=== PATIENT | female | born 1990 | race Caucasian/White ===

== ENCOUNTER 2018-07-20 18:10 | Emergency (ER) | payer OTHER ==
--- OUTSIDE RECORDS SUMMARY | 2018-07-20 18:12 | XMS REPORT | Clinical Summary ---
:1990 Author Organization [facility] Address [address] [place] [address] Care Team Providers Name Role Phone Tramaine Gaspar Primary Care Provider Allergies Active Allergy Reactions Severity Noted Date Comments Metformin Other (See Comments) 08/17/2017 BS drop to the 40's Medications Medication Sig Dispensed Refills Start Date End Date Status estradiol Inject intramuscularly 0 Active cypionate every 28 days. (DEPO-ESTRADIOL) 5 mg/mL injection Active Problems Not on file Encounters Date Type Specialty Care Team Description 08/18/2017 Surgery Pedro Huddleston COLONOSCOPY MD 08/18/2017 Anesthesia Event Morelia Coles MD 08/18/2017 Hospital Encounter Pedro Huddleston MD 08/17/2017 Hospital Encounter Pre-Admission Testing Resource, [employer] Preadmit Phone after 07/19/2017 Social History Tobacco Use Types Packs/Day Years Used Date Current Every Day Smoker 0.25 15 Smokeless Tobacco: Never Used Tobacco Cessation: Counseling Given: Yes Alcohol Use Drinks/Week oz/Week Comments No Sex Assigned at Date Recorded Not on file Job Start Date Occupation Industry Not on file Not on file Not on file Travel History Travel Start Travel End No recent travel history available. Last Filed Vital Signs Vital Sign Reading Time Taken Blood Pressure 119/70 08/18/2017 4:05 PM [employer] Pulse 89 08/18/2017 4:05 PM [employer] Temperature 36.5 C (97.7 F) 08/18/2017 3:36 PM [employer] Respiratory Rate 19 08/18/2017 4:05 PM [employer] Oxygen Saturation 97% 08/18/2017 4:05 PM [employer] Inhaled Oxygen Concentration - - Weight 77.1 kg (170 lb) 08/17/2017 4:36 PM [employer] Height 157.5 cm (5' 2") 08/17/2017 4:36 PM [employer] Body Mass Index 31.09 08/17/2017 4:36 PM [employer] Plan of Treatment Not on file Procedures Procedure Name Priority Date/Time Associated Comments Diagnosis REPORT OF PROCEDURE - 08/18/2017 3:34 ENDOSCOPY URL PM [employer] COLONOSCOPY 08/18/2017 3:30 LLQ pain PM [employer] POCT , URINE Routine 08/18/2017 3:17 Results for this PM [employer] procedure are in the results section. POCT-GLUCOSE METER Routine 08/18/2017 2:59 Results for this PM [employer] procedure are in the results section. 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
--- OUTSIDE RECORDS SUMMARY | 2018-07-20 18:12 | XMS REPORT | Encounter Summary ---
:1990 Author Care Team Providers Name Role Phone Tramaine Gaspar MD Primary Care Provider [phone] Evens Arias MD Accounting Lecturer [phone] Svitlana Massey MD Front End Architect [phone] Kory East MD Hematology/Oncology [phone] Reason for Visit control Instructions 1. Contraception using injectable contraceptive medication Depo-Provera 150 mg/mL intramuscular suspension Discussion Note: None recorded.Patient educational handouts: No information available. Plan of Care Reminders Provider Appointments GUARDIAN AD LITEM/EST 10/03/2018 Tramaine Gaspar MD CPX 10:30AM Lab None recorded. Referral None recorded. Procedures None recorded. Surgeries None recorded. Imaging None recorded. Medications Name Start Date amitriptyline 25 mg tablet Take 1 tablet as needed by oral route at bedtime. amoxicillin 875 mg tablet Take 1 tablet every 12 hours by oral route for 10 days. cephalexin 500 mg capsule citalopram 10 mg tablet Take 1 tablet every day by oral route. clonazepam 0.5 mg tablet Take 1 tablet as needed by oral route in the evening. Depo-Provera 150 mg/mL intramuscular suspension Inject 1 mL every 3 months by intramuscular route. Injectafer 50 mg iron/mL intravenous solution Inject 750 mg every 2 weeks by intraven. route. naproxen 500 mg tablet Take 1 tablet twice a day by oral route as needed. phentermine 37.5 mg tablet Take 1 tablet every day by oral route in the morning. prednisone 20 mg tablet Take 2 tablets every day by oral route in the morning. Medications Administered Name Date Depo-Provera 150 mg/mL intramuscular suspension 7306-50-21V40:32:13 Inject 1 mL every 3 months by intramuscular route. Vitals None recorded. Lab Results None recorded. Allergies Code Code System Name Reaction Severity Status Onset 6803 RxNorm Metformin Nausea Active Problems Name Status Onset Date Source Anxiety Disorder Active 07/15/2017 Kidney Stone Active 07/15/2017 Chronic Low Back Pain Active 07/15/2017 Polycystic Ovaries Active 08/12/2017 Irritable Bowel Syndrome Active 08/12/2017 Scoliosis Deformity of Spine Active 08/12/2017 Family History of Malignant Neoplasm of Uterus Active 08/12/2017 Insomnia Active 09/01/2017 Increased Cancer Antigen 125 Active 09/01/2017 Iron Deficiency Anemia Active 2018 Overweight Active 03/08/2018 Smoker Active 04/13/2018 Procedures Date Name Performed by 08/18/2017 Colonoscopy Information not available Tooth Root Removal Information not available Vaccine List Vaccine Type influenza, injectable, quadrivalent, preservative free 03/08/2018 Tdap 08/13/20170.5 mL Social History Smoking Status Heavy Tobacco Smoker (1/2 PPD) Past Encounters 07/10/2018 Contraception Using Injectable Contraceptive Medication Amy Elena MD: [address], [address], [place] [address], Ph. History of Present Illness None recorded. Review of Systems None recorded. Physical Exam None recorded.
--- OUTSIDE RECORDS SUMMARY | 2018-07-20 18:12 | XMS REPORT ---
:1990 Author Organization [facility] Address [address] [place] [address] Dr. Raymond [address] [place] [address] Care Team Providers Name Role Phone DEE GUARDADOPESYordy LEONEU Unavailable Unavailable Problems This patient has no known problems. Allergies, Adverse Reactions, Alerts This patient has no known allergies or adverse reactions. Medications This patient has no known medications. Results Test Description Test Time Test Comments Text Results Atomic Results Result Comments POCT-GLUCOSE METER 2017-08-18 15:05:00 Test Item Value Reference Range Comments POC-GLUCOSE METER (ANN) (test 84 mg/dL 70-110 TESTED AT [facility] [address] [id number]) [facility] [id number]
--- OUTSIDE RECORDS SUMMARY | 2018-07-20 18:12 | XMS REPORT ---
:1990 Author Care Team Providers Name Role Phone KEV GASPAR MD Primary Care Provider [phone] SANJAY MA MD Client Manager [phone] MOON APONTE MD Stock Room Manager [phone] Allergies Code Code System Name Reaction Severity Status Onset 4102 RxNorm Metformin Nausea Active Medications Name Status Start Date Stop Date acetaminophen 300 mg-codeine 30 mg tablet Completed 07/15/2017 amitriptyline 25 mg tablet Active Not available Take 1 tablet as needed by oral route at bedtime. amitriptyline 50 mg tablet Completed 09/19/2017 Take 1 tablet as needed by oral route at bedtime. baclofen 20 mg tablet Active Not available Take 1 tablet as needed by oral route in the evening. prn spasm Depo-Provera 150 mg/mL intramuscular suspension Active Not available Inject 1 mL every 3 months by intramuscular route. famotidine 20 mg tablet Completed 08/12/2017 ibuprofen 800 mg tablet Completed 08/12/2017 methylprednisolone 4 mg tablets in a dose Completed 08/12/2017 pack metronidazole 500 mg tablet Completed 07/15/2017 naproxen 500 mg tablet Active Not available Take 1 tablet twice a day by oral route. Suprep Bowel Prep Kit 17.5 gram-3.13 Completed 09/01/2017 gram-1.6 gram oral solution tamsulosin 0.4 mg capsule Completed 08/12/2017 Problems Name Status Onset Date Source Diabetes Mellitus Unknown 07/15/2017 Body Mass Index 25-29 - Overweight Active 07/15/2017 Anxiety Disorder Active 07/15/2017 Kidney Stone Active 07/15/2017 Chronic Low Back Pain Active 07/15/2017 Polycystic Ovaries Active 08/12/2017 Irritable Bowel Syndrome Active 08/12/2017 Scoliosis Deformity of Spine Active 08/12/2017 Family History of Malignant Neoplasm of Uterus Active 08/12/2017 Insomnia Active 09/01/2017 Increased Cancer Antigen 125 Active 09/01/2017 Procedures Date Name Performed by 08/18/2017 Colonoscopy Information not available Tooth Root Removal Information not available Notes: Patient indicated no previous surgeries on (09/01/2017) Lab Results Date Name Specimen Result Interpretation Description Value Range Status Address 08/13/2017 Albumin:creatinine No observation [facility]: Ratio, Urine recorded. [address], [place] 08/13/2017 Urinalysis, Color Color yellow [facility]: Dipstick [address], [place] Color cloudy [facility]: Appearance [address], [place] Color Glucose 500 [facility]: [address], [place] Color negati [facility]: Bilirubin ve [address], [place] Color Ketones negati [facility]: ve [address], [place] Color 1.025 [facility]: Specific [address], [place] Color Blood negati [facility]: ve [address], [place] Color PH 5.0 [facility]: [address] [place] Color Protein negati [facility]: ve [address], [place] Color 0.2 [facility]: Urobilinogen [address], [place] Color negati [facility]: Nitrites ve [address], [place] Color trace [facility]: Leukocytes [address], [place] 08/12/2017 CMP, Serum or Normal Glucose 70 65-99 Final [facility] Plasma mg/dL mg/dL Practice Laboratory: [address] [facility] [address], [place] Normal Urea Nitrogen 10 7-25 Final [facility] (BUN) mg/dL mg/dL Practice Laboratory: [address] [facility] [address], [place] Normal Creatinine 0.80 0.50-1 Final [facility] mg/dL .10 Practice mg/dL Laboratory: [address] [facility] [address], [place] Normal eGFR Non-afr. 101 > Final [facility] Moldovan mL/min or=60 Practice /1.73m mL/min Laboratory: 2 /1.73m [address] [place] [address] [address], [place] Normal eGFR 117 > Final [facility] Moldovan mL/min or=60 Practice /1.73m mL/min Laboratory: 2 /1.73m [address] [place] [address] [address], [place] BUN/creatinin not 6-22 Final [facility] e Ratio applic (calc) Practice able Laboratory: (calc) [address] [place] Normal Sodium 140 135-14 Final [facility] mmol/L 6 Practice mmol/L Laboratory: [address], [place] Normal Potassium 4.2 3.5-5. Final [facility] mmol/L 3 Practice mmol/L Laboratory: [address] [place] Normal Chloride 110 98-110 Final [facility] mmol/L mmol/L Practice Laboratory: [address], [place] 13 20-31 Final [facility] Dioxide mmol/L mmol/L [facility] [address] [facility] Calcium 9.6 8.6-10 Final [facility] mg/dL .2 Practice mg/dL Laboratory: [address] [place] Normal Protein, 7.4 6.1-8. Final [facility] Total g/dL 1 g/dL [facility] [address] [facility] Albumin 4.2 3.6-5. Final [facility] g/dL 1 g/dL Practice Laboratory: [address] [place] Normal Globulin 3.2 1.9-3. Final [facility] g/dL 7 g/dL Practice (calc) (calc) Laboratory: [address] [place] Normal Albumin/globu 1.3 1.0-2. Final [facility] eric Ratio (calc) 5 Practice (calc) Laboratory: [address] [place] Normal Bilirubin, 0.5 0.2-1. Final [facility] Total mg/dL 2 Practice mg/dL Laboratory: [address] [facility] Alkaline 77 U/L 33-115 Final [facility] Phosphatase U/L Practice [facility]: [address] [facility] Normal Ast 18 U/L 10-30 Final [facility] U/L Practice [facility]: [address] [facility] Alt 17 U/L 6-29 Final [facility] U/L Practice Laboratory: [address] [place] 08/12/2017 CBC W/ Auto Diff Normal White Blood 9.3 3.8-10 Final [facility] Cell Count thousa .8 Practice nd/uL thousa Laboratory: nd/uL [address] Normal Red Blood 4.83 3.80-5 Final [facility] Cell Count millio .10 Practice n/uL millio Laboratory: n/uL [address] Low Hemoglobin 11.6 11.7-1 Final [facility] g/dL 5.5 Practice g/dL Laboratory: [address] Normal Hematocrit 37.2 % 35.0-4 Final [facility] 5.0 % Practice Laboratory: [address] Low Mcv 77.0 80.0-1 Final [facility] fL 00.0 Practice fL Laboratory: [address], [place] Low Mch 24.0 27.0-3 Final [facility] pg 3.0 pg Practice Laboratory: [address], [place] Low Mchc 31.2 32.0-3 Final [facility] g/dL 6.0 Practice g/dL Laboratory: [address] 15.6 % 11.0-1 Final [facility] 5.0 % Practice Laboratory: [address] Normal Platelet 373 140-40 Final [facility] Count thousa 0 Practice nd/uL thousa Laboratory: nd/uL [address] Normal Mpv 10.4 7.5-12 Final [facility] fL .5 fL Practice Laboratory: [address] Normal Absolute 5729 1500-7 Final [facility] Neutrophils cells/ 800 Practice uL cells/ Laboratory: uL [address] Normal Absolute 3032 850-39 Final [facility] Lymphocytes cells/ 00 Practice uL cells/ Laboratory: uL [address] Normal Absolute 400 200-95 Final [facility] Monocytes cells/ 0 Practice uL cells/ Laboratory: uL [address] Normal Absolute 93 15-500 Final [facility] Eosinophils cells/ cells/ Practice uL uL Laboratory: [address] Normal Absolute 47 0-200 Final [facility] Basophils cells/ cells/ Practice uL uL Laboratory: [address] Normal Neutrophils 61.6 % Final [facility] Practice Laboratory: [address] Normal Lymphocytes 32.6 % Final [facility] Practice Laboratory: [address], [place] Normal Monocytes 4.3 % Final [facility] Practice Laboratory: [address] Normal Eosinophils 1.0 % Final [facility] Practice Laboratory: [address] Normal Basophils 0.5 % Final [facility] Practice Laboratory: [address], [place] 08/12/2017 HbA1C (Hemoglobin High Hemoglobin 5.8 % <5.7 % Final [facility] a1C), Blood a1C of of Practice total total Laboratory: HGB HGB [address] EAG (mg/dL) 120 Final [facility] (calc) Practice Laboratory: [address] EAG (mmol/L) 6.6 Final [facility] (calc) Practice Laboratory: [address] 08/12/2017 TSH, Serum or Normal Tsh 1.93 Final [facility] Plasma mIU/L Practice Laboratory: [address] 08/12/2017 Lipid Panel, Serum Normal Cholesterol, 182 <200 Final [facility] Total mg/dL mg/dL Practice Laboratory: [address] Low HDL 32 >50 Final [facility] Cholesterol mg/dL mg/dL Practice Laboratory: [address] Normal Triglycerides 128 <150 Final [facility] mg/dL mg/dL Practice Laboratory: [address] High LDL-cholester 126 Final [facility] ol mg/dL Practice (calc) Laboratory: [address] High Chol/hdlc 5.7 <5.0 Final [facility] Ratio (calc) (calc) Practice Laboratory: [address] High Non HDL 150 <130 Final [facility] Cholesterol mg/dL mg/dL Practice (calc) (calc) Laboratory: [address] 08/12/2017 Ca 125, Serum High Ca 125 53 <35 Final [facility] U/mL U/mL Practice Laboratory: [address] Past Encounters 09/19/2017 Dysmenorrhea; Insomnia Kev Gaspar MD: [address], [facility] [address], [place] [address], Ph. 09/01/2017 Fatigue; Insomnia; Increased Cancer Antigen 125; Kidney Stone; Body Mass Index 25-29 - Overweight Kev Gaspar MD: [address], [address], [place] [address], Ph. [phone] 08/12/2017 Adult Health Examination; Immunization; Diabetes Mellitus; Family History of Malignant Neoplasm of Uterus; Smoker Amy Elena MD: [address], [address], [place] [address], Ph. 07/15/2017 Abdominal Pain; Kidney Stone; Body Mass Index 25-29 - Overweight Kev Gaspar MD: [address], [address], [place] [address], Ph. [phone] Social History Smoking Status Heavy Tobacco Smoker (1/2 PPD) Vaccine List Vaccine Type Tdap 08/13/20170.5 mL Notes: Flu vax - declined Plan of Care Patient Instructions RTC prn Pt may switch to us for Depo shot. Rec.bring copy of PAp results. RTC prn labs ordered today- results should be back within the the next 7 days- check the patient portal skim milk, fresh fruits/veggies for snacks take a daily multivitamin drink 6-8 glasses of water daily (no more than 2 soda per day, drink extra glass of water after each caffeinated drink). eat 4-5x per day- breakfast, lunch, dinner, healthy snacks I recommend starting/continuing a regular exercise program. Physical activity that raises your heart rate to the appropriate levels sustained for at least 45 minutes most days of the week is recommended. Stop/reduce smoking to decrease your risks of multiple cancers and lung disorders RTC CPX, DM w/ Dr. Elena Reminders Provider Appointments None recorded. Lab None recorded. Referral None recorded. Procedures None recorded. Surgeries None recorded. Imaging None recorded. Vitals 09/19/2017 10:15AM Work In Same Day Height Weight Blood Pressure 5 ft 7 in 122/76 mm[Hg] 09/01/2017 02:45PM Est Patient Height Weight BMI Blood Pressure 5 ft 7 in 173 lbs 27.1 kg/m2 142/88 mm[Hg] 08/12/2017 10:00AM BUTCHER/EST CPX Height Weight BMI Blood Pressure 5 ft 7 in 173.6 lbs 27.2 kg/m2 110/80 mm[Hg] 07/15/2017 11:15AM New Patient Height Weight BMI Blood Pressure 5 ft 7 in 170 lbs 26.6 kg/m2 126/80 mm[Hg]
[2018-07-20] MEDS ORDERED: KETOROLAC 30 MG/ML INJ ONE (21:00)
[2018-07-20 21:32] LABS: Absolute Lymphocytes (CBC) 3.8 K/uL (0.7-4.9); Absolute Monocytes 0.8 K/uL (0.1-1.3); Basophils % 0.7 % (0-1.3); Eosinophils % 1.6 % (0-4.4); Hematocrit 42.6 % (36.0-45.0); Lymphocytes % 38.9 % (15.3-44.8); MPV 8.2 fL (7.6-11.3); Monocytes % 7.8 % (3.3-12.3)
[2018-07-20 21:38] LABS: Urine Blood TRACE (NEG); Urine Glucose NEGATIVE (NEG); Urine Protein NEGATIVE (NEG)
[2018-07-20 21:42] LABS: Urine Amorphous Sediment 1+ /HPF (NONE SEEN); Urine Bacteria >50 /HPF (<20); Urine Culture Reflex Order REFLEXED; Urine RBC NONE SEEN /HPF (NONE SEEN)
[2018-07-20] MEDS ORDERED: CEFTRIAXONE/SWI 1gm 1 GM/10 ML SYR ONE (21:47)
[2018-07-20 21:52] LABS: Albumin 3.6 g/dL (3.4-5.0); Bilirubin Total 0.2 mg/dL (0.2-1.0); Potassium 3.7 mmol/L (3.5-5.1); Protein, Total 7.7 g/dL (6.4-8.2)
--- NOTE | 2018-07-20 22:28 | ER ---
Nurse's Notes [facility] Name: Debbie Rojo Age: 28 yrs Sex: Female : 1990 Arrival Date: 07/20/2018 Time: 18:15 Bed 14 Private MD: out of town, doctor Diagnosis: Low back pain;Strain of muscle and tendon of back wall of thorax;Cystitis;Scoliosis-s- shaped Presentation: 07/20 18:21 Presenting complaint: Patient states: i have a back pain and and i noticed rash on my hj back since this morning; reports radiating pain on the groin area; states hx of kidney stones and herniated disc;. Transition of care: patient was not received from another setting of care. Onset of symptoms was July 20, 2018. Risk Assessment: Do you want to hurt yourself or someone else? Patient reports no desire to harm self or others. Initial Sepsis Screen: Does the patient meet any 2 criteria? No. Patient's initial sepsis screen is negative. Does the patient have a suspected source of infection? No. Patient's initial sepsis screen is negative. Care prior to arrival: None. 18:21 Method Of Arrival: Ambulatory 18:21 Acuity: PATTI 3 Triage Assessment: 18:24 General: Appears in no apparent distress. uncomfortable, Behavior is calm, cooperative, hj appropriate for age. Pain: Complains of pain in back. Musculoskeletal: Circulation, motion, and sensation intact. 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 - Social history:: Smoking status: Patient uses tobacco products, Patient/guardian denies using alcohol. - Ebola Screening: : Patient negative for fever greater than or equal to 101.5 degrees Fahrenheit, and additional compatible Ebola Virus Disease symptoms Patient denies exposure to infectious person Patient denies travel to an Ebola-affected area in the 21 days before illness onset. - Family history:: not pertinent, pertinent for. Screenin:24 Abuse screen: Denies threats or abuse. Denies injuries from another. Nutritional hj screening: No deficits noted. Tuberculosis screening: No symptoms or risk factors identified. Fall Risk None identified. Assessment: 20:00 General: Appears in no apparent distress. uncomfortable, Behavior is calm, cooperative, rr5 appropriate for age. Pain: Complains of pain in back Pain radiates to groin Pain Quality of pain is described as aching, Pain began gradually, Is intermittent, Aggravated by increased activity. Neuro: Level of Consciousness is awake, alert, obeys commands, Oriented to person, place, time, situation, Appropriate for age. Cardiovascular: Capillary refill < 3 seconds Patient's skin is warm and dry. Respiratory: Airway is patent Respiratory pattern is regular, symmetrical. GI: No signs and/or symptoms were reported involving the gastrointestinal system. : No signs and/or symptoms were reported regarding the genitourinary system. EENT: No signs and/or symptoms were reported regarding the EENT system. Derm: Reports rashes at the back. Musculoskeletal: Capillary refill < 3 seconds, Range of motion: intact in all extremities, Reports pain in back. 21:00 Reassessment: Patient appears in no apparent distress at this time. No changes from rr5 previously documented assessment. Patient is alert, oriented x 3, equal unlabored respirations, skin warm/dry/pink. 22:10 Reassessment: Patient appears in no apparent distress at this time. Patient and/or rr5 family updated on plan of care and expected duration. Pain level reassessed. Patient is alert, oriented x 3, equal unlabored respirations, skin warm/dry/pink. awaiting for CT report. 23:14 Reassessment: Patient appears in no apparent distress at this time. Patient is alert, rr5 oriented x 3, equal unlabored respirations, skin warm/dry/pink. discharge instruction given and explained without complaints made. Patient states feeling better. Patient states symptoms have improved. Vital Signs: 18:24 BP 128 / 88; Pulse 92; Resp 18; Temp 97.6(TE); Pulse Ox 100% on R/A; Weight 77.11 kg; hj Height 5 ft. 2 in. (157.48 cm); Pain 7/10; 21:45 BP 144 / 90; Pulse 91; Resp 18; Pulse Ox 99% on R/A; mt 22:28 BP 131 / 86; Pulse 83; Resp 16; Pulse Ox 100% on R/A; mt 23:00 BP 130 / 75; Pulse 80; Resp 17; Pulse Ox 99% ; rr5 18:24 Body Mass Index 31.09 (77.11 kg, 157.48 cm) hj ED Course: 18:15 Patient arrived in ED. mr 18:15 out of town, doctor is Private Physician. mr 18:23 Triage completed. hj 18:24 Arm band placed on right wrist. hj 18:25 Patient has correct armband on for positive identification. Placed in gown. Bed in low hj position. Call light in reach. Side rails up X 1. 20:04 Nguyễn Gutierrez MD is Attending Physician. stephon 20:34 Radiology exam delayed due to lab results not completed at this time. (BUN/Creatinine) vm2 test not completed at this time. 20:47 Manoj Walker, COURTNEY is Primary Nurse. rr5 21:05 Radiology exam delayed due to lab results not completed at this time. (BUN/Creatinine). jj2 21:20 Inserted saline lock: 22 gauge in left hand, using aseptic technique. rr5 21:22 Radiology exam delayed due to lab results not completed at this time. (BUN/Creatinine). vm2 21:[address] via wheelchair. vm2 21:49 Inserted saline lock: 20 gauge in right antecubital area, using aseptic technique. bb 22:05 CT completed. Patient tolerated procedure well. Patient moved back from CT. vm2 22:13 CT Chest, Abdomen, Pelvis - W/Contrast: trauma. iv only In Process Unspecified. EDMS 23:10 No provider procedures requiring assistance completed. IV discontinued, intact, rr5 bleeding controlled, No redness/swelling at site. Pressure dressing applied. Administered Medications: 21:20 Drug: TORadol 30 mg Route: IVP; Site: left hand; cc3 23:10 Follow up: Response: No adverse reaction rr5 21:48 Drug: Rocephin - (cefTRIAXone) 1 grams {Note: per pharmacy protocol .} Route: IVPB; bb Infused Over: 30 mins; Site: left hand; 22:42 Drug: Cipro 500 mg Route: PO; rr5 23:10 Follow up: Response: No adverse reaction rr5 Outcome: 22:28 Discharge ordered by . stephon 23:12 Discharged to home ambulatory, with family. rr5 23:12 Condition: stable rr5 23:12 Discharge instructions given to patient, Instructed on discharge instructions, follow up and referral plans. Demonstrated understanding of instructions, follow-up care, medications, Prescriptions given X 4. 23:14 Patient left the ED. rr5 Signatures: Dispatcher [employer] EDNguyễn Tomlinson MD MD cha Rivera, Mary mr Meneses, Mike jj2 Yudith Lozada RN RN Richie Gaspar RN RN Ankita Cardenas [facility] Noreen Go mt, Charlene 3 Manoj Walker RN RN rr5 Corrections: (The following items were deleted from the chart) 18:26 18:24 Pulse 92bpm; Resp 18bpm; Pulse Ox 100% RA; Temp 97.6F Temporal; 77.11 kg; Height hj 5 ft. 2 in.; BMI: 31.0; Pain 7/10; hj
--- NOTE | 2018-07-20 22:28 | EDPHYS ---
Physician Documentation [facility] Name: Debbie Rojo Age: 28 yrs Sex: Female : 1990 Arrival Date: 07/20/2018 Time: 18:15 Bed 14 Private MD: out of town, doctor ED Physician Nguyễn Gutierrez HPI: 07/20 20:25 This 28 yrs old Female presents to ER via Ambulatory with complaints of Back stephon Pain. 20:25 The patient presents with pain that is acute, and decreased range of motion. The stephon symptoms are located in the thoracic area and lumbar area. Onset: The symptoms/episode began/occurred 2 day(s) ago. The pain does not radiate. Associated signs and symptoms: The patient has no apparent associated signs or symptoms. The problem was sustained when bending over, when lifting from twisting. Severity of symptoms: At their worst the symptoms were mild, moderate, in the emergency department the symptoms are unchanged. 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 - Social history:: Smoking status: Patient uses tobacco products, Patient/guardian denies using alcohol. - Ebola Screening: : Patient negative for fever greater than or equal to 101.5 degrees Fahrenheit, and additional compatible Ebola Virus Disease symptoms Patient denies exposure to infectious person Patient denies travel to an Ebola-affected area in the 21 days before illness onset. - Family history:: not pertinent, pertinent for. ROS: 20:25 Constitutional: Negative for fever, chills, and weight loss, Eyes: Negative for injury, stephon pain, redness, and discharge, ENT: Negative for injury, pain, and discharge, Neck: Negative for injury, pain, and swelling, Cardiovascular: Negative for chest pain, palpitations, and edema, Respiratory: Negative for shortness of breath, cough, wheezing, and pleuritic chest pain, Abdomen/GI: Negative for abdominal pain, nausea, vomiting, diarrhea, and constipation, : Negative for injury, bleeding, discharge, and swelling, MS/Extremity: Negative for injury and deformity, Skin: Negative for injury, rash, and discoloration, Neuro: Negative for headache, weakness, numbness, tingling, and seizure, Psych: Negative for depression, anxiety, suicide ideation, homicidal ideation, and hallucinations, Allergy/Immunology: Negative for hives, rash, and allergies, Endocrine: Negative for neck swelling, polydipsia, polyuria, polyphagia, and marked weight changes, Hematologic/Lymphatic: Negative for swollen nodes, abnormal bleeding, and unusual bruising. 20:25 Back: Positive for decreased range of motion, pain with movement, of the thoracic area and lumbar area. Exam: 20:25 Constitutional: This is a well developed, well nourished patient who is awake, alert, stephon and in no acute distress. Head/Face: Normocephalic, atraumatic. Eyes: Pupils equal round and reactive to light, extra-ocular motions intact. Lids and lashes normal. Conjunctiva and sclera are non-icteric and not injected. Cornea within normal limits. Periorbital areas with no swelling, redness, or edema. ENT: Nares patent. No nasal discharge, no septal abnormalities noted. Tympanic membranes are normal and external auditory canals are clear. Oropharynx with no redness, swelling, or masses, exudates, or evidence of obstruction, uvula midline. Mucous membranes moist. Neck: Trachea midline, no thyromegaly or masses palpated, and no cervical lymphadenopathy. Supple, full range of motion without nuchal rigidity, or vertebral point tenderness. No Meningismus. Chest/axilla: Normal chest wall appearance and motion. Nontender with no deformity. No lesions are appreciated. Cardiovascular: Regular rate and rhythm with a normal S1 and S2. No gallops, murmurs, or rubs. Normal PMI, no JVD. No pulse deficits. Respiratory: Lungs have equal breath sounds bilaterally, clear to auscultation and percussion. No rales, rhonchi or wheezes noted. No increased work of breathing, no retractions or nasal flaring. Abdomen/GI: Soft, non-tender, with normal bowel sounds. No distension or tympany. No guarding or rebound. No evidence of tenderness throughout. Back: No spinal tenderness. No costovertebral tenderness. Full range of motion. Skin: Warm, dry with normal turgor. Normal color with no rashes, no lesions, and no evidence of cellulitis. MS/ Extremity: Pulses equal, no cyanosis. Neurovascular intact. Full, normal range of motion. Neuro: Awake and alert, GCS 15, oriented to person, place, time, and situation. Cranial nerves II-XII grossly intact. Motor strength 5/5 in all extremities. Sensory grossly intact. Cerebellar exam normal. Normal gait. Psych: Awake, alert, with orientation to person, place and time. Behavior, mood, and affect are within normal limits. Vital Signs: 18:24 BP 128 / 88; Pulse 92; Resp 18; Temp 97.6(TE); Pulse Ox 100% on R/A; Weight 77.11 kg; hj Height 5 ft. 2 in. (157.48 cm); Pain 7/10; 21:45 BP 144 / 90; Pulse 91; Resp 18; Pulse Ox 99% on R/A; mt 22:28 BP 131 / 86; Pulse 83; Resp 16; Pulse Ox 100% on R/A; mt 23:00 BP 130 / 75; Pulse 80; Resp 17; Pulse Ox 99% ; rr5 18:24 Body Mass Index 31.09 (77.11 kg, 157.48 cm) MDM: 20:04 Patient medically screened. [facility] 20:27 Data reviewed: vital signs, nurses notes, lab test result(s), radiologic studies. [facility] 07/20 18:50 Order name: Urine Microscopic Only; Complete Time: 21:55 on license of [facility] 07/20 20:25 Order name: CBC with Diff; Complete Time: 21:40 [facility] 07/20 20:25 Order name: Comprehensive Metabolic Panel; Complete Time: 21:55 [facility] 07/20 21:13 Order name: Urine Dipstick--Ancillary (enter results); Complete Time: 21:40 [facility] 07/20 21:13 Order name: Urine --Ancillary (enter results); Complete Time: 21:40 [facility] 07/20 18:50 Order name: Urine Test (obtain specimen); Complete Time: 21:09 on license of [facility] 07/20 18:50 Order name: Urine Dipstick-Ancillary (obtain specimen); Complete Time: 21:09 on license of [facility] 07/20 20:25 Order name: CT Chest, Abdomen, Pelvis - W/Contrast: trauma. iv only stephon Administered Medications: 21:20 Drug: TORadol 30 mg Route: IVP; Site: left hand; cc3 23:10 Follow up: Response: No adverse reaction rr5 21:48 Drug: Rocephin - (cefTRIAXone) 1 grams {Note: per pharmacy protocol .} Route: IVPB; bb Infused Over: 30 mins; Site: left hand; 22:42 Drug: Cipro 500 mg Route: PO; rr5 23:10 Follow up: Response: No adverse reaction rr5 Disposition: 07/20/18 22:28 Discharged to Home. Impression: Low back pain, Strain of muscle and tendon of back wall of thorax, Cystitis, Scoliosis - s- shaped. - Condition is Stable. - Discharge Instructions: Back Pain, Adult, Musculoskeletal Pain, Back Injury Prevention, Dwqc-kh-Szco, Urinary Tract Infection, Adult, Iwbi-sk-Uypr, Back Pain, Adult, Abvx-bj-Vljg, Back Exercises, Qjkn-ep-Uydu. - Prescriptions for Ibuprofen 600 mg Oral Tablet - take 1 tablet by ORAL route every 8 hours As needed take with food; 21 tablet. Skelaxin 800 mg Oral Tablet - take 1 tablet by ORAL route every 6 hours As needed; 40 tablet. Tylenol- Codeine #3 300-30 mg Oral Tablet - take 2 tablet by ORAL route every 6 hours As needed; 30 tablet. Cipro 500 mg Oral Tablet - take 1 tablet by ORAL route every 12 hours for 7 days; 14 tablet. - Medication Reconciliation Form, Thank You Letter, Antibiotic Education, Prescription Opioid Use, Work release form form. - Follow up: Private Physician; When: 2 - 3 days; Reason: Recheck today's complaints, Continuance of care, Re-evaluation by your physician. - Problem is new. - Symptoms have improved. Signatures: Dispatcher [employer] EDMS Nguyễn Gutierrez MD MD cha Therrien, Shelly, DATABASE SPECIALIST-C DATABASE SPECIALIST-Gabw Yudith Lozada RN RN bb Richie Denney RN RN hj Cordel, Charlene cc3 Manoj Walker, RN RN rr5 Corrections: (The following items were deleted from the chart) 22:35 22:28 07/20/2018 22:28 Discharged to Home. Impression: Low back pain; Strain of muscle stephon and tendon of back wall of thorax; Cystitis. Condition is Stable. Discharge Instructions: Back Pain, Adult, Musculoskeletal Pain, Back Injury Prevention, Liar-vf-Oaov, Back Pain, Adult, Vnhm-mo-Mphe, Back Exercises, Kowk-jl-Wypc, Urinary Tract Infection, Adult, Sttt-yf-Zasv. Prescriptions for Ibuprofen 600 mg Oral Tablet - take 1 tablet by ORAL route every 8 hours As needed take with food; 21 tablet, Skelaxin 800 mg Oral Tablet - take 1 tablet by ORAL route every 6 hours As needed; 40 tablet, Tylenol-Codeine #3 300-30 mg Oral Tablet - take 2 tablet by ORAL route every 6 hours As needed; 30 tablet, Cipro 500 mg Oral Tablet - take 1 tablet by ORAL route every 12 hours for 7 days; 14 tablet. and Forms are Medication Reconciliation Form, Thank You Letter, Antibiotic Education, Prescription Opioid Use. Follow up: Private Physician; When: 2 - 3 days; Reason: Recheck today's complaints, Continuance of care, Re-evaluation by your physician. Problem is new. Symptoms have improved. stephon 23:14 22:35 07/20/2018 22:28 Discharged to Home. Impression: Low back pain; Strain of muscle rr5 and tendon of back wall of thorax; Cystitis; Scoliosis - s- shaped. Condition is Stable. Discharge Instructions: Back Pain, Adult, Musculoskeletal Pain, Back Injury Prevention, Ycuk-nm-Xqwb, Back Pain, Adult, Yuxl-am-Uttd, Back Exercises, Owcy-ny-Llnu, Urinary Tract Infection, Adult, Pstt-lp-Inlq. Prescriptions for Ibuprofen 600 mg Oral Tablet - take 1 tablet by ORAL route every 8 hours As needed take with food; 21 tablet, Skelaxin 800 mg Oral Tablet - take 1 tablet by ORAL route every 6 hours As needed; 40 tablet, Tylenol-Codeine #3 300-30 mg Oral Tablet - take 2 tablet by ORAL route every 6 hours As needed; 30 tablet, Cipro 500 mg Oral Tablet - take 1 tablet by ORAL route every 12 hours for 7 days; 14 tablet. and Forms are Medication Reconciliation Form, Thank You Letter, Antibiotic Education, Prescription Opioid Use. Follow up: Private Physician; When: 2 - 3 days; Reason: Recheck today's complaints, Continuance of care, Re-evaluation by your physician. Problem is new. Symptoms have improved. stephon
[2018-07-20] MEDS ORDERED: CIPROFLOXACIN HCL 500 MG TAB ONE (22:48)
--- NOTE | 2018-07-21 15:30 | RAD REPORT ---
EXAM DESCRIPTION: CT - Chest Abdomen Pelvis W Cont - 07/20/2018 10:32 pm CLINICAL HISTORY: CT Chest With Intravenous Contrast. CT Abdomen and Pelvis With Intravenous Contrast TECHNIQUE: Axial computed tomography images of the chest, abdomen and pelvis with intravenous contra st. Sagittal and coronal reformatted images were created and reviewed. This CT exam was performed usi ng one or more of the following dose reduction techniques: Automated exposure control, adjustment of the mA and/or kV according to patient size, and/or use of iterative reconstruction technique. COMPARISON: None. FINDINGS: LUNG BASES: CHEST: LUNGS: Unremarkable. No mass. No consolidation. PLEURAL SPACE: No focal consolidation, pleural effusion or pneumothorax. HEART: The heart is normal in size. MEDIASTINUM: Mediastinum is within normal limits. THYROID: Visualized thyroid is within normal limits. ABDOMEN: LIVER: Diffuse decreased attenuation of the liver parenchyma. GALLBLADDER AND BILE DUCTS: Contracted gallbladder. PANCREAS: Unremarkable. No ductal dilation. No mass. SPLEEN: Unremarkable. No splenomegaly. ADRENALS: Unremarkable. No mass. KIDNEYS AND URETERS:Non obstructive right renal stone in the inferior pole. No hydronephrosis or hydr oureter. No solid mass. STOMACH AND BOWEL: Unremarkable. No obstruction. No mucosal thickening. PELVIS: APPENDIX: The appendix is seen and is within normal limits. BLADDER: Unremarkable. No mass. REPRODUCTIVE: Mild thickening of the lower uterine segment and evidence of right adnexal cystic ann es measuring up to 2.2 cm Tampon and small amount of gas are seen in the vaginal canal. CHEST, ABDOMEN and PELVIS: INTRAPERITONEAL SPACE: Unremarkable. No significant fluid collection. No free air, BONE/JOINTS: S shaped scoliosis of the visualized spine. No acute osseous abnormality. Bone mineraliz ation is normal. No dislocation. SOFT TISSUES: Unremarkable. VASCULATURE: Aorta and great vessels are unremarkable. LYMPH NODES: Unremarkable. No enlarged lymph nodes. IMPRESSION: 1. No acute intrathoracic, abdominal or pelvic abnormality. 2. Heterogenous lower uterine segment with 2.4 cm right adnexal cyst, likely physiologic. No follow-u p imaging is recommended Reference: US recommendations based on Radiology 2010 Sep;256(3);943-54; CT/ MR recommendations based on J Am Col Radiol 2013;10:675-681 3. Nonobstructive right renal stone. 4. Hepatic steatosis. 5. S shaped scoliosis. 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 The interpreting radiologist is f ully responsible for the content of the report.
== END 2018-07-20 23:14 | disposition home or self-care (01) ==
LOC: ER 18:10
DX: S29.012A Strain of muscle and tendon of back wall of thorax, initial encounter (principal); N30.90 Cystitis, unspecified without hematuria; M41.9 Scoliosis, unspecified; X50.9XXA Other and unspecified overexertion or strenuous movements or postures, initial encounter; Y93.89 Activity, other specified; Y92.9 Unspecified place or not applicable; Z72.0 Tobacco use; Z88.8 Allergy status to other drugs, medicaments and biological substances
CPT/HCPCS: 36415; 71260; 74177; 80053; 81003; 81015; 81025; 85025; 96374; 96375; 99284; J0696; Q9967

== ENCOUNTER 2019-07-15 11:35 | Emergency (ER) | payer OTHER ==
--- OUTSIDE RECORDS SUMMARY | 2019-07-15 11:37 | XMS REPORT ---
:1990 [facility] [address] [place] [address] [address] [place] [address] Care Team Providers Name Role Phone YUN GUARDADO Unavailable Unavailable Payers Payer Name Policy Type Policy Number Effective Date Expiration Date Problems This patient has no known problems. Allergies, Adverse Reactions, Alerts This patient has no known allergies or adverse reactions. Medications This patient has no known medications. Results Test Description Test Time Test Comments Text Results Atomic Results Result Comments POCT-GLUCOSE METER 2017-08-18 15:05:00 Test Item Value Reference Range Comments POC-GLUCOSE METER (ANN) (test 84 mg/dL 70-[address] [facility] [address] [id number]) [facility] [id number]
--- OUTSIDE RECORDS SUMMARY | 2019-07-15 11:39 | XMS REPORT | Encounter Summary ---
:1990 Author Care Team Providers Name Role Phone Dr. Amy Elena Primary Care Provider [phone] Tramaine Gaspar MD Primary Care Provider [phone] Evens Arias MD Freight [place] [phone] Svitlana Massey MD Buffer Copper [phone] Tay Gibbons DPM Milk Route Supervisor [phone] Kory East MD Hematology/Oncology [phone] Reason for Visit injection Instructions 1. Contraception using injectable contraceptive medication Depo-Provera 150 mg/mL intramuscular suspension test, urine Discussion Note: None recorded.Patient educational handouts: No information available. Plan of Care Reminders Provider Appointments None recorded. Lab [facility] - Test, Urine 07/06/2019 [facility] Referral None recorded. Procedures None recorded. Surgeries None recorded. Imaging None recorded. Medications Name Start Date citalopram 10 mg tablet Take 1 tablet every day by oral route. clonazepam 0.5 mg tablet Take 1 tablet as needed by oral route in the evening. Depo-Provera 150 mg/mL intramuscular suspension Inject 1 mL every 3 months by intramuscular route. ibuprofen 800 mg tablet Take 1 tablet 3 times a day by oral route as needed. omeprazole 40 mg capsule,delayed release TAKE 1 CAPSULE BY MOUTH EVERY DAY NEEDED Medications Administered Name Date Depo-Provera 150 mg/mL intramuscular suspension 4910-17-43G52:[id number]:47 Inject 1 mL every 3 months by intramuscular route. Vitals None recorded. Results Lab Results Date Name Specimen Result Interpretation Description Value Range Status Address Test, Hcg negative [facility] Urine [facility]: [address] Allergies Code Code System Name Reaction Severity Status Onset 0745 RxNorm Metformin Nausea Active Problems Name Status Onset Date Source Anxiety Disorder Active 07/15/2017 Kidney Stone Active 07/15/2017 Chronic Low Back Pain Active 07/15/2017 Irritable Bowel Syndrome Active 08/12/2017 Scoliosis Deformity of Spine Active 08/12/2017 Family History of Malignant Neoplasm of Uterus Active 08/12/2017 Polycystic Ovaries Active 08/12/2017 Insomnia Active 09/01/2017 Increased Cancer Antigen 125 Active 09/01/2017 Iron Deficiency Anemia Active 2018 Overweight Active 03/08/2018 Dyslipidemia Active 10/16/2018 Vitamin D Deficiency Active 03/02/2019 Gastroesophageal Reflux Disease without Active 03/05/2019 Esophagitis Procedures Date Name Performed by 08/18/2017 Colonoscopy Information not available Tooth Root Removal Information not available Vaccine List Vaccine Type influenza, injectable, quadrivalent, preservative free 03/08/2018 03/05/2019 Tdap 08/13/20170.5 mL Social History Tobacco Smoking Status Heavy Tobacco Smoker (1/2 PPD) Past Encounters 07/06/2019 Contraception Using Injectable Contraceptive Medication Tramaine Gaspar MD: [address] [facility], [address], [place] [address], Ph. [phone] History of Present Illness None recorded. Review of Systems None recorded. Physical Exam None recorded.
--- OUTSIDE RECORDS SUMMARY | 2019-07-15 11:39 | XMS REPORT | Encounter Summary ---
:1990 Author Care Team Providers Name Role Phone Dr. Amy Perez-Marly Primary Care Provider [phone] Tramaine Gaspar MD Primary Care Provider [phone] Evens Arias MD Wastewater Treatment Plant Operator [phone] Svitlana Massey MD Corporate Representative [phone] Tay Gibbons DPM Pharmacy Services Representative [phone] Kory East MD Hematology/Oncology [phone] Reason for Visit Left foot pain Instructions 1. Pain in left foot MRI, foot, w/o contrast - *PLEASE CALL PT TO SCHEDULE* Please obtain auth ibuprofen 800 mg tablet 2. Body mass index 30+ - obesity body mass index: care instructions learning about healthy weight Discussion Note: None recorded. Plan of Care Patient Instructions RTC prn Reminders Provider Appointments ADVENTURE GUIDE/EST CPX on or around Tramaine Gaspar , 10/02/2019 Lab None recorded. Referral None recorded. Procedures None recorded. Surgeries None recorded. Imaging MRI, Foot, 05/04/2019 [place] [facility] W/o Contrast [place] Medications Name Start Date citalopram 10 mg tablet Take 1 tablet every day by oral route. clonazepam 0.5 mg tablet Take 1 tablet as needed by oral route in the evening. ibuprofen 800 mg tablet Take 1 tablet 3 times a day by oral route as needed. medroxyprogesterone 150 mg/mL intramuscular suspension Inject 150 mg every 3 months by intramuscular route. omeprazole 40 mg capsule,delayed release TAKE 1 CAPSULE BY MOUTH EVERY DAY NEEDED Medications Administered None recorded. Vitals Height Weight BMI Blood Pressure 5 ft 3 in 172 lbs 30.5 kg/m2 110/70 mm[Hg] Results Lab Results Date Name Specimen Result Interpretation Description Value Range Status Address 04/06/2019 Hcg negative _[place]: Test, Urine [address] Allergies Code Code System Name Reaction Severity Status Onset 4184 RxNorm Metformin Nausea Active Problems Name Status [...] available Tooth Root Removal Information not available 05/04/2019 MRI, Foot, W/o Contrast [place] [facility] [address] [place] [address] [phone] (Work Place) Vaccine List Vaccine Type influenza, injectable, quadrivalent, preservative free 03/08/2018 03/05/2019 Tdap 08/13/20170.5 mL Social History Tobacco Smoking Status Heavy Tobacco Smoker (1/2 PPD) Past Encounters 05/04/2019 Pain in Left Foot; Body Mass Index 30+ - Obesity Tramaine Gaspar MD: [address] [place] [address], [address] [address], Ph. 04/06/2019 Contraception Using Injectable Contraceptive Medication Amy Elena MD: [address], [facility] [address], [place] [address], Ph. History of Present Illness Note: <div>Foot Pain - Lt. Saw Pod. Xray done but needs CT or MRI. Insurance is not approving. Mostly heel.</div><div>Shots is not helping.</div><div>Muscle relaxer doesnot help.</div><div& gt;[place] does help.</div><div>Hard to walk at times.</div>< div>Was in crutches last wk.</div><div>Rest helps but has to work.</div><div>Worst when active or working.</div><div> Getting worst.</div><div>x > 1 yr total.</div><div& gt;Pt orig hurt it when fell of stool.</div><div>
</div& gt;anxiety disorder - Stable. Taking meds. No problems with side effects or cost.
<div>clonazePAM 0.5 mg tablet
</div>< div>
</div><div>low back pain - Stable. Taking meds. No problems with side effects or cost. </div><div>baclofen 20 mg tablet
</div><div>
</div><div> gastroesophageal reflux disease without esophagitis - Stable. Taking meds. No problems with side effects or cost.
</div><div> omeprazole 40 mg capsule,delayed release</div><div></div> Review of Systems: ROS as noted in the HPI Review of Systems Comprehensive General Adult ROS Reported By: Patient Constitutional: Constitutional: no fever Eyes: Eyes: no vision change, no irritation ENMT: Ears: no difficulty hearing, no ear pain. Nose: no nose problems, no sinus problems. Mouth/Throat: no sore throat, no oral abnormalities Cardiovascular: Cardiovascular: no chest pain, no palpitations Respiratory: Respiratory: no cough, no wheezing, no shortness of breath Gastrointestinal: Gastrointestinal: no abdominal pain, no nausea, no vomiting, no constipation, normal appetite, no diarrhea, no GERD Genitourinary: Genitourinary: no difficulty urinating, no hematuria, no increased frequency Musculoskeletal: Musculoskeletal: no muscle aches Integumentary: Skin: no rashes Neurologic: Neurologic: no headaches Endocrine: Endocrine: no fatigue Hematologic/Lymphatic: Hematologic/Lymphatic no swollen glands Allergic/Immunologic: Allergy/Immunologic: no runny nose, no sinus pressure, no itching, no frequent sneezing Physical Exam General Adult Exam (male) Reported By: Patient Constitutional: General Appearance: healthy-appearing, well-developed, obese. Level of Distress: NAD. Ambulation: ambulating normally Psychiatric: Insight: good judgement. Mental Status: active and alert, normal mood, normal affect Head: Head: normocephalic, atraumatic Lungs: Respiratory effort: no dyspnea. Auscultation: breath sounds normal, good air movement, CTA except as noted Cardiovascular: Heart Auscultation: RRR, normal S1, normal S2 Musculoskeletal:: Joints, Bones, and Muscles: tenderness; below Neurologic: Gait and Station: normal gait, normal station Notes: Lt foot - Heel pain. No red / swell.
[2019-07-15] MEDS ORDERED: MORPHINE 4 MG/ML SYR ONE (12:04)
[2019-07-15] MEDS ORDERED: ONDANSETRON 4 MG/2 ML VIAL ONE (12:05)
[2019-07-15 12:13] LABS: Absolute Lymphocytes (CBC) 2.6 K/uL (0.7-4.9); Basophils % 0.9 % (0-1.3); Hematocrit 44.6 % (36.0-45.0); Lymphocytes % 29.9 % (15.3-44.8); MPV 8.1 fL (7.6-11.3); RBC Red Blood Cell Count 4.92 M/uL (3.86-4.86)
[2019-07-15 12:20] LABS: Urine Blood 1+ (NEG); Urine Glucose NEGATIVE (NEG); Urine Protein 1+ (NEG); Urine Specific Gravity 1.025 (1.005-1.030)
[2019-07-15 12:27] LABS: ALT/SGPT 22 U/L (12-78); AST/SGOT 19 U/L (15-37); Albumin 3.7 g/dL (3.4-5.0); Alkaline Phosphatase 87 U/L (45-117); BUN Blood Urea Nitrogen 11 mg/dL (7-18); Bicarbonate 23 mmol/L (21-32); Bilirubin Direct < 0.1 mg/dL (0-0.2); Bilirubin Total 0.2 mg/dL (0.2-1.0); Glucose Level 111 mg/dL (74-106); Lipase 167 U/L (73-393); Potassium 4.4 mmol/L (3.5-5.1); Protein, Total 7.8 g/dL (6.4-8.2); Sodium Level 140 mmol/L (136-145)
[2019-07-15] MEDS ORDERED: KETOROLAC 30 MG/ML INJ ONE (12:40)
--- NOTE | 2019-07-15 12:54 | RAD REPORT ---
EXAM DESCRIPTION: CT - Stone Protocol - 07/15/2019 12:32 pm CLINICAL HISTORY: FLANK PAIN, left side COMPARISON: No comparisons TECHNIQUE: Axial 5 mm thick images were obtained without oral or IV contrast. The [id number] span s the entirety of the system including uppermost abdomen and lung bases. All CT scans are performed using dose optimization technique as appropriate and may include automated exposure control or mA/KV adjustment according to patient size. FINDINGS: Mild hydronephrosis of the left side pelvis and calices noted secondary to a 2 millimeter UPJ stone. Left kidney is edematous relative to the right. There is an additional 1- 2 millimeter sto ne in the left ureter near the pelvic inlet. No suspicious renal masses. Isodense masses and pyelonep hritis are not excluded on a stone protocol CT scan. Urinary bladder is contracted limiting detail. U terus and ovaries show no suspicious findings. No significant adrenal finding. A 5 mm nonobstructing calyx calcification present lower pole right kidney. Imaged portions of the liver, spleen and pancreas show no suspicious findings on non-contrast imaging . No gallbladder or biliary tree abnormality identified. No suspicious bowel findings. No hernia, mass or bulky lymphadenopathy noted. No free air, free fluid or inflammatory stranding. No significant bony abnormality. IMPRESSION: Mild hydronephrosis of the left renal pelvis secondary to a 2 mm UPJ stone. Left kidney is edematous relative to the right. Additional nonobstructing 1-2 mm stone in the left ureter near the pelvic inlet. Left ureter is not d ilated. Isodense masses and pyelonephritis are not excluded on stone protocol technique.
[2019-07-15] MEDS ORDERED: CEFTRIAXONE/SWI 1gm 2 GM/20 ML SYR ONE (13:18)
[2019-07-15] MEDS ORDERED: NA CHLORIDE 0.9% 1,000 ML ONE (13:40)
[2019-07-15] MEDS ORDERED: TAMSULOSIN 0.4 MG SR CAP ONE (13:40)
[2019-07-15] MEDS ORDERED: FENTANYL CITR 100 MCG/2 ML ONE (13:40)
--- NOTE | 2019-07-15 15:24 | EDPHYS ---
Physician Documentation [facility] Name: Debbie Rojo Age: 29 yrs Sex: Female : 1990 Arrival Date: 07/15/2019 Time: 11:37 Bed 20 Private MD: ED Physician Nguyễn Gutierrez HPI: 07/15 12:13 This 29 yrs old Female presents to ER via Ambulatory with complaints of jmm Possible Kidney Stone. 12:13 The patient complains of pain in the left flank. Onset: The symptoms/episode jmm began/occurred acutely, at 09:00. Modifying factors: The symptoms are alleviated by nothing. the symptoms are aggravated by nothing. Associated signs and symptoms: Pertinent positives: nausea, Pertinent negatives: diarrhea, fever. This is a 29 year old female with a history of kidney stones that presents to the ED with complaints of left flank pain beginning this morning. Similar to previous episodes of kidney stones. . 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 - Coronavirus screen:: The patient has NOT traveled to [place], [place], or [place] in the past 14 days. Proceed with normal triage process as indicated. - Social history:: Smoking status: Patient denies any tobacco usage or history of. - Ebola Screening: : Patient denies exposure to infectious person Patient denies travel to an Ebola-affected area in the 21 days before illness onset. ROS: 12:13 Constitutional: Negative for fever, chills, and weight loss, Cardiovascular: Negative jmm for chest pain, palpitations, and edema, Respiratory: Negative for shortness of breath, cough, wheezing, and pleuritic chest pain. 12:13 Abdomen/GI: Positive for abdominal pain. 12:13 Back: Positive for flank pain. 12:13 All other systems are negative. Exam: 12:13 Constitutional: This is a well developed, well nourished patient who is awake, alert, jmm and in no acute distress. Head/Face: atraumatic. Eyes: EOMI, no conjunctival erythema appreciated ENT: Moist Mucus Membranes Neck: Trachea midline, Supple Chest/axilla: Normal chest wall appearance and motion. Cardiovascular: Regular rate and rhythm. No edema appreciated Respiratory: Normal respirations, no respiratory distress appreciated 12:13 Skin: General appearance color normal MS/ Extremity: Moves all extremities, no obvious deformities appreciated, no edema noted to the lower extremities Neuro: Awake and alert, normal gait Psych: Behavior is normal, Mood is normal, Patient is cooperative and pleasant 12:13 Abdomen/GI: Inspection: abdomen appears normal, Bowel sounds: normal, Palpation: soft, mild abdominal tenderness, in the left lower quadrant. 12:13 Back: ROM is normal. Vital Signs: 11:41 BP 155 / 109; Pulse 83; Resp 17; Temp 98.3(TE); Pulse Ox 98% on R/A; Weight 79.38 kg; ss Height 5 ft. 2 in. (157.48 cm); Pain 8/10; 12:43 BP 152 / 90; Pulse 55; Resp 16; Pulse Ox 98% ; sv 13:30 BP 144 / 85; Pulse 72; Resp 16; Pulse Ox 98% ; sv 14:00 Pain 3/10; sv 15:00 BP 115 / 69; Pulse 62; Resp 16; Pulse Ox 100% ; sv 15:55 BP 117 / 77; Pulse 92; Resp 17; Pulse Ox 100% ; ah 11:41 Body Mass Index 32.01 (79.38 kg, 157.48 cm) ss MDM: 11:47 Patient medically screened. stephon 15:23 Data reviewed: vital signs, nurses notes. Counseling: I had a detailed discussion with [facility] the patient and/or guardian regarding: the historical points, exam findings, and any diagnostic results supporting the discharge/admit diagnosis, lab results, radiology results, the need for outpatient follow up, to return to the emergency department if symptoms worsen or persist or if there are any questions or concerns that arise at home. ED course: Patient advised to follow up with urology for further evaluation. Patient understood and agrees with the plan of care. . 07/15 11:46 Order name: Basic Metabolic Panel; Complete Time: 12:53 [facility] 07/15 11:46 Order name: CBC with Diff; Complete Time: 12:22 [facility] 07/15 11:46 Order name: Creatinine for Radiology; Complete Time: 12:53 [facility] 07/15 11:46 Order name: Hepatic Function; Complete Time: 12:53 m 07/15 11:46 Order name: Lipase; Complete Time: 12:53 [facility] 07/15 12:00 Order name: Urine Dipstick--Ancillary (enter results); Complete Time: 12:22 ms 07/15 11:46 Order name: CT Stone Protocol; Complete Time: 12:59 m 07/15 12:00 Order name: Urine --Ancillary (enter results); Complete Time: 12:22 ms 07/15 11:46 Order name: IV Saline Lock; Complete Time: 12:32 m 07/15 11:46 Order name: Labs collected and sent; Complete Time: 12:32 [facility] 07/15 11:46 Order name: Urine Dipstick-Ancillary (obtain specimen); Complete Time: 12:03 jmm Administered Medications: 12:10 Drug: Zofran 4 mg Route: IVP; Site: right antecubital; sv 12:41 Follow up: Response: No adverse reaction sv 12:12 Drug: morphine 4 mg Route: IVP; Site: right antecubital; sv 12:41 Follow up: Response: No adverse reaction; No change in condition; Pain is unchanged, sv physician notified 12:41 Drug: TORadol 30 mg Route: IVP; Site: right antecubital; sv 13:42 Follow up: Response: No adverse reaction sv 13:16 Drug: Rocephin 2 grams Route: IV; Rate: calculated rate; Infused Over: 4 mins; Site: sv right antecubital; 13:18 Follow up: Response: No adverse reaction; IV Status: Completed infusion; IV Intake: 10mlsv 13:41 Drug: fentaNYL (PF) 50 mcg Route: IVP; Site: right antecubital; sv 14:00 Follow up: Pain 3/10 Adult; Response: No adverse reaction; Pain is decreased; RASS: sv Alert and Calm (0) 13:42 Drug: NS 0.9% 1000 ml Route: IV; Rate: 1 bolus; Site: right antecubital; sv 15:00 Follow up: Response: No adverse reaction; IV Status: Completed infusion; IV Intake: sv 1000ml 13:42 Drug: Flomax 0.4 mg Route: PO; sv 14:00 Follow up: Response: No adverse reaction sv Disposition: 07/16 07:43 Co-signature as Attending Physician, Nguyễn Matt MD I agree with the assessment and stephon plan of care. Disposition: 07/15/19 15:24 Discharged to Home. Impression: Calculus of kidney and ureter. - Condition is Stable. - Discharge Instructions: Kidney Stones. - Prescriptions for Cephalexin 500 mg Oral Capsule - take 1 capsule by ORAL route every 12 hours for 10 days; 20 capsule. Tylenol- Codeine #3 300-30 mg Oral Tablet - take 2 tablet by ORAL route every 6 hours As needed; 30 tablet. Flomax 0.4 mg Oral Capsule, Sust. Release 24 hr - take 1 capsule by ORAL route once daily 1/2 hour following the same meal each day; 30 capsule. Zofran ODT 4 mg Oral tablet,disintegrating - place 1 tablet by TRANSLINGUAL route every 4-6 hours; 20 tablet. - Medication Reconciliation Form, Thank You Letter, Antibiotic Education, Prescription Opioid Use, Work release form form. - Follow up: Private Physician; When: 2 - 3 days; Reason: Recheck today's complaints, Continuance of care, Re-evaluation by your physician. Signatures: Dispatcher [employer] Lory Herrera, RN RN Nguyễn Hanson MD MD cha Mickail, Joel, PA PA Marta France RN RN ss Corrections: (The following items were deleted from the chart) 07/15 16:14 15:24 07/15/2019 15:24 Discharged to Home. Impression: Calculus of kidney and ureter. sv Condition is Stable. Forms are Medication Reconciliation Form, Thank You Letter, Antibiotic Education, Prescription Opioid Use. Follow up: Private Physician; When: 2 - 3 days; Reason: Recheck today's complaints, Continuance of care, Re-evaluation by your physician. january
--- NOTE | 2019-07-15 15:24 | ER ---
Nurse's Notes [facility] Name: Debbie Rojo Age: 29 yrs Sex: Female : 1990 Arrival Date: 07/15/2019 Time: 11:37 Bed 20 Private MD: Diagnosis: Calculus of kidney and ureter Presentation: 07/15 11:40 Presenting complaint: Patient states: L flank pain that radiates towards abd that began ss at 0930 this AM with nausea. Pt believes this may be another kidney stone. Transition of care: patient was not received from another setting of care. Onset of symptoms was July 15, 2019. Risk Assessment: Do you want to hurt yourself or someone else? Patient reports no desire to harm self or others. Initial Sepsis Screen: Does the patient meet any 2 criteria? No. Patient's initial sepsis screen is negative. Does the patient have a suspected source of infection? No. Patient's initial sepsis screen is negative. Care prior to arrival: None. 11:40 Method Of Arrival: Ambulatory ss 11:40 Acuity: PATTI 3 ss Triage Assessment: 15:45 General: Appears uncomfortable, Behavior is calm, cooperative, appropriate for age. 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 - Coronavirus screen:: The patient has NOT traveled to [place], [place], or [place] in the past 14 days. Proceed with normal triage process as indicated. - Social history:: Smoking status: Patient denies any tobacco usage or history of. - Ebola Screening: : Patient denies exposure to infectious person Patient denies travel to an Ebola-affected area in the 21 days before illness onset. Screenin:45 Abuse screen: Denies threats or abuse. Nutritional screening: No deficits noted. Tuberculosis screening: No symptoms or risk factors identified. Fall Risk None identified. Assessment: 11:50 General: Appears in no apparent distress. uncomfortable, well developed, Behavior is sv calm, cooperative, appropriate for age. Pain: Complains of pain in left lower quadrant and left flank Pain currently is 8 out of 10 on a pain scale. Pain began 1 day ago. Is continuous. Neuro: Level of Consciousness is awake, alert, obeys commands, Oriented to person, place, time, situation, Moves all extremities. Full function Gait is steady. Respiratory: Respiratory effort is even, unlabored, Respiratory pattern is regular, symmetrical. GI: Abdomen is flat, Abd is soft X 4 quads Abdomen is tender to palpation in left lower quadrant Reports nausea. Derm: Skin is intact, Skin is pink, warm \T\ dry. 13:16 Reassessment: Patient appears in no apparent distress at this time. No changes from previously documented assessment. Patient and/or family updated on plan of care and expected duration. Pain level reassessed. Patient is alert, oriented x 3, equal unlabored respirations, skin warm/dry/pink. 13:41 Reassessment: Patient appears in no apparent distress at this time. Patient and/or sv family updated on plan of care and expected duration. Pain level reassessed. Patient is alert, oriented x 3, equal unlabored respirations, skin warm/dry/pink. Patient states symptoms have improved. 16:12 Reassessment: Patient appears in no apparent distress at this time. Patient and/or sv family updated on plan of care and expected duration. Pain level reassessed. Patient is alert, oriented x 3, equal unlabored respirations, skin warm/dry/pink. Patient states feeling better. Patient states symptoms have improved. Vital Signs: 11:41 BP 155 / 109; Pulse 83; Resp 17; Temp 98.3(TE); Pulse Ox 98% on R/A; Weight 79.38 kg; Height 5 ft. 2 in. (157.48 cm); Pain 8/10; 12:43 BP 152 / 90; Pulse 55; Resp 16; Pulse Ox 98% ; sv 13:30 BP 144 / 85; Pulse 72; Resp 16; Pulse Ox 98% ; sv 14:00 Pain 3/10; sv 15:00 BP 115 / 69; Pulse 62; Resp 16; Pulse Ox 100% ; sv 15:55 BP 117 / 77; Pulse 92; Resp 17; Pulse Ox 100% ; ah 11:41 Body Mass Index 32.01 (79.38 kg, 157.48 cm) ED Course: 11:37 Patient arrived in ED. mr 11:41 Triage completed. ss 11:41 Arm band placed on left wrist. ss 11:43 Lory Benavidez, COURTNEY is Primary Nurse. sv 11:45 Bertin Maynard PA is PHCP. jmm 11:45 Nguyễn Gutierrez MD is Attending Physician. jmm 11:50 Inserted saline lock: 20 gauge in right antecubital area, using aseptic technique. sv Blood collected. Flushed right antecubital with 5 ml normal saline. 12:00 Radiology exam delayed due to test not completed at this time. mw3 12:32 CT completed. Patient tolerated procedure well. Patient moved back from CT. mw3 12:32 CT Stone Protocol In Process Unspecified. EDMS 15:45 Patient has correct armband on for positive identification. Placed in gown. Bed in low ah position. Call light in reach. Side rails up X 1. 15:45 No provider procedures requiring assistance completed. intact, bleeding controlled, No ah redness/swelling at site. Pressure dressing applied. Administered Medications: 12:10 Drug: Zofran 4 mg Route: IVP; Site: right antecubital; sv 12:41 Follow up: Response: No adverse reaction sv 12:12 Drug: morphine 4 mg Route: IVP; Site: right antecubital; sv 12:41 Follow up: Response: No adverse reaction; No change in condition; Pain is unchanged, sv physician notified 12:41 Drug: TORadol 30 mg Route: IVP; Site: right antecubital; sv 13:42 Follow up: Response: No adverse reaction sv 13:16 Drug: Rocephin 2 grams Route: IV; Rate: calculated rate; Infused Over: 4 mins; Site: sv right antecubital; 13:18 Follow up: Response: No adverse reaction; IV Status: Completed infusion; IV Intake: 10mlsv 13:41 Drug: fentaNYL (PF) 50 mcg Route: IVP; Site: right antecubital; sv 14:00 Follow up: Pain 3/10 Adult; Response: No adverse reaction; Pain is decreased; RASS: sv Alert and Calm (0) 13:42 Drug: NS 0.9% 1000 ml Route: IV; Rate: 1 bolus; Site: right antecubital; sv 15:00 Follow up: Response: No adverse reaction; IV Status: Completed infusion; IV Intake: sv 1000ml 13:42 Drug: Flomax 0.4 mg Route: PO; sv 14:00 Follow up: Response: No adverse reaction sv Intake: 13:18 IV: 10ml; Total: 10ml. sv 15:00 IV: 1000ml; Total: 1010ml. sv Outcome: 15:24 Discharge ordered by MD. sin 15:55 Discharged to home ambulatory. 15:55 Condition: stable 15:55 Discharge instructions given to patient, Instructed on discharge instructions, medication usage, Demonstrated understanding of instructions, follow-up care, medications. 16:14 Patient left the ED. sv Signatures: Dispatcher [employer] Lory Herrera RN RN sv Mickail, Joel, PA PA jmm Rivera, Mary mr Smirch, Shelby, COURTNEY VALDEZ Susy Dutta [facility] Rajni Carroll, RN COURTNEY
[2019-07-15 16:37] VITALS: TEMP 98.3
[2019-07-15 16:42] VITALS: O2SAT 100
[2019-07-15 16:43] VITALS: BP 117/77
== END 2019-07-15 16:14 | disposition home or self-care (01) ==
LOC: ER 11:35
DX: N20.2 Calculus of kidney with calculus of ureter (principal); Z87.442 Personal history of urinary calculi; Z88.8 Allergy status to other drugs, medicaments and biological substances
CPT/HCPCS: 96361; 85025; 80048; 36415; 81025; 80076; 81003; 83690; 76377; 74176; 96375; 96374; 99284; J3010; J0696; J7030; J2405

== ENCOUNTER 2019-08-15 23:39 | Emergency (ER) | payer OTHER ==
--- OUTSIDE RECORDS SUMMARY | 2019-08-15 23:41 | XMS REPORT ---
:1990 [facility] [address] [place] [address] Care Team Providers Name Role Phone YUN GUARDADO Unavailable Unavailable Payers Payer Name Policy Type Policy Number Effective Date Expiration Date Problems This patient has no known problems. Allergies, Adverse Reactions, Alerts This patient has no known allergies or adverse reactions. Medications This patient has no known medications. Results Test Description Test Time Test Comments Text Results Atomic Results Result Comments - [facility]RO L[employer] 2019-08-10 08:50:00 Name: MICHELLE LOPEZ [facility] : 1990 Age/S: 29 / F [id number] Unit #: [id number] Loc: [place] [address] Phys: Matt Benson MD Acct: [id number] Dis Date: Status: REG CLI PHONE #: [phone] Exam Date: 08/10/2019 0835 FAX #: Reason: KIDNEY STONES EXAMS: CPT: [id number] [facility] [id number] EXAMINATION: - [facility]. LOCATION: S17. HISTORY: Kidney stones. COMPARISON: None. FINDINGS: Sonographic evaluation of the kidneys and bladder was performed utilizing abdullahi scale, pulse Doppler and color flow imaging. The right kidney measures 10.6 cm and the left kidney measures 11.3 cm. The parenchymal echogenicity is within normal limits on both sides. There is mild bilateral hydronephrosis. 5 mm echogenic foci in right lower pole and 2 mm parenchymal echogenic foci in the left midpole. Urinary bladder is distended. Bilateral ureteral jets noted. Partially visualized liver parenchyma demonstrates diffusely increased echogenicity, nonspecific, most commonly described in the setting of hepatic steatosis versus underlying parenchymal process. IMPRESSION: Mild bilateral hydronephrosis. 5 mm nonobstructing right lower pole calculus. at 0850 Reported and signed by: Corinne Hargrove M.D. CC: Tramaine Gaspar MD; Matt Benson MD Technologist: Shelby Corona, RT(R),RDMS(AB) Trniab Date/Time: 08/10/2019 (0850) [id number] PAGE 1 Signed Report Name: MICHELLE LOPEZ [place] : 1990 Age/S: 29 / F [id number] Unit #: [id number] Loc: [place] [id number] Phys: Matt Benson MD Acct: [id number] Dis Date: Status: REG CLI PHONE #: [phone] Exam Date: 08/10/2019 0835 FAX #: Reason: KIDNEY STONES EXAMS: CPT: [id number] [facility] [id number] <Continued> Orig Print D/T: S: 08/10/2019 (0853) Probe: PAGE 2 Signed Report POCT-GLUCOSE METER 2017-08-18 15:05:00 Test Item Value Reference Range Comments POC-GLUCOSE METER (ANN) (test 84 mg/dL 70-[address] [facility] [address] [id number]) [facility] [id number]
--- OUTSIDE RECORDS SUMMARY | 2019-08-15 23:43 | XMS REPORT | Encounter Summary ---
:1990 Author Care Team Providers Name Role Phone Dr. Amy Perez-Marly Primary Care Provider [phone] Tramaien Gaspar MD Primary Care Provider [phone] Evens Arias MD Stage Set Designer [phone] Svitlana Massey MD Coagulating Bath Mixer [phone] Tay Gibbons DPM Corporate Counsel [phone] Kory East MD Hematology/Oncology [phone] Reason for Visit Kidney stone Instructions 1. Kidney stone tamsulosin 0.4 mg capsule urology referral 2. Hypercalcemia 3. Body mass index 30+ - obesity body mass index: care instructions learning about healthy weight Discussion Note: None recorded. 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 Referral Urology 07/23/2019 Matt Benson Referral Urologist Procedures None recorded. Surgeries None recorded. Imaging [...] 1 CAPSULE BY MOUTH EVERY DAY NEEDED ondansetron 4 mg disintegrating tablet tamsulosin 0.4 mg capsule Take 1 capsule every day by oral route. Medications Administered None recorded. Vitals Height Weight BMI Blood Pressure 5 ft 3 in 176.8 lbs 31.3 kg/m2 109/75 mm[Hg] Results Lab Results Date Name Specimen Result Interpretation Description Value Range Status Address Test, Hcg negative [facility]: [address] [facility] [address], [place] Allergies Code Code System Name Reaction Severity Status Onset 6000 RxNorm Metformin Nausea Active Problems Name Status [...] Gastroesophageal Reflux Disease without Active 03/05/2019 Esophagitis Hypercalcemia Active 07/23/2019 Procedures Date Name Performed by 08/18/2017 Colonoscopy Information not available Tooth Root Removal Information not available Vaccine List Vaccine Type influenza, injectable, quadrivalent, preservative free 03/08/2018 03/05/2019 Tdap 08/13/20170.5 mL Social History Tobacco Smoking Status Heavy Tobacco Smoker (1/2 PPD) Past Encounters 07/23/2019 Kidney Stone; Hypercalcemia; Body Mass Index 30+ - Obesity Tramaine Gaspar MD: [address] [facility], [address] [address], Ph. 07/06/2019 Contraception Using Injectable Contraceptive Medication Tramaine Gaspar MD: [address] [facility], [facility] [address], [place] [address], Ph. [phone] History of Present Illness Note: <div>[facility] ER f/u - Pt was having LLQ abd pain. Did not feel like regular kidney stone. Pain was getting bad so went to ER. Labs and CT scan done. Pt had kidney stone. Also w/ "slight" UTI.</div>< div>Got IV abx and pain meds.</div><div>Dx: Kidney stone, UTI< /div><div>Rx: Tylenol #3 and Abx.</div><div>Feels better.& lt;/div><div>Pt has not seen any stones passed.</div><div>& lt;br></div><div>CA + - Pt referred to Endo for high calcium. Referral orderd by H/O.</div><div>
</div>pain in left foot - same.
<div>MRI, foot, w/o contrast - d/w Pt
</div><div>ibuprofen 800 mg tablet</div><div>Seeing Foot doctor.</div><div>
</div><div>1. Your MRI foot shows slight swelling but it is overall normal.</div>Review of Systems: ROS as noted in the [...] Heart Auscultation: RRR, normal S1, normal S2 Abdomen: Bowel Sounds: normal. Inspection and Palpation: soft, non-distended, no tenderness, no guarding, no masses, no CVA tenderness. Liver: non-tender, no hepatomegaly. Spleen: non-tender, no splenomegaly Neurologic: Gait and Station: normal gait, normal station
[2019-08-16 00:53] LABS: Absolute Lymphocytes (CBC) 3.8 K/uL (0.7-4.9); Hematocrit 44.2 % (36.0-45.0); MPV 8.2 fL (7.6-11.3); RBC Red Blood Cell Count 4.91 M/uL (3.86-4.86)
[2019-08-16 01:08] LABS: ALT/SGPT 22 U/L (12-78); AST/SGOT 12 U/L (15-37); Albumin 3.4 g/dL (3.4-5.0); Alkaline Phosphatase 89 U/L (45-117); BUN Blood Urea Nitrogen 12 mg/dL (7-18); Bicarbonate 23 mmol/L (21-32); Bilirubin Direct < 0.1 mg/dL (0-0.2); Bilirubin Total 0.3 mg/dL (0.2-1.0); Glucose Level 156 mg/dL (74-106); Lipase 163 U/L (73-393); Potassium 3.4 mmol/L (3.5-5.1); Protein, Total 7.6 g/dL (6.4-8.2); Sodium Level 140 mmol/L (136-145)
[2019-08-16 01:09] LABS: Calcium Oxalate Crystals- Ur MODERATE (NONE SEEN); Urine Bacteria <20 /HPF (<20); Urine Culture Reflex Order NOT NEEDED; Urine RBC <5 /HPF (NONE SEEN)
[2019-08-16 01:09] LABS: Urine Blood TRACE (NEG); Urine Glucose NEGATIVE (NEG); Urine Protein TRACE (NEG); Urine Specific Gravity >1.030 (1.005-1.030)
[2019-08-16] MEDS ORDERED: MORPHINE 2 MG/ML SYR ONE (01:16)
[2019-08-16] MEDS ORDERED: FAMOTIDINE 20 MG/2 ML VIAL IV ONE (01:16)
[2019-08-16] MEDS ORDERED: ONDANSETRON 4 MG/2 ML VIAL ONE (01:16)
[2019-08-16] MEDS ORDERED: DICYCLOMINE HCL 10 MG CAP ONE (02:41)
[2019-08-16] MEDS ORDERED: POTASSIUM 25 MEQ EFFERV TAB ONE (02:41)
--- NOTE | 2019-08-16 02:41 | EDPHYS ---
Physician Documentation [facility] Name: Debbie Rojo Age: 29 yrs Sex: Female : 1990 Arrival Date: 08/15/2019 Time: 23:44 Bed 26 Private MD: ED Physician Vincent Kauffman HPI: 08/15 00:00 This 29 yrs old Female presents to ER via Ambulatory with complaints of cp Abdominal Pain. 00:00 The patient presents with abdominal pain in the upper abdomen. Onset: The cp symptoms/episode began/occurred today, 5 hour(s) ago. The symptoms do not radiate. Associated signs and symptoms: Pertinent positives: nausea and vomiting, diarrhea, Pertinent negatives: blood in stools, constipation, dysuria, fever, vomiting blood. 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 - Social history:: Smoking status: Patient denies any tobacco usage or history of. ROS: 00:05 Eyes: Negative for injury, pain, redness, and discharge. cp 00:05 Constitutional: Negative for body aches, chills, fever, poor PO intake. 00:05 ENT: Negative for drainage from ear(s), ear pain, sore throat, difficulty swallowing, difficulty handling secretions. 00:05 Cardiovascular: Negative for chest pain, palpitations. 00:05 Respiratory: Negative for cough, shortness of breath, wheezing. 00:05 Abdomen/GI: Positive for abdominal pain, nausea, vomiting, and diarrhea, Negative for constipation, hematemesis, black/tarry stool, rectal bleeding. 00:05 Back: Negative for radiated pain. 00:05 : Negative for urinary symptoms. 00:05 Neuro: Negative for altered mental status, headache, weakness. 00:05 All other systems are negative. Exam: 00:10 Constitutional: The patient appears in no acute distress, alert, awake, cp non-diaphoretic, non-toxic, well developed, well nourished, uncomfortable. 00:10 Head/Face: Normocephalic, atraumatic. cp 00:10 Eyes: Periorbital structures: appear normal, Conjunctiva: normal, no exudate, no injection, Sclera: no appreciated abnormality, Lids and lashes: appear normal, bilaterally. 00:10 ENT: External ear(s): are unremarkable, Nose: is normal, Mouth: Lips: moist, Oral mucosa: pink and intact, moist, Posterior pharynx: is normal, airway is patent. 00:10 Chest/axilla: Inspection: normal, Palpation: is normal, no crepitus, no tenderness. 00:10 Cardiovascular: Rate: tachycardic, Rhythm: regular. 00:10 Respiratory: the patient does not display signs of respiratory distress, Respirations: normal, no use of accessory muscles, no retractions, labored breathing, is not present, Breath sounds: are clear throughout, no decreased breath sounds. 00:10 Abdomen/GI: Inspection: abdomen appears normal, Bowel sounds: active, all quadrants, Palpation: soft, in all quadrants, moderate abdominal tenderness, in the right upper quadrant and left upper quadrant, rebound tenderness, is not appreciated, voluntary guarding, is elicited in the right upper quadrant and left upper quadrant. 00:10 Back: pain, is absent, ROM is normal. Vital Signs: 08/14 23:54 BP 129 / 89; Pulse 101; Resp 18; Temp 98.4; Pulse Ox 100% on R/A; Weight 79.38 kg; aa1 Height 5 ft. 2 in. (157.48 cm); Pain 8/10; 08/15 00:00 BP 134 / 88; Pulse 92; Resp 18; Temp 98.2(O); Pulse Ox 98% ; Pain 6/10; fu 01:00 BP 130 / 81; Pulse 75; Pulse Ox 98% ; fu 02:00 BP 113 / 72; Pulse 80; Resp 18; Pulse Ox 99% ; Pain 5/10; fu 02:30 BP 120 / 70; Pulse 80; Resp 19; Pulse Ox 99% on R/A; fu 08/14 23:54 Body Mass Index 32.01 (79.38 kg, 157.48 cm) aa1 MDM: 08/14 23:53 Patient medically screened. cp 08/15 01:00 Differential diagnosis: cholecystitis, Cholelithiasis, gastritis, pancreatitis, urinary cp tract infection, colitis, dehydration, electrolyte abnormality. 02:39 Data reviewed: vital signs, nurses notes, lab test result(s), radiologic studies, CT cp scan, and as a result, I will discharge patient. 02:39 Counseling: I had a detailed discussion with the patient and/or guardian regarding: the cp historical points, exam findings, and any diagnostic results supporting the discharge/admit diagnosis, lab results, radiology results, to return to the emergency department if symptoms worsen or persist or if there are any questions or concerns that arise at home. Response to treatment: the patient's symptoms have markedly improved after treatment. Special discussion: Based on the patient's Hx, exam, and Dx evaluation, there is no indication for emergent surgery or inpatient Tx. It is understood by the patient/guardian that if the Sx's persist or worsen they need to return immediately for re-evaluation. ED course: VSS. Pain and nausea improved and vomiting resolved. Patient observed tolerating po fluids. Will discharge to home for continued monitoring. 08/15 00:02 Order name: Basic Metabolic Panel; Complete Time: 01: cp 08/15 01:19 Interpretation: Normal except: K 3.4; CL 110; GLUC 156; GFR 68. cp 08/15 00:02 Order name: CBC with Diff; Complete Time: 01:16 cp 08/15 01:20 Interpretation: Normal except: WBC 14.5; RBC 4.91; NEUT A 9.6. cp 08/15 00:02 Order name: Creatinine for Radiology; Complete Time: : cp 08/15 00:02 Order name: Hepatic Function; Complete Time: 01:16 cp 08/15 02:22 Interpretation: Normal except: AST 12; GLOB 4.2; A/G 0.8. cp 08/15 00:02 Order name: Lipase; Complete Time: :16 cp 08/15 00:02 Order name: Urine Microscopic Only; Complete Time: : cp 08/15 00:28 Order name: CT Abd/Pelvis - IV Contrast Only cp 08/15 00:54 Order name: Urine Dipstick--Ancillary (enter results); Complete Time: 01:16 mw2 08/15 00:54 Order name: Urine --Ancillary (enter results); Complete Time: 01:16 mw2 08/15 00:02 Order name: IV Saline Lock; Complete Time: 00:40 cp 08/15 00:02 Order name: Labs collected and sent; Complete Time: 00:40 cp 08/15 00:02 Order name: Urine Dipstick-Ancillary (obtain specimen); Complete Time: 00:41 cp 08/15 00:02 Order name: Urine Test (obtain specimen); Complete Time: 00:41 cp Administered Medications: 01:15 Drug: Zofran (Ondansetron) 4 mg Route: IVP; Infused Over: 2 mins; Site: right fu antecubital; 01:18 Drug: Pepcid 20 mg Route: IVP; Site: right antecubital; fu 01:20 Drug: morphine 2 mg Route: IVP; Site: right antecubital; fu 02:35 Drug: Potassium Effervescent Tablet 25 mEq Route: PO; fu 02:39 Drug: Bentyl 20 mg Route: PO; fu Disposition: 06:08 Co-signature as Attending Physician, Vincent Kauffman MD I agree with the assessment and tw4 plan of care. Disposition: 08/16/19 02:40 Discharged to Home. Impression: Nausea and vomiting, Diarrhea, unspecified. - Condition is Stable. - Discharge Instructions: Food Choices to Help Relieve Diarrhea, Adult, Diarrhea, Adult, Nausea and Vomiting, Adult. - Prescriptions for Bentyl 20 mg Oral Tablet - take 1 tablet by ORAL route every 6 hours As needed; 20 tablet. Zofran 4 mg Oral Tablet - take 1 tablet by ORAL route every 12 hours As needed; 20 tablet. - Medication Reconciliation Form, Thank You Letter, Antibiotic Education, Prescription Opioid Use form. - Follow up: Private Physician; When: 2 - 3 days; Reason: Worsening of condition. - Problem is new. - Symptoms have improved. Signatures: Dispatcher [employer] EDBrigida Faye RN RN aa1 Nguyễn Patterson PA PA cp Umadhay, Felix, RN RN fu Wadley, Terrence, MD MD tw4 Corrections: (The following items were deleted from the chart) 03:02 02:40 08/16/2019 02:40 Discharged to Home. Impression: Nausea and vomiting; Diarrhea, fu unspecified. Condition is Stable. Forms are Medication Reconciliation Form, Thank You Letter, Antibiotic Education, Prescription Opioid Use. Follow up: Private Physician; When: 2 - 3 days; Reason: Worsening of condition. Problem is new. Symptoms have improved. cp
--- NOTE | 2019-08-16 02:41 | ER ---
Nurse's Notes [facility] Name: Debbie Rojo Age: 29 yrs Sex: Female : 1990 Arrival Date: 08/15/2019 Time: 23:44 Bed 26 Private MD: Diagnosis: Nausea and vomiting;Diarrhea, unspecified Presentation: 08/14 23:54 Chief complaint: Patient states: upper abd pain and N/V after eating [employer] aa1 tonight. Coronavirus screen: The patient has NOT traveled to a country currently being monitored by the CDC within the last 14 days. Proceed with normal triage procedures. Ebola Screen: No symptoms or risks identified at this time. Initial Sepsis Screen: Does the patient meet any 2 criteria? HR > 90 bpm. Does the patient have a suspected source of infection? Yes: Acute abdominal pain. Risk Assessment: Do you want to hurt yourself or someone else? Patient reports no desire to harm self or others. Onset of symptoms was August 15, 2019. Care prior to arrival: None. Activity prior to arrival: vomiting. Mechanism of Injury: No Mechanism of Injury. Transition of care: patient was not received from another setting of care. 23:54 Method Of Arrival: Ambulatory aa1 23:54 Acuity: PATTI 3 aa1 Triage Assessment: 23:54 General: Appears in no apparent distress. uncomfortable, Behavior is calm, cooperative, aa1 appropriate for age. 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 - Social history:: Smoking status: Patient denies any tobacco usage or history of. Screenin:00 Abuse screen: Denies threats or abuse. Nutritional screening: No deficits noted. fu Tuberculosis screening: No symptoms or risk factors identified. Fall Risk None identified. Assessment: 08/14 23:55 General: Appears uncomfortable, Behavior is cooperative, anxious, Reports abdominal fu pain that started at 1900 this evening. Pain: Complains of pain in abdomen Pain does not radiate. Pain currently is 8 out of 10 on a pain scale. Quality of pain is described as aching, sharp, Pain began 1899 this evening Is intermittent, Noted to be grimacing, guarding. Neuro: Level of Consciousness is awake, alert, obeys commands, Oriented to person, place, time, situation, Moves all extremities. Cardiovascular: Denies chest pain, palpitations, shortness of breath, syncope, Heart tones S1 S2. Respiratory: Airway is patent Respiratory effort is even, unlabored, Respiratory pattern is regular. GI: Bowel sounds present X 4 quads. Abd is soft Guarding noted Reports diarrhea, nausea, Pain is 8 out of 10 on a pain scale. vomiting, since 1900 this evening. EENT: No signs and/or symptoms were reported regarding the EENT system. Derm: No signs and/or symptoms reported regarding the dermatologic system. Vital Signs: 23:54 BP 129 / 89; Pulse 101; Resp 18; Temp 98.4; Pulse Ox 100% on R/A; Weight 79.38 kg; aa1 Height 5 ft. 2 in. (157.48 cm); Pain 8/10; 08/15 00:00 BP 134 / 88; Pulse 92; Resp 18; Temp 98.2(O); Pulse Ox 98% ; Pain 6/10; fu 01:00 BP 130 / 81; Pulse 75; Pulse Ox 98% ; fu 02:00 BP 113 / 72; Pulse 80; Resp 18; Pulse Ox 99% ; Pain 5/10; fu 02:30 BP 120 / 70; Pulse 80; Resp 19; Pulse Ox 99% on R/A; fu 08/14 23:54 Body Mass Index 32.01 (79.38 kg, 157.48 cm) aa1 ED Course: 08/14 23:44 Patient arrived in ED. cl3 23:50 Nguyễn Patterson PA is PHCP. cp 23:50 Vincent Kauffman MD is Attending Physician. cp 23:54 Patient placed in an exam room, on a stretcher. aa1 23:55 Donal Giraldo, COURTNEY is Primary Nurse. fu 23:59 Triage completed. aa1 08/15 00:00 Patient has correct armband on for positive identification. Bed in low position. Call fu light in reach. Side rails up X 1. 00:41 Urine Microscopic Only Sent. fu 00:48 Radiology exam delayed due to lab results not completed at this time. (HCG) eh (BUN/Creatinine) test not completed at this time. 01:59 CT Abd/Pelvis - IV Contrast Only In Process Unspecified. EDMS 02:30 No provider procedures requiring assistance completed. fu 03:00 IV discontinued, bleeding controlled, Pressure dressing applied. fu Administered Medications: 01:15 Drug: Zofran (Ondansetron) 4 mg Route: IVP; Infused Over: 2 mins; Site: right fu antecubital; 01:18 Drug: Pepcid 20 mg Route: IVP; Site: right antecubital; fu 01:20 Drug: morphine 2 mg Route: IVP; Site: right antecubital; fu 02:35 Drug: Potassium Effervescent Tablet 25 mEq Route: PO; fu 02:39 Drug: Bentyl 20 mg Route: PO; fu Outcome: 02:40 Discharge ordered by MD. cp 03:00 Discharged to home ambulatory. fu 03:00 Condition: stable 03:00 Discharge instructions given to patient, Instructed on discharge instructions, follow up and referral plans. Demonstrated understanding of instructions, Prescriptions given X 2. 03:02 Patient left the ED. fu Signatures: Dispatcher [employer] EDMS Brigida Bradshaw RN RN aaGuille Miller Nguyễn Patterson PA PA Donal Giraldo RN RN fu Lewis, Charde cl3 Corrections: (The following items were deleted from the chart) 05:51 03:00 Discharge instructions given to patient, Instructed on discharge instructions, fu follow up and referral plans. Demonstrated understanding of instructions, Prescriptions given X 1, fu
[2019-08-16 03:25] VITALS: BP 129/89; TEMP 98.4; O2SAT 100
--- NOTE | 2019-08-16 10:52 | RAD REPORT ---
EXAM DESCRIPTION: CT - Abdomen Pelvis W Contrast - 08/16/2019 7:20 am CLINICAL HISTORY: Abdominal pain with nausea, vomiting, and diarrhea. COMPARISON: None. TECHNIQUE: Axial CT imaging of the abdomen and pelvis performed with intravenous contrast. Reformatt ed coronal and sagittal images reviewed. A dose reduction technique was utilized with automated exposure control according to patient size. FINDINGS: Clear lung bases. Heart is normal in size. Normal liver, gallbladder, spleen, pancreas, adrenal glands. There is a nonobstructing 4 mm inferior right renal pelvic calculus. No hydronephrosis. No solid renal mass in either kidney. Millimeter-size d hypodensities in the left kidney may represent tiny cysts but are too small to characterize. Normal aorta and inferior vena cava caliber. Mesenteric vessels appear normal. No retroperitoneal flex nopathy. Normal stomach. Small bowel loops are normal in caliber. Slight thickening of the jejunum. There is f luid throughout the small bowel loops. Normal appendix in the right hemipelvis. Fluid levels are pres ent throughout the colon from the cecum to the proximal sigmoid. No ascites or free air. No mesenteri c adenopathy. The bladder, uterus, and ovaries appear normal. Uterus is retroverted. Mild levoconvex lumbar curve. Bony pelvis and hips appear normal. IMPRESSION: 1. Enteritis. 2. Nonobstructing 4 mm inferior right renal pelvic calculus. 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 The interpreting radiologist is jocelyn solares responsible for the content of the report.
== END 2019-08-16 03:02 | disposition home or self-care (01) ==
LOC: ER 23:39
DX: R19.7 Diarrhea, unspecified (principal); Z88.8 Allergy status to other drugs, medicaments and biological substances
CPT/HCPCS: 85025; 80048; 36415; 81025; 80076; 83690; 74177; 96375; 96374; 99284; Q9967; J2270; J2405; 81003; 81015

== ENCOUNTER 2019-11-02 07:16 | Emergency (ER) | payer OTHER ==
--- OUTSIDE RECORDS SUMMARY | 2019-11-02 07:18 | XMS REPORT | Clinical Summary ---
:1990 Author Organization [facility] Address [address] [place] [id number] Care Team Providers Name Role Phone Etta Gaspar Primary Care Provider Allergies Active Allergy Reactions Severity Noted Date Comments Metformin Other (See Comments) 08/17/2017 BS drop to the 40's Medications Medication Sig Dispensed Refills Start Date End Date Status estradiol Inject intramuscularly 0 Active cypionate every 28 days. (DEPO-ESTRADIOL) 5 mg/mL injection Active Problems Not on file Social History Tobacco Use Types Packs/Day Years [...] travel history available. Last Filed Vital Signs Not on file Plan of Treatment Not on file Results Not on fileafter 11/01/2018 Insurance Payer Benefit Plan / Group Subscriber ID Type Phone A tierra ADKINS xxxxxxxxxxx
--- OUTSIDE RECORDS SUMMARY | 2019-11-02 07:18 | XMS REPORT ---
:1990 Author Organization [facility] t Address [address] [place] [address] Care Team Providers Name Role Phone ANH GUARDADO Attending Clinician Unavailable ANH GUARDADO Admitting Clinician Unavailable Payers Payer Name Policy Type Policy Number Effective Date Expiration Date S ource Problems Condition Condition Condition Status Onset Resolution Last Treating Co mments Source Name Details Category Date Date Treatment Clinician Date Hypercalce Hypercalce Problem Active [facility] pierre pierre 2-10 Family 00:00: Practic 00 e Gastroesop Gastroesop Problem Active [facility] hageal hageal 9-23 Family reflux Reflux 00:00: Practic disease Disease 00 e without without esophagiti Esophagiti s s Vitamin D Vitamin D Problem Active [place] [facility] deficiency Deficiency 9-20 Fa darren 00:00: Practic 00 e Dyslipidem Dyslipidem Problem Active [facility] ia ia 5-06 Family 00:00: Practic 00 e Overweight Overweight Problem Active [facility] 9-26 Family 00:00: Practic 00 e Iron Iron Problem Active [facility] deficiency Deficiency 8-05 Fa [facility] anemia Anemia 00:00: Practic 00 e Insomnia Insomnia Problem Active [place] [facility] 3- Family 00:00: Practic 00 e Increased Increased Problem Active [place] [facility] cancer Cancer 3 Family antigen Antigen 00:00: Practic 125 125 00 e Polycystic Polycystic Problem Active [facility] ovaries Ovaries 3-02 Family 00:00: Practic 00 e Irritable Irritable Problem Active [facility] mell bowel Bowel 3- Family syndrome Syndrome 00:00: Practi c 00 e Scoliosis Scoliosis Problem Active [facility] mell deformity Deformity 08-12 Fami ly of spine of Spine 00:00: Practi c 00 e Family Family Problem Active [facility] history of History of 3- Fa darren malignant Malignant 00:00: Prac tic neoplasm Neoplasm e of uterus of Uterus Anxiety Anxiety Problem Active [facility] disorder Disorder 2- Family 00:00: Practic 00 e Kidney Kidney Problem Active [facility] stone Stone 2- Family 00:00: Practic e Chronic Chronic Problem Active [facility] low back Low Back 2 Family pain Pain 00:00: Practic e Allergies, Adverse Reactions, Alerts Allergy Allergy Status Severity Reaction(s) Onset Inactive Treating Comm ents Source Name Type Date Date Clinician Metformi ? Active Nausea [facility] Social History Smoking Status Start Date Stop Date Source Heavy Tobacco Smoker [facility] Medications Ordered Filled Start Stop Current Ordering Indication Dosage Frequency Signature Comments Components Source Medication Medication Date Date Medication? Clinician (SIG) Name Name medroxyprog medroxyprog No medroxypro [facility] esterone esterone 4-[address] [facility] 150 mg/mL 150 mg/mL 15:03: 150 mg/mL Pract[facility] intramuscul intramuscul 32 intramuscu e ar ar lar suspensionI suspensionI suspension nject 1 mL nject 1 mL Inject 1 every 3 every 3 mL every 3 months by months by months by intramuscul intramuscul intramuscu ar route. ar route. lar route. citalopram citalopram No citalopram [facility] 10 mg 10 mg 10 mg Family tablet Take tablet Take tablet Practic 1 tablet 1 tablet Take 1 e every day every day tablet by oral by oral every day route. route. by oral route. clonazepam clonazepam No clonazepam [facility] 0.5 mg 0.5 mg 0.5 mg Family tablet Take tablet Take tablet Practic 1 tablet as 1 tablet as Take 1 e needed by needed by tablet as oral route oral route needed by in the in the oral route evening. evening. in the evening. ibuprofen ibuprofen No 1 TID ibuprofen [facility] 800 mg 800 mg 800 mg Family tablet Take tablet Take tablet Practic 1 tablet 3 1 tablet 3 Take 1 e times a day times a day tablet 3 by oral by oral times a route as route as day by needed. needed. oral route as needed. medroxyprog medroxyprog No 1mL medroxypro [facility] esterone esterone gesterone [place] [facility] 150 mg/mL 150 mg/mL 150 mg/mL Practic intramuscul intramuscul intramuscu e ar ar lar suspension suspension suspension Inject 1 mL Inject 1 mL Inject 1 every 3 every 3 mL every 3 months by months by months by intramuscul intramuscul intramuscu ar route. ar route. lar route. omeprazole omeprazole No omeprazole [facility] 40 mg 40 mg 40 mg Family capsule,del capsule,del capsule,de Practic ayed ayed layed e release release release TAKE ONE TAKE ONE TAKE ONE CAPSULE BY CAPSULE BY CAPSULE BY MOUTH EVERY MOUTH EVERY MOUTH DAY DAY EVERY DAY NEEDED NEEDED NEEDED ondansetron ondansetron No ondansetro [facility] 4 mg 4 mg n 4 mg Family disintegrat disintegrat disintegra Practic ing tablet ing tablet ting e tablet tamsulosin tamsulosin No 1capsul Q1D tamsulosin [facility] 0.4 mg 0.4 mg e(s) 0.4 mg Family capsule capsule capsule Practi c Take 1 Take 1 Take 1 e capsule capsule capsule every day every day every day by oral by oral by oral route. route. route. Immunizations Ordered Immunization Filled Immunization Date Status Commen ts Source Name Name influenza, influenza, 2019-03-05 [facility] injectable, injectable, 18:37:00 Practice quadrivalent, quadrivalent, preservative free preservative free influenza, influenza, 2018-03-08 [facility] injectable, injectable, 16:32:48 Practice quadrivalent, quadrivalent, preservative free preservative free Tdap Tdap 2017-08-13 [facility] 10:59:00 Practice Vital Signs Vital Name Observation Time Observation Value Comments Source BP Diastolic 2019-07-23 00:00:00 75 mm[Hg] [facility] Height 2019-07-23 00:00:00 63 [in_i] [facility] BMI (Body Mass 2019-07-23 00:00:00 31.3 kg/m2 [facility] BP Systolic 2019-07-23 00:00:00 109 mm[Hg] [facility] Body Weight 2019-07-23 00:00:00 176.8 [lb_av] [facility] BP Diastolic 2019-05-04 00:00:00 70 mm[Hg] [facility] Height 2019-05-04 00:00:00 63 [in_i] [facility] BMI (Body Mass 2019-05-04 00:00:00 30.5 kg/m2 [facility] BP Systolic 2019-05-04 00:00:00 110 mm[Hg] [facility] Body Weight 2019-05-04 00:00:00 172 [lb_av] [facility] BP Diastolic 2019-03-05 00:00:00 80 mm[Hg] [facility] Height 2019-03-05 00:00:00 63 [in_i] [facility] BMI (Body Mass 2019-03-05 00:00:00 30.5 kg/m2 [facility] BP Systolic 2019-03-05 00:00:00 118 mm[Hg] [facility] Body Weight 2019-03-05 00:00:00 172 [lb_av] [facility] BP Diastolic 2019-01-30 00:00:00 82 mm[Hg] [facility] Height 2019-01-30 00:00:00 63 [in_i] [facility] BMI (Body Mass 2019-01-30 00:00:00 30.4 kg/m2 [facility] BP Systolic 2019-01-30 00:00:00 122 mm[Hg] [facility] Body Weight 2019-01-30 00:00:00 171.8 [lb_av] [facility] BP Diastolic 2018-12-11 00:00:00 72 mm[Hg] [facility] Height 2018-12-11 00:00:00 63 [in_i] [facility] BMI (Body Mass 2018-12-11 00:00:00 30.5 kg/m2 [facility] BP Systolic 2018-12-11 00:00:00 122 mm[Hg] [facility] Body Weight 2018-12-11 00:00:00 172 [lb_av] [facility] BP Diastolic 2018-10-26 00:00:00 70 mm[Hg] [facility] Height 2018-10-26 00:00:00 63 [in_i] [facility] BMI (Body Mass 2018-10-26 00:00:00 30.5 kg/m2 [facility] BP Systolic 2018-10-26 00:00:00 102 mm[Hg] [facility] Body Weight 2018-10-26 00:00:00 172 [lb_av] [facility] BP Diastolic 2018-10-23 00:00:00 80 mm[Hg] [facility] Height 2018-10-23 00:00:00 63 [in_i] [facility] BMI (Body Mass 2018-10-23 00:00:00 31.1 kg/m2 [facility] BP Systolic 2018-10-23 00:00:00 126 mm[Hg] [facility] Body Weight 2018-10-23 00:00:00 175.4 [lb_av] [facility] BP Diastolic 2018-10-03 00:00:00 70 mm[Hg] [facility] Height 2018-10-03 00:00:00 63 [in_i] [facility] BMI (Body Mass 2018-10-03 00:00:00 30.6 kg/m2 [facility] BP Systolic 2018-10-03 00:00:00 120 mm[Hg] [facility] Body Weight 2018-10-03 00:00:00 173 [lb_av] [facility] BP Diastolic 2018-08-14 00:00:00 90 mm[Hg] [facility] Height 2018-08-14 00:00:00 63 [in_i] [facility] BMI (Body Mass 2018-08-14 00:00:00 30.6 kg/m2 [facility] BP Systolic 2018-08-14 00:00:00 140 mm[Hg] [facility] Body Weight 2018-08-14 00:00:00 172.8 [lb_av] [facility] BP Diastolic 2018-07-24 00:00:00 72 mm[Hg] [facility] Height 2018-07-24 00:00:00 63 [in_i] [facility] BMI (Body Mass 2018-07-24 00:00:00 30.2 kg/m2 [facility] BP Systolic 2018-07-24 00:00:00 120 mm[Hg] [facility] Body Weight 2018-07-24 00:00:00 170.6 [lb_av] [facility] BP Diastolic 2017-09-19 00:00:00 76 mm[Hg] [facility] Height 2017-09-19 00:00:00 67 [in_i] [facility] BP Systolic 2017-09-19 00:00:00 122 mm[Hg] [facility] BP Diastolic 2017-09-01 00:00:00 88 mm[Hg] [facility] Height 2017-09-01 00:00:00 67 [in_i] [facility] BMI (Body Mass 2017-09-01 00:00:00 27.1 kg/m2 [facility] Family Index) Practice BP Systolic 2017-09-01 00:00:00 142 mm[Hg] [facility] Body Weight 2017-09-01 00:00:00 173 [lb_av] [facility] BP Diastolic 2017-08-12 00:00:00 80 mm[Hg] [facility] Height 2017-08-12 00:00:00 67 [in_i] [facility] BMI (Body Mass 2017-08-12 00:00:00 27.2 kg/m2 [facility] Family Index) Practice BP Systolic 2017-08-12 00:00:00 110 mm[Hg] [facility] Body Weight 2017-08-12 00:00:00 173.6 [lb_av] [facility] BP Diastolic 2017-07-15 00:00:00 80 mm[Hg] [facility] Height 2017-07-15 00:00:00 67 [in_i] [facility] BMI (Body Mass 2017-07-15 00:00:00 26.6 kg/m2 [facility] e Family Index) Practice BP Systolic 2017-07-15 00:00:00 126 mm[Hg] [facility] Body Weight 2017-07-15 00:00:00 170 [lb_av] [facility] Procedures Procedure Date / Time Performed Performing Clinician Sour e MRI, foot, w/o contrast 2019-05-04 00:00:00 [facility] age Family Practice US, abdomen, complete 2018-10-23 00:00:00 [facility] e Family [facility] Colonoscopy 2017-08-18 00:00:00 [place] [facility] [place] [facility] Tooth Root Removal [facility] Encounters Start End Encounter Admission Attending Care Care Encounter Source Date/Time Date/Time Type Type Clinicians Facility Department ID 2019-09-24 2019-09-[address] [facility] [place] - [id number] [facility] 00:00:00 00:00:00 MD Chasity: [facility] - Practi c Marky [facility] [place] [address], ([place] [address] , Ph. 2019-07-23 2019-07-[address] [facility] [place] - [id number] [facility] 00:00:00 00:00:00 MD Chasity: [facility] - Practi c [place] [facility] [place] [address], ([facility]) [place] [address] , Ph. 2019-07-06 2019-07-[address] [facility] [place] - [id number] 4 [facility] 00:00:00 00:00:00 MD Chasity: [facility] [facility] - Practi c [place] [facility] , [place] [address], ([place] [address] , Ph. 2019-05-04 2019-05-[address] [facility] [place] - [id number] [facility] 00:00:00 00:00:00 MD Chasity: [facility] [address] [facility] - Practi c Mark[place], [address], [place] [address] , Ph. 2019-04-06 2019-04-[address] [facility] [place] - [id number] [facility] 00:00:00 00:00:00 [facility] MD: [address] Medical - Pract ic [facility], [address], [place] [address] , Ph. 2019-03-05 2019-03-[address] [facility] [place] - [id number] [facility] 00:00:00 00:00:00 MD Chasity: [facility] [address] Family Pract[facility], Practice - e [address], [facility] [address] , Ph. 2019-01-30 2019-01-30 Amy Gu [facility] [place] - [id number] [facility] 00:00:00 00:00:00 [facility] MD: [address] [facility] [address], Practice - e [address], [place] [address] , Ph. 2019-01-02 2019-01-02 Tramaine Quiles [facility] [place] - [id number] [address] [place] [address] 00:00:00 00:00:00 MD Chasity: [facility] [place], Practice - e [address], [place] [address] , Ph. 2018-12-11 2018-12-11 Tramaine Quiles [facility] [place] - [id number] [address] [place] [address] 00:00:00 00:00:00 MD Chasity: [facility] [address] [facility] [place], Practice - e [address], [place] [address] , Ph. 2018-10-26 2018-10-26 Amy Gu [facility] [place] - [id number] [facility] 00:00:00 00:00:00 [facility] MD: [address] [facility] [place], Practice - e [address], [place] [address] , Ph. 2018-10-23 2018-10-23 Tramaine Quiles [facility] [place] - [id number] [address] [place] [address] 00:00:00 00:00:00 MD Chasity: [facility] [address] [facility] [place], Practice - e [address], [place] [address] , Ph. 2018-10-03 2018-10-03 Tramaine Quiles [facility] [place] - [id number] [address] [place] [address] 00:00:00 00:00:00 MD Chasity: [facility] [address] [facility] [place], Practice - e [address], [place] [address] , Ph. 2018-08-14 2018-08-14 Tramaine Quiles [facility] [place] - [id number] 4 [facility] 00:00:00 00:00:00 MD Chasity: [facility] [facility], Practice - e [address], [place] [address] , Ph. 2018-07-24 2018-07-24 Tramaine [place]OOKSP [place] - [id number] 1 [facility] 00:00:00 00:00:00 MD Chasity: [facility] [place], Practice - e [address], [place] [address] , Ph. 2018-07-10 2018-07-10 Amy BROOK[place] - [id number] [facility] 00:00:00 00:00:00 [facility] MD: [address] [facility], Practice - e [address], [place] [address] , Ph. 2017-09-19 2017-09-19 Tramaine Quiles [facility] [place] - [id number] 9 [facility] 00:00:00 00:00:00 MD Chasity: [facility] [place], Practice - e [address], [place] [address] , Ph. 2017-09-01 2017-09-01 Tramaine Quiles [facility] [place] - [id number] 2 [facility] 00:00:00 00:00:00 MD Chasity: [facility], Practice - e [address], [place] [address] , Ph. 2017-08-12 2017-08-12 Amy [place]OOK[place] - [id number] [facility] 00:00:00 00:00:00 [facility] MD: [address] [facility] [place], Practice - e [address], [place] [address] , Ph. 2017-07-15 2017-07-15 Tramaine [place] - [id number] 2 [facility] 00:00:00 00:00:00 MD Chasity: [facility] [address] [facility], Practice - e [address], [facility] [place] [address] , Ph. Results Test Description Test Time Test Comments Results Result Comments Source - US RETRO LTD 2019-09-17 Name: MICHELLE LOPEZ 08:52:00 [facility] : 1990 Age/S: 29 / F [address] [address] [place] Unit #: [id number] Loc: [place] [address] Phys: Matt Benson MD Acct: [id number] Dis Date: Status: REG CLI PHONE #: [phone] Exam Date: 09/17/2019 0835 FAX #: Reason: KIDNEY STONE HYDRONEPHROSIS EXAMS: CPT: [id number] RETRO LTD 50141 RENAL ULTRASOUND CLINICAL HISTORY: KIDNEY STONE HYDRONEPHROSIS COMPARISON: Ultrasound dated August 10, 2019 COMMENTS: Grayscale and color Doppler ultrasound of the kidneys was performed. Right kidney: 10.3 x 4.5 x 4 cm. The renal cortex measures 1.0 cm in thickness. The renal cortical echogenicity is normal. Mild right hydronephrosis is redemonstrated. An echogenic 5 mm shadowing focus in the lower pole likely represents a calyceal stone. Left kidney: 11.3 x 4.6 x 4.4 cm. The renal cortex measures 1.4 cm in thickness. The renal cortical echogenicity is normal. Mild left hydronephrosis is redemonstrated. A few tiny nonshadowing echogenicities in the kidney are indeterminate for punctate stones. Bladder: Both ureteral jets are shown. IMPRESSION: 1. Mild bilateral hydronephrosis is stable. 2. 5 mm nonobstructing stone in the lower pole of the right kidney. Location: R16 at 0852 Reported and signed by: Santiago Carrero M.D. CC: Tramaine Gaspar MD; Matt Benson MD Technologist: Shelby Corona, RT(R),RDMS(AB) Trnscb Date/Time: 09/17/2019 (0852) [id number] PAGE 1 Signed Report Name: MICHELLE LOPEZ : 1990 Age/S: 29 / F [address] [address] [place] Unit #: [id number] Loc: [place] [address] Phys: Matt Benson MD Acct: [id number] Dis Date: Status: REG CLI PHONE #: [phone] Exam Date: 09/17/2019 0835 FAX #: Reason: KIDNEY STONE HYDRONEPHROSIS EXAMS: CPT: [id number] BiOM [id number] <Continued> Orig Print D/T: S: 09/17/2019 (0855) Probe: PAGE 2 Signed Report - BiOM 2019-08-10 Name: MICHELLE LOPEZ 08:50:00 M ROSSI Sue : 1990 Age/S: 29 / F [id number] [address] [place] Unit #: [id number] Loc: [place] [address] Phys: Matt Benson MD Acct: [id number] Dis Date: Status: REG CLI PHONE #: [phone] Exam Date: 08/10/2019 0835 FAX #: Reason: KIDNEY STONES EXAMS: CPT: [id number] BiOM [id number] EXAMINATION: - BiOM. LOCATION: S17. HISTORY: Kidney stones. COMPARISON: None. [...] Matt Benson MD Technologist: Shelby Corona, RT(R),RDMS(AB) Trnscb Date/Time: 08/10/2019 (0850) [email or web address] PAGE 1 Signed Report Name: [facility] [place] [facility] 1990 Age/S: 29 / F [address] [address] [place] Unit #: [id number] Loc: [place] [address] Phys: Matt Benson MD Acct: [id number] Dis Date: Status: REG CLI PHONE #: [phone] Exam Date: 08/10/2019834 FAX #: Reason: KIDNEY STONES EXAMS: CPT: [id number] [facility] [address] <Continued> Orig Print D/T: S: 08/10/2019 (0853) Probe: PAGE 2 Signed Report POCT-GLUCOSE METER 2017-08-18 15:05:00 Test Item Value Reference Range Interpretation Comme nts POC-GLUCOSE METER (ANN) (test 84 mg/dL 70-[address] [facility] [address] code = 1538) [facility] [address]
--- OUTSIDE RECORDS SUMMARY | 2019-11-02 07:19 | XMS REPORT | Encounter Summary ---
:1990 Author Care Team Providers Name Role Phone Dr. Amy Elena Primary Care Provider [phone] Tramaine Gaspar MD Primary Care Provider [phone] Evens Arias MD Radio Division Officer [phone] Svitlana Massey MD Guest Relations Coordinator [phone] Matt Benson MD Urologist [phone] Tay Gibbons DPM Consulting Systems Engineer [phone] Reason for Visit injection Instructions 1. Contraception using injectabl e contraceptive medication medroxyprogesterone 150 mg /mL intramuscular suspension Discussion Note: None recorded.Patient educational handouts: No information available. Plan of Care Reminders Provider Appointments None recorded. Lab None [...] needed. medroxyprogesterone 150 mg/mL intramuscular suspension Inject 1 mL every 3 months by intramuscular route. omeprazole 40 mg capsule,delayed release TAKE ONE CAPSULE BY MOUTH EVERY DAY NEEDED ondansetron 4 mg disintegrating tablet tamsulosin 0.4 mg capsule Take 1 capsule every day by oral route. Medications Administered Name Date medroxyprogesterone 150 mg/mL intramuscular suspen wayne [id number]:03:32 Inject 1 mL every 3 months by intramuscular route. Vitals None recorded. Results Lab Results None recorded. Allergies Code Code System Name Reaction Severity Status Onset 6085 RxNorm Metformin Nausea Active Problems Name Status Onset Date Source Anxiety Disorder Active 07/15/2017 Kidney Stone Active 07/15/2017 Chronic Low Back Pain Active 07/15/2017 Irritable Bowel Syndrome Active 08/12/2017 Scoliosis Deformity of Spine Active 08/12/2017 Family History of Malignant Neoplasm of Uterus Active 0 08/12/2017 Polycystic Ovaries Active 08/12/2017 Insomnia Active 09/01/2017 Increased Cancer Antigen 125 Active 09/01/2017 Iron Deficiency Anemia Active 2018 Overweight Active 03/08/2018 Dyslipidemia Active 10/16/2018 Vitamin D Deficiency Active 03/02/2019 Gastroesophageal Reflux Disease without Active 03/05/20 19 Esophagitis Hypercalcemia Active 07/23/2019 Procedures Date Name Performed by 08/18/2017 Colonoscopy Information not avai lable Tooth Root Removal Information not avai lable Vaccine List Vaccine Type influenza, injectable, quadrivalent, pre servative free 03/08/2018 03/05/2019 Tdap 08/13/20170.5 mL Social History Tobacco Smoking Status Heavy Tobacco Smoker (1/2 PPD) Past Encounters 09/24/2019 Contraception Using Injectable Contracep tive Medication Tramaine Gaspar MD: [address] [address], Ph. History of Present Illness None recorded. Review of Systems None recorded. Physical Exam None recorded.
--- NOTE | 2019-11-02 07:36 | EDPHYS ---
Physician Documentation [facility] Name: Debbie Rojo Age: 29 yrs Sex: Female : 1990 Arrival Date: 11/02/2019 Time: 07:19 Bed 5 Private MD: Yesenia Gaspar H ED Physician Wallace Chan HPI: 11/01 07:27 This 29 yrs old Female presents to ER via Unassigned with complaints of Back jmm Pain, Rib pain. 07:27 The patient presents with pain that is acute, and an injury. Onset: The jmm symptoms/episode began/occurred acutely, 5 day(s) ago. The pain does not radiate. Associated signs and symptoms: Pertinent negatives: abdominal pain, chest pain, fever, incontinence, nausea, numbness, vomiting, weakness. The problem was sustained from twisting. This is a 29 year old female with a history of DM, that presents to the ED with complaints of left sided thoracic back pain which occurred after twisting her back. Patient states she was pulled by a hose but did not fall. Denies other injury. . Historical: - Allergies: 07:21 Metformin HCl; aa5 - Home Meds: 07:21 None [Active]; aa5 - PMHx: 07:21 Irritable bowel syndrome; Kidney stones; neuropathy; Scoliosis; Diabetes (resolved as aa5 stated by patient); - PSHx: 07:21 None; aa5 - Immunization history:: Adult Immunizations unknown. - Social history:: Smoking status: Patient denies any tobacco usage or history of. ROS: 07:27 Constitutional: Negative for fever, chills, and weight loss, Cardiovascular: Negative jmm for chest pain, palpitations, and edema, Respiratory: Negative for shortness of breath, cough, wheezing, and pleuritic chest pain, Abdomen/GI: Negative for abdominal pain, nausea, vomiting, diarrhea, and constipation. 07:27 Neuro: Negative for headache, weakness, numbness, tingling, and seizure. 07:27 Back: Positive for pain with movement. 07:27 All other systems are negative. Exam: 07:27 Constitutional: This is a well developed, well nourished patient who is awake, alert, jmm and in no acute distress. Head/Face: atraumatic. Eyes: EOMI, no conjunctival erythema appreciated ENT: Moist Mucus Membranes Neck: Trachea midline, Supple Chest/axilla: Normal chest wall appearance and motion. Cardiovascular: Regular rate and rhythm. No edema appreciated Respiratory: Normal respirations, no respiratory distress appreciated Abdomen/GI: Non distended, soft 07:27 Skin: General appearance color normal MS/ Extremity: Moves all extremities, no obvious deformities appreciated, no edema noted to the lower extremities Neuro: Awake and alert, normal gait Psych: Behavior is normal, Mood is normal, Patient is cooperative and pleasant 07:27 Back: no midline tenderness appreciated, left sided thoracic paraspinal tenderness appreciated, muscle spasm appreciated. . Vital Signs: 07:21 BP 131 / 91; Pulse 94; Resp 18 S; Temp 98.4(TE); Pulse Ox 100% on R/A; Weight 79.38 kg aa5 (R); Height 5 ft. 2 in. (157.48 cm) (R); Pain 8/10; 07:21 Body Mass Index 32.01 (79.38 kg, 157.48 cm) aa5 MDM: 07:27 Patient medically screened. [facility] 07:34 Data reviewed: vital signs, nurses notes. Counseling: I had a detailed discussion with [facility] the patient and/or guardian regarding: the historical points, exam findings, and any diagnostic results supporting the discharge/admit diagnosis, the need for outpatient follow up, to return to the emergency department if symptoms worsen or persist or if there are any questions or concerns that arise at home. ED course: Patient is alert and non toxic in appearance in the ED. I do not suspect cord compression. PE/HPI exam consistent with with muscle strain. Patient is advised to follow up with pcp and otherwise given strict return precautions. patient understood and agrees with the plan of care. . Administered Medications: 07:45 Drug: Ketorolac 30 mg Route: IM; Site: right gluteus; aa5 08:04 Follow up: Response: No adverse reaction aa5 Disposition: 19:32 Co-signature as Attending Physician, Wallace Chan MD. [email or web address] Disposition: 11/02/19 07:36 Discharged to Home. Impression: Strain of muscle and tendon of back wall of thorax. - Condition is Stable. - Discharge Instructions: Thoracic Strain. - Prescriptions for Zanaflex 4 mg Oral Tablet - take 1 tablet by ORAL route every 8 hours As needed; 20 tablet. Medrol (Cesar) 4 mg Oral Tablets, Dose Pack - take 1 tablet by ORAL route as directed - follow package instructions; 1 packet. - Medication Reconciliation Form, Thank You Letter, Antibiotic Education, Prescription Opioid Use form. - Follow up: Yesenia Gaspar DO; When: 2 - 3 days; Reason: Recheck today's complaints, Continuance of care, Re-evaluation by your physician. Signatures: Bertin Maynard PA PA jmm Calderon, Audri, RN RN aa5 Wallace Chan MD MD [email or web address] Corrections: (The following items were deleted from the chart) 08:04 07:36 11/02/2019 07:36 Discharged to Home. Impression: Strain of muscle and tendon of aa5 back wall of thorax. Condition is Stable. Forms are Medication Reconciliation Form, Thank You Letter, Antibiotic Education, Prescription Opioid Use. Follow up: Yesenia Gaspar; When: 2 - 3 days; Reason: Recheck today's complaints, Continuance of care, Re-evaluation by your physician. january
[2019-11-02] MEDS ORDERED: KETOROLAC 30 MG/ML INJ ONE (07:49)
--- NOTE | 2019-11-02 08:04 | ER ---
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 Pt c/o mid back pain. 07:21 Coronavirus screen: Proceed with normal triage. Patient denies a cough. Patient denies aa5 shortness of breath or difficulty breathing. Patient denies measured and/or subjective temperature greater than 100.4F prior to today's visit. Patient denies travel on a cruise ship or to a country the [facility] currently lists as an affected area. Patient denies contact with known and/or suspected case of COVID-19. Ebola Screen: Patient negative for fever greater than or equal to 101.5 degrees Fahrenheit, and additional compatible Ebola Virus Disease symptoms. Initial Sepsis Screen: Does the patient meet any 2 criteria? No. Patient's initial sepsis screen is negative. Does the patient have a suspected source of infection? No. Patient's initial sepsis screen is negative. Risk Assessment: Do you want to hurt yourself or someone else? Patient reports no desire to harm self or others. Onset of symptoms was October 2019. 07:21 Acuity: PATTI 4 aa5 07:21 Method Of Arrival: Ambulatory aa5 Historical: - Allergies: 07:21 Metformin HCl; aa5 - Home Meds: 07:21 None [Active]; aa5 - PMHx: 07:21 Irritable bowel syndrome; Kidney stones; neuropathy; Scoliosis; Diabetes (resolved as aa5 stated by patient); - PSHx: 07:21 None; aa5 - Immunization history:: Adult Immunizations unknown. - Social history:: Smoking status: Patient denies any tobacco usage or history of. Assessment: 08:02 Reassessment: Patient is alert, oriented x 3, equal unlabored respirations, skin aa5 warm/dry/pink. Vital Signs: 07:21 BP 131 / 91; Pulse 94; Resp 18 S; Temp 98.4(TE); Pulse Ox 100% on R/A; Weight 79.38 kg aa5 (R); Height 5 ft. 2 in. (157.48 cm) (R); Pain 8/10; 07:21 Body Mass Index 32.01 (79.38 kg, 157.48 cm) aa5 ED Course: 07:19 Patient arrived in ED. mr 07:20 Yesenia Gaspar DO is Private Physician. mr 07:20 Bertin Maynard PA is PHCP. [facility] 07:20 Wallace Chan MD is Attending Physician. [facility] 07:21 Arm band placed on Patient placed in an exam room, on a stretcher. aa5 07:26 Mirza Skinner, RN is Primary Nurse. em 07:36 Yesenia Gaspar DO is Referral Physician. [facility] 07:59 Triage completed. aa5 Administered Medications: 07:45 Drug: Ketorolac 30 mg Route: IM; Site: right gluteus; aa5 08:04 Follow up: Response: No adverse reaction aa5 Outcome: 07:36 Discharge ordered by . [facility] 08:02 Discharged to home ambulatory. aa5 08:02 Condition: stable 08:02 Discharge instructions given to patient, Instructed on discharge instructions, follow up and referral plans. medication usage, Demonstrated understanding of instructions, follow-up care, medications, Prescriptions given X 2. 08:04 Patient left the ED. aa5 Signatures: Bertin Maynard PA PA Apple Nichols mr Mirza Skinner, RN RN Isa Moreira RN RN aa5
[2019-11-02 08:13] VITALS: BP 131/91; TEMP 98.4; O2SAT 100
== END 2019-11-02 08:04 | disposition home or self-care (01) ==
LOC: ER 07:16
DX: S29.012A Strain of muscle and tendon of back wall of thorax, initial encounter (principal); X50.1XXA Overexertion from prolonged static or awkward postures, initial encounter; Y93.9 Activity, unspecified; Y92.9 Unspecified place or not applicable; Z88.8 Allergy status to other drugs, medicaments and biological substances; Z87.442 Personal history of urinary calculi
CPT/HCPCS: 96372; 99283

== ENCOUNTER 2020-07-19 03:13 | Emergency (ER) | payer OTHER ==
--- OUTSIDE RECORDS SUMMARY | 2020-07-19 03:15 | XMS REPORT | Clinical Summary ---
:1990 Author Organization [facility] Address [address] [place] [id number] Care Team Providers Name Role Phone Etta [...] Assigned at Date Recorded Not on file Last Filed Vital Signs Not on file Plan of Treatment Health Maintenance Due Date Last Done Comments PNEUMOCOCCAL VACCINE 0-64 YRS (1 of 1 - PPSV23) 01/16/1996 LIPID PANEL 2010 CERVICAL CANCER SCREENING PAP ONLY (Age 21-65) 2011 INFLUENZA VACCINE (#1) 2020 Results Not on fileafter 07/19/2019
--- OUTSIDE RECORDS SUMMARY | 2020-07-19 03:17 | XMS REPORT | Encounter Summary ---
:1990 Author Care Team Providers Name Role Phone Dr. Amy Perez-Marly Primary Care Provider [phone] Sarah Bradford MD Referral Clerk [phone] Evens Arias MD Cook Mess [phone] Svitlana Massey MD Bag Grader [phone] Matt Benson MD Urologist [phone] Tay Gibbons DPM Wire Brush Operator [phone] Jakob Florez MD Neurologist [phone] Kory East MD Hematology/Oncology [phone] Reason for Visit diarrhea; Telemedicine Visit Instructions 1. Irritable bowel syndrome with diarrhea 2. Body mass index 30+ - obesity body mass index: care inst ructions learning about healthy gerard ght Discussion Note Patient agreed with above POC and w ill notify office with any concerns, questions, changes of conditions, or med ication side effects. Plan of Care Reminders Provider Appointments None recorded. Lab None recorded. Referral None recorded. Procedures None recorded. Surgeries None recorded. Imaging None recorded. Medications Name Start Date clindamycin phosphate 1 % topical solution APPLY TO AFFECTED AREA TWICE A DAY TO GROIN cyanocobalamin (vit B-12) 1,000 mcg/mL injection solut ion INJECT 1 ML ONCE EVERY 14 DAYS INTRAMUSCULARLY cyclobenzaprine 10 mg tablet Take 1 tablet as needed by oral route in the evening. Depo-Provera 150 mg/mL intramuscular suspension Inject 1 mL every 3 months by intramuscular route. doxycycline monohydrate 100 mg tablet TAKE 1 TABLET BY MOUTH EVERY DAY duloxetine 30 mg capsule,delayed release TAKE 1 CAPSULE BY MOUTH EVERY DAY ergocalciferol (vitamin D2) 1,250 mcg (50,000 unit) ca psule as directed fluocinolone 0.01 % topical solution APPLY TO AFFECTED AREA TWICE A DAY ON GROIN APPLIED T OPICALLY 30 DAYS gabapentin 100 mg capsule hydroxyzine HCl 25 mg tablet TAKE 1 TABLET BY MOUTH AT BEDTIME methocarbamol 750 mg tablet tizanidine 2 mg tablet TAKE 1 TABLET BY MOUTH EVERY DAY NEEDED Medications Administered None recorded. Vitals Height Weight BMI Blood Pressure 5 ft 3 in 175 lbs 31 kg/m2 Results Lab Results None recorded. Allergies Code Code System Name Reaction Severity Status Onset 9 RxNorm Metformin Active 11/20/2019 Problems Name Status Onset Date Source Anxiety Disorder Active 07/15/2017 Kidney Stone Active 07/15/2017 Chronic Low Back Pain Active 07/15/2017 Irritable Bowel Syndrome Active 08/12/2017 Polycystic Ovaries Active 08/12/2017 Insomnia Active 09/01/2017 Increased Cancer Antigen 125 Active 09/01/2017 Iron Deficiency Anemia Active 2018 Dyslipidemia Active 10/16/2018 Vitamin D Deficiency Active 03/02/2019 Gastroesophageal Reflux Disease without Active 03/05/20 19 Esophagitis Hypercalcemia Active 07/23/2019 Procedures Date Name Performed by 11/21/2019 Percutaneous Extraction of Kidney Inform ation not available Stone with Fragmentation Procedure 08/18/2017 Colonoscopy Information not avai lable Tooth Root Removal Information not avai lable Vaccine List Vaccine Type influenza, injectable, quadrivalent, pre servative free 03/08/2018 03/05/2019 03/14/20200.5 mL Tdap 08/13/20170.5 mL Social History Tobacco Smoking Status Heavy Tobacco Smoker (1/2 PPD) Past Encounters Encounter Date Diagnosis Provider 06/09/2020 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, [address], - [place] [address], Ph. History of Present Illness Diarrhea Reported By: Patient HPI: Quality: soft; Started off w atery now loose. Onset/Timin-10 times a day. Context: no one else wi th similar symptoms, possible food source. Alleviating Factors: imodium , OTC medication. Aggravating Factors: fatty foods. Associated Symptoms: no abdominal pain, no excess gas, no fever, no rash, no joint pain, no w eight loss, no nausea, no vomiting, no heartburn, no blood in stool , no mucus in stool, no black or tarry stools, no weakness, no nutr ient deficiency Note: Diarrhea x 2 days. Hx IBS. Reports she ate pork on Tuesday (states pork normally upset stomach). Review of Systems Notes: General: denies fever, fatig ue, malaise, weight loss,

HEENT: denies blurring, diplopia, irritati on, discharge, ear pain /discharge, nasal obstruction, sore throat

CV: denies chest pains, palpitations, orthopnea or edema

Re sp: denies wheeze, shortness of breath, cough

GI: see HPI

: denies hematuria, frequency, urgency, dysuria, discharge, incontin ence

Derm: denies rash

M/S: denies joint pain/swelling<b r>
Psych: denies anxiety/depression
<br&gt ;Neuro: denies weakness, parethesias, syncope, or seizures Physical Exam Telemedicine/Virtual Visit Reported By: Patient Notes: General: well developed, in no acute distress.
Psych: alert and cooperative; normal mood and affect; normal attention span and concentration, answering que stions appropriately. <div>Hearing - grossly normal
</div><div>Nose/Mo uth - no nasal congestion; no vocal hoarseness
Resp: respirat ory effort normal - no dyspnea/cough
Skin: pink in color; no cyanosis noted </div>
--- OUTSIDE RECORDS SUMMARY | 2020-07-19 03:17 | XMS REPORT | Encounter Summary ---
:1990 Author Care Team Providers Name Role Phone Dr. Amy Perez-Marly Primary Care Provider [phone] Tramaine Gaspar MD Primary Care Provider [phone] Sarah Bradford MD Sound Designer [phone] Evens Arias MD Hospitality Host [phone] Svitlana Massey MD Bullet Assembly Press Setter Operator [phone] Matt Benson MD Urologist [phone] Tay Gibbons DPM Ironer Hand [phone] Chase Rendon MD Pain Management [phone] Jakob Florez MD Neurologist [phone] Kory East MD Hematology/Oncology [phone] Reason for Visit other - see typed reason; chronic condit ions Instructions 1. Irritable bowel syndrome gastroenterology referral - PLEASE CALL PATIENT TO SCHEDULE APPT, THANK YOU 2. Pain in pelvis US, pelvis, transabdominal + transvaginal Naprosyn 500 mg tablet 3. Galactorrhea not associated w ith childbirth prolactin, serum 4. Hirsutism testosterone, total, serum 5. Polycystic ovary syndrome 6. Contraception care management Depo-Provera 150 mg/mL int ramuscular suspension test, urine 7. Obesity phentermine 37.5 mg tablet 8. Body mass index 30+ - obesity body mass index: care inst ructions learning about healthy gerard ght Discussion Note: None recorded. Plan of Care Patient Instructions RTC 7 mo for CPX Reminders Provider Appointments None recorded. Lab Test, [id number] Urine 06/24/2020 [place] (Gag) Prolactin, Serum [facility] 06/24/2020 - Laboratory Testosterone, [facility] Total, Serum 06/24/2020 - Laboratory Referral Gastroenterology Alessandro King MD Referral 06/24/2020 Procedures None recorded. Surgeries None recorded. Imaging US, Pelvis, [facility] Transabdominal + 06/24/2020 [facility] Transvaginal [facility] Medications Name Start Date clindamycin phosphate 1 % topical solution APPLY TO AFFECTED AREA TWICE A DAY TO GROIN cyanocobalamin (vit B-12) 1,000 mcg/mL injection solut ion INJECT 1 ML ONCE EVERY 14 DAYS INTRAMUSCULARLY Depo-Provera 150 mg/mL intramuscular suspension Inject 1 [...] TAKE 1 TABLET BY MOUTH AT BEDTIME Naprosyn 500 mg tablet Take 1 tablet twice a day by oral route as needed. phentermine 37.5 mg tablet Take 1 tablet every day by oral route in the morning. Medications Administered Name Date Depo-Provera 150 mg/mL intramuscular suspension [id number]:22:00 Inject 1 mL every 3 months by intramuscular route. Vitals Height Weight BMI Blood Pressure 5 ft 3 in 187 lbs 33.1 kg/m2 134/89 mm[Hg] Results Lab Results Date Name Specimen Result Interpretation Description Value Range Status Address 06/24/2020 Hcg negative V [facility] Test, Urine Desire and ([facility]): [address] Allergies Code Code System Name Reaction Severity Status Onset 6809 RxNorm Metformin Active 11/20/2019 Problems Name Status Onset Date Source Anxiety Disorder Active 07/15/2017 Kidney Stone Active 07/15/2017 Chronic Low Back Pain Active 07/15/2017 Irritable Bowel Syndrome Active 08/12/2017 Insomnia Active 09/01/2017 Increased Cancer Antigen 125 Active 09/01/2017 Iron Deficiency Anemia Active 2018 Dyslipidemia Active 10/16/2018 Vitamin D Deficiency Active 03/02/2019 Gastroesophageal Reflux Disease without Active 03/05/20 19 Esophagitis Hypercalcemia Active 07/23/2019 Polycystic Ovary Syndrome Active 06/24/2020 Procedures Date Name Performed by 11/21/2019 Percutaneous Extraction of Kidney Inform ation not available Stone with Fragmentation Procedure 08/18/2017 Colonoscopy Information not avai lable Tooth Root Removal Information not avai lable 06/24/2020 US, Pelvis, Transabdominal + [facility]-Scheduling Transvaginal [address] [place] [address] ([address]) Vaccine List Vaccine Type influenza, injectable, quadrivalent, pre servative free 03/08/2018 03/05/2019 03/14/20200.5 mL Tdap 08/13/20170.5 mL Social History Tobacco Smoking Status Heavy Tobacco Smoker (1/2 PPD) Past Encounters Encounter Date Diagnosis Provider 06/24/2020 Irritable Bowel Syndrome; Pain Tramaine Roddy Gaspar MD: 6122 in Pelvis; Galactorrhea Not [facility], [address], Associated with Childbirth; [place] [address], Hirsutism; Polycystic Ovary Ph. 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 History of Present Illness Note: <div>Abd Pain - intermittent diarrhea and constipation. Getting worst. No N / V / Wt Loss/ blood in stool.</div><div>No Tx.</div><div>
</div><div>Pelvic Pain - Lt. Pt does not have periods b/c of Depo.</div><div>x 4-5 wks.</div> <div>Same pain as 2018. U/S pelvis showed cysts.</div><div>No Tx.</div><div>
</div><div>Breast - from [facility] breasts.</div><div>x 3wks. No blood /pain / lumps.</div><div>UPT neg.</div><div>
</div&g t;<div>Hirsuitism - worst on chin, chest, below umbilicus</div><div>Pt is shaving&l t;/div><div>
</div><div>muscle pain - better
</div><div>F/U Pod</div><div>
</div><div>thoracic back pain - per Pt. W/U is SI joint. Seeing Pain Mgt.
</div><div>cyclobenzaprine 10 mg tablet
</div><div>XR, thoracic spine, 2 view - did MRI via pain mgt.
</div><div>
</div><div>Wt - worst. Would like refill phentermine.</div><div&g t;
</div><div>Contraception - needs Depo</div><div>
</div><div>Your labs are normal except...
</div><div>1. Lipids are high. Irecommend low fat diet and walking. I will monitor.</div>Review of Systems: ROS as noted in the HPI Review of Systems Comprehensive General Adult ROS Reported By: Patient Constitutional: Constitutional: no fever Eyes: Eyes: no vision change, no i rritation ENMT: Ears: no difficulty hearing, no ear pain. Nose: no nose problems, no sinus problems. Mouth/Throat: no sore throat, no oral abnormalities Cardiovascular: Cardiovascular: no chest olman n, no palpitations Respiratory: Respiratory: no cough, no wh eezing, no shortness of breath Gastrointestinal: Gastrointestinal: no abdomin al pain, no nausea, no vomiting, no constipation, normal appe tite, no diarrhea, no GERD Genitourinary: Genitourinary: no difficulty urinating, no hematuria, no increased frequency Musculoskeletal: Musculoskeletal: no muscle a ches Integumentary: Skin: no rashes Neurologic: Neurologic: no headaches Endocrine: Endocrine: no fatigue Hematologic/Lymphatic: Hematologic/Lymphatic no swo llen glands Allergic/Immunologic: Allergy/Immunologic: no runn y nose, no sinus pressure, no itching, no frequent sneezin g Physical Exam General Adult Exam (male) Reported By: Patient Constitutional: General Appearance: healthy- appearing, well-developed, obese. Level of Distress: NAD. Ambulation : ambulating normally Psychiatric: Insight: good judgement. Men raquel Status: normal mood, normal affect Head: Head: normocephalic, atrauma tic Eyes: Lids and Conjunctivae: non-i njected, no discharge, no pallor. Pupils: PERRLA. EOM: EOMI ENMT: Ears: no lesions on external ear, EACs clear, TMs clear. Hearing: no hearing loss. Nose: no le sions on external nose, nares patent, nasal passages clear, no sin us tenderness, no nasal discharge. Oropharynx: moist mucous mem branes, no erythema, no exudates, tonsils not enlarged Neck: Neck: supple, trachea midlin e, no masses, FROM. Lymph Nodes: no cervical LAD, no supraclavic ular LAD Lungs: Respiratory effort: no dyspn ea. Auscultation: breath sounds normal, good air movement, CTA excep t as noted, no wheezing, no rales/crackles, no rhonchi Cardiovascular: Heart Auscultation: RRR, nor mal S1, normal S2, no murmurs, no rubs, no gallops Abdomen: Bowel Sounds: normal. Inspec tion and Palpation: soft, non-distended, no tenderness , no guarding, no masses. Liver: non-tender, no hepatomegaly. Spleen: non-tender, no splenomegaly Musculoskeletal:: Extremities: no edema Neurologic: Gait and Station: normal gai t, normal station
--- OUTSIDE RECORDS SUMMARY | 2020-07-19 03:17 | XMS REPORT | Continuity of Care Document ---
:1990 Author Organization [facility] t Address [address] [place] [address] Care Team Providers Name Role Phone Etta Gaspar Primary Care Physician ANH HUDDLESTON Attending Clinician Unavailable ANH HUDDLESTON Admitting Clinician Unavailable Payers Payer Name Policy Type Policy Number Effective Date Expiration Date S ource Problems Condition Condition Condition Status Onset Resolution Last Treating Co mments Source Name Details Category Date Date Treatment Clinician Date Polycystic Polycystic Problem Active [facility] ovary Ovary 1-12 Family syndrome Syndrome 00:00: Practi c 00 e Hypercalce Hypercalce Problem Active [facility] pierre [...] ia 5-06 Family 00:00: Practic 00 e Iron Iron Problem Active [facility] deficiency Deficiency 8-05 Fa darren anemia Anemia 00:00: Practic 00 e Insomnia Insomnia Problem Active [place] ge 3-22 Family 00:00: Practic 00 e Increased Increased Problem Active [facility] cancer Cancer 3- Family antigen Antigen 00:00: Practic 125 125 00 e Irritable Irritable Problem Active [place] acuñae bowel Bowel 3- Family syndrome Syndrome 00:00: Practi c 00 e Anxiety Anxiety Problem Active [facility] disorder Disorder 2- Family 00:00: Practic 00 e Kidney Kidney Problem Active [facility] stone Stone 2- Family 00:00: Practic 00 e Chronic Chronic Problem Active [facility] low back Low Back 2- Family pain Pain 00:00: Practic 00 e Allergies, Adverse Reactions, Alerts Allergy Allergy Status Severity Reaction(s) Onset Inactive Treating Comm ents Source Name Type Date Date Clinician Metformi ? Active Nausea [facility] n 6- Family 00:00: Practic 00 e metformi DA Active [facility] [place] 00:[facility]: d 00 [facility] Metformi Propensi Active Other (See BS drop C HI [facility] n ty to Comments) [facility] reaction 00 Center s Social History Social Habit Start Date Stop Date Quantity Comments Source Sex Assigned At [facility] Cigarettes smoked 2017-08-18 2017-08-18 [facility] - current (pack per 00:00:00 00:00:00 [facility] day) - Reported Cigarette 2017-08-18 2017-08-18 [facility] - pack-years 00:00:00 00:00:00 [facility] Tobacco use and 2017-08-18 2017-08-18 Never used [facility] - exposure 00:00:00 00:00:00 [facility] Alcohol intake 2017-08-18 2017[facility]08[facility]18 [facility] non-drinker of Medical Ce nter alcohol (finding) Smoking Status Start Date Stop Date Source Heavy Tobacco Smoker [facility] Current every day smoker 2017-08-18 00:00:00 [facility] Medications Ordered Filled Start Stop Current Ordering Indication Dosage Frequency Signature Comments Components Source Medication Medication Date Date Medication? 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 ar route. intramuscu lar route. estradiol 2018-0 Yes Q28D Inject [facility] cypionate 3-08 intramuscu [facility] - (DEPO-ESTRA 16:21: larly Medic al DIOL) 5 40 every 28 Center mg/mL days. injection clindamycin clindamycin No clindamyci [facility] phosphate 1 phosphate 1 n F amily % topical % topical phosphate Practic solution solution 1 % e APPLY TO APPLY TO topical AFFECTED AFFECTED solution AREA TWICE AREA TWICE APPLY TO A DAY TO A DAY TO AFFECTED GROIN GROIN AREA TWICE A DAY TO GROIN cyanocobala cyanocobala No cyanocobal [facility] min (vit min (vit [place] (vit Fa darren B-12) 1,000 B-12) 1,000 B-12) Practic mcg/mL mcg/mL 1,000 e injection injection mcg/mL solution solution injection INJECT 1 ML INJECT 1 ML solution ONCE EVERY ONCE EVERY INJECT 1 14 DAYS 14 DAYS ML ONCE INTRAMUSCUL INTRAMUSCUL EVERY 14 JHOAN JHOAN DAYS INTRAMUSCU LARLY 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 ar route. intramuscu lar route. doxycycline doxycycline No doxycyclin [facility] monohydrate monohydrate e F amily 100 mg 100 mg monohydrat Pract ic tablet TAKE tablet TAKE e 100 mg e 1 TABLET BY 1 TABLET BY tablet MOUTH EVERY MOUTH EVERY TAKE 1 DAY DAY TABLET BY MOUTH EVERY DAY duloxetine duloxetine No duloxetine [facility] 30 mg 30 mg 30 mg Family capsule,del capsule,del capsule,de Practic ayed ayed layed e release release release TAKE 1 TAKE 1 TAKE 1 CAPSULE BY CAPSULE BY CAPSULE BY MOUTH EVERY MOUTH EVERY MOUTH DAY DAY EVERY DAY ergocalcife ergocalcife No ergocalcif [facility] papito devine Family (vitamin (vitamin (vitamin Pra ctic D2) 1,250 D2) 1,250 D2) 1,250 e mcg (50,000 mcg (50,000 mcg unit) unit) (50,000 capsule as capsule as unit) directed directed capsule as directed fluocinolon fluocinolon No fluocinolo [facility] e 0.01 % e 0.01 % ne 0.01 % Fa darren topical topical topical Practi c solution solution solution e APPLY TO APPLY TO APPLY TO AFFECTED AFFECTED AFFECTED AREA TWICE AREA TWICE AREA TWICE A DAY ON A DAY ON A DAY ON GROIN GROIN GROIN APPLIED APPLIED APPLIED TOPICALLY TOPICALLY TOPICALLY 30 DAYS 30 DAYS 30 DAYS gabapentin gabapentin No gabapentin [facility] 100 mg 100 mg 100 mg Family capsule capsule capsule Practi c e hydroxyzine hydroxyzine No hydroxyzin [facility] HCl 25 mg HCl 25 mg e HCl 25 F amily tablet TAKE tablet TAKE mg tablet Practic 1 TABLET BY 1 TABLET BY TAKE 1 e MOUTH AT MOUTH AT TABLET BY BEDTIME BEDTIME MOUTH AT BEDTIME Naprosyn Naprosyn No 1 BID Naprosyn [facility] 500 mg 500 mg 500 mg Family tablet Take tablet Take tablet Practic 1 tablet 1 tablet Take 1 e twice a day twice a day tablet by oral by oral twice a route as route as day by needed. needed. oral route as needed. phentermine phentermine No 1 Q1D phentermin [facility] 37.5 mg 37.5 mg e 37.5 mg Fami ly tablet Take tablet Take tablet Practic 1 tablet 1 tablet Take 1 e every day every day tablet by oral by oral every day route in route in by oral the the route in morning. morning. the morning. Immunizations Ordered Immunization Filled Immunization Date Status Commen ts Source Name Name influenza, influenza, 2020-03-14 [facility] injectable, injectable, 17:08:00 Practice quadrivalent, quadrivalent, preservative free preservative free influenza, influenza, 2019-03-05 [facility] injectable, injectable, 18:37:00 Practice quadrivalent, quadrivalent, preservative free preservative free influenza, influenza, 2018-03-08 [facility] injectable, injectable, 16:32:48 Practice quadrivalent, quadrivalent, preservative free preservative free Tdap Tdap 2017-08-13 [facility] 10:59:00 Practice Vital Signs Vital Name Observation Time Observation Value Comments Source BP Diastolic 2020-06-24 00:00:00 89 mm[Hg] [facility] Height 2020-06-24 00:00:00 63 [in_i] [facility] BMI (Body Mass 2020-06-24 00:00:00 33.1 kg/m2 [facility] BP Systolic 2020-06-24 00:00:00 134 mm[Hg] [facility] Body Weight 2020-06-24 00:00:00 187 [lb_av] [facility] Height 2020-06-09 00:00:00 63 [in_i] [facility] BMI (Body Mass 2020-06-09 00:00:00 31 kg/m2 [facility] Body Weight 2020-06-09 00:00:00 175 [lb_av] [facility] BP Diastolic 2020-01-25 00:00:00 74 mm[Hg] [facility] Height 2020-01-25 00:00:00 63 [in_i] [facility] BMI (Body Mass 2020-01-25 00:00:00 31.2 kg/m2 [facility] BP Systolic 2020-01-25 00:00:00 101 mm[Hg] [facility] Body Weight 2020-01-25 00:00:00 176 [lb_av] [facility] Height 2019-11-09 00:00:00 63 [in_i] [facility] BMI (Body Mass 2019-11-09 00:00:00 31 kg/m2 [facility] Body Weight 2019-11-09 00:00:00 175 [lb_av] [facility] BP Diastolic 2019-07-23 00:00:00 75 mm[Hg] [facility] Height 2019-07-23 00:00:00 63 [in_i] [facility] BMI (Body Mass 2019-07-23 00:00:00 31.3 kg/m2 [facility] BP Systolic 2019-07-23 00:00:00 109 mm[Hg] [facility] Body Weight 2019-07-23 00:00:00 176.8 [lb_av] [facility] [...] Practice BP Diastolic 2017-09-19 00:00:00 76 mm[Hg] [facility] Height 2017-09-19 00:00:00 67 [in_i] [facility] BP Systolic 2017-09-19 00:00:00 122 mm[Hg] [facility] BP Diastolic 2017-09-01 00:00:00 88 mm[Hg] [facility] Family Practice Height 2017-09-01 00:00:00 67 [in_i] [facility] Practice BMI (Body Mass 2017-09-01 00:00:00 27.1 kg/m2 [facility] Family Index) Practice BP Systolic 2017-09-01 00:00:00 142 mm[Hg] [facility] Body Weight 2017-09-01 00:00:00 173 [lb_av] [facility] Practice BP Diastolic 2017-08-12 00:00:00 80 mm[Hg] [facility] Family Practice Height 2017-08-12 00:00:00 67 [in_i] [facility] Practice BMI (Body Mass 2017-08-12 00:00:00 27.2 kg/m2 [facility] Family Index) Practice BP Systolic 2017-08-12 00:00:00 110 mm[Hg] [facility] Body Weight 2017-08-12 00:00:00 173.6 [lb_av] [facility] BP Diastolic 2017-07-15 00:00:00 80 mm[Hg] [facility] Height 2017-07-15 00:00:00 67 [in_i] [facility] Practice BMI (Body Mass 2017-07-15 00:00:00 26.6 kg/m2 [facility] Family Index) Practice BP Systolic 2017-07-15 00:00:00 126 mm[Hg] [facility] Body Weight 2017-07-15 00:00:00 170 [lb_av] [facility] Practice Procedures Procedure Date / Time Performing Clinician Source Performed US, pelvis, 2020-06-24 00:00:00 Gilmer preciado transabdominal + Practice transvaginal XR, thoracic spine, 2 2020-01-25 00:00:00 [facility] Family view Practice Percutaneous Extraction 2019-11-21 00:00:00 [facility] Family of Kidney Stone with Practice Fragmentation Procedure MRI, foot, w/o contrast 2019-05-04 00:00:00 [facility] Family Practice US, abdomen, complete 2018-10-23 00:00:00 [facility] Family Practice Colonoscopy 2017-08-18 [facility] Plan of Care Planned Activity Planned Date Details Comments Source Diagnostic Test 2020-06-24 test, urine [facility] Pending 00:00:00 [code = Practice test, urine] Diagnostic Test 2020-06-24 prolactin, serum [facility] Pending 00:00:00 [code = prolactin, Practice serum] Diagnostic Test 2020-06-24 testosterone, total, [facility] Pending 00:00:00 serum [code = Practice testosterone, total, serum] Future Scheduled Test 2020-02-12 [address] V[address] [facility] - [facility]00 (#1) [code = Medical Center INFLUENZA VACCINE (#1)] Future Scheduled Test [facility] malignant neoplasm of Medica l Center cervix (procedure) [code = 145270299] Future Scheduled Test 2010 Lipid panel [facility] - 00:00:00 (procedure) [code = [facility] Center 88078897] Future Scheduled Test 1996-01-16 PNEUMOCOCCAL VACCINE [facility] - 00:00:00 0-64 YRS (1 of 1 - Medical C enter PPSV23) [code = PNEUMOCOCCAL VACCINE 0-64 YRS (1 of 1 - PPSV23)] Instructions [facility] Practice Encounters Start End Encounter Admission Attending Care Care Encounter Source Date/Time Date/Time Type Type Clinicians Facility Department ID 2020-06-24 2020-06-24 Tramaine Quiles [facility] [place] - [id number] [address] [place] [address] 00:00:00 00:00:00 MD Chasity: [facility] Famil y 6122 Medical - Practi c Kimberly VM_[facility], [address] ([facility]) [place] [address] , Ph. 2020-06-09 2020-06-09 Main [facility] [place] - [id number] [facility] 00:00:00 00:00:00 Venkat [facility] Famil y MIS MANAGER: 6[address] Medical - Pract ic Marky [facility], [place] [address], ([facility]) [place] [address] , Ph. 2020-03-14 2020-03-14 Tramaine Quiles [facility] [place] - [id number] [address] [place] [address] 00:00:00 00:00:00 MD Chasity: [facility] Famil y 6[address] Medical - Practi c Marky [facility], [place] [address], ([facility]) [place] [address] , Ph. 2020-01-25 2020-01-25 [facility] [place] [facility] [id number] 4 [facility] 00:00:00 00:00:00 MD Chasity: [facility] Medical - Practi c Kimberly [facility], [place] [address], ([facility]) [place] [address] , Ph. 2019-12-21 2019-12-21 Tramaine Quiles [facility] [place] - [id number] 0 Village 00:00:00 00:00:00 MD Chasity: [facility] [address] Medical - Practi c Kimberly [facility], [place] [address], ([facility]) [place] [address] , Ph. 2019-11-09 2019-11-09 Tramaine Quiles [facility] [place] - [id number] 9 Village 00:00:00 00:00:00 MD Cahsity: [facility] [address] Medical - Practi c Kimberly [facility], [place] [address], ([facility]) [place] [address] , Ph. 2019-09-24 2019-09-24 Tramaine Quiles [facility] [place] - [id number] 3 [facility] 00:00:00 00:00:00 MD Chasity: [facility] 6[address] Medical - Practi c Marky [facility], [place] [address], ([facility]) [place] [address] , Ph. 2019-07-23 2019-07-23 Tramaine Quiles [facility] [place] - [id number] 0 Village 00:00:00 00:00:00 MD Chasity: [facility] 6[address] Medical - Practi c Kimberly [facility], [place] [address], ([facility]) [place] [address] , Ph. 2019-07-06 2019-07-06 Tramaine Quiles [facility] [place] - [id number] 4 [facility] 00:00:00 00:00:00 MD Chasity: [facility] Medical - Practi c Kimberly VM[facility]HOU[facility], [facility] [address], ([place] [address] , Ph. 2019-05-04 2019-05-04 Tramaine BROOKS [place] - [id number] 2 [facility] 00:00:00 00:00:00 MD Chasity: [facility] 9430 Medical - Practi c Kimberly, [address], [place] [address] , Ph. 2019-04-06 2019-04-06 Amy BROOKS [place] - [id number] [facility] 00:00:00 00:00:00 Ulices [facility] Chris ly MD: [address] Medical - Pract ic Marky, [facility], [place] [address] , Ph. 2019-03-05 2019-03-05 Tramaine BROOKS [place] - [id number] 3 [facility] 00:00:00 00:00:00 MD Chasity: [facility] Family Practic Marky, Practice - e [address], [place] [address] , Ph. 2019-01-30 2019-01-30 Amy BROOKS [place] - [id number] [facility] 00:00:00 00:00:00 Ulices [facility] Chris preciado MD: [address] Family Practic Marky, Practice - e [address], [place] [address] , Ph. 2019-01-02 2019-01-02 Tramaine BROOKS [place] - [id number] 3 [facility] 00:00:00 00:00:00 MD Chasity: [facility] Marky, Practice - e [address], [place] [address] , Ph. 2018-12-11 2018-12-11 Tramaine BROOKS [place] - [id number] 1 [facility] 00:00:00 00:00:00 MD Chasity: [facility] [facility] Marky, Practice - e [address], [place] [address] , Ph. 2018-10-26 2018-10-26 Amy Gu [facility] [place] - [id number] [facility] 00:00:00 00:00:[facility] MD: [address] Family Practic Marky, Practice - e [address], [place] [address] , Ph. 2018-10-23 2018-10-23 [facility] [place] - [id number] 3 [facility] 00:00:00 00:00:00 MD Chasity: [facility] [facility] Marky, Practice - e [address], [place] [address] , Ph. 2018-10-03 2018-10-03 [facility] [place] - [id number] 3 [facility] 00:00:00 00:00:00 MD Chasity: [facility] [facility] Marky, Practice - e [address], [place] [address] , Ph. 2018-08-14 2018-08-14 [facility] [place] - [id number] 4 [facility] 00:00:00 00:00:00 MD Chasity: [facility] [facility] Marky, Practice - e [address], [place] [address] , Ph. 2018-07-24 2018-07-24 [facility] [place] - [id number] 1 [facility] 00:00:00 00:00:00 MD Chasity: [facility] [address] [facility] Marky, Practice - e [address], [place] [address] , Ph. 2018-07-10 2018-07-10 Amy O [facility] [place] - [id number] [facility] 00:00:00 00:00:[facility]: [address] Family Practic Kimberly, Practice - e [address], [place] [address] , Ph. 2017-09-19 2017-09-19 Tramaine Quiles [facility] [place] - [id number] 9 [facility] 00:00:00 00:00:00 MD Cahsity: [facility] Famil y [address] Family Practic Marky, Practice - e [address], [place] [address] , Ph. 2017-09-01 2017-09-01 Tramaine Quiles [facility] [place] - [id number] 2 [facility] 00:00:00 00:00:00 MD Chasity: [facility] Famil y [address] Family Practic Marky, Practice - e [address], [place] [address] , Ph. 2017-08-12 2017-08-12 Amy Gu [facility] [place] - [id number] [facility] 00:00:00 00:00:00 [facility] Fami ly MD: [address] Family Practic Marky, Practice - e [address], [place] [address] , Ph. 2017-07-15 2017-07-15 Tramaine Quiles [facility] [place] - [id number] [address] [place] [address] 00:00:00 00:00:00 MD Chasity: [facility] Famil y [address] Family Practic Kimberly, Practice - e [address], [place] [address] , Ph. Results Test Description Test Time Test Comments Results Result [facility] e Comments - [facility] 2020-07-18 [facility] 16:16:00 [facility] MICHELLE L[facility] : 1990 Sex: F * Name: MICHELLE LOPEZ [place] : 1990 Age/S: 30 / F [id number] Unit #: [id number] Loc: [place] [address] Phys: Matt Benson MD Acct: [id number] Dis Date: Status: REG CLI PHONE #: [phone] Exam Date: 07/18/2020 1526 FAX #: Reason: KIDNEY STONE EXAMS: CPT: [id number] US RETROPERITONEAL COM [id number] EXAMINATION: - US RETROPERITONEAL COM. LOCATION: B2. HISTORY: KIDNEY STONE. COMPARISON: Renal ultrasound dated 01/14/2020. TECHNIQUE: Routine renal ultrasound was performed. Pre and post void ultrasound images of the urinary bladder were also obtained. FINDINGS: The kidneys are normal in size. The right kidney measures 10.0 cm, and the left kidney measures 10.8 cm in length. Cortical echogenicity is within normal limits. Mild left pelviectasis is present, decreased since prior exam. There is no evidence of renal mass or urolithiasis. The urinary bladder appears normal. Bilateral ureteral jets are visualized. Post void residual urinary bladder volume is normal at 22.5 mL. IMPRESSION: Mild left pelviectasis, decreased since prior exam. Normal sonographic appearance of the right kidney. at 1616 Reported and signed by: Poonam Herman M.D. CC: Tramaine Gaspar MD; Matt Benson MD Technologist: Yarely Ayon Trnnhb Date/Time: 07/18/2020 (4794) [email or web address] PAGE 1 Signed Report Name: MICHELLE LOPEZ : 1990 Age/S: 30 / F [address] Unit #: [id number] Loc: [place] [address] Phys: Matt Benson MD Acct: [id number] Dis Date: Status: REG CLI PHONE #: [phone] Exam Date: 07/18/2020 1526 FAX #: Reason: KIDNEY STONE EXAMS: CPT: [id number] US RETROPERITONEAL COM [id number] <Continued> Orig Print D/T: S: 07/18/2020 (1713) Probe: PAGE 2 Signed Report - US PELVIC COMPLETE 2020-06-27 09:37:00 [facility] : 1990 Sex: F * Name: MICHELLE LOPEZ [facility] : 1990 Age/S: 30 / F [id number] Unit #: [id number] Loc: [place] [address] Phys: Tramaine Gaspar MD Acct: [id number] Dis Date: Status: REG CLI PHONE #: [phone] Exam Date: 06/27/2020 0835 FAX #: Reason: PELVIC PERINEAL PAIN EXAMS: CPT: [id number] US PELVIC COMPLETE [id number] Site ID: [id number] Transvaginal and transabdominal pelvic US: CLINICAL HISTORY: R10.2 TECHNIQUE: Transabdominal and transvaginal pelvic ultrasound performed, with duplex scanning performed using B mode/grayscale imaging and spectral Doppler evaluation of arterial inflow and venous outflow to the ovaries FINDINGS: The uterus is normal in size and measures 6.4 x 3.6 x 4.8 cm. The endometrial stripe measures 5 mm. A tiny 3 mm hyperechoic submucosal focus is present, likely related to submucosal glands. The right ovary measures 4.8 x 1.8 cm. The left ovary measures 3.8 x 1.7 cm. Normal doppler flow to both ovaries is seen, without torsion. No abnormal adnexal masses are seen. No free fluid is seen. IMPRESSION: Unremarkable pelvic ultrasound at 0937 Reported and signed by: Olegario Huddleston M.D. CC: Tramaine Gaspar MD Technologist: Yarely Ayon Trnscb Date/Time: 06/27/2020 (0937) [email or web address] PAGE 1 Signed Report Name: MICHELLE LOPEZ [place] : 1990 Age/S: 30 / F [id number] Unit #: [id number] [place]: [place] [address] Phys: Tramaine Gaspar MD Acct: [id number] Dis Date: Status: REG CLI PHONE #: [phone] Exam Date: 06/27/2020 0835 FAX #: Reason: PELVIC PERINEAL PAIN EXAMS: CPT: [id number] US PELVIC COMPLETE [id number] <Continued> Orig Print D/T: S: 06/27/2020 (0940) Probe: PAGE 2 Signed Report - US TRANSVAGINAL NON 2020-06-27 OB 09:37:00 [facility] : 1990 Sex: F * Name: MICHELLE LOPEZ [place] : 1990 Age/S: 30 / F [id number] Unit #: [id number] Loc: [place] [address] Phys: Tramaine Gaspar MD Acct: [id number] Dis Date: Status: REG CLI PHONE #: [phone] Exam Date: 06/27/2020 0852 FAX #: Reason: PELVIC PERINEAL PAIN EXAMS: CPT: [id number] [place] [id number] Site ID: [id number] Transvaginal and transabdominal pelvic US: CLINICAL HISTORY: R10.2 TECHNIQUE: Transabdominal and transvaginal pelvic ultrasound performed, with duplex scanning performed using B mode/grayscale imaging and spectral Doppler evaluation of arterial inflow and venous outflow to the ovaries FINDINGS: The uterus is normal in size and measures 6.4 x 3.6 x 4.8 cm. The endometrial stripe measures 5 mm. A tiny 3 mm hyperechoic submucosal focus is present, likely related to submucosal glands. The right ovary measures 4.8 x 1.8 cm. The left ovary measures 3.8 x 1.7 cm. Normal doppler flow to both ovaries is seen, without torsion. No abnormal adnexal masses are seen. No free fluid is seen. IMPRESSION: Unremarkable pelvic ultrasound at 0937 Reported and signed by: Olegario Huddleston M.D. CC: Tramaine Gaspar MD Technologist: Yarely Ayon Trnscb Date/Time: 06/27/2020 (0937) [email or web address] PAGE 1 Signed Report Name: MICHELLE LOPEZ [place] : 1990 Age/S: 30 / F [address] Unit #: [id number] Loc: [place] [address] Phys: Tramaine Gaspar MD Acct: [id number] Dis Date: Status: REG CLI PHONE #: [phone] Exam Date: 06/27/2020 0852 FAX #: Reason: PELVIC PERINEAL PAIN EXAMS: CPT: [id number] [place] [id number] <Continued> Orig Print D/T: S: 06/27/2020 (0940) Probe: [id number] PAGE 2 Signed Report test, urine 2020-06-24 15:01:00 Test Item Value Reference Range Interpretation Comme nts HCG (test code = HCG) negative [facility] RETRO [id number] 08:20:00 Name: MICHELLE LOPEZ [place] : 1990 Age/S: 29 / F [address] Unit #: [id number] Loc: [place] [address] Phys: Matt Benson MD Acct: [id number] Dis Date: Status: REG CLI PHONE #: [phone] Exam Date: 01/14/2020801 FAX #: Reason: KIDNEY STONE EXAMS: CPT: [id number] US RETRO LTD 87630 EXAMINATION: - US RETRO LTD. LOCATION: S17. HISTORY: Kidney stones, continuous leakage of urine. COMPARISON: US renal 09/17/19. FINDINGS: Sonographic evaluation of the kidneys and bladder was performed utilizing abdullahi scale, pulse Doppler and color flow imaging. The right kidney measures 11.7 cm and the left kidney measures 11.4 cm. The parenchymal echogenicity is within normal limits on both sides. There is unchanged mild bilateral hydronephrosis. No calculus is identified. Urinary bladder is underdistended. Bilateral ureteral jets noted. IMPRESSION: Unchanged mild bilateral hydronephrosis. Previously noted nephrolithiasis is not appreciated on current examination. at 0820 Reportedand signed by: Corinne Hargrove M.D. CC: Tramaine Gaspar MD; Matt Benson MD Technologist: Se[facility]al Seth [facility] Date/Time: 01/14/2020 (08) t.[email or web address].[email or web address] PAGE 1 Signed Report Name: MICHELLE LOPEZ [place] : 1990 Age/S: 29 / F [address] Unit #: [id number] Loc: [place] [address] Phys: Matt Benson MD Acct: [id number] Dis Date: Status: REG CLI PHONE #: [phone] Exam Date: 01/14/2020 08 FAX #: Reason: KIDNEY STONE EXAMS:CPT: [id number] US RETRO LTD [address]1962 <Continued> Orig Print D/T: S: 01/14/2020 (0823) Probe: PAGE 2 Signed Report- XR FLUOROSCOPY 0-60 [id number] 16:12:00 Name: MICHELLE LOPEZ [place] : 1990 Age/S: 29 / F [address] Unit #: [id number] Loc: [place] [address] Phys: Matt Benson MD Acct: [id number] Dis Date: Status: REG [facility] PHONE #: [phone] Exam Date: 11/21/2019 1000 FAX #: Reason: RETRO CYSTO WITH STENT PLACEMENT EXAMS: CPT: [id number] XR FLUOROSCOPY 0-60 MIN 38162 Fluoro Time: 59 DAP (Gy m2): Air Kerma (mGy): 18.02 EXAMINATION: - XR FLUOROSCOPY 0-60 MIN. LOCATION: S17. HISTORY: RETRO CYSTO WITH STENT PLACEMENT. COMPARISON: None. FINDINGS/ IMPRESSION: Six portable limited intraoperative fluoroscopic images demonstrate opacification of both renal pelvis with final imagedemonstrating partial visualization of bilateral ureteral stents. Please see operative report for further details. FLUOROSCOPIC TIME: 59.4 seconds. 18.02 mGy. at 1612 Reported and signed by: Corinne Hargrove M.D. CC: Tramaine Gaspar MD; Matt Benson MD PAGE 1 Signed Report Name: MICHELLE LOPEZ [place] : 1990 Age/S: 29 / F [address] [facility] Unit #: [id number] Loc: [place] [address] Phys: Matt Benson MD Acct: [id number] Dis Date: Status: REG [facility] PHONE #: [phone] Exam Date: 11/21/2019 1000 FAX #: Reason: RETRO CYSTO WITH STENT PLACEMENT EXAMS: CPT: [id number] XR FLUOROSCOPY 0- 60 MIN 48793 Fluoro Time: 59 DAP (Gy m2): Air Kerma (mGy): 18.02 <Continued> Technologist: RT Gómez(R) Trnscb Date/Time: 11/21/2019 (1612) [email or web address] Orig Print D/T: S: 11/21/2019 (0665) PAGE 2 Signed ReportNovel Coronavirus 2019 Inhouse 2019-11-18 08:18:00 Test Item Value Reference Range Interpretation Comments Novel Coronavirus 2019 Inhouse (test Negative Negative code = COVNONPUI) Comment: PRE OPNovel Coronavirus 2019 [id number] 08:17:00 Test Item Value Reference Range Interpretation Comments Novel Coronavirus 2019 Inhouse (test Negative Negative code = COVNONPUI) Comment: PRE OPPROTHROMBIN [id number] 15:58:00 Test Item Value Reference Range Interpretation Comments PT PATIENT (test code = PTP) 11.1 SECONDS 9.3-12.9 N INTERNATIONAL NORMAL RATIO 0.98 INR Unit 0.8-1.2 N (test code = INR) THROMBOPLASTIN TIME [id number] 15:58:00 Test Item Value Reference Range Interpretation Comments THROMBOPLASTIN TIME PARTIAL 29.8 SECONDS 26-35 N (test code = PTT) BASIC METABOLIC [id number] 15:56:00 Test Item Value Reference Range Interpretation Comments SODIUM (test code = NA) 141 mmol/L 134-147 N POTASSIUM (test code = 3.8 mmol/L 3.4-5.0 N K) CHLORIDE (test code = 111 mmol/L 100-108 H CL) CARBON DIOXIDE (test 25 mmol/L 21-32 N code = CO2) ANION GAP (test code = 5.0 GAP calc 4.0-15.0 N GAP) GLUCOSE (test code = 87 MG/DL 70-110 N GLU) BLOOD UREA NITROGEN 9 MG/DL 7-18 N (test code = BUN) GLOMERULAR FILTRATION >=60 max estimate >60 RATE (test code = GFR) estGFR CREATININE (test code = 0.9 MG/DL 0.6-1.0 N CREAT) CALCIUM (test code = CA) 9.3 MG/DL 8.5-10.1 N HCG SERUM [id number] 15:51:00 Test Item Value Reference Range Interpretation Comments HCG SERUM QUAL (test SERUM NEGATIVE SCREEN NEGATIVE code = HCGQL) BASIC METABOLIC [id number] 15:51:00 Test Item Value Reference Range Interpretation Comments SODIUM (test code = NA) 141 mmol/L 134-147 N POTASSIUM (test code = K) 3.8 mmol/L 3.4-5.0 N CHLORIDE (test code = CL) 111 mmol/L 100-108 H CARBON DIOXIDE (test code = CO2) 25 mmol/L 21-32 N ANION GAP (test code = GAP) 5.0 GAP calc 4.0-15.0 N GLUCOSE (test code = GLU) 87 MG/DL 70-110 N BLOOD UREA NITROGEN (test code = 9 MG/DL 7-18 N BUN) GLOMERULAR FILTRATION RATE (test estGFR >60 code = GFR) CREATININE (test code = CREAT) MG/DL 0.6-1.0 CALCIUM (test code = CA) 9.3 MG/DL 8.5-10.1 N CBC W/AUTO [id number] 15:47:00 Test Item Value Reference Range Interpretation Comments WHITE BLOOD CELL (test code = 8.7 K/mm3 3.5-11.0 N WBC) RED BLOOD CELL (test code = 4.90 M/mm3 4.70-6.10 N RBC) HEMOGLOBIN (test code = HGB) 14.5 G/DL 10.4-14.9 N HEMATOCRIT (test code = HCT) 44.0 % 31.5-44.1 N MEAN CELL VOLUME (test code = 89.8 Fl 84.5-98.6 N MCV) MEAN CELL HGB (test code = MCH) 29.6 pg 27.0-34.2 N MEAN CELL HGB CONCETRATION 33.0 G/DL 31.5-34.0 N (test code = MCHC) RED CELL DISTRIBUTION WIDTH 12.9 SD 11.5-14.5 N (test code = RDW) PLATELET COUNT (test code = 306 K/mm3 150-450 N PLT) MEAN PLATELET VOLUME (test code 9.60 fL 7.0-10.5 N = MPV) NEUTROPHIL % (test code = NT%) 56.3 % 40-76 N LYMPHOCYTE % (test code = LY%) 34.6 % 20.5-51.1 N MONOCYTE % (test code = MO%) 6.0 % 1.7-9.3 N EOSINOPHIL % (test code = EO%) 1.8 % 0.0-6.0 N BASOPHIL % (test code = BA%) 0.8 % 0.0-2.0 N NUCLEATED RBC % (test code = 0.0 /100WBC% 0.0-1.0 N NRBC%) NEUTROPHIL # (test code = NT#) 4.9 K/mm3 1.8-7.6 N IMMATURE GRANULOCYTE # (test 0.04 x10 3/uL 0.00-0.03 H code = IG#) LYMPHOCYTE # (test code = LY#) 3.0 K/mm3 0.6-3.2 N MONOCYTE # (test code = MO#) 0.5 K/mm3 0.3-1.1 N EOSINOPHIL # (test code = EO#) 0.2 K/mm3 0.0-0.4 N BASOPHIL # (test code = BA#) 0.1 K/mm3 0.0-0.1 N NUCLEATED RBC # (test code = 0.0 K/mm3 0.0-0.1 N NRBC#) MANUAL DIFF REQUIRED (test code NO DIFF/SCN CRITERIA = MDIFF) - US RETRO [id number] 08:52:00 Name: MICHELLE LOPEZ : 1990 Age/S: 29 / F [address] Unit #: [id number] Loc: [place] [address] Phys: Matt Benson MD Acct: [id number] Dis Date: Status: REG CLI PHONE #: [phone] Exam Date: 09/17/2019 0835 FAX #: Reason: KIDNEY STONE HYDRONEPHROSIS EXAMS: CPT: [id number] US RETRO LTD 04033 RENAL ULTRASOUND CLINICAL HISTORY: KIDNEY STONE HYDRONEPHROSIS [...] Shelby Corona, RT(R),RDMS(AB) Trnscb Date/Time: 09/17/2019 (0852) [email or web address] PAGE 1 Signed Report [place]: [place] : 1990 Age/S: 29 / F [address] Unit #: [id number] Loc: [place] [address] Phys: Matt Benson MD Acct: [id number] Dis Date: Status: REG CLI PHONE #: [phone] Exam Date: 09/17/2019 0835 FAX #: Reason: KIDNEY STONE HYDRONEPHROSIS EXAMS: CPT: [id number] US RETRO LTD [address] <Continued> Orig Print D/T: S: 09/17/2019 (0855) Probe: PAGE 2 Signed Report- US RETRO [id number] 08:50:00 Name: MICHELLE LOPEZ [place] : 1990 Age/S: 29 / F [address] Unit #: [id number] Loc: [place] [address] Phys: Matt Benson MD Acct: [id number] Dis Date: Status: REG CLI PHONE #: [phone] Exam Date: 08/10/2019 0835 FAX #: Reason: KIDNEY STONES EXAMS: CPT: [id number] US RETRO LTD 19193 EXAMINATION: - US RETRO LTD. LOCATION: S17. [...] Shelby Corona, RT(R),RDMS(AB) Trnscb Date/Time: 08/10/2019 (0850) [email or web address].ANS4 PAGE 1 Signed Report Name: MICHELLE LOPEZ [facility] : 1990 Age/S: 29 / F [address] Unit #: [id number] Loc: [place] [address] Phys: Matt Benson MD Acct: [id number] Dis Date: Status: REG CLI PHONE #: [phone] Exam Date: 08/10/2019 0835 FAX #: Reason: KIDNEY STONES EXAMS: CPT: [id number] RETRO LTD [address]235 <Continued> Orig Print D/T: S: 08/10/2019 (0853) Probe: PAGE 2 Signed Reportpregnancy test, [id number] 08:44:00 Test Item Value Reference Range Interpretation Comments HCG (test code = HCG) negative [facility] [Mass/volume] in Serum or [id number] 00:00:00 Test Item Value Reference Range Interpretation Comments magnesium (test code = magnesium) 2.3 mg/dL 1.5-2.[address] [facility] 1996 panel - Serum or [id number] 00:00:00 Test Item Value Reference Range Interpretation Comments cholesterol, total (test 197 mg/dL <200 code = cholesterol, total) HDL cholesterol (test code = 37 mg/dL >50 L HDL cholesterol) triglycerides (test code = 119 mg/dL <150 triglycerides) Cholesterol in LDL 136 mg/dL (calc) H [Mass/volume] in Serum or Plasma (test code = 2089-1) chol/HDLC ratio (test code = 5.3 (calc) <5.0 H chol/HDLC ratio) non HDL cholesterol (test 160 mg/dL (calc) <130 H code = non HDL cholesterol) [facility] 2000 panel - Serum or Plasma 2019-02-04 00:00:00 Test Item Value Reference Range Interpretation Comments glucose (test code = 86 mg/dL 65-99 glucose) urea nitrogen (BUN) (test 9 mg/dL 7-25 code = urea nitrogen (BUN)) creatinine (test code = 0.96 mg/dL 0.50-1.10 creatinine) eGFR non-afr. sudanese (test 80 mL/min/1.73m2 > or = 60 code = eGFR non-afr. sudanese) eGFR (test 93 mL/min/1.73m2 > or = 60 code = eGFR ) BUN/creatinine ratio (test not applicable 12-02 code = BUN/creatinine ratio) sodium (test code = sodium) 141 mmol/L 135-146 potassium (test code = 4.6 mmol/L 3.5-5.3 potassium) chloride (test code = 108 mmol/L 98-110 chloride) carbon dioxide (test code = 22 mmol/L 20-32 carbon dioxide) calcium (test code = 10.3 mg/dL 8.6-10.2 H calcium) protein, total (test code = 7.2 g/dL 6.1-8.1 protein, total) albumin (test code = 4.4 g/dL 3.6-5.1 albumin) globulin (test code = 2.8 g/dL (calc) 1.9-3.7 globulin) albumin/globulin ratio (test 1.6 (calc) 1.0-2.5 code = albumin/globulin ratio) bilirubin, total (test code 0.5 mg/dL 0.2-1.2 = bilirubin, total) alkaline phosphatase (test 79 U/L 33-115 code = alkaline phosphatase) AST (test code = AST) 15 U/L 10-30 ALT (test code = ALT) 18 U/L 6-[address] [facility] Hospital[facility] kinase [Enzymatic activity/volume] in Serum or [id number] 00:00:00 Test Item Value Reference Range Interpretation Comments creatine kinase, total (test code = 74 U/L 29-143 creatine kinase, total) [facility]CBC [facility] Auto Differential panel - [id number] 00:00:00 Test Item Value Reference Range Interpretation Comments white blood cell count (test 12.4 thousand/uL 3.8-10.8 H code = white blood cell count) red blood cell count (test 4.88 million/uL 3.80-5.10 code = red blood cell count) hemoglobin (test code = 14.9 g/dL 11.7-15.5 hemoglobin) hematocrit (test code = 43.9 % 35.0-45.0 hematocrit) MCV (test code = MCV) 90.0 fL 80.0-100.0 MCH (test code = MCH) 30.5 pg 27.0-33.0 MCHC (test code = MCHC) 33.9 g/dL 32.0-36.0 RDW (test code = RDW) 12.7 % 11.0-15.0 platelet count (test code = 318 thousand/uL 140-400 platelet count) MPV (test code = MPV) 10.1 fL 7.5-12.5 absolute neutrophils (test 6969 cells/uL 7052-7377 code = absolute neutrophils) absolute lymphocytes (test 4613 cells/uL 850-3900 H code = absolute lymphocytes) absolute monocytes (test 583 cells/uL 200-950 code = absolute monocytes) absolute eosinophils (test 174 cells/uL 15-500 code = absolute eosinophils) absolute basophils (test 62 cells/uL 0-200 code = absolute basophils) neutrophils (test code = 56.2 % neutrophils) lymphocytes (test code = 37.2 % lymphocytes) monocytes (test code = 4.7 % monocytes) eosinophils (test code = 1.4 % eosinophils) basophils (test code = 0.5 % basophils) [facility] HospitalThyrotropin [Units/volume] in Serum or [id number] 00:00:00 Test Item Value Reference Range Interpretation Comments TSH (test code = TSH) 3.95 mIU/L [facility] HospitalFolate+Cyanocobalamin [interpretation] in Serum or Blood 2019-02-04 00:00:00 Test Item Value Reference Range Interpretation Comments vitamin B12 (test code = vitamin 568 pg/mL 200-1100 B12) folate, serum (test code = folate, 5.9 NG/mL serum) [facility] HospitalPxbzukdv11-Vkebrdhdspduxo D [Mass/volume] in Serum or Plasma 2019-02-04 00:00:00 Test Item Value Reference Range Interpretation Comments vitamin D,25-oh,total,ia (test code 29 NG/mL 30-100 L = vitamin D,25-oh,total,ia) [facility] Hospitalextra lavender-top [id number] 10:41:00Extra Lavender- top [facility] + HPV mRNA [id number] 00:00:00 Test Item Value Reference Range Interpretation Comments clinical information: (test code none given = clinical information:) LMP: (test code = LMP:) none given prev. Pap: (test code = prev. none given Pap:) prev. BX: (test code = prev. none given BX:) source: (test code = source:) none given statement of adequacy: (test code = statement of adequacy:) interpretation/result: (test code = interpretation/result:) comment: (test code = comment:) printed circuit boards plasma etcher: (test code = printed circuit boards plasma etcher:) review printed circuit boards plasma etcher: (test code = review printed circuit boards plasma etcher:) comment (test code = comment) Human papilloma virus 16 and not detected not detected 18+45 E6+E7 mRNA [Identifier] in [employer] by GEORGE with probe detection (test code = 49398-8) [facility], IG + HPV mRNA [id number] 00:00:00 Test Item Value Reference Range Interpretation Comments clinical information: (test code none given = clinical information:) LMP: (test code = LMP:) none given prev. Pap: (test code = prev. none given Pap:) prev. BX: (test code = prev. none given BX:) source: (test code = source:) none given statement of adequacy: (test code = statement of adequacy:) interpretation/result: (test code = interpretation/result:) comment: (test code = comment:) printed circuit boards plasma etcher: (test code = printed circuit boards plasma etcher:) review printed circuit boards plasma etcher: (test code = review printed circuit boards plasma etcher:) comment (test code = comment) Human papilloma virus 16 and not detected not detected 18+45 E6+E7 mRNA [Identifier] in [employer] by GEORGE with probe detection (test code = 01875-7) [facility] W Auto Differential panel - [id number] 00:00:00 Test Item Value Reference Range Interpretation Comments white blood cell count (test 8.5 thousand/uL 3.8-10.8 code = white blood cell count) red blood cell count (test 4.86 million/uL 3.80-5.10 code = red blood cell count) hemoglobin (test code = 14.8 g/dL 11.7-15.5 hemoglobin) hematocrit (test code = 43.8 % 35.0-45.0 hematocrit) MCV (test code = MCV) 90.1 fL 80.0-100.0 MCH (test code = MCH) 30.5 pg 27.0-33.0 MCHC (test code = MCHC) 33.8 g/dL 32.0-36.0 RDW (test code = RDW) 12.5 % 11.0-15.0 platelet count (test code = 364 thousand/uL 140-400 platelet count) MPV (test code = MPV) 10.2 fL 7.5-12.5 absolute neutrophils (test 5075 cells/uL 8470-5396 code = absolute neutrophils) absolute lymphocytes (test 2720 cells/uL 850-3900 code = absolute lymphocytes) absolute monocytes (test code 476 cells/uL 200-950 = absolute monocytes) absolute eosinophils (test 170 cells/uL 15-500 code = absolute eosinophils) absolute basophils (test code 60 cells/uL 0-200 = absolute basophils) neutrophils (test code = 59.7 % neutrophils) lymphocytes (test code = 32.0 % lymphocytes) monocytes (test code = 5.6 % monocytes) eosinophils (test code = 2.0 % eosinophils) basophils (test code = 0.7 % basophils) [facility] HospitalHemoglobin A1c/Hemoglobin.total in [id number] 00:00:00 Test Item Value Reference Range Interpretation Comments Hemoglobin 5.5 % of total HGB <5.7 A1c/Hemoglobin.total in Blood (test code = 4548-4) EAG (mg/dL) (test code = 111 (calc) EAG (mg/dL)) EAG (mmol/L) (test code = 6.2 (calc) EAG (mmol/L)) [facility] 2000 panel - Serum or Plasma 2018-10-04 00:00:00 Test Item Value Reference Range Interpretation Comments glucose (test code = 69 mg/dL 65-99 glucose) urea nitrogen (BUN) (test 14 mg/dL 7-25 code = urea nitrogen (BUN)) creatinine (test code = 0.79 mg/dL 0.50-1.10 creatinine) eGFR non-afr. sudanese 102 mL/min/1.73m2 > or = 60 (test code = eGFR non-afr. sudanese) eGFR (test 118 mL/min/1.73m2 > or = 60 code = eGFR ) BUN/creatinine ratio (test not applicable 6 code = BUN/creatinine ratio) sodium (test code = sodium) 140 mmol/L 135-146 potassium (test code = 4.0 mmol/L 3.5-5.3 potassium) chloride (test code = 105 mmol/L 98-110 chloride) carbon dioxide (test code = 20 mmol/L 20-32 carbon dioxide) calcium (test code = 9.8 mg/dL 8.6-10.2 calcium) protein, total (test code = 7.7 g/dL 6.1-8.1 protein, total) albumin (test code = 4.4 g/dL 3.6-5.1 albumin) globulin (test code = 3.3 g/dL (calc) 1.9-3.7 globulin) albumin/globulin ratio 1.3 (calc) 1.0-2.5 (test code = albumin/globulin ratio) bilirubin, total (test code 0.5 mg/dL 0.2-1.2 = bilirubin, total) alkaline phosphatase (test 82 U/L 33-115 code = alkaline phosphatase) AST (test code = AST) 17 U/L 10-30 ALT (test code = ALT) 17 U/L 6-[address] [facility] 1996 panel - Serum or [id number] 00:00:00 Test Item Value Reference Range Interpretation Comments cholesterol, total (test 213 mg/dL <200 H code = cholesterol, total) HDL cholesterol (test code = 43 mg/dL >50 L HDL cholesterol) triglycerides (test code = 132 mg/dL <150 triglycerides) Cholesterol in LDL 144 mg/dL (calc) H [Mass/volume] in Serum or Plasma (test code = 2089-1) chol/HDLC ratio (test code = 5.0 (calc) <5.0 H chol/HDLC ratio) non HDL cholesterol (test 170 mg/dL (calc) <130 H code = non HDL cholesterol) [facility] HospitalThyrotropin [Units/volume] in Serum or [id number] 00:00:00 Test Item Value Reference Range Interpretation Comments TSH (test code = TSH) 2.46 mIU/L [facility] HospitalCBC W Auto Differential panel - [id number] 00:00:00 Test Item Value Reference Range Interpretation Comments white blood cell count (test 8.5 thousand/uL 3.8-10.8 code = white blood cell count) red blood cell count (test 4.86 million/uL 3.80-5.10 code = red blood cell count) hemoglobin (test code = 14.8 g/dL 11.7-15.5 hemoglobin) hematocrit (test code = 43.8 % 35.0-45.0 hematocrit) MCV (test code = MCV) 90.1 fL 80.0-100.0 MCH (test code = MCH) 30.5 pg 27.0-33.0 MCHC (test code = MCHC) 33.8 g/dL 32.0-36.0 RDW (test code = RDW) 12.5 % 11.0-15.0 platelet count (test code = 364 thousand/uL 140-400 platelet count) MPV (test code = MPV) 10.2 fL 7.5-12.5 absolute neutrophils (test 5075 cells/uL 5160-6532 code = absolute neutrophils) absolute lymphocytes (test 2720 cells/uL 850-3900 code = absolute lymphocytes) absolute monocytes (test code 476 cells/uL 200-950 = absolute monocytes) absolute eosinophils (test 170 cells/uL 15-500 code = absolute eosinophils) absolute basophils (test code 60 cells/uL 0-200 = absolute basophils) neutrophils (test code = 59.7 % neutrophils) lymphocytes (test code = 32.0 % lymphocytes) monocytes (test code = 5.6 % monocytes) eosinophils (test code = 2.0 % eosinophils) basophils (test code = 0.7 % basophils) [facility] HospitalHem[facility] A1c/Hemoglobin.total in [id number] 00:00:00 Test Item Value Reference Range Interpretation Comments Hemoglobin 5.5 % of total HGB <5.7 A1c/Hemoglobin.total in Blood (test code = 4548-4) EAG (mg/dL) (test code = 111 (calc) EAG (mg/dL)) EAG (mmol/L) (test code = 6.2 (calc) EAG (mmol/L)) [facility] 1999 panel - Serum or Plasma 2018-10-04 00:00:00 Test Item Value Reference Range Interpretation Comments glucose (test code = 69 mg/dL 65-99 glucose) urea nitrogen (BUN) (test 14 mg/dL 7 code = urea nitrogen (BUN)) creatinine (test code = 0.79 mg/dL 0.50-1.10 creatinine) eGFR non-afr. sudanese 102 mL/min/1.73m2 > or = 60 (test code = eGFR non-afr. sudanese) eGFR (test 118 mL/min/1.73m2 > or = 60 code = eGFR ) BUN/creatinine ratio (test not applicable 12-02 code = BUN/creatinine ratio) sodium (test code = sodium) 140 mmol/L 135-146 potassium (test code = 4.0 mmol/L 3.5-5.3 potassium) chloride (test code = 105 mmol/L 98-110 chloride) carbon dioxide (test code = 20 mmol/L 20-32 carbon dioxide) calcium (test code = 9.8 mg/dL 8.6-10.2 calcium) protein, total (test code = 7.7 g/dL 6.1-8.1 protein, total) albumin (test code = 4.4 g/dL 3.6-5.1 albumin) globulin (test code = 3.3 g/dL (calc) 1.9-3.7 globulin) albumin/globulin ratio 1.3 (calc) 1.0-2.5 (test code = albumin/globulin ratio) bilirubin, total (test code 0.5 mg/dL 0.2-1.2 = bilirubin, total) alkaline phosphatase (test 82 U/L 33-115 code = alkaline phosphatase) AST (test code = AST) 17 U/L 10-30 ALT (test code = ALT) 17 U/L 6-[address] [facility] 1995 panel - Serum or [id number] 00:00:00 Test Item Value Reference Range Interpretation Comments cholesterol, total (test 213 mg/dL <200 H code = cholesterol, total) HDL cholesterol (test code = 43 mg/dL >50 L HDL cholesterol) triglycerides (test code = 132 mg/dL <150 triglycerides) Cholesterol in LDL 144 mg/dL (calc) H [Mass/volume] in Serum or Plasma (test code = 2089-1) chol/HDLC ratio (test code = 5.0 (calc) <5.0 H chol/HDLC ratio) non HDL cholesterol (test 170 mg/dL (calc) <130 H code = non HDL cholesterol) [facility]Thy[facility]ropin [Units/volume] in Serum or [id number] 00:00:00 Test Item Value Reference Range Interpretation Comments TSH (test code = TSH) 2.46 mIU/L [facility] HospitalPOCT-GLUCOSE [id number] 15:05:00 Test Item Value Reference Range Interpretation Comments POC-GLUCOSE METER 84 mg/dL 70-[address] [facility] 7200 (BEAKER) (test code = [place] DGE BLDG A 1538) [facility] 7703 0 Cancer Ag 125 [Units/volume] in Serum or [id number] 13:20:00 Test Item Value Reference Range Interpretation Comments Ca 125 (test code = Ca 125) 53 U/mL <[address] [facility] [facility] HospitalCancer Ag 125 [Units/volume] in Serum or [id number] 13:20:00 Test Item Value Reference Range Interpretation Comments Ca 125 (test code = Ca 125) 53 U/mL <[address] [facility] HospitalUrinalysis macro (dipstick) panel - [id number] 09:08:00 Test Item Value Reference Range Interpretation Comments Color Color (test code = Color yellow Color) Color Appearance (test code = Color cloudy Appearance) Color Glucose (test code = Color 500 Glucose) Color Bilirubin (test code = Color negative Bilirubin) Color Ketones (test code = Color negative Ketones) Color Specific Mahomet (test code = 1.025 Color Specific Mahomet) Color Blood (test code = Color negative Blood) Color PH (test code = Color PH) 5.0 Color Protein (test code = Color negative Protein) Color Urobilinogen (test code = 0.2 Color Urobilinogen) Color Nitrites (test code = Color negative Nitrites) Color Leukocytes (test code = Color trace Leukocytes) [facility] - [id number] 09:08:00 Test Item Value Reference Range Interpretation Comments Color Color (test code = Color yellow Color) Color Appearance (test code = Color cloudy Appearance) Color Glucose (test code = Color 500 Glucose) Color Bilirubin (test code = Color negative Bilirubin) Color Ketones (test code = Color negative Ketones) Color Specific Mahomet (test code = 1.025 Color Specific [place]omet) Color Blood (test code = Color negative Blood) Color PH (test code = Color PH) 5.0 Color Protein (test code = Color negative Protein) Color Urobilinogen (test code = 0.2 Color Urobilinogen) Color Nitrites (test code = Color negative Nitrites) Color Leukocytes (test code = Color trace Leukocytes) [facility] 2000 panel - Serum or Plasma 2017-08-13 07:02:00 Test Item Value Reference Range Interpretation Comments glucose (test code = 70 mg/dL 65-99 glucose) urea nitrogen (BUN) (test 10 mg/dL 7-25 code = urea nitrogen (BUN)) creatinine (test code = 0.80 mg/dL 0.50-1.10 creatinine) eGFR non-afr. sudanese 101 mL/min/1.73m2 > or = 60 (test code = eGFR non-afr. sudanese) eGFR (test 117 mL/min/1.73m2 > or = 60 code = eGFR ) BUN/creatinine ratio (test not applicable 6-22 code = BUN/creatinine ratio) sodium (test code = sodium) 140 mmol/L 135-146 potassium (test code = 4.2 mmol/L 3.5-5.3 potassium) chloride (test code = 110 mmol/L 98-110 chloride) carbon dioxide (test code = 13 mmol/L 20-31 L carbon dioxide) calcium (test code = 9.6 mg/dL 8.6-10.2 calcium) protein, total (test code = 7.4 g/dL 6.1-8.1 protein, total) albumin (test code = 4.2 g/dL 3.6-5.1 albumin) globulin (test code = 3.2 g/dL (calc) 1.9-3.7 globulin) albumin/globulin ratio 1.3 (calc) 1.0-2.5 (test code = albumin/globulin ratio) bilirubin, total (test code 0.5 mg/dL 0.2-1.2 = bilirubin, total) alkaline phosphatase (test 77 U/L 33-115 code = alkaline phosphatase) AST (test code = AST) 18 U/L 10-30 ALT (test code = ALT) 17 U/L 6-[address] - Serum or [id number] 07:02:00 Test Item Value Reference Range Interpretation Comments cholesterol, total (test 182 mg/dL <200 code = cholesterol, total) HDL cholesterol (test code = 32 mg/dL >50 L HDL cholesterol) triglycerides (test code = 128 mg/dL <150 triglycerides) LDL-cholesterol (test code = 126 mg/dL (calc) H LDL-cholesterol) chol/HDLC ratio (test code = 5.7 (calc) <5.0 H chol/HDLC ratio) non HDL cholesterol (test 150 mg/dL (calc) <130 H code = non HDL cholesterol) [facility] - Serum or Plasma 2017-08-13 07:02:00 Test Item Value Reference Range Interpretation Comments glucose (test code = 70 mg/dL 65-99 glucose) urea nitrogen (BUN) (test 10 mg/dL 7-25 code = urea nitrogen (BUN)) creatinine (test code = 0.80 mg/dL 0.50-1.10 creatinine) eGFR non-afr. sudanese 101 mL/min/1.73m2 > or = 60 (test code = eGFR non-afr. sudanese) eGFR (test 117 mL/min/1.73m2 > or = 60 code = eGFR ) BUN/creatinine ratio (test not applicable 12-02 code = BUN/creatinine ratio) sodium (test code = sodium) 140 mmol/L 135-146 potassium (test code = 4.2 mmol/L 3.5-5.3 potassium) chloride (test code = 110 mmol/L 98-110 chloride) carbon dioxide (test code = 13 mmol/L 20-31 L carbon dioxide) calcium (test code = 9.6 mg/dL 8.6-10.2 calcium) protein, total (test code = 7.4 g/dL 6.1-8.1 protein, total) albumin (test code = 4.2 g/dL 3.6-5.1 albumin) globulin (test code = 3.2 g/dL (calc) 1.9-3.7 globulin) albumin/globulin ratio 1.3 (calc) 1.0-2.5 (test code = albumin/globulin ratio) bilirubin, total (test code 0.5 mg/dL 0.2-1.2 = bilirubin, total) alkaline phosphatase (test 77 U/L 33-115 code = alkaline phosphatase) AST (test code = AST) 18 U/L 10-30 ALT (test code = ALT) 17 U/L 6-[address] [facility] panel - Serum or [id number] 07:02:00 Test Item Value Reference Range Interpretation Comments cholesterol, total (test 182 mg/dL <200 code = cholesterol, total) HDL cholesterol (test code = 32 mg/dL >50 L HDL cholesterol) triglycerides (test code = 128 mg/dL <150 triglycerides) LDL-cholesterol (test code = 126 mg/dL (calc) H LDL-cholesterol) chol/HDLC ratio (test code = 5.7 (calc) <5.0 H chol/HDLC ratio) non HDL cholesterol (test 150 mg/dL (calc) <130 H code = non HDL cholesterol) [facility] [Units/volume] in Serum or [id number] 04:16:00 Test Item Value Reference Range Interpretation Comments TSH (test code = TSH) 1.93 mIU/L [facility] [Units/volume] in Serum or [id number] 04:16:00 Test Item Value Reference Range Interpretation Comments TSH (test code = TSH) 1.93 mIU/L [facility] Differential panel - [id number] 03:25:00 Test Item Value Reference Range Interpretation Comments white blood cell count (test 9.3 thousand/uL 3.8-10.8 code = white blood cell count) red blood cell count (test 4.83 million/uL 3.80-5.10 code = red blood cell count) hemoglobin (test code = 11.6 g/dL 11.7-15.5 L hemoglobin) hematocrit (test code = 37.2 % 35.0-45.0 hematocrit) MCV (test code = MCV) 77.0 fL 80.0-100.0 L MCH (test code = MCH) 24.0 pg 27.0-33.0 L MCHC (test code = MCHC) 31.2 g/dL 32.0-36.0 L RDW (test code = RDW) 15.6 % 11.0-15.0 H platelet count (test code = 373 thousand/uL 140-400 platelet count) MPV (test code = MPV) 10.4 fL 7.5-12.5 absolute neutrophils (test 5729 cells/uL 9644-1595 code = absolute neutrophils) absolute lymphocytes (test 3032 cells/uL 850-3900 code = absolute lymphocytes) absolute monocytes (test code 400 cells/uL 200-950 = absolute monocytes) absolute eosinophils (test 93 cells/uL 15-500 code = absolute eosinophils) absolute basophils (test code 47 cells/uL 0-200 = absolute basophils) neutrophils (test code = 61.6 % neutrophils) lymphocytes (test code = 32.6 % lymphocytes) monocytes (test code = 4.3 % monocytes) eosinophils (test code = 1.0 % eosinophils) basophils (test code = 0.5 % basophils) [facility] A[facility]/Hemoglobin.total in [id number] 03:25:00 Test Item Value Reference Range Interpretation Comments hemoglobin A1C (test code 5.8 % of total HGB <5.7 H = hemoglobin A1C) EAG (mg/dL) (test code = 120 (calc) EAG (mg/dL)) EAG (mmol/L) (test code = 6.6 (calc) EAG (mmol/L)) [facility] W Auto Differential panel - [id number] 03:25:00 Test Item Value Reference Range Interpretation Comments white blood cell count (test 9.3 thousand/uL 3.8-10.8 code = white blood cell count) red blood cell count (test 4.83 million/uL 3.80-5.10 code = red blood cell count) hemoglobin (test code = 11.6 g/dL 11.7-15.5 L hemoglobin) hematocrit (test code = 37.2 % 35.0-45.0 hematocrit) MCV (test code = MCV) 77.0 fL 80.0-100.0 L MCH (test code = MCH) 24.0 pg 27.0-33.0 L MCHC (test code = MCHC) 31.2 g/dL 32.0-36.0 L RDW (test code = RDW) 15.6 % 11.0-15.0 H platelet count (test code = 373 thousand/uL 140-400 platelet count) MPV (test code = MPV) 10.4 fL 7.5-12.5 absolute neutrophils (test 5729 cells/uL 5250-6300 code = absolute neutrophils) absolute lymphocytes (test 3032 cells/uL 850-3900 code = absolute lymphocytes) absolute monocytes (test code 400 cells/uL 200-950 = absolute monocytes) absolute eosinophils (test 93 cells/uL 15-500 code = absolute eosinophils) absolute basophils (test code 47 cells/uL 0-200 = absolute basophils) neutrophils (test code = 61.6 % neutrophils) lymphocytes (test code = 32.6 % lymphocytes) monocytes (test code = 4.3 % monocytes) eosinophils (test code = 1.0 % eosinophils) basophils (test code = 0.5 % basophils) [facility] A[facility]/Hemoglobin.total in [id number] 03:25:00 Test Item Value Reference Range Interpretation Comments hemoglobin A1C (test code 5.8 % of total HGB <5.7 H = hemoglobin A1C) EAG (mg/dL) (test code = 120 (calc) EAG (mg/dL)) EAG (mmol/L) (test code = 6.6 (calc) EAG (mmol/L)) [facility]
[2020-07-19] MEDS ORDERED: NA CHLORIDE 0.9% 1,000 ML ONE (04:03)
[2020-07-19] MEDS ORDERED: MORPHINE 4 MG/ML SYR ONE (04:03)
[2020-07-19] MEDS ORDERED: ONDANSETRON 4 MG/2 ML VIAL ONE (04:03)
[2020-07-19 04:28] LABS: ALT/SGPT 28 U/L (12-78); AST/SGOT 16 U/L (15-37); Albumin 3.5 g/dL (3.4-5.0); Alkaline Phosphatase 88 U/L (45-117); BUN Blood Urea Nitrogen 9 mg/dL (7-18); Bicarbonate 22 mmol/L (21-32); Bilirubin Direct < 0.1 mg/dL (0-0.2); Bilirubin Total 0.3 mg/dL (0.2-1.0); Glucose Level 164 mg/dL (74-106); Lipase 164 U/L (73-393); Potassium 3.5 mmol/L (3.5-5.1); Protein, Total 7.7 g/dL (6.4-8.2); Sodium Level 141 mmol/L (136-145)
[2020-07-19 04:58] LABS: Absolute Lymphocytes (CBC) 3.5 K/uL (0.7-4.9); Basophils % 0.8 % (0-1.3); Lymphocytes % 37.9 % (15.3-44.8); RBC Red Blood Cell Count 4.52 M/uL (3.86-4.86)
[2020-07-19 06:22] LABS: Urine Bacteria LOADED /HPF (<20); Urine Mucus 1+ /HPF (NONE SEEN); Urine RBC <5 /HPF (NONE SEEN)
[2020-07-19] MEDS ORDERED: KETOROLAC 30 MG/ML INJ ONE (06:49)
--- NOTE | 2020-07-19 07:01 | EDPHYS ---
Physician Documentation [facility] Name: Debbie Rojo Age: 30 yrs Sex: Female : 1990 Arrival Date: 07/19/2020 Time: 03:18 Bed 14 Private MD: ED Physician Wallcae Chan HPI: 07/19 03:38 This 30 yrs old Female presents to ER via Ambulatory with complaints of Flank mh7 Pain. 03:38 The patient complains of pain in the left flank. The pain does not radiate. Onset: The mh7 symptoms/episode began/occurred yesterday. Modifying factors: The symptoms are alleviated by nothing. the symptoms are aggravated by movement, palpation/percussion. Associated signs and symptoms: Pertinent positives: nausea, Pertinent negatives: diarrhea, dizziness, dysuria, fever, urinary frequency, headache, hematuria, pain radiating to the lower extremities, vomiting. Severity of pain: At its worst the pain was moderate yesterday, in the emergency department the pain is unchanged. 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 - Social history:: Smoking status: Patient reports the use of cigarette tobacco products, smokes one-half pack cigarettes per day, Patient/guardian denies using alcohol, street drugs. ROS: 03:38 Constitutional: Negative for fever, chills, and weight loss, Eyes: Negative for injury, mh7 pain, redness, and discharge, ENT: Negative for injury, pain, and discharge, Neck: Negative for injury, pain, and swelling, Cardiovascular: Negative for chest pain, palpitations, and edema, Respiratory: Negative for shortness of breath, cough, wheezing, and pleuritic chest pain, : Negative for injury, bleeding, discharge, and swelling, MS/Extremity: Negative for injury and deformity, Skin: Negative for injury, rash, and discoloration, Neuro: Negative for headache, weakness, numbness, tingling, and seizure, Psych: Negative for depression, anxiety, suicide ideation, homicidal ideation, and hallucinations, Allergy/Immunology: Negative for hives, rash, and allergies, Endocrine: Negative for neck swelling, polydipsia, polyuria, polyphagia, and marked weight changes, Hematologic/Lymphatic: Negative for swollen nodes, abnormal bleeding, and unusual bruising. Exam: 03:38 Head/Face: Normocephalic, atraumatic. Eyes: Pupils equal round and reactive to light, mh7 extra-ocular motions intact. Lids and lashes normal. Conjunctiva and sclera are non-icteric and not injected. Cornea within normal limits. Periorbital areas with no swelling, redness, or edema. Neck: Trachea midline, no thyromegaly or masses palpated, and no cervical lymphadenopathy. Supple, full range of motion without nuchal rigidity, or vertebral point tenderness. No Meningismus. Chest/axilla: Normal chest wall appearance and motion. Nontender with no deformity. No lesions are appreciated. Cardiovascular: Regular rate and rhythm with a normal S1 and S2. No gallops, murmurs, or rubs. Normal PMI, no JVD. No pulse deficits. Respiratory: Lungs have equal breath sounds bilaterally, clear to auscultation and percussion. No rales, rhonchi or wheezes noted. No increased work of breathing, no retractions or nasal flaring. Abdomen/GI: Soft, non-tender, with normal bowel sounds. No distension or tympany. No guarding or rebound. No evidence of tenderness throughout. 03:38 Skin: Warm, dry with normal turgor. Normal color with no rashes, no lesions, and no evidence of cellulitis. MS/ Extremity: Pulses equal, no cyanosis. Neurovascular intact. Full, normal range of motion. Neuro: Awake and alert, GCS 15, oriented to person, place, time, and situation. Cranial nerves II-XII grossly intact. Motor strength 5/5 in all extremities. Sensory grossly intact. Cerebellar exam normal. Normal gait. Psych: Awake, alert, with orientation to person, place and time. Behavior, mood, and affect are within normal limits. 03:38 Constitutional: The patient appears in no acute distress, alert, awake, uncomfortable. 03:38 Back: ROM is normal, normal spinal alignment noted, CVA tenderness, that is moderate, is noted on the left, muscle spasm, is not present. 03:38 : CVA tenderness, on the left. Vital Signs: 03:33 BP 155 / 95; Pulse 107; Resp 18; Temp 98.8(TE); Pulse Ox 100% on R/A; Weight 83.91 kg jb4 (R); Height 5 ft. 2 in. (157.48 cm) (R); Pain 8/10; 04:15 BP 124 / 75; Pulse 109; Resp 16; Pulse Ox 100% on R/A; jb4 06:00 BP 139 / 86; Pulse 76; Resp 16; Pulse Ox 99% on R/A; jb4 07:11 BP 116 / 70; Pulse 63; Resp 15 S; Pulse Ox 99% on R/A; jd3 03:33 Body Mass Index 33.84 (83.91 kg, 157.48 cm) jb4 MDM: 06:58 Differential diagnosis: nephrolithiasis, pyelonephritis, UTI. Data reviewed: vital [facility] signs, nurses notes, old medical records, lab test result(s), CBC, electrolytes, urinalysis, radiologic studies, CT scan. Data interpreted: Pulse oximetry: on room air is 99 %. Interpretation: normal. Counseling: I had a detailed discussion with the patient and/or guardian regarding: the historical points, exam findings, and any diagnostic results supporting the discharge/admit diagnosis, the presence of at least one elevated blood pressure reading (>120/80) during this emergency department visit, lab results, radiology results, the need for outpatient follow up, to return to the emergency department if symptoms worsen or persist or if there are any questions or concerns that arise at home. Response to treatment: the patient's symptoms have markedly improved after treatment. 07:01 Patient medically screened. [facility] 07/19 03:36 Order name: Basic Metabolic Panel; Complete Time: 04:38 [facility] 07/19 03:36 Order name: CBC with Diff; Complete Time: 05:13 7 07/19 03:36 Order name: Hepatic Function; Complete Time: 04:38 [facility] 07/19 03:36 Order name: Lipase; Complete Time: 04:38 [facility] 07/19 05:33 Order name: Urine Microscopic Only; Complete Time: 06:48 4 07/19 05:34 Order name: Urine --Ancillary (enter results) [facility] 07/19 03:36 Order name: CT Stone Protocol [facility] 07/19 05:34 Order name: Urine Dipstick--Ancillary (enter results) 4 07/19 06:23 Order name: Urine Culture [facility] 07/19 03:36 Order name: IV Saline Lock; Complete Time: 04:22 [facility] 07/19 03:36 Order name: Labs collected and sent; Complete Time: 04:22 [facility] 07/19 03:36 Order name: Urine Dipstick-Ancillary (obtain specimen); Complete Time: 05:35 [facility] 07/19 03:36 Order name: Urine Test (obtain specimen); Complete Time: 05:35 [facility] 07/19 05:20 Order name: Misc. Order: Please get urine and notify CT when UPT is available; Complete lp1 Time: 05:23 Administered Medications: 04:17 Drug: NS 0.9% 1000 ml Route: IV; Rate: 1000 ml; Site: right antecubital; jb4 07:32 Follow up: Response: No adverse reaction; IV Status: Completed infusion; IV Intake: jd3 1000ml 04:17 Drug: Zofran (Ondansetron) 4 mg Route: IVP; Site: right antecubital; jb4 04:50 Follow up: Response: No adverse reaction; Nausea is decreased jb4 04:20 Drug: morphine 4 mg Route: IVP; Site: right antecubital; jb4 04:50 Follow up: Response: No adverse reaction; Pain is decreased; RASS: Alert and Calm (0) jb4 06:40 Drug: TORadol 30 mg Route: IVP; Site: right antecubital; jb4 07:02 Follow up: Response: No adverse reaction; Pain is decreased jb4 07:00 Drug: Rocephin - (cefTRIAXone) 1 grams {Note: Given IVP per pharmacy protocol..} Route: jb4 IVPB; Infused Over: 30 mins; Site: right antecubital; 07:31 Follow up: Response: No adverse reaction; IV Status: Completed infusion; IV Intake: [id number] Disposition: 07/19/20 07:01 Discharged to Home. Impression: Pyelonephritis, Nephrolithiasis. - Condition is Stable. - Discharge Instructions: Pyelonephritis, Adult, [id number], Kidney Stones, [id number]. - Prescriptions for Zofran ODT 4 mg Oral tablet,disintegrating - place 1 tablet by TRANSLINGUAL route every 8 hours As needed; 6 tablet. Tylenol- Codeine #3 300-30 mg Oral Tablet - take 2 tablets by ORAL route every 6 hours As needed; 20 tablet. Cipro 500 mg Oral Tablet - take 1 tablet by ORAL route every 12 hours for 10 days; 20 tablet. - Work release form, Medication Reconciliation Form, Thank You Letter, Antibiotic Education, Prescription Opioid Use form. - Follow up: Private Physician; When: 1 - 2 days; Reason: Worsening of condition, Recheck today's complaints, Continuance of care, Re-evaluation by your physician. Follow up: Felipe Fishman MD; When: 1 - 2 days; Reason: Worsening of condition, Recheck today's complaints. - Problem is new. - Symptoms have improved. Signatures: Dispatcher [employer] EDMS Agnieszka Wolf RN RN lp1 Rico Morales RN RN jb4 Wallace Sutton RN RN jd3 Wallace Chan MD MD mh7 Corrections: (The following items were deleted from the chart) 07:32 07:01 07/19/2020 07:01 Discharged to Home. Impression: Pyelonephritis; Nephrolithiasis. jd3 Condition is Stable. Forms are Medication Reconciliation Form, Thank You Letter, Antibiotic Education, Prescription Opioid Use. Follow up: Private Physician; When: 1 - 2 days; Reason: Worsening of condition, Recheck today's complaints, Continuance of care, Re-evaluation by your physician. Follow up: Felipe Fishman; When: 1 - 2 days; Reason: Worsening of condition, Recheck today's complaints. Problem is new. Symptoms have improved. mh7
--- NOTE | 2020-07-19 07:01 | ER ---
Nurse's Notes [facility] Name: Debbie Rojo Age: 30 yrs Sex: Female : 1990 Arrival Date: 07/19/2020 Time: 03:18 Bed 14 Private MD: Diagnosis: Pyelonephritis;Nephrolithiasis Presentation: 07/19 03:33 Chief complaint: Patient states: i started having left side pain yesterday at 4pm. it jb4 travels to my back and is making me nauseous. Coronavirus screen: Client denies travel out of the [place] in the last 14 days. At this time, the client does not indicate any symptoms associated with coronavirus-19. Ebola Screen: No symptoms or risks identified at this time. Initial Sepsis Screen: Does the patient meet any 2 criteria? HR > 90 bpm. Yes Does the patient have a suspected source of infection? No. Patient's initial sepsis screen is negative. Risk Assessment: Do you want to hurt yourself or someone else? Patient reports no desire to harm self or others. Onset of symptoms was July 18, 2020. Transition of care: patient was not received from another setting of care. 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 - Social history:: Smoking status: Patient reports the use of cigarette tobacco products, smokes one-half pack cigarettes per day, Patient/guardian denies using alcohol, street drugs. Screenin:37 Abuse screen: Denies threats or abuse. Nutritional screening: No deficits noted. jb4 Tuberculosis screening: No symptoms or risk factors identified. Fall Risk None identified. Assessment: 03:37 General: Appears in no apparent distress. uncomfortable, Behavior is calm, cooperative, jb4 appropriate for age. Pain: Complains of pain in Left flank Pain radiates to lower back Pain currently is 8 out of 10 on a pain scale. Neuro: Level of Consciousness is awake, alert, obeys commands, Oriented to person, place, time, situation. Cardiovascular: Patient's skin is warm and dry. Respiratory: Airway is patent Respiratory effort is even, unlabored, Respiratory pattern is regular, symmetrical. GI: No signs and/or symptoms were reported involving the gastrointestinal system. : No signs and/or symptoms were reported regarding the genitourinary system. EENT: No signs and/or symptoms were reported regarding the EENT system. Derm: Skin is intact, Skin is pink, warm \T\ dry. Musculoskeletal: Circulation, motion, and sensation intact. Range of motion: intact in all extremities. 05:00 Reassessment: Patient appears in no apparent distress at this time. Patient and/or jb4 family updated on plan of care and expected duration. Pain level reassessed. Patient is alert, oriented x 3, equal unlabored respirations, skin warm/dry/pink. 06:00 Reassessment: Patient appears in no apparent distress at this time. Patient and/or jb4 family updated on plan of care and expected duration. Pain level reassessed. Patient is alert, oriented x 3, equal unlabored respirations, skin warm/dry/pink. 07:11 Reassessment: Patient appears in no apparent distress at this time. Patient and/or jd3 family updated on plan of care and expected duration. Pain level reassessed. Patient is alert, oriented x 3, equal unlabored respirations, skin warm/dry/pink. Vital Signs: 03:33 BP 155 / 95; Pulse 107; Resp 18; Temp 98.8(TE); Pulse Ox 100% on R/A; Weight 83.91 kg jb4 (R); Height 5 ft. 2 in. (157.48 cm) (R); Pain 8/10; 04:15 BP 124 / 75; Pulse 109; Resp 16; Pulse Ox 100% on R/A; jb4 06:00 BP 139 / 86; Pulse 76; Resp 16; Pulse Ox 99% on R/A; jb4 07:11 BP 116 / 70; Pulse 63; Resp 15 S; Pulse Ox 99% on R/A; jd3 03:33 Body Mass Index 33.84 (83.91 kg, 157.48 cm) 4 ED Course: 03:18 Patient arrived in ED. am2 03:30 Wallace Chan MD is Attending Physician. 7 03:33 Rico Morales, RN is Primary Nurse. jb4 03:35 Triage completed. jb4 03:36 Arm band placed on right wrist. jb4 03:37 Patient has correct armband on for positive identification. Placed in gown. Bed in low jb4 position. Call light in reach. Side rails up X 1. Pulse ox on. NIBP on. 06:03 CT Stone Protocol In Process Unspecified. EDMS 07:00 Felipe Fishman MD is Referral Physician. 7 07:12 No provider procedures requiring assistance completed. jd3 07:31 IV discontinued, intact, bleeding controlled, No redness/swelling at site. Pressure jd3 dressing applied. Administered Medications: 04:17 Drug: NS 0.9% 1000 ml Route: IV; Rate: 1000 ml; Site: right antecubital; jb4 07:32 Follow up: Response: No adverse reaction; IV Status: Completed infusion; IV Intake: jd3 1000ml 04:17 Drug: Zofran (Ondansetron) 4 mg Route: IVP; Site: right antecubital; jb4 04:50 Follow up: Response: No adverse reaction; Nausea is decreased jb4 04:20 Drug: morphine 4 mg Route: IVP; Site: right antecubital; jb4 04:50 Follow up: Response: No adverse reaction; Pain is decreased; RASS: Alert and Calm (0) jb4 06:40 Drug: TORadol 30 mg Route: IVP; Site: right antecubital; jb4 07:02 Follow up: Response: No adverse reaction; Pain is decreased jb4 07:00 Drug: Rocephin - (cefTRIAXone) 1 grams {Note: Given IVP per pharmacy protocol..} Route: jb4 IVPB; Infused Over: 30 mins; Site: right antecubital; 07:31 Follow up: Response: No adverse reaction; IV Status: Completed infusion; IV Intake: 12mtav1 Intake: 07:31 IV: 10ml; Total: 10ml. jd3 07:32 IV: 1000ml; Total: 1010ml. jd3 Outcome: 07:01 Discharge ordered by . 7 07:31 Discharged to home ambulatory, with family. jd3 07:31 Condition: stable 07:31 Discharge instructions given to patient, Instructed on discharge instructions, follow up and referral plans. medication usage, Demonstrated understanding of instructions, follow-up care, medications, Prescriptions given X 3. 07:32 Patient left the ED. jd3 Signatures: Dispatcher [employer] EDMS Rico Morales RN RN jb4 Carole Cheatham Jonathon, RN RN jd3 Wallace Chan MD MD [id number]
[2020-07-19] MEDS ORDERED: CEFTRIAXONE/SWI 1gm 1 GM/10 ML SYR ONE (07:08)
[2020-07-19 07:15] LABS: Urine Blood TRACE (NEG); Urine Glucose NEGATIVE (NEG); Urine Protein NEGATIVE (NEG); Urine pH 6.5 (5.0-7.0)
[2020-07-19 07:46] VITALS: TEMP 98.8
[2020-07-19 07:47] VITALS: O2SAT 99
[2020-07-19 07:48] VITALS: BP 116/70
--- NOTE | 2020-07-19 17:18 | RAD REPORT ---
EXAM DESCRIPTION: CT - Stone Protocol - 07/19/2020 6:39 am CLINICAL HISTORY: 1 years Female, FLANK PAIN COMPARISON: August 16, 2019 TECHNIQUE: Contiguous axial CT images of the abdomen and pelvis were obtained. Sagittal and coronal reformats were reviewed. This exam was performed according to our departmental dose-optimization pr ogram, which includes automated exposure control, adjustment of the mA and/or kV according to patient size and/or use of iterative reconstruction technique. FINDINGS: Lung bases: Clear. Liver: Unremarkable. No focal liver lesion. Gallbladder: Unremarkable. No gallstones. No gallbladder wall thickening or pericholecystic fluid. Spleen: Unremarkable Pancreas: Pancreas is unremarkable. Adrenal glands: Within normal limits. Kidneys/ureters: 2 mm and 4 mm nonobstructive right renal calculi. 4 mm nonobstructive left renal angel culus. No hydronephrosis or hydroureter. Stomach/small bowel/colon: Stomach is unremarkable. Small bowel is unremarkable. Colon is unremar kable. Appendix: No evidence of appendicitis. Peritoneum: No free fluid. Vascular structures: within normal limits Lymph nodes: No abnormal lymph nodes. Bladder: Unremarkable. Pelvic organs: No acute abnormality Bones: No acute osseous abnormality. Soft tissues: Unremarkable.. IMPRESSION: Small nonobstructive bilateral renal calculi. No acute findings in the abdomen or pelvis . 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 The interpreting radiologist is fully responsible for the content of the report.
== END 2020-07-19 07:32 | disposition home or self-care (01) ==
LOC: ER 03:13
DX: N12 Tubulo-interstitial nephritis, not specified as acute or chronic (principal); N20.0 Calculus of kidney; F17.210 Nicotine dependence, cigarettes, uncomplicated; Z87.442 Personal history of urinary calculi; Z88.8 Allergy status to other drugs, medicaments and biological substances
CPT/HCPCS: 96365; 96361; 87088; 85025; 87086; 80048; 36415; 81025; 80076; 87077; 87186; 83690; 76377; 74176; 96375; 99284; J0696; J7030; J2405; 81003; 81015

== ENCOUNTER 2021-01-02 07:31 | Emergency (ER) | payer OTHER ==
--- OUTSIDE RECORDS SUMMARY | 2021-01-02 07:34 | XMS REPORT | Continuity of Care Document ---
:1990 Author Organization [facility] t Address 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 Polycystic Polycystic Problem Active [facility] ovary [...] Practic 00 e Dyslipidem Dyslipidem Problem Active 2019-0 V illage ia ia 5-06 Family 00:00: Practic 00 e Iron Iron Problem Active [facility] deficiency Deficiency 8-05 Fa darren anemia Anemia 00:00: Practic 00 e Insomnia Insomnia Problem Active Santi ge 3-22 Family 00:00: Practic 00 e Increased Increased Problem Active [facility] cancer Cancer 3-22 Family antigen Antigen 00:00: Practic 125 125 00 e Irritable Irritable Problem Active [facility] bowel Bowel 3-02 Family syndrome Syndrome 00:00: Practi c 00 e Anxiety Anxiety Problem Active [facility] disorder Disorder 2-02 Family 00:00: Practic 00 e Kidney Kidney Problem Active [facility] stone Stone 2- Family 00:00: Practic 00 e Chronic Chronic Problem Active [facility] low back Low Back 2-02 Family pain Pain 00:00: Practic 00 e Allergies, Adverse Reactions, Alerts Allergy Allergy Status Severity Reaction(s) Onset Inactive Treating Comm ents Source Name Type Date Date Clinician metformi DA Active [facility] [place] Metformi Allergy Active [facility] to 6- Family substanc 00:00: Practic e 00 e Metformi Propensi Active Other (See BS drop C HI St n ty to Comments) 08-[facility] - adverse 00:[facility] reaction 00 Center s Social History Social Habit Start Date Stop Date Quantity Comments Source Sex Assigned At [facility] Cigarettes smoked 2017-08-18 2017-08-18 [facility] - current (pack per 00:00:00 00:00:00 [facility] day) - Reported Cigarette 2017-08-18 2017-08-18 [facility] - pack-years 00:00:00 00:00:00 [facility] Tobacco use and 2017-08-18 2017-08-18 Never used [facility] - exposure 00:00:00 00:00:00 [facility] Alcohol intake 2017-08-18 2017-08-18 Current [facility] es - 00:00:00 00:00:00 non-drinker of Medical Ce nter alcohol (finding) Smoking Status Start Date Stop Date Source Heavy Tobacco Smoker [facility] Current every day smoker 2017-08-18 00:00:00 [facility] Medications Ordered Filled Start Stop Current Ordering Indication Dosage Frequency Signature Comments Components Source Medication Medication Date Date Medication? Clinician (SIG) Name Name medroxyprog medroxyprog No medroxypro [facility] esterone esterone 11-28 gesterone Fa darren 150 mg/mL 150 mg/mL 14:44: 150 mg/mL Practic intramuscul intramuscul 32 intramuscu e ar ar lar suspension1 suspension1 suspension mL IM Right mL IM Right 1 mL IM Buttock Buttock Right given in given in Buttock office office given in office estradiol Yes Q28D Inject [facility] cypionate 08 intramuscu [place] s - (DEPO-ESTRA 16:21: larly Medic al DIOL) 5 40 every 28 Center mg/mL days. injection acetaminoph acetaminoph No acetaminop [facility] en 300 en 300 hen 300 Family mg-codeine mg-codeine mg-codeine Practic 30 mg 30 mg 30 mg e tablet TAKE tablet TAKE tablet 2 TABLETS 2 TABLETS TAKE 2 BY MOUTH BY MOUTH TABLETS BY EVERY 6 EVERY 6 MOUTH HOURS HOURS EVERY 6 NEEDED FOR NEEDED FOR HOURS PAIN PAIN NEEDED FOR PAIN clindamycin clindamycin No clindamyci [facility] phosphate 1 phosphate 1 n F amily % topical % topical phosphate Practic solution solution 1 % e APPLY TO APPLY TO topical AFFECTED AFFECTED solution AREA TWICE AREA TWICE APPLY TO A DAY TO A DAY TO AFFECTED GROIN GROIN AREA TWICE A DAY TO GROIN cyanocobala cyanocobala No cyanocobal [facility] min (vit min (vit [place] (vit Fa darren B-12) 1,000 B-12) 1,000 B-12) Practic mcg/mL mcg/mL 1,000 e injection injection mcg/mL solution solution injection INJECT 1 ML INJECT 1 ML solution ONCE EVERY ONCE EVERY INJECT 1 14 DAYS 14 DAYS ML ONCE INTRAMUSCUL INTRAMUSCUL EVERY 14 JHOAN JHOAN DAYS INTRAMUSCU LARLY cyclobenzap cyclobenzap No cyclobenza [facility] rine 10 mg rine 10 mg olga 10 Family tablet Take tablet Take mg tablet Practic 1 tablet as 1 tablet as Take 1 e needed by needed by tablet as oral route oral route needed by in the in the oral route evening. evening. in the evening. duloxetine duloxetine No duloxetine [facility] 30 mg 30 mg 30 mg Family capsule,del capsule,del capsule,de Practic ayed ayed layed e release release release TAKE 1 TAKE 1 TAKE 1 CAPSULE BY CAPSULE BY CAPSULE BY MOUTH EVERY MOUTH EVERY MOUTH DAY DAY EVERY DAY ergocalcife ergocalcife No ergocalcif [facility] papito devine Family (vitamin (vitamin (vitamin Pra ctic D2) 1,250 D2) 1,250 D2) 1,250 e mcg (50,000 mcg (50,000 mcg unit) unit) (50,000 capsule as capsule as unit) directed directed capsule as directed furosemide furosemide No furosemide [facility] 20 mg 20 mg 20 mg Family tablet tablet tablet Practic e hydroxyzine hydroxyzine No hydroxyzin [facility] HCl 25 mg HCl 25 mg e HCl 25 F amily tablet TAKE tablet TAKE mg tablet Practic 1 TABLET BY 1 TABLET BY TAKE 1 e MOUTH AT MOUTH AT TABLET BY BEDTIME BEDTIME MOUTH AT BEDTIME ibuprofen ibuprofen No ibuprofen [facility] 800 mg 800 mg 800 mg Family tablet tablet tablet Practic e Klor-Con 10 Klor-Con 10 No Klor-Con [facility] mEq mEq 10 mEq Family tablet,exte tablet,exte tablet,ext Practic nded nded ended e release release release medroxyprog medroxyprog No medroxypro [facility] esterone esterone gesterone Fa darren 150 mg/mL 150 mg/mL 150 mg/mL Practic intramuscul intramuscul intramuscu e ar ar lar suspension suspension suspension 1 mL IM 1 mL IM 1 mL IM Right Right Right Buttock Buttock Buttock given in given in given in office office office ondansetron ondansetron No ondansetro [facility] 4 mg 4 mg n 4 mg Family disintegrat disintegrat disintegra Practic ing tablet ing tablet ting e DISSOLVE 1 DISSOLVE 1 tablet TABLET TABLET DISSOLVE 1 TRANSLINGUA TRANSLINGUA TABLET LLY EVERY 8 LLY EVERY 8 TRANSLINGU HOURS HOURS ALLY EVERY NEEDED NEEDED 8 HOURS NEEDED phentermine phentermine No phentermin [facility] 37.5 mg 37.5 mg e 37.5 mg Fami ly tablet TAKE tablet TAKE tablet Practic 1 TABLET BY 1 TABLET BY TAKE 1 e MOUTH EVERY MOUTH EVERY TABLET BY DAY IN THE DAY IN THE MOUTH MORNING MORNING EVERY DAY IN THE MORNING Immunizations Ordered Immunization Filled Immunization Date Status Commen ts Source Name Name SARS-COV-2 SARS-COV-2 2020-10-10 Completed [facility] (COVID-19) vaccine, (COVID-19) vaccine, 00:00:00 Practice UNSPECIFIED UNSPECIFIED SARS-COV-2 SARS-COV-2 2020-09-11 Completed [facility] (COVID-19) vaccine, (COVID-19) vaccine, 00:00:00 Practice UNSPECIFIED UNSPECIFIED influenza, influenza, 2020-03-14 Completed [facility] injectable, injectable, 17:08:00 Practice quadrivalent, quadrivalent, preservative free preservative free influenza, influenza, 2019-03-05 Completed [facility] injectable, injectable, 18:37:00 Practice quadrivalent, quadrivalent, preservative free preservative free influenza, influenza, 2018-03-08 Completed [facility] injectable, injectable, 16:32:48 Practice quadrivalent, quadrivalent, preservative free preservative free Tdap Tdap 2017-08-13 Completed [facility] 10:59:00 Practice Vital Signs Vital Name Observation Time Observation Value Comments Source BP Diastolic 2020-10-03 00:00:00 88 mm[Hg] [facility] Practice Height 2020-10-03 00:00:00 63 [in_i] [facility] Practice BMI (Body Mass 2020-10-03 00:00:00 31.8 kg/m2 [facility] e Family Index) Practice BP Systolic 2020-10-03 00:00:00 124 mm[Hg] [facility] Practice Body Weight 2020-10-03 00:00:00 179.6 [lb_av] [facility] Practice BP Diastolic 2020-06-24 00:00:00 89 mm[Hg] [facility] Practice Height 2020-06-24 00:00:00 63 [in_i] [facility] Practice BMI (Body Mass 2020-06-24 00:00:00 33.1 kg/m2 [facility]) Practice BP Systolic 2020-06-24 00:00:00 134 mm[Hg] [facility] Practice Body Weight 2020-06-24 00:00:00 187 [lb_av] [facility] Practice Height 2020-06-09 00:00:00 63 [in_i] [facility] Practice BMI (Body Mass 2020-06-09 00:00:00 31 kg/m2 [facility]) [facility] Body Weight 2020-06-09 00:00:00 175 [lb_av] [facility] Practice BP Diastolic 2020-01-25 00:00:00 74 mm[Hg] [...] Practice BP Diastolic 2017-09-01 00:00:00 88 mm[Hg] [facility] Height 2017-09-01 00:00:00 67 [in_i] [facility] BMI (Body Mass 2017-09-01 00:00:00 27.1 kg/m2 [facility]) Practice BP Systolic 2017-09-01 00:00:00 142 mm[Hg] [facility] Body Weight 2017-09-01 00:00:00 173 [lb_av] [facility] BP Diastolic 2017-08-12 00:00:00 80 mm[Hg] [facility] Height 2017-08-12 00:00:00 67 [in_i] [facility] BMI (Body Mass 2017-08-12 00:00:00 27.2 kg/m2 [facility]) Practice BP Systolic 2017-08-12 00:00:00 110 mm[Hg] [facility] Body Weight 2017-08-12 00:00:00 173.6 [lb_av] [facility] BP Diastolic 2017-07-15 00:00:00 80 mm[Hg] [facility] Height 2017-07-15 00:00:00 67 [in_i] [facility] BMI (Body Mass 2017-07-15 00:00:00 26.6 kg/m2 [facility]) Practice BP Systolic 2017-07-15 00:00:00 126 mm[Hg] [facility] Body Weight 2017-07-15 00:00:00 170 [lb_av] [facility] Procedures Procedure Date / Time Performing Clinician Source Performed US, pelvis, 2020-06-24 00:00:00 [facility] Jamshidgilbert preciado transabdominal + Practice transvaginal XR, thoracic spine, 2 2020-01-25 00:00:00 [facility] Practice Percutaneous Extraction 2019-11-21 00:00:00 [facility] of Kidney Stone with Practice Fragmentation Procedure MRI, foot, w/o contrast 2019-05-04 00:00:00 [facility] Practice US, abdomen, complete 2018-10-23 00:00:00 [facility] Colonoscopy 2017-08-18 00:00:00 [facility] Chris preciado Practice Tooth Root Removal [facility] y Practice Plan of Care Planned Activity Planned Date Details Comments Source Diagnostic Test 2020-11-28 test, [facility] Espinoza ortiz Pending 00:00:00 urine [code = Practice test, urine] Future Appointment 2021-01-23 Tramaine Gaspar, [address] [facility] 15:00:[address] Practice [address], [place] [address] Encounters Start End Encounter Admission Attending Care Care Encounter Source Date/Time Date/Time Type Type Clinicians Facility Department ID 2020-11-28 2020-11-28 Tramaine GARCIA [place] - [id number] [facility] 00:00:00 00:00:00 MD Chasity: [facility] y [address] Medical - Practi c [facility], [place] [address] , Ph. 2020-10-31 2020-10-31 Tramaine GARCIA [place] - [id number] [facility] 00:00:00 00:00:00 MD Chasity: [facility] Famil y [address] Medical - Practi c [facility], [place] [address] , Ph. 2020-10-03 2020-10-03 Tramaine Quiles [facility] [place] - [id number] [address] [place] [address] 00:00:00 00:00:00 MD Chasity: [facility] Famil y [address] Medical - Practi c [facility], [place] [address] , Ph. 2020-09-23 2020-09-23 Amy Gu [facility] [place] - [id number] [facility] 00:00:00 00:00:00 Ulices [facility] Fami ly MD: [id number] Medical - Prac tic [place] [facility], [place] [address] , Ph. 2020-06-24 2020-06-24 Tramaine Quiles [facility] [place] - [id number] [facility] 00:00:00 00:00:00 MD Chasity: [facility] Famil y 6122 Medical - Practi c [place] [address] [place] [address], ([facility]) [place] [address] , Ph. 2020-06-09 2020-06-09 Main [facility] [place] - [id number] [facility] 00:00:00 00:00:00 Venkat [facility] Famil y APPLICATIONS DEVELOPER: [id number] Medical - Pract ic [place] [facility] [place] [address], ([facility]) [place] [address] , Ph. 2020-03-14 2020-03-14 Tramaine Quiles [facility] [place] - [address] [place] [address] 00:00:00 00:00:00 MD Chasity: [facility] Famil y 6122 Medical - Practi c [place] [facility], [address] ([facility]) [place] [address] , Ph. 2020-01-25 2020-01-25 Tramaine Quiles [facility] [place] - [id number] 4 [facility] 00:00:00 00:00:00 MD Chasity: [facility] 6122 Medical - Practi c [place] [facility] [place] [address], ([facility]) [place] [address] , Ph. 2019-12-21 2019-12-21 [facility] [place] [facility] [id number] [facility] 00:00:00 00:00:00 MD Chasity: [facility] 6122 Medical - Practi c [place] [facility], [place] [address], ([facility]) [place] [address] , Ph. 2019-11-09 2019-11-09 Tramaine Quiles [facility] [place] - [id number] 9 [facility] 00:00:00 00:00:00 MD Chasity: [facility] 6122 Medical - Practi c [place] [facility], [place] [address], ([facility]) [place] [address] , Ph. 2019-09-24 2019-09-24 Tramaine Quiles [facility] [place] - [id number] [facility] 00:00:00 00:00:00 MD Chasity: [facility] 6122 Medical - Practi c [place] [facility], [place] [address], ([facility]) [place] [address] , Ph. 2019-07-23 2019-07-23 Tramaine Quiles [facility] [place] - [id number] 0 [facility] 00:00:00 00:00:00 MD Chasity: [facility] 6122 Medical - Practi c [place] [facility], [place] [address], ([facility]) [place] [address] , Ph. 2019-07-06 2019-07-06 Tramaine Quiles [facility] [place] - [id number] 4 [facility] 00:00:00 00:00:00 MD Chasity: [facility] 6122 Medical - Practi c [place] [facility], [facility] [address], ([place] [address] , Ph. 2019-05-04 2019-05-04 Tramaine Quiles [facility] [place] - [id number] 2 [facility] 00:00:00 00:00:00 MD Chasity: [facility] 9430 Medical - Practi c [place], [address]HOU[address], [place] [address] , Ph. 2019-04-06 2019-04-06 Amy Gu [facility] [place] - [id number] [facility] 00:00:00 00:00:00 Ulices [facility] Chris ly MD: 9430 Medical - Pract ic [place], [address], [place] [address] , Ph. 2019-03-05 2019-03-05 [facility] [place] - [id number] 3 [facility] 00:00:00 00:00:00 MD Chasity: [facility] Family Practic [place], Practice - e [address], [place] [address] , Ph. 2019-01-30 2019-01-30 Amy Gu [facility] [place] - [id number] [facility] 00:00:00 00:00:00 Ulices [facility] Chris preciado MD: [address] [facility] [place], Practice - e [address], [place] [address] , Ph. 2019-01-02 2019-01-02 [facility] [place] - [id number] 3 [facility] 00:00:00 00:00:00 MD Chasity: [facility] [address] [facility] [place], Practice - e [address], [place] [address] , Ph. 2018-12-11 2018-12-11 [facility] [place] - [id number] 1 [facility] 00:00:00 00:00:00 MD Chasity: [facility] [address] [facility] [place], Practice - e [address], [place] [address] , Ph. 2018-10-26 2018-10-26 Amy Gu [facility] [place] - [id number] [facility] 00:00:00 00:00:00 [facility] MD: [address] [facility] [place], Practice - e [address], [place] [address] , Ph. 2018-10-23 2018-10-23 Tramaine BROOKS [place] - [id number] 3 [facility] 00:00:00 00:00:00 MD Chasity: [facility] [address] [facility] [place], Practice - e [address], [place] [address] , Ph. 2018-10-03 2018-10-03 Tramaine Quiles [facility] [place] - [id number] 3 [facility] 00:00:00 00:00:00 MD Chasity: [facility] [address] [facility] [place], Practice - e [address], [place] [address] , Ph. 2018-08-14 2018-08-14 Tramaine Quiles [facility] [place] - [id number] 4 [facility] 00:00:00 00:00:00 MD Chasity: [facility] [address] [facility] [place], Practice - e [address], [place] [address] , Ph. 2018-07-24 2018-07-24 Tramaine Quiles [place] - [id number] 1 [facility] 00:00:00 00:00:00 MD Chasity: [facility] [address] [facility] [place], Practice - e [address], [place] [address] , Ph. 2018-07-10 2018-07-10 Amy Riccardo [facility] [place] - [id number] [facility] 00:00:00 00:00:00 [facility] [address] [facility] [place], Practice - e [address], [place] [address] , Ph. 2017-09-19 2017-09-19 Tramaine Quiles [facility] [place] - [id number] 9 [facility] 00:00:00 00:00:00 MD Chasity: [facility] Famil y [address] [facility] Pract[facility] [place], Practice - e [address], [place] [address] , Ph. 2017-09-01 2017-09-01 Tramaine Quiles [facility] [place] - [id number] 2 [facility] 00:00:00 00:00:00 MD Chasity: [facility] Famil y [address] [facility] [place], Practice - e [address], [place] [address] , Ph. 2017-08-12 2017-08-12 Amy Gu [facility] [place] - [id number] [facility] 00:00:00 00:00:00 [facility] Fami ly MD: [address] [facility] [place], Practice - e [address], [place] [address] , Ph. 2017-07-15 2017-07-15 Tramaine Quiles [facility] [place] - [id number] 2 [facility] 00:00:00 00:00:00 MD Chasity: [facility] Famil y [address] [facility] [place], Practice - e [address], [place] [address] , Ph. Results Test Description Test Time Test Comments Results Result Comments Source test, urine 2020-09-23 10:26:10 Test Item Value Reference Range Interpretation Comme nts HCG (test code = HCG) [facility] [id number] 10:26:10 Test Item Value Reference Range Interpretation Comments HCG (test code = HCG) negative [facility] Practice- US RETROPERITONEAL [id number] 16:16:00 [facility] MICHELLE LOPE[facility] : 1990 Sex: F Name: MICHELLE LOPEZ [facility] : 1990 Age/S: 30 / F [id number] Unit #: [id number] Loc: [place] [address] Phys: Matt Benson MD Acct: [id number] Dis Date: Status: REG CLI PHONE #: [phone] Exam Date: 07/18/2020 1522 FAX #: Reason: KIDNEY STONE EXAMS: CPT: [id number] US RETROPERITONEAL COM [id number] EXAMINATION: - US RETROPERITONEAL COM. LOCATION: B2. [...] sonographic appearance of the right kidney. at 9178 Reported and signed by: Poonam Herman M.D. CC: Tramaine Gaspar MD; Matt Benson MD Technologist: Yarely Ayon Trnscb Date/Time: 07/18/2020 (9208) [email or web address] PAGE 1 Signed Report Name: MICHELLE LOPEZ [facility]: 1990 Age/S: 30 / F [id number] Unit #: [id number] Loc: [place] [address] Phys: Syed Benson MD Acct: [id number] Dis Date:Status: REG CLI PHONE #: [phone] Exam Date: 07/18/2020 1526 FAX #: Reason: KIDNEY STONE EXAMS: CPT: [id number] US RETROPERITONEAL COM [id number] <Continued> Orig Print D/T: S: 07/18/2020 (1713) Probe: PAGE 2 Signed Report- US PELVIC [id number] 09:37:00[facility] MICHELLE LOPEZ : 1990 Sex: F Name: [facility] [place] : 1990 Age/S: 30 / F [id number] Unit #: [id number] Loc: [place] [address] Phys: Tramaine Gaspar MD Acct: [id number] Dis Date: Status: REG CLI PHONE #: [phone] Exam Date: 06/27/2020 0835 FAX #: Reason: PELVIC PERINEAL PAIN EXAMS: CPT: [id number] US PELVIC COMPLETE [id number] Site ID: [id number] Transvaginal and transabdominal pelvic US: CLINICAL HISTORY: R10. 2 TECHNIQUE: Transabdominal and transvaginal pelvic ultrasound performed, withduplex scanning performed using B mode/grayscale imaging and spectral Doppler evaluation of arterial inflow and venous outflow to the ovaries FINDINGS: The uterus is normal in size and measures 6.4 x 3.6 x 4.8 cm. The endometrial stripe measures 5 mm. Atiny 3 mm hyperechoic submucosal focus is present, likely related to submucosal glands. The right ovary measures 4.8 x 1.8 cm. The left ovary measures 3.8 x 1.7 cm. Normal doppler flow to both ovaries is seen, without torsion. No abnormal adnexal massesare seen. No free fluid is seen. IMPRESSION: Unremarkable pelvic ultrasound at 0937 Reported and signed by: Olegario Huddleston M.D. CC: Tramaine Bryan MD Technologist: Yarely Ayon Trnmsb Date/Time: 06/27/2020 (0937) [email or web address] PAGE 1 Signed [facility] 1990 Age/S: 30 / F [id number] Unit #: [id number] Loc: [place] [address] Phys: Tramaine Gaspar MD Acct: [id number] Dis Date: Status: REG CLI PHONE #: [phone] Exam Date: 06/27/2020 0835 FAX #: Reason: PELVIC PERINEAL PAIN EXAMS: CPT: [id number] US PELVIC COMPLETE [id number] <Continued> Orig Print D/T: S: 06/27/2020 (0940) Probe: PAGE 2 Signed Report- US TRANSVAGINAL NON [id number] 09:37:00 [facility] MICHELLE LOPEZ : 1990 Sex: F Name: MICHELLE LOPEZ [facility] : 1990 Age/S: 30 / F [id number] Unit #: [id number] Loc: [place] [address] Phys: Tramaine Gaspar MD Acct: [id number] Dis Date: Status: REG CLI PHONE #: [phone] Exam Date: 06/27/202052 FAX #: Reason: PELVIC PERINEAL PAIN EXAMS: CPT: [id number] [place] [address] Site ID: [id number] Transvaginal and transabdominal pelvic US: CLINICAL HISTORY: R10. 2 TECHNIQUE: Transabdominal and transvaginal pelvic ultrasound performed, withduplex scanning performed using B mode/grayscale imaging and spectral Doppler evaluation of arterial inflow and venous outflow to the ovaries FINDINGS: The uterus is normal in size and measures 6.4 x 3.6 x 4.8 cm. The endometrial stripe measures 5 mm. Atiny 3 mm hyperechoic submucosal focus is present, likely related to submucosal glands. The right ovary measures 4.8 x 1.8 cm. The left ovary measures 3.8 x 1.7 cm. Normal doppler flow to both ovaries is seen, without torsion. No abnormal adnexal massesare seen. No free fluid is seen. IMPRESSION: Unremarkable pelvic ultrasound at 0937 Reported and signed by: Olegario Huddleston M.D. CC: Tramaine Bryan MD Technologist: Yarely Ayon Trnscb Date/Time: 06/27/2020 (0937) Megan.AJP6 PAGE 1 Signed Report Name: MICHELLE LOPEZ [place] : 1990 Age/S: 30 / F [address] [facility] Unit #: [id number] Loc: [place] [address] Phys: Tramaine Gaspar MD Acct: [id number] Dis Date: Status: REG CLI PHONE #: [phone] Exam Date: 06/27/2020 0852 FAX #: Reason: PELVIC PERINEAL PAIN EXAMS: CPT: [id number] [place] [address] <Continued> Orig Print D/T: S: 06/27/2020 (0940) Probe: [id number] PAGE 2 Signed Reportpregnancy test, [id number] 15:01:00 Test Item Value Reference Range Interpretation Comments HCG (test code = HCG) negative [facility]- US RETRO [id number] 08:20:00 Name: MICHELLE LOPEZ : 1990 Age/S: 29 / F [address] [address] [facility] Unit #: [id number] Loc: [place] [address] Phys: Matt Benson MD Acct: [id number] Dis Date: Status: REG CLI PHONE #: [phone] Exam Date: 01/14/2020 0802 FAX #: Reason: KIDNEY STONE EXAMS: CPT: [id number] US RETRO LTD [address] EXAMINATION: - US RETRO LTD. LOCATION: S17. [...] MD; Matt Benson MD Technologist: Sejal Seth Trnscb Date/Time: 01/14/2020 (0820) YusufR.ANS4 PAGE 1 Signed Report Name: MICHELLE LOPEZ : 1990 Age/S: 29 / F [address] [address] Unit #: [id number] Loc: [place] [address] Phys: Matt Benson MD Acct: [id number] Dis Date: Status: REG CLI PHONE #: [phone] Exam Date: 01/14/2020 08 FAX #: Reason: KIDNEY STONE EXAMS:CPT: [id number] US RETRO LTD [address] <Continued> Orig Print D/T: S: 01/14/2020 (0823) Probe: PAGE 2 Signed Report- XR FLUOROSCOPY 0-60 [id number] 16:12:00 Name: MICHELLE LOPEZ : 1990 Age/S: 29 / F [address] [address] Unit #: [id number] Loc: [place] [address] Phys: Matt Benson MD Acct: [id number] Dis Date: Status: REG [facility] PHONE #: [phone] Exam Date: 11/21/2019 1000 FAX #: Reason: RETRO CYSTO WITH STENT PLACEMENT EXAMS: CPT: [id number] XR FLUOROSCOPY 0-60 MIN 31022 Fluoro Time: 59 DAP (Gy m2): Air [...] LOPEZ : 1990 Age/S: 29 / F [address] [address] Unit #: [id number] Loc: [place] [address] Phys: Matt Benson MD Acct: [id number] Dis Date: Status: REG [facility] PHONE #: [phone] Exam Date: 11/21/2019 1000 FAX #: Reason: RETRO CYSTO WITH STENT PLACEMENT EXAMS: CPT: [id number] XR FLUOROSCOPY 0- 60 MIN 22562 Fluoro Time: 59 DAP (Gy m2): Air Kerma (mGy): 18.02 <Continued> Technologist: Agnieszka Aponte, RT(R) Trnscb Date/Time: 11/21/2019 (4819) t.LILLIANAR.ANS4 Orig Print D/T: S: 11/21/2019 (6903) PAGE 2 Signed ReportNovel Coronavirus 2019 Inhouse 2019-11-18 08:18:00 Test Item Value Reference Range Interpretation Comments Novel Coronavirus 2019 Inhouse (test Negative Negative code = COVNONPUI) Comment: PRE OPNovel Coronavirus 2019 [id number] 08:17:00 Test Item Value Reference Range Interpretation Comments Novel Coronavirus 2019 Inhouse (test Negative Negative code = COVNONPUI) Comment: PRE OPPROTHROMBIN [id number] 15:58:00 Test Item Value Reference Range Interpretation Comments PT PATIENT (test code = PTP) 11.1 SECONDS 9.3-12.9 N INTERNATIONAL NORMAL RATIO 0.98 INR Unit 0.8-1.2 N (test code = INR) THROMBOPLASTIN TIME [id number] 15:58:00 Test Item Value Reference Range Interpretation Comments THROMBOPLASTIN TIME PARTIAL 29.8 SECONDS 26-35 N (test code = PTT) BASIC METABOLIC [id number] 15:56:00 Test Item Value Reference Range Interpretation [...] CA) 9.3 MG/DL 8.5-10.1 N HCG SERUM [id number] 15:51:00 Test Item Value Reference Range Interpretation Comments HCG SERUM QUAL (test SERUM NEGATIVE SCREEN NEGATIVE code = HCGQL) BASIC METABOLIC [id number] 15:51:00 Test Item Value Reference Range Interpretation [...] CA) 9.3 MG/DL 8.5-10.1 N CBC W/AUTO [id number] 15:47:00 Test Item Value Reference Range Interpretation [...] code NO DIFF/SCN CRITERIA = MDIFF) - RETRO [id number] 08:52:00 Name: MICHELLE LOPEZ [place] : 1990 Age/S: 29 / F [address] [address] Unit #: [id number] Loc: [place] [address] Phys: Matt Benson MD Acct: [id number] Dis Date: Status: REG CLI PHONE #: [phone] Exam Date: 09/17/2019 0835 FAX #: Reason: KIDNEY STONE HYDRONEPHROSIS EXAMS: CPT: [id number] RETRO [facility] [address] RENAL ULTRASOUND CLINICAL HISTORY: KIDNEY STONE HYDRONEPHROSIS [...] Matt Benson MD Technologist: Shelby Corona, RT(R),RDMS(AB) Trnmsb Date/Time: 09/17/2019 (0852) t.SDR.AM18 PAGE 1 Signed Report Name: MICHELLE LOPEZ : 1990 Age/S: 29 / F [address] [address] Unit #: [id number] Loc: [place] [address] Phys: Matt Benson MD Acct: [id number] Dis Date: Status: REG CLI PHONE #: [phone] Exam Date: 09/17/2019 0835 FAX #: Reason: KIDNEY STONE HYDRONEPHROSIS EXAMS: CPT: [id number] US RETRO LTD [address] <Continued> Orig Print D/T: S: 09/17/2019 (0855) Probe: PAGE 2 Signed Report- US RETRO [id number] 08:50:00 Name: MICHELLE LOPEZ [place] : 1990 Age/S: 29 / F [address] [address] Unit #: [id number] Loc: [place] [address] Phys: Matt Benson MD Acct: [id number] Dis Date: Status: REG CLI PHONE #: [phone] Exam Date: 08/10/2019 0835 FAX #: Reason: KIDNEY STONES EXAMS: CPT: [id number] US RETRO LTD [address] EXAMINATION: - US RETRO LTD. LOCATION: S17. [...] Shelby Corona, RT(R),RDMS(AB) Trnscb Date/Time: 08/10/2019 (0850) tAMANDAR.ANS4 PAGE 1 Signed Report Name: MICHELLE LOPEZ [facility] : 1990 Age/S: 29 / F [address] [address] Unit #: [id number] Loc: [place] [address] Phys: Matt Benson MD Acct: [id number] Dis Date: Status: REG CLI PHONE #: [phone] Exam Date: 08/10/2019 0835 FAX #: Reason: KIDNEY STONES EXAMS: CPT: [id number] RETRO LTD [address] <Continued> Orig Print D/T: S: 08/10/2019 (0853) Probe: PAGE 2 Signed Reportpregnancy test, [id number] 08:44:00 Test Item Value Reference Range Interpretation Comments HCG (test code = HCG) negative [facility] CenterMagnesium [Mass/volume] in Serum or [id number] 00:00:00 Test Item Value Reference Range Interpretation Comments magnesium (test code = magnesium) 2.3 mg/dL 1.5-2.5 [facility] CenterLipid 1996 panel - Serum or [id number] 00:00:00 Test Item Value Reference Range Interpretation [...] <130 H code = non HDL cholesterol) [facility] CenterComprehensive [facility] 2000 panel - Serum or Plasma 2019-02-04 00:00:00 Test Item Value Reference Range Interpretation Comments glucose (test code = 86 mg/dL 65-99 glucose) urea nitrogen (BUN) (test 9 mg/dL 01-04 code = urea nitrogen (BUN)) creatinine (test code = 0.96 mg/dL 0.50-1.10 creatinine) eGFR non-afr. [place] (test 80 mL/min/1.73m2 > or = 60 code = eGFR non-afr. citizen [place]) eGFR (test 93 mL/min/1.73m2 > or = [...] (test code = ALT) 18 U/L 6-29 [facility] CenterCreatine kinase [Enzymatic activity/volume] in Serum or [id number] 00:00:00 Test Item Value Reference Range Interpretation Comments creatine kinase, total (test code = 74 U/L 29-143 creatine kinase, total) [facility] CenterCB W Auto Differential panel - [id number] 00:00:00 Test Item Value Reference Range Interpretation [...] fL 7.5-12.5 absolute neutrophils (test 6969 cells/uL 3883-4175 code = absolute neutrophils) absolute lymphocytes (test [...] basophils (test code = 0.5 % basophils) [facility] CenterThyrotropin [Units/volume] in Serum or [id number] 00:00:00 Test Item Value Reference Range Interpretation Comments TSH (test code = TSH) 3.95 mIU/L [facility] CenterFolate+Cyanocobalamin [interpretation] in Serum or Blood 2019-02-04 00:00:00 Test Item Value Reference Range Interpretation Comments vitamin B12 (test code = vitamin 568 pg/mL 200-1100 B12) folate, serum (test code = folate, 5.9 NG/mL serum) [facility] CenterXzuwjobo10-Hzcevggsetzfsi D [Mass/volume] in Serum or Plasma 2019-02-04 00:00:00 Test Item Value Reference Range Interpretation Comments vitamin D,25-oh,total,ia (test code 29 NG/mL 30-100 L = vitamin D,25-oh,total,ia) [facility] Centerextra lavender-top [id number] 10:41:00Extra Lavender- top [facility] + HPV mRNA E6/[id number] 00:00:00 Test Item Value Reference Range Interpretation [...] = interpretation/result:) comment: (test code = comment:) estate tax examiner: (test code = estate tax examiner:) review estate tax examiner: (test code = review estate tax examiner:) comment (test code = comment) Human papilloma virus 16 and not detected not detected 18+45 E6+E7 mRNA [Identifier] in Cervix by GEORGE with probe detection (test code = 43140-4) [facility] Centerpap, IG + HPV mRNA E6/[id number] 00:00:00 Test Item Value Reference Range Interpretation [...] = interpretation/result:) comment: (test code = comment:) estate tax examiner: (test code = estate tax examiner:) review estate tax examiner: (test code = review estate tax examiner:) comment (test code = comment) Human papilloma virus 16 and not detected not detected 18+45 E6+E7 mRNA [Identifier] in Cervix by GEORGE with probe detection (test code = 84257-1) [facility] W Auto Differential panel - [id number] 00:00:00 Test Item Value Reference Range Interpretation [...] fL 7.5-12.5 absolute neutrophils (test 5075 cells/uL 2469-5595 code = absolute neutrophils) absolute lymphocytes (test [...] basophils (test code = 0.7 % basophils) [facility] CenterHemoglobin A1c/Hemoglobin.total in [id number] 00:00:00 Test Item Value Reference Range Interpretation Comments Hemoglobin 5.5 % of total HGB <5.7 A1c/Hemoglobin.total in Blood (test code = 4548-4) EAG (mg/dL) (test code = 111 (calc) EAG (mg/dL)) EAG (mmol/L) (test code = 6.2 (calc) EAG (mmol/L)) [facility] CenterComprehensive metabolic 1999 panel - Serum or Plasma 2018-10-04 00:00:00 Test Item Value Reference Range Interpretation Comments glucose (test code = 69 mg/dL 65-99 glucose) urea nitrogen (BUN) (test 14 mg/dL 7-25 code = urea nitrogen (BUN)) creatinine (test code = 0.79 mg/dL 0.50-1.10 creatinine) eGFR non-afr. citizen [place] 102 mL/min/1.73m2 > or = 60 (test code = eGFR non-afr. citizen [place]) eGFR (test 118 mL/min/1.73m2 > or = 60 code = eGFR ) BUN/creatinine ratio (test not applicable 6- code = BUN/creatinine ratio) sodium (test code [...] (test code = ALT) 17 U/L 6-29 [facility] CenterLipid 1995 panel - Serum or [id number] 00:00:00 Test Item Value Reference Range Interpretation [...] <130 H code = non HDL cholesterol) [facility] CenterThyrotropin [Units/volume] in Serum or [id number] 00:00:00 Test Item Value Reference Range Interpretation Comments TSH (test code = TSH) 2.46 mIU/L [facility] CenterCBC W Auto Differential panel - [id number] 00:00:00 Test Item Value Reference Range Interpretation [...] fL 7.5-12.5 absolute neutrophils (test 5075 cells/uL 4905-5580 code = absolute neutrophils) absolute lymphocytes (test [...] basophils (test code = 0.7 % basophils) [facility] CenterHemoglobin A1c/Hemoglobin.total in [id number] 00:00:00 Test Item Value Reference Range Interpretation Comments Hemoglobin 5.5 % of total HGB <5.7 A1c/Hemoglobin.total in Blood (test code = 4548-4) EAG (mg/dL) (test code = 111 (calc) EAG (mg/dL)) EAG (mmol/L) (test code = 6.2 (calc) EAG (mmol/L)) [facility] CenterComprehensive metabolic 2000 panel - Serum or Plasma 2018-10-04 00:00:00 Test Item Value Reference Range Interpretation Comments glucose (test code = 69 mg/dL 65-99 glucose) urea nitrogen (BUN) (test 14 mg/dL 01-04 code = urea nitrogen (BUN)) creatinine (test code = 0.79 mg/dL 0.50-1.10 creatinine) eGFR non-afr. citizen [place] 102 mL/min/1.73m2 > or = 60 (test code = eGFR non-afr. citizen [place]) eGFR (test 118 mL/min/1.73m2 > or = [...] (test code = ALT) 17 U/L 6-29 [facility] CenterLipid 1996 panel - Serum or [id number] 00:00:00 Test Item Value Reference Range Interpretation [...] <130 H code = non HDL cholesterol) [facility] CenterThyrotropin [Units/volume] in Serum or [id number] 00:00:00 Test Item Value Reference Range Interpretation Comments TSH (test code = TSH) 2.46 mIU/L [facility] CenterPOCT-GLUCOSE [id number] 15:05:00 Test Item Value Reference Range Interpretation Comments POC-GLUCOSE METER 84 mg/dL 70-110 TESTED AT [facility] 7200 (BEAKER) (test code = LAINA DGE BLDG A 1538) [facility] 7703 0 Cancer Ag 125 [Units/volume] in Serum or [id number] 13:20:00 Test Item Value Reference Range Interpretation Comments Ca 125 (test code = Ca 125) 53 U/mL <35 H [facility] CenterCancer Ag 125 [Units/volume] in Serum or [id number] 13:20:00 Test Item Value Reference Range Interpretation Comments Ca 125 (test code = Ca 125) 53 U/mL <35 H [facility] CenterUrinalysis macro (dipstick) panel - [id number] 09:08:00 Test Item Value Reference Range Interpretation Comments Color Color (test code = Color yellow Color) Color Appearance (test code = Color cloudy Appearance) Color Glucose (test code = Color 500 Glucose) Color Bilirubin (test code = Color negative Bilirubin) Color Ketones (test code = Color negative Ketones) Color Specific [place] (test code = 1.025 Color Specific [place]) Color Blood (test code = Color negative Blood) Color PH (test code = Color PH) 5.0 Color Protein (test code = Color negative Protein) Color Urobilinogen (test code = 0.2 Color Urobilinogen) Color Nitrites (test code = Color negative Nitrites) Color Leukocytes (test code = Color trace Leukocytes) [facility] CenterUrinalysis macro (dipstick) panel - [id number] 09:08:00 Test Item Value Reference Range Interpretation Comments Color Color (test code = Color yellow Color) Color Appearance (test code = Color cloudy Appearance) Color Glucose (test code = Color 500 Glucose) Color Bilirubin (test code = Color negative Bilirubin) Color Ketones (test code = Color negative Ketones) Color Specific [place] (test code = 1.025 Color Specific [place]) Color Blood (test code = Color negative Blood) Color PH (test code = Color PH) 5.0 Color Protein (test code = Color negative Protein) Color Urobilinogen (test code = 0.2 Color Urobilinogen) Color Nitrites (test code = Color negative Nitrites) Color Leukocytes (test code = Color trace Leukocytes) [facility] CenterComprehensive metabolic 2000 panel - Serum or Plasma 2017-08-13 07:02:00 Test Item Value Reference Range Interpretation Comments glucose (test code = 70 mg/dL 65-99 glucose) urea nitrogen (BUN) (test 10 mg/dL 7-25 code = urea nitrogen (BUN)) creatinine (test code = 0.80 mg/dL 0.50-1.10 creatinine) eGFR non-afr. citizen [place] 101 mL/min/1.73m2 > or = 60 (test code = eGFR non-afr. citizen [place]) eGFR (test 117 mL/min/1.73m2 > or = [...] ALT (test code = ALT) 17 U/L 6- [facility] CenterLipid 1995 panel - Serum or [id number] 07:02:00 Test Item Value Reference Range Interpretation [...] <130 H code = non HDL cholesterol) [facility] CenterComprehensive metabolic 1999 panel - Serum or Plasma 2017-08-13 07:02:00 Test Item Value Reference Range Interpretation Comments glucose (test code = 70 mg/dL 65-99 glucose) urea nitrogen (BUN) (test 10 mg/dL 7-25 code = urea nitrogen (BUN)) creatinine (test code = 0.80 mg/dL 0.50-1.10 creatinine) eGFR non-afr. citizen [place] 101 mL/min/1.73m2 > or = 60 (test code = eGFR non-afr. citizen [place]) eGFR (test 117 mL/min/1.73m2 > or = [...] (test code = ALT) 17 U/L 6-29 [facility] CenterLipid 1996 panel - Serum or [id number] 07:02:00 Test Item Value Reference Range Interpretation [...] <130 H code = non HDL cholesterol) [facility] CenterThyrotropin [Units/volume] in Serum or [id number] 04:16:00 Test Item Value Reference Range Interpretation Comments TSH (test code = TSH) 1.93 mIU/L [facility] CenterThyrotropin [Units/volume] in Serum or [id number] 04:16:00 Test Item Value Reference Range Interpretation Comments TSH (test code = TSH) 1.93 mIU/L [facility] CenterCBC W Auto Differential panel - [id number] 03:25:00 Test Item Value Reference Range Interpretation [...] fL 7.5-12.5 absolute neutrophils (test 5729 cells/uL 5473-5946 code = absolute neutrophils) absolute lymphocytes (test [...] basophils (test code = 0.5 % basophils) [facility] CenterHemoglobin A1c/Hemoglobin.total in [id number] 03:25:00 Test Item Value Reference Range Interpretation Comments hemoglobin A1C (test code 5.8 % of total HGB <5.7 H = hemoglobin A1C) EAG (mg/dL) (test code = 120 (calc) EAG (mg/dL)) EAG (mmol/L) (test code = 6.6 (calc) EAG (mmol/L)) [facility] W Auto Differential panel - [id number] 03:25:00 Test Item Value Reference Range Interpretation [...] fL 7.5-12.5 absolute neutrophils (test 5729 cells/uL 4876-3802 code = absolute neutrophils) absolute lymphocytes (test [...] basophils (test code = 0.5 % basophils) [facility] CenterHemoglobin A1c/Hemoglobin.total in [id number] 03:25:00 Test Item Value Reference Range Interpretation Comments hemoglobin A1C (test code 5.8 % of total HGB <5.7 H = hemoglobin A1C) EAG (mg/dL) (test code = 120 (calc) EAG (mg/dL)) EAG (mmol/L) (test code = 6.6 (calc) EAG (mmol/L)) [facility]
--- NOTE | 2021-01-02 08:09 | ER ---
Nurse's Notes [facility] Name: Debbie Rojo Age: 30 yrs Sex: Female : 1990 Arrival Date: 01/02/2021 Time: 07:33 Bed 7 Private MD: Yesenia Gaspar H Diagnosis: Upper abdominal pain, unspecified Presentation: 01/02 07:45 Chief complaint: Patient states: upper and pain for past two weeks, worse over past iw couple days, denies n/v/d, feels more like muscular pain. Coronavirus screen: At this time, the client does not indicate any symptoms associated with coronavirus-19. Ebola Screen: Patient negative for fever greater than or equal to 101.5 degrees Fahrenheit, and additional compatible Ebola Virus Disease symptoms Patient denies exposure to infectious person. Patient denies travel to an Ebola-affected area in the 21 days before illness onset. No symptoms or risks identified at this time. Initial Sepsis Screen: Does the patient meet any 2 criteria? No. Patient's initial sepsis screen is negative. Does the patient have a suspected source of infection? No. Patient's initial sepsis screen is negative. Risk Assessment: Do you want to hurt yourself or someone else? Patient reports no desire to harm self or others. Onset of symptoms was December 15, 2020. 07:45 Method Of Arrival: Ambulatory iw 07:45 Acuity: PATTI 3 iw CHUMMER: 07:48 LMP N/A - Depo-provera iw Historical: - Allergies: 07:47 Metformin HCl; iw - Home Meds: 07:47 None [Active]; iw - PMHx: 07:47 Diabetes (resolved as stated by patient); Irritable bowel syndrome; Kidney stones; iw neuropathy; scoliosis; - PSHx: 07:47 bladder sling; iw - Immunization history:: Client reports receiving the 2nd dose of the Covid vaccine. - Social history:: Smoking status: Patient reports the use of cigarette tobacco products, smokes one-half pack cigarettes per day. - Family history:: not pertinent. Screenin:27 Abuse screen: Denies threats or abuse. Nutritional screening: No deficits noted. ap3 Tuberculosis screening: No symptoms or risk factors identified. Fall Risk None identified. Assessment: 08:26 General: Appears in no apparent distress. comfortable, Behavior is calm, cooperative, ap3 appropriate for age. Pain: Complains of pain in abdomen Pain does not radiate. Pain currently is 8 out of 10 on a pain scale. Quality of pain is described as crampy, Pain began a few weeks ago. Neuro: Level of Consciousness is awake, alert, obeys commands, Oriented to person, place, time, situation, Moves all extremities. Gait is steady, Speech is normal. Cardiovascular: Denies chest pain, shortness of breath, Capillary refill < 3 seconds Patient's skin is warm and dry. Respiratory: Airway is patent Respiratory effort is even, unlabored, Respiratory pattern is regular, symmetrical. GI: Bowel sounds present X 4 quads. Abd is soft and non tender X 4 quads. : No signs and/or symptoms were reported regarding the genitourinary system. EENT: No signs and/or symptoms were reported regarding the EENT system. Vital Signs: 07:45 BP 136 / 91; Pulse 108; Resp 16; Temp 98.8; Pulse Ox 100% on R/A; Weight 77.11 kg; iw Height 5 ft. 2 in. (157.48 cm); Pain 7/10; 08:22 BP 112 / 56; Pulse 97; Resp 16; Pulse Ox 100% on R/A; Pain 8/10; ap3 07:45 Body Mass Index 31.09 (77.11 kg, 157.48 cm) iw ED Course: 07:33 Patient arrived in ED. am2 07:33 Yesenia Gaspar DO is Private Physician. am2 07:43 Katia Subramanian MD is Attending Physician. ma2 07:47 Triage completed. iw 07:48 Arm band placed on. iw 08:22 Carole Rausch, COURTNEY is Primary Nurse. ap3 08:27 Patient has correct armband on for positive identification. Bed in low position. Call ap3 light in reach. Side rails up X 1. Pulse ox on. NIBP on. Door closed. Noise minimized. 08:27 No provider procedures requiring assistance completed. Patient did not have IV access ap3 during this emergency room visit. Administered Medications: No medications were administered Outcome: 08:09 Discharge ordered by . ma2 08:27 Discharged to home ambulatory. ap3 08:27 Condition: good 08:27 Discharge instructions given to patient, Instructed on discharge instructions, follow up and referral plans. medication usage, Demonstrated understanding of instructions, follow-up care, medications, Prescriptions given X 2. 08:27 Patient left the ED. ap3 Signatures: Marisa Arias, RN Carole Cardona Mohammad, MD MD ma2 Carole Rausch RN RN ap3
--- NOTE | 2021-01-02 08:09 | EDPHYS ---
Physician Documentation [facility] Name: Debbie Rojo Age: 30 yrs Sex: Female : 1990 Arrival Date: 01/02/2021 Time: 07:33 Bed 7 Private MD: Yesenia Gaspar H ED Physician Katia Subramanian HPI: 01/02 08:07 This 30 yrs old Female presents to ER via Ambulatory with complaints of ma2 Abdominal Pain. 08:07 The patient presents with abdominal pain. Onset: The symptoms/episode began/occurred ma2 gradually, 2 week(s) ago. Associated signs and symptoms: Pertinent negatives: nausea, vomiting, and diarrhea, nausea and vomiting, anorexia, chest pain, constipation, dysuria, shortness of breath, vaginal discharge, vomiting blood. Severity of pain: At its worst the pain was mild in the emergency department the pain is unchanged. The patient has experienced similar episodes in the past. 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 - Social history:: Smoking status: Patient reports the use of cigarette tobacco products, smokes one-half pack cigarettes per day. - Family history:: not pertinent. ROS: 08:07 Constitutional: Negative for fever, chills, and weight loss. ma2 08:07 All other systems are negative. Exam: 08:07 Constitutional: This is a well developed, well nourished patient who is awake, alert, ma2 and in no acute distress. Head/Face: Normocephalic, atraumatic. Eyes: Pupils equal round and reactive to light, extra-ocular motions intact. Lids and lashes normal. Conjunctiva and sclera are non-icteric and not injected. Cornea within normal limits. Periorbital areas with no swelling, redness, or edema. ENT: Nares patent. No nasal discharge, no septal abnormalities noted. Tympanic membranes are normal and external auditory canals are clear. Oropharynx with no redness, swelling, or masses, exudates, or evidence of obstruction, uvula midline. Mucous membranes moist. Neck: Trachea midline, no thyromegaly or masses palpated, and no cervical lymphadenopathy. Supple, full range of motion without nuchal rigidity, or vertebral point tenderness. No Meningismus. Chest/axilla: Normal chest wall appearance and motion. Nontender with no deformity. No lesions are appreciated. Cardiovascular: Regular rate and rhythm with a normal S1 and S2. No gallops, murmurs, or rubs. Normal PMI, no JVD. No pulse deficits. Respiratory: Lungs have equal breath sounds bilaterally, clear to auscultation and percussion. No rales, rhonchi or wheezes noted. No increased work of breathing, no retractions or nasal flaring. Abdomen/GI: Soft, non-tender, with normal bowel sounds. No distension or tympany. No guarding or rebound. No evidence of tenderness throughout. Back: No spinal tenderness. No costovertebral tenderness. Full range of motion. Skin: Warm, dry with normal turgor. Normal color with no rashes, no lesions, and no evidence of cellulitis. MS/ Extremity: Pulses equal, no cyanosis. Neurovascular intact. Full, normal range of motion. Neuro: Awake and alert, GCS 15, oriented to person, place, time, and situation. Cranial nerves II-XII grossly intact. Motor strength 5/5 in all extremities. Sensory grossly intact. Cerebellar exam normal. Normal gait. Psych: Awake, alert, with orientation to person, place and time. Behavior, mood, and affect are within normal limits. Vital Signs: 07:45 BP 136 / 91; Pulse 108; Resp 16; Temp 98.8; Pulse Ox 100% on R/A; Weight 77.11 kg; iw Height 5 ft. 2 in. (157.48 cm); Pain 7/10; 08:22 BP 112 / 56; Pulse 97; Resp 16; Pulse Ox 100% on R/A; Pain 8/10; ap3 07:45 Body Mass Index 31.09 (77.11 kg, 157.48 cm) iw MDM: 08:07 Patient medically screened. ma2 08:07 Differential diagnosis: gastritis, gastroesophageal reflux disease, Irritable bowel ma2 syndrome, non-specific abd pain. Data reviewed: vital signs, nurses notes. Counseling: I had a detailed discussion with the patient and/or guardian regarding: the historical points, exam findings, and any diagnostic results supporting the discharge/admit diagnosis, the presence of at least one elevated blood pressure reading (>120/80) during this emergency department visit. Response to treatment: the patient's symptoms have markedly improved after treatment. Administered Medications: No medications were administered Disposition Summary: 01/02/21 08:09 Discharge Ordered Location: Home ma2 Condition: Stable ma2 Diagnosis - Upper abdominal pain, unspecified ma2 Followup: ma2 - With: Private Physician - When: Tomorrow - Reason: If symptoms return, Continuance of care Discharge Instructions: - Discharge Summary Sheet ma2 - Abdominal Pain, Adult ma2 Forms: - Medication Reconciliation Form ma2 - Thank You Letter ma2 - Antibiotic Education ma2 - Prescription Opioid Use ma2 - Work release form eb Prescriptions: - Pepcid 20 mg Oral Tablet - take 1 tablet by ORAL route every 12 hours for 5 days; 10 tablet; Refills: 0, ma2 Product Selection Permitted - Cyclobenzaprine 10 mg Oral Tablet - take 1 tablet by ORAL route every 8 hours As needed; 30 tablet; Refills: 0, ma2 Product Selection Permitted Signatures: Marisa Arias RN RN iw Alzahri, Mohammad, MD MD ma2
[2021-01-02 08:33] VITALS: TEMP 98.8; O2SAT 100
[2021-01-02 08:34] VITALS: BP 112/56
== END 2021-01-02 08:27 | disposition home or self-care (01) ==
LOC: ER 07:31
DX: R10.10 Upper abdominal pain, unspecified (principal); F17.210 Nicotine dependence, cigarettes, uncomplicated; Z88.8 Allergy status to other drugs, medicaments and biological substances
CPT/HCPCS: 99283

== ENCOUNTER 2021-03-05 06:28 | Emergency (ER) | payer OTHER ==
[2021-03-05 07:18] LABS: Absolute Lymphocytes (CBC) 3.6 K/uL (0.7-4.9); Basophils % 0.7 % (0-1.3); Hematocrit 44.6 % (36.0-45.0); Lymphocytes % 36.3 % (15.3-44.8); MPV 7.7 fL (7.6-11.3)
[2021-03-05 07:19] LABS: Protime INR 1.03
[2021-03-05 07:33] LABS: ALT/SGPT 32 U/L (12-78); AST/SGOT 19 U/L (15-37); Albumin 4.3 g/dL (3.4-5.0); Alkaline Phosphatase 95 U/L (45-117); BUN Blood Urea Nitrogen 11 mg/dL (7-18); Bicarbonate 21 mmol/L (21-32); Bilirubin Direct < 0.1 mg/dL (0-0.2); Bilirubin Total 0.3 mg/dL (0.2-1.0); Glucose Level 91 mg/dL (74-106); Magnesium 2.2 mg/dL (1.8-2.4); NT PRO-BNP 81 pg/mL (<125); Potassium 3.7 mmol/L (3.5-5.1); Protein, Total 8.9 g/dL (6.4-8.2); Sodium Level 140 mmol/L (136-145); Troponin (Emerg Dept Use Only) < 0.02 ng/mL (0.0-0.045)
--- NOTE | 2021-03-05 07:45 | RAD REPORT ---
EXAM DESCRIPTION: [place] Single View03/05/2021 7:38 am CLINICAL HISTORY: Chest pain COMPARISON: none FINDINGS: Left base is hazy. Right lung appears clear. The heart is normal size IMPRESSION: Left base is hazy which may indicate mild infiltrate or overlying soft tissue
[2021-03-05] MEDS ORDERED: KETOROLAC 30 MG/ML INJ ONE (08:54)
--- NOTE | 2021-03-05 09:02 | EDPHYS ---
Physician Documentation [facility] Name: Debbie Rojo Age: 31 yrs Sex: Female : 1990 Arrival Date: 03/05/2021 Time: 06:32 Bed 26 Private MD: ED Physician HPI: 03/05 06:51 This 31 yrs old Female presents to ER via Ambulatory with complaints of kb Headache, Chest Pain > 30 y/o. 06:51 The patient presents with a history of "beating hard". Context: The symptoms occur at kb rest. Onset: The symptoms/episode began/occurred at 03:00. Duration: The patient or guardian reports a single episode, that is still ongoing. Modifying factors: The symptoms are aggravated by nothing. The symptoms are alleviated by nothing. Associated signs and symptoms: The patient has no apparent associated signs or symptoms. Severity of symptoms: At their worst the symptoms were moderate in the emergency department the symptoms are unchanged. The patient has not experienced similar symptoms in the past. The patient has not recently seen a physician. Pt reports she feels like her heart is beating hard, every once in a while feels some pressure, reports shortness of breath and headache. Was started on metoprolol last month for irregular heart beat. 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 - Social history:: Smoking status: Patient reports the use of cigarette tobacco products, smokes one-half pack cigarettes per day, Patient/guardian denies using alcohol, street drugs. ROS: 06:51 Constitutional: Negative for fever, chills, and weight loss. kb 06:51 Cardiovascular: Positive for chest pain, palpitations, Negative for edema, orthopnea, paroxysmal nocturnal dyspnea. 06:51 Neuro: Positive for headache. 06:51 All other systems are negative. Exam: 06:51 Constitutional: This is a well developed, well nourished patient who is awake, alert, kb and in no acute distress. Head/Face: Normocephalic, atraumatic. ENT: Moist Mucous membranes Cardiovascular: Regular rate and rhythm with a normal S1 and S2. No gallops, murmurs, or rubs. No pulse deficits. Respiratory: Respirations even and unlabored. No increased work of breathing, no retractions or nasal flaring. Skin: Warm, dry with normal turgor. Normal color. MS/ Extremity: Pulses equal, no cyanosis. Neurovascular intact. Full, normal range of motion. Neuro: Awake and alert, GCS 15, oriented to person, place, time, and situation. Moves all extremities. Normal gait. Psych: Awake, alert, with orientation to person, place and time. Behavior, mood, and affect are within normal limits. 07:47 ECG was reviewed by the Attending Physician. kb 09:24 ECG was reviewed by the Attending Physician. Vital Signs: 06:39 BP 132 / 92; Pulse 94; Resp 20; Temp 98.7; Pulse Ox 100% on R/A; Weight 79.38 kg; df1 Height 5 ft. 2 in. (157.48 cm); Pain 4/10; 07:34 BP 128 / 86; Pulse 82; Resp 18; Temp 99.1; Pulse Ox 100% ; oh 07:56 BP 129 / 83; Pulse 77; Resp 16; Temp 97.6; Pulse Ox 100% on R/A; kh1 09:00 BP 115 / 78; Pulse 75; Resp 20; Pulse Ox 100% on R/A; kh1 10:18 BP 115 / 83; Pulse 76; Resp 18; Temp 99.1(TE); Pulse Ox 100% on R/A; kh1 10:41 BP 110 / 75; Pulse 72; Resp 17; Pulse Ox 100% ; oh 11:34 BP 107 / 68; Pulse 82; Resp 17; Pulse Ox 100% ; oh 06:39 Body Mass Index 32.01 (79.38 kg, 157.48 cm) df1 Dudley Coma Score: 06:50 Eye Response: spontaneous(4). Verbal Response: oriented(5). Motor Response: obeys kb commands(6). Total: 15. MDM: 06:46 Patient medically screened. kb 06:50 Data reviewed: vital signs, nurses notes. Data interpreted: Pulse oximetry: on room air kb is 100 %. Interpretation: normal. 11:20 Counseling: I had a detailed discussion with the patient and/or guardian regarding: the kb historical points, exam findings, and any diagnostic results supporting the discharge/admit diagnosis, lab results, radiology results, the need for outpatient follow up, a family practitioner, to return to the emergency department if symptoms worsen or persist or if there are any questions or concerns that arise at home. 03/05 06:50 Order name: Basic Metabolic Panel; Complete Time: 07:35 kb 03/05 06:50 Order name: CBC with Diff; Complete Time: 07:27 kb 03/05 06:50 Order name: LFT's; Complete Time: 07:35 kb 03/05 06:50 Order name: Magnesium; Complete Time: 07:35 kb 03/05 06:50 Order name: NT PRO-BNP; Complete Time: 07:35 kb 03/05 06:50 Order name: PT-INR; Complete Time: 07:27 kb 03/05 06:50 Order name: Troponin (emerg Dept Use Only); Complete Time: 07:35 kb 03/05 06:50 Order name: XRAY Chest (1 view); Complete Time: 07:47 kb 03/05 06:50 Order name: EKG; Complete Time: 06:51 kb 03/05 08:18 Order name: SARS-COV-2 RT PCR; Complete Time: 08:18 EDMS 03/05 08:42 Order name: Troponin (emerg Dept Use Only) kb 03/05 08:43 Order name: Troponin (Emerg Dept Use Only); Complete Time: 10:05 EDMS 03/05 06:50 Order name: Cardiac monitoring; Complete Time: 07:33 kb 03/05 06:50 Order name: EKG - Nurse/Tech; Complete Time: 07:33 kb 03/05 06:50 Order name: IV Saline Lock; Complete Time: 07:15 kb 03/05 06:50 Order name: Labs collected and sent; Complete Time: 07:15 kb 03/05 06:50 Order name: O2 Per Protocol; Complete Time: 07:15 kb 03/05 06:50 Order name: O2 Sat Monitoring; Complete Time: 07:15 kb 03/05 08:42 Order name: EKG; Complete Time: 08:43 kb 03/05 08:42 Order name: EKG - Nurse/Tech; Complete Time: 09:25 kb EC:47 Rate is 79 beats/min. Rhythm is regular. QRS [place] is Normal. [place] interval is normal at kb 172 msec. QRS interval is normal at 86 msec. QT interval is normal at 406 msec. 09:24 Rate is 73 beats/min. Rhythm is regular. QRS [place] is Normal. [place] interval is normal at kb 174 msec. QRS interval is normal at 84 msec. QT interval is normal at 406 msec. Administered Medications: 08:33 Drug: Ketorolac 15 mg Route: IVP; Site: right antecubital; kh1 11:35 Follow up: Response: No adverse reaction oh Disposition: 21:15 Co-signature as Attending Physician, Oumou ZAYAS I agree with the assessment stephon and plan of care. Disposition Summary: 03/05/21 11:20 Discharge Ordered Location: Home kb Condition: Stable(03/05/21 11:20) kb Diagnosis - Palpitations kb Followup: kb - With: Emergency Department - When: As needed - Reason: Worsening of condition Followup: kb - With: Private Physician - When: 2 - 3 days - Reason: Recheck today's complaints, Continuance of care, Re-evaluation by your physician Discharge Instructions: - Discharge Summary Sheet kb - Nonspecific Chest Pain, Adult, [id number] kb - Palpitations, [id number] kb Forms: - Medication Reconciliation Form kb - Thank You Letter kb - Antibiotic Education kb - Prescription Opioid Use kb Signatures: Dispatcher [employer] Oumou Horner FNP-C FNP-Nguyễn Stauffer MD MD cha Harris, Kecia 1 Kathy Cervantes df1 Vahe Quiñones RN RN oh Corrections: (The following items were deleted from the chart) 07:19 06:51 CORONAVIRUS+MRHALIE ordered. [facility] 09:06 09:01 [facility] oh iw 09:06 09:01 Psych Facility oh iw 09: 09:01 Higher level of care oh iw 09:06 09:01 Stable oh iw 09:06 09:01 Brief psychotic disorder oh iw
--- NOTE | 2021-03-05 09:02 | ER ---
Nurse's Notes [facility] Name: Debbie Rojo Age: 31 yrs Sex: Female : 1990 Arrival Date: 03/05/2021 Time: 06:32 Bed 26 Private MD: Diagnosis: Palpitations Presentation: 03/05 06:39 Chief complaint: Patient states: chest "squeezing" and h/a since 0300. Coronavirus df1 screen: Vaccine status: Patient reports receiving the 2nd dose of the covid vaccine. The client reports previous COVID testing was negative. Ebola Screen: Patient negative for fever greater than or equal to 101.5 degrees Fahrenheit, and additional compatible Ebola Virus Disease symptoms. Initial Sepsis Screen: Does the patient meet any 2 criteria? No. Patient's initial sepsis screen is negative. Risk Assessment: Do you want to hurt yourself or someone else? Patient reports no desire to harm self or others. Note Pt states chest pressure, palpitations, SOB and h/a since 0300 today. Denies N/V/D. Recently started on Metoprolol. Onset of symptoms was March 05, 2021 at 03:00. 06:39 Method Of Arrival: Ambulatory df1 06:39 Acuity: PATTI 3 df1 07:57 Initial Sepsis Screen: Does the patient have a suspected source of infection? No. kh1 Patient's initial sepsis screen is negative. Care prior to arrival: None. Triage Assessment: 07:52 Headache History: The patient has had previous headaches and this one is similar to [facility] previous episodes. General: Appears in no apparent distress. comfortable, Behavior is calm, cooperative, appropriate for age. Pain: Complains of pain in chest Pain currently is 4 out of 10 on a pain scale. Quality of pain is described as tightness. Neuro: No deficits noted. Level of Consciousness is awake, alert, obeys commands, Oriented to person, place, time, situation, [place] are equal bilaterally Moves all extremities. Speech is normal. 07:57 Pain: Also complains of no other associated symptoms. [facility] 07:58 Pain: Pain began gradually. 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 - Social history:: Smoking status: Patient reports the use of cigarette tobacco products, smokes one-half pack cigarettes per day, Patient/guardian denies using alcohol, street drugs. Screenin:55 Abuse screen: Denies threats or abuse. Nutritional screening: No deficits noted. kh1 Tuberculosis screening: No symptoms or risk factors identified. Fall Risk None identified. IV access (20 points). Gait- Normal/Bed Rest/Wheelchair (0 pts). Assessment: 07:54 Cardiovascular: No deficits noted. Reports chest pain, nausea, shortness of breath, [facility] Denies syncope, vomiting, Capillary refill < 3 seconds Rhythm is sinus rhythm. 09:35 Reassessment: Patient appears in no apparent distress at this time. No changes from [facility] previously documented assessment. Patient and/or family updated on plan of care and expected duration. Pain level reassessed. Patient is alert, oriented x 3, equal unlabored respirations, skin warm/dry/pink. Vital Signs: 06:39 BP 132 / 92; Pulse 94; Resp 20; Temp 98.7; Pulse Ox 100% on R/A; Weight 79.38 kg; df1 Height 5 ft. 2 in. (157.48 cm); Pain 4/10; 07:34 BP 128 / 86; Pulse 82; Resp 18; Temp 99.1; Pulse Ox 100% ; oh 07:56 BP 129 / 83; Pulse 77; Resp 16; Temp 97.6; Pulse Ox 100% on R/A; kh1 09:00 BP 115 / 78; Pulse 75; Resp 20; Pulse Ox 100% on R/A; kh1 10:18 BP 115 / 83; Pulse 76; Resp 18; Temp 99.1(TE); Pulse Ox 100% on R/A; kh1 10:41 BP 110 / 75; Pulse 72; Resp 17; Pulse Ox 100% ; oh 11:34 BP 107 / 68; Pulse 82; Resp 17; Pulse Ox 100% ; oh 06:39 Body Mass Index 32.01 (79.38 kg, 157.48 cm) df1 Lorri Coma Score: 06:50 Eye Response: spontaneous(4). Verbal Response: oriented(5). Motor Response: obeys kb commands(6). Total: 15. ED Course: 06:32 Patient arrived in ED. bp1 06:43 Triage completed. df1 06:46 Oumou Robledo FNP-C [facility]. kb 06:46 Nguyễn Gutierrez MD is Attending Physician. kb 07:22 Sarah Carroll is Primary Nurse. kh1 07:38 XRAY Chest (1 view) In Process Unspecified. EDMS 07:54 Arm band placed on right wrist. kh1 07:55 No provider procedures requiring assistance completed. Inserted saline lock: 20 gauge kh1 in right antecubital area, using aseptic technique. 07:57 Patient has correct armband on for positive identification. Bed in low position. Call kh1 light in reach. Side rails up X 1. airport representative on. Pulse ox on. NIBP on. 09:06 Attending Physician role handed off by Nguyễn Gutierrez MD iw 09:06 Primary Nurse role handed off by Sarah Carroll iw 09:13 Sarah Carroll is Primary Nurse. kh1 09:25 Troponin (Emerg Dept Use Only) Sent. oh 11:35 IV discontinued, bleeding controlled, Pressure dressing applied. oh Administered Medications: 08:33 Drug: Ketorolac 15 mg Route: IVP; Site: right antecubital; kh1 11:35 Follow up: Response: No adverse reaction oh Outcome: 11:20 Discharge ordered by . kb 11:35 Discharged to home oh 11:35 Condition: stable 11:35 Discharge instructions given to patient. 11:37 Patient left the ED. oh Signatures: Dispatcher [employer] EDMS Oumou Robledo FNP-C FNP-Marisa Patricio, RN RN iw Alivia Velazco bp1 Sarah Carroll kh1 Kathy Cervantes df1 Vahe Quiñones, RN RN oh Corrections: (The following items were deleted from the chart) 07:19 07:16 CORONAVIRUS+.LAB.BRZ drawn and sent. oh EDMS 10:40 09:01 ER care complete, transfer ordered by MD. oh oh 10:40 09:01 Patient left the ED. oh oh
[2021-03-05 09:20] VITALS: O2SAT 100
[2021-03-05 12:09] VITALS: TEMP 99.1
[2021-03-05 12:11] VITALS: BP 107/68
== END 2021-03-05 11:37 | disposition home or self-care (01) ==
LOC: ER 06:28
DX: R00.2 Palpitations (principal); E11.9 Type 2 diabetes mellitus without complications; F17.210 Nicotine dependence, cigarettes, uncomplicated; Z20.822 Contact with and (suspected) exposure to COVID-19; Z88.8 Allergy status to other drugs, medicaments and biological substances
CPT/HCPCS: 93005 ×2; 85025; 80048; 36415; 83735; 85610; 80076; 84484 ×2; 83880; 71045; 96374; 99284; U0003

== ENCOUNTER 2022-02-18 11:16 | Observation (INO) | payer OTHER ==
--- OUTSIDE RECORDS SUMMARY | 2022-02-18 11:22 | XMS REPORT | Continuity of Care Document ---
:1990 Author Organization [facility] t Address [address] [place] [address] Care Team Providers Name Role Phone FATOUMATA LARRY Primary Care Physician Unavailable Tay Elizabeth Attending Clinician Unavailable Tramaine Larry Attending Clinician Unavailable Matt Benson Attending Clinician Unavailable JAX EVANS Attending Clinician Unavailable Rivka Liz MD Attending Clinician Jax Evans MD Attending Clinician Doctor Unassigned, [place] Attending Clinician Unavailable Bui_Yordy Attending Clinician Unavailable Bui_Q_BREAU Attending Clinician Unavailable Dillon Tapia Attending Clinician Unavailable Jeanie Huddleston Attending Clinician Unavailable LAZARO MONDRAGON Attending Clinician Unavailable YUN HUDDLESTON Attending Clinician Unavailable Tramaine Larry Admitting Clinician Unavailable Bui_Yordy Admitting Clinician Unavailable Bui_Q_RENNY Admitting Clinician Unavailable HUDDLESTON, YUN LEONEU Admitting Clinician Unavailable Payers Payer Name Policy Type Policy Number Effective Date Expiration Date Deven VOSS FROM [id number] 2017 [facility] 00:00:00 [place] - [id number] [facility] 3 ([facility] COMMERCIAL [id number] 2017 2017 NON-CONTRACT 00:00:00 00:00:00 GENERIC Problems Condition Condition Condition Status Onset Resolution Last Treating Co mments Source Name Details Category Date Date Treatment Clinician Date Essential Essential Problem Active [place] acuñae hypertensi Hypertensi 1-07 Fa darren on on 00:00: Practic 00 e Attention Attention Problem Active [place] mell deficit [...] 00 e Increased Increased Problem Active [place] acuñae cancer Cancer 3-22 Family antigen Antigen 00:00: Practic 125 125 00 e Irritable Irritable Problem Active [place] mell bowel Bowel 3-02 Family syndrome Syndrome 00:00: Practi c 00 e Anxiety Anxiety Problem Active [place] disorder Disorder 2-02 Family 00:00: Practic 00 e Kidney Kidney Problem Active [place] stone Stone 2-02 Family 00:00: Practic 00 e Chronic Chronic Problem Active [place] low back Low Back 2-02 Family pain Pain 00:00: Practic 00 e Diabetes Diabetes Problem Active [place] ge mellitus Mellitus 2-02 Family 00:00: Practic 00 e No known No known Disease Unive rs active active ity of problems problems [facility] Allergies, Adverse Reactions, Alerts Allergy Allergy Status Severity Reaction(s) Onset Inactive Treating Comm ents Source Name Type Date Date Clinician metformi DA Active U unknown [facility] [place] [facility] d [facility] metformi DA Active U [facility] [place] 00:00: d 00 [facility] Center metformi DA Active U unknown [facility] 6 [place] 00:00: d 00 [facility] Metformi Allergy Active [place] n to 11-19 Family substanc 00:00: Practic e 00 e METFORMI DRUG Active Med Other-Cmnt Univ ers N INGREDI 01-07 ity of 00:00: [place] 00 Medical Branch Metformi Propensi Active Other - See Drops U nivers n ty to comments 01-07 sugar to ity of adverse 00:00: low [place] reaction 00 Medical s Branch Metformi Propensi Active Other (See BS drop C [facility] n ty to Comments) 08-17 [facility] adverse 00:[facility] Medical reaction 00 Center s Social History Social Habit Start Date Stop Date Quantity Comments Source Exposure to 2022-01-07 2022-01-17 Not sure University SARS-CoV-2 (event) 00:00:00 05:20:00 [facility] Alcohol intake 2017-08-18 2017-08-[address] [facility] 00:00:00 00:00:00 non-drinker of Medical Ce nter alcohol (finding) Cigarettes smoked 2017-08-17 2017-08-[address] [facility] current (pack per 00:00:00 00:00:00 Medical Center day) - Reported Cigarette 2017-08-17 2017-08-[address] [facility] pack-years 00:00:00 00:00:00 [facility] Center Tobacco use and 2017-08-17 2017-08-[address] [facility] kes exposure 00:00:00 00:00:00 Medical Center Sex Assigned At [birth year] [facility] Lindsay florian 00:00:00 00:00:00 Medical Center Smoking Status Start Date Stop Date Source Tobacco smoking consumption [facility] [place] [facility] unknown Branch Heavy Tobacco Smoker [facility] Current every day smoker 2017-08-17 00:00:00 [facility] Medications Ordered Filled Start Stop Current Ordering Indication Dosage Frequency Signature Comments Components Source Medication Medication Date Date Medication? Clinician (SIG) Name Name ondansetron Yes [id number] 4mg Take 1 Univers 4 mg 8-07 tablet by ity of disintegrat 00:00: mouth [place] ing tablet 00 every 8 Medica l (eight) Branch hours as needed for Nausea and Vomiting (N/V). famotidine 2021- Yes [id number] 20mg Take 1 Univers 20 mg 8-07 08-13 tablet by ity of tablet 00:00: 04:59 mouth 2 [place] 00 :00 (two) Medical times Branch daily as needed for Heartburn or Nausea and Vomiting (N/V) for up to 5 days. naproxen Yes 550mg Take 1 Univer s sodium 5-10 tablet by ity of (ANAPROX 00:00: mouth 2 [place] DS) 550 mg 00 (two) Medical tablet times Branch daily with meals. hydrOXYzine Yes 10mg Take 1 Univ ers 10 mg 5-10 tablet by ity of tablet 00:00: mouth [place] 00 every 6 Medical (six) Branch hours as needed for Anxiety. naproxen Yes 550mg Take 1 Univer s sodium 5-10 tablet by ity of (ANAPROX 00:00: mouth 2 [place] DS) 550 mg 00 (two) Medical tablet times Branch daily with meals. hydrOXYzine 0 Yes 10mg Take 1 Univ ers 10 mg 5-10 tablet by ity of tablet 00:00: mouth [place] 00 every 6 Medical (six) Branch hours as needed for Anxiety. estradiol 2017- Yes Q28D Inject [facility] cypionate 3-08 intramuscu Luke s (DEPO-ESTRA 16:21: larly Medic al DIOL) 5 40 every 28 Center mg/mL days. injection methylPREDN 2017- Yes Take by Uni vers ISolone 2-05 mouth ity of (MEDROL, 00:00: SEE-INSTRU [place] as RADHA,) 4 mg 00 CTIONS. Medica l tablets follow Branch package directions methylPREDN Yes Take by Uni vers ISolone 2-05 mouth ity of (MEDROL, 00:00: SEE-INSTRU [place] as RADHA,) 4 mg 00 CTIONS. Medica l tablets follow Branch package directions acetaminoph Yes 1{tbl} Take 1 Un erasto en-codeine 1-08 tablet by ity of (TYLENOL-CO 00:00: mouth [place] DEINE #3) 00 every 6 Medical 300-30 mg (six) Branch tablet hours as needed for Pain (scale 4-6). acetaminoph Yes 1{tbl} Take 1 Un erasto en-codeine 1-08 tablet by ity of (TYLENOL-CO 00:00: mouth [place] DEINE #3) 00 every 6 Medical 300-30 mg (six) Branch tablet hours as needed for Pain (scale 4-6). traMADOL 2014-06 Yes 50mg Take 1 Tab Uni vers (ULTRAM) 50 2-23 by mouth ity of mg tablet 00:00: every 6 [place] 00 (six) Medical hours as Branch needed for Pain (scale 4-6). Chapin Maza PA-C / Faisal Daugherty MD BETI# [id number] DPS# [id number] x Lic.# [id number] NPI# [id number] traMADOL 2014-06 Yes 50mg Take 1 Tab Uni vers (ULTRAM) 50 2-23 by mouth ity of mg tablet 00:00: every 6 [place] 00 (six) Medical hours as Branch needed for Pain (scale 4-6). Chapin Maza PA-C / Faisal Daugherty MD BETI# [id number] DPS# [id number] x Lic.# [id number] NPI# [id number] ibuprofen Yes 600mg Take 1 Tab U nivers (MOTRIN) 8-26 by mouth 2 ity o f 600 mg 00:00: (two) [place] tablet 00 times Medical daily with Branch meals. ibuprofen Yes 600mg Take 1 Tab U nivers (MOTRIN) 8-26 by mouth 2 ity o f 600 mg 00:00: (two) [place] tablet 00 times Medical daily with Branch meals. baclofen 10 baclofen 10 No baclofen Village mg tablet mg tablet 10 mg Fami ly TAKE 1/2 TAKE 1/2 tablet Pract ic TABLET BY TABLET BY TAKE 1/2 e MOUTH EVERY MOUTH EVERY TABLET BY 8 HOURS 8 HOURS MOUTH NEEDED FOR NEEDED FOR EVERY 8 MUSCLE MUSCLE HOURS SPASM SPASM NEEDED FOR MUSCLE SPASM dextroamphe dextroamphe No dextroamph [facility] tamine-amph tamine-amph etamine-am Family etamine ER etamine ER phetamine Practic 20 mg 24hr 20 mg 24hr ER 20 mg e capsule,ext capsule,ext 24hr end release end release capsule,ex TAKE 1 TAKE 1 tend CAPSULE BY CAPSULE BY release MOUTH EVERY MOUTH EVERY TAKE 1 DAY DAY CAPSULE BY MOUTH EVERY DAY dicyclomine dicyclomine No dicyclomin [facility] 10 mg 10 mg e 10 mg Family capsule capsule capsule Practi c TAKE 1 TAKE 1 TAKE 1 e CAPSULE BY CAPSULE BY CAPSULE BY MOUTH THREE MOUTH THREE MOUTH TIMES A DAY TIMES A DAY THREE TIMES A NEEDED-ABDO NEEDED-ABDO DAY FRED PAIN FRED PAIN NEEDED-ABD OMINAL PAIN Medrol Medrol No Medrol [place] (Radha) 4 mg (Radha) 4 mg (Radha) 4 mg Family tablets in tablets in tablets in Practic a dose pack a dose pack a dose e use as use as pack use directed directed as directed medroxyprog medroxyprog No 150mg medroxypro [facility] esterone esterone gesterone Fa darren 150 mg/mL 150 mg/mL 150 mg/mL Practic intramuscul intramuscul intramuscu e ar ar lar suspension suspension suspension Inject 150 Inject 150 Inject 150 mg every 3 mg every 3 mg every 3 months by months by months by intramuscul intramuscul intramuscu ar route. ar route. lar route. [facility] succinate succinate succinate Family ER 25 mg ER 25 mg ER 25 mg Pra ctic tablet,exte tablet,exte tablet,ext e nded nded ended release 24 release 24 release 24 hr TAKE 1 hr TAKE 1 hr TAKE 1 TABLET BY TABLET BY TABLET BY MOUTH TWICE MOUTH TWICE MOUTH A DAY FOR A DAY FOR TWICE A 90 DAYS 90 DAYS DAY FOR 90 DAYS Ozempic Ozempic No Ozempic Vill[facility] e 0.25 mg or 0.25 mg or 0.25 mg or Family 0.5 mg (2 0.5 mg (2 0.5 mg (2 Practic mg/1.5 mL) mg/1.5 mL) mg/1.5 mL) e subcutaneou subcutaneou subcutaneo s pen s pen us pen injector injector injector 0.5 MG 0.5 MG 0.5 MG SUBCUTANEOU SUBCUTANEOU SUBCUTANEO S ONCE A S ONCE A US ONCE A WEEK 90 WEEK 90 WEEK 90 DAYS DAYS DAYS triamcinolo triamcinolo No triamcinol [facility] ne ne one Family acetonide acetonide acetonide Practic 0.1 % 0.1 % 0.1 % e topical topical topical cream APPLY cream APPLY cream A THIN A THIN APPLY A LAYER TO LAYER TO THIN LAYER THE THE TO THE AFFECTED AFFECTED AFFECTED AREA(S) BY AREA(S) BY AREA(S) BY TOPICAL TOPICAL TOPICAL ROUTE 2 ROUTE 2 ROUTE 2 TIMES PER TIMES PER TIMES PER DAY DAY DAY Immunizations Ordered Immunization Filled Immunization Date Status Commen ts Source Name Name influenza, influenza, 2021-06-[address] [facility] injectable, injectable, 10:14:54 Practice quadrivalent, quadrivalent, preservative free preservative free COVID-19, mRNA, COVID-19, mRNA, 2021-05-13 Completed Vill age Family LNP-S, PF, 100 LNP-S, PF, 100 00:00:00 Practi ce mcg/0.5 mL dose mcg/0.5 mL dose (Moderna) (Moderna) COVID-19, mRNA, COVID-19, mRNA, 2020-11-17 Completed Vill age Family LNP-S, PF, 100 LNP-S, PF, 100 00:00:00 Practi ce mcg/0.5 mL dose mcg/0.5 mL dose (Moderna) (Moderna) COVID-19 COVID-19 2020-10-[address] [facility] (SARS-COV-2) (SARS-COV-2) 00:00:00 Practice vaccine, unspecified vaccine, unspecified COVID-19 COVID-19 2020-09-[address] [facility] (SARS-COV-2) (SARS-COV-2) 00:00:00 Practice vaccine, unspecified vaccine, unspecified influenza, influenza, 2020-03-[address] [facility] injectable, injectable, 17:08:00 Practice quadrivalent, quadrivalent, preservative free preservative free influenza, influenza, 2019-03-[address] [facility] injectable, injectable, 18:37:00 Practice quadrivalent, quadrivalent, preservative free preservative free influenza, influenza, 2018-03-[address] [facility] injectable, injectable, 16:32:48 Practice quadrivalent, quadrivalent, preservative free preservative free Tdap Tdap 2017-08-[address] [facility] 10:59:00 Practice Vital Signs Vital Name Observation Time Observation Value Comments Source Oxygen saturation in 2022-01-17 13:00:00 97 /min [facility] Arterial blood by [facility] Pulse oximetry Branch Systolic blood 2022-01-17 13:00:00 113 mm[Hg] [facility] Diastolic blood 2022-01-17 13:00:00 73 mm[Hg] [facility] Heart rate 2022-01-17 13:00:00 88 /min [facility] Respiratory rate 2022-01-17 13:00:00 20 /min [facility] Body temperature 2022-01-17 10:22:00 35.89 Martha [facility] Body height 2022-01-17 10:22:00 157.5 cm [facility] Body weight 2022-01-17 10:22:00 67.132 kg [facility] BMI 2022-01-17 10:22:00 27.07 kg/m2 [facility] BP Diastolic 2022 00:00:00 79 mm[Hg] [facility] Practice Height 2022 00:00:00 62 [in_i] [facility] Practice BMI (Body Mass 2022 00:00:00 27.3 kg/m2 [facility] Index) Practice BP Systolic 2022 00:00:00 117 mm[Hg] [facility] Body Weight 2022 00:00:00 149 [lb_av] [facility] BP Diastolic 2021-11-26 00:00:00 73 mm[Hg] [facility] Practice Height 2021-11-26 00:00:00 62 [in_i] [facility] BMI (Body Mass 2021-11-26 00:00:00 29.1 kg/m2 [facility] Practice BP Systolic 2021-11-26 00:00:00 107 mm[Hg] [facility] Body Weight 2021-11-26 00:00:00 159 [lb_av] [facility] BP Diastolic 2021-06-19 00:00:00 86 mm[Hg] [facility] Height 2021-06-19 00:00:00 63 [in_i] [facility] BMI (Body Mass 2021-06-19 00:00:00 33.8 kg/m2 [facility] Practice BP Systolic 2021-06-19 00:00:00 132 mm[Hg] [facility] Body Weight 2021-06-19 00:00:00 191 [lb_av] [facility] BP Diastolic 2021-03-31 00:00:00 86 mm[Hg] [facility] Height 2021-03-31 00:00:00 63 [in_i] [facility] BMI (Body Mass 2021-03-31 00:00:00 32.4 kg/m2 [facility] Practice BP Systolic 2021-03-31 00:00:00 122 mm[Hg] [facility] Body Weight 2021-03-31 00:00:00 182.8 [lb_av] [facility] BP Diastolic 2021-01-23 00:00:00 80 mm[Hg] [facility] Height 2021-01-23 00:00:00 63 [in_i] [facility] BMI (Body Mass 2021-01-23 00:00:00 31.5 kg/m2 [facility] Practice BP Systolic 2021-01-23 00:00:00 116 mm[Hg] [facility] Body Weight 2021-01-23 00:00:00 177.6 [lb_av] [facility] BP Diastolic 2021-01-08 00:00:00 94 mm[Hg] [facility] Height 2021-01-08 00:00:00 63 [in_i] [facility] BMI (Body Mass 2021-01-08 00:00:00 31 kg/m2 [facility] Practice BP Systolic 2021-01-08 00:00:00 137 mm[Hg] [facility] Body Weight 2021-01-08 00:00:00 175 [lb_av] [facility] BP Diastolic 2020-10-03 00:00:00 88 mm[Hg] [facility] Height 2020-10-03 00:00:00 63 [in_i] [facility] BMI (Body Mass 2020-10-03 00:00:00 31.8 kg/m2 [facility] Practice BP Systolic 2020-10-03 00:00:00 124 mm[Hg] [facility] Body Weight 2020-10-03 00:00:00 179.6 [lb_av] [facility] BP Diastolic 2020-06-24 00:00:00 89 mm[Hg] Village [...] Practice Body Weight 2018-07-24 00:00:00 170.6 [lb_av] [facility] BP Diastolic 2017-09-19 00:00:00 76 mm[Hg] [facility] Height 2017-09-19 00:00:00 67 [in_i] [facility] BP Systolic 2017-09-19 00:00:00 122 mm[Hg] [facility] BP Diastolic 2017-09-01 00:00:00 88 mm[Hg] [facility] Height 2017-09-01 00:00:00 67 [in_i] [facility] BMI (Body Mass 2017-09-01 00:00:00 27.1 kg/m2 [facility] Practice BP Systolic 2017-09-01 00:00:00 142 mm[Hg] [facility] Body Weight 2017-09-01 00:00:00 173 [lb_av] [facility] BP Diastolic 2017-08-12 00:00:00 80 mm[Hg] [facility] Height 2017-08-12 00:00:00 67 [in_i] [facility] BMI (Body Mass 2017-08-12 00:00:00 27.2 kg/m2 [facility] Practice BP Systolic 2017-08-12 00:00:00 110 mm[Hg] [facility] Body Weight 2017-08-12 00:00:00 173.6 [lb_av] [facility] BP Diastolic 2017-07-15 00:00:00 80 mm[Hg] [facility] Height 2017-07-15 00:00:00 67 [in_i] [facility] BMI (Body Mass 2017-07-15 00:00:00 26.6 kg/m2 [facility] Index) Practice BP Systolic 2017-07-15 00:00:00 126 mm[Hg] [facility] Body Weight 2017-07-15 00:00:00 170 [lb_av] [facility] Procedures Procedure Date / Time Performing Clinician Source Performed TROPONIN I 2022-01-17 11:34:00 Morrical, Jax [facility] LIPASE 2022-01-17 10:31:00 Rivka Liz [facility] TROPONIN I 2022-01-17 10:31:00 Rivka Liz [facility] COMP. METABOLIC PANEL 2022-01-17 10:31:00 Rivka Liz [facility] ([id number]) Medical [place] CBC WITH DIFF 2022-01-17 10:31:00 Rivka Liz [facility] PROTHROMBIN TIME / INR 2022-01-17 10:31:00 Rivka Liz [facility] ACTIVATED PARTIAL 2022-01-17 10:31:00 Rivka Liz [facility] THRMPLAS [facility] N-TERMINAL PRO-BNP 2022-01-17 10:31:00 Rivka Liz [facility] NOTICE OF PRIVACY 2022-01-17 10:09:19 Doctor Unassigned, [facility] PRACTICES [place] [facility] [place] CONSENT/REFUSAL FOR 2022-01-17 10:05:50 Doctor Unassigned, [facility] DIAGNOSIS AND TREATMENT [place] [facility] [place] Colonoscopy 2021-08-06 00:00:00 [place] [facility] US, abdomen + pelvis 2021-03-31 00:00:00 [facility] Practice US, pelvis, 2020-06-24 00:00:00 [facility] Chris preciado transabdominal + Practice transvaginal XR, thoracic spine, 2 2020-01-25 00:00:00 Geovani tian [facility] Percutaneous Extraction 2019-11-21 00:00:00 [facility] nellie [facility] Stone with Practice Fragmentation Procedure MRI, foot, w/o contrast 2019-05-04 00:00:00 [facility] nellie Family Practice US, abdomen, complete 2018-10-23 00:00:00 [facility] Colonoscopy 2017-08-18 00:00:00 [facility] Chris preciado Practice Tooth Root Removal [facility] Robby y Practice Plan of Care Planned Activity Planned Date Details Comments Source Future Appointment 2022-02-26 00:00:00 Tramaine Larry, [address] [facility] [address]; Practice [address], [place] [address] [facility] Encounters Start End Encounter Admission Attending Care Care Encounter Source Date/Time Date/Time Type Type Clinicians Facility Department ID 2021-02-11 Inpatient Elective Hafwz, [facility] [id number] [facility] 00:08:00 Jawdat 63 2021 Inpatient Elective Hafwz, [facility] [id number] [facility] 09:00:00 Jawdat 21 2020-06-27 Inpatient LarryTramaine HCAPM RADI [id number] [facility] 08:30:00 29 [facility] 2019-11-16 Inpatient HiMatt caba HCAPM LISA [id number] [facility] 14:00:00 93 [facility] 2022-01-17 2022-01-17 Emergency X ANTONIO, [facility] ERT [id number] Univers 05:13:00 08:26:00 JAX vides of [facility] 2022-01-17 2022-01-17 Emergency Rivka Liz S [facility] [id number] [facility] 05:13:00 08:26:00 Jax Evans [id number] 10 ity [facility] [id number] [facility] [id number] [facility] 084 Branch 2022-01-17 2022-01-17 Orders Doctor ROSENBERG [id number] Univers 00:00:00 00:00:00 Only Unassigned, VALE [id number] ity of [facility] [id number] [place] [address] [id number] [facility] 009 Branch 2022 2022 [facility] Bui_Q P [place] - [id number] 202 [facility] 00:00:00 00:00:00 [facility] - Pract ailyn Huddleston MD: VM_HOU_East e [address] [facility], [address], [place] [address] , Ph. 2022-01-14 2022-01-14 Outpatient Bui_Q_WAGDN VFP VFP [id number] [facility] 00:00:00 00:00:00 U [id number] Family Practic e 2021-12-15 2021-12-15 Outpatient Bui_Q_WAGDN VFP VFP [id number] [facility] 10:19:00 10:19:00 U [id number] Family Practic e 2021-12-11 2021-12-11 Emergency EM Regina, HCAPM JASS [id number] [facility] 09:35:00 14:00:00 Dillon 54 [facility] 2021-12-11 2021-12-11 Emergency EM Regina, HCAPM HCAPM [id number] [facility] 09:35:00 14:00:00 Dillon [id number] [facility] 2021-11-26 2021-11-26 Tramaine Quiles Bui_Q VFP [place] - [id number]- [facility] 00:00:00 00:00:00 MD Chasity: [place] [address] [address] [place] [address] Medical - Practi c Shadow VM_HOU_Shad e [facility] [place], [address] [address] , Ph. 2021-09-15 2021-09-15 Outpatient Bui_Q_WAGDN VFP VFP [id number] [facility] 07:13:00 07:13:00 U [id number] Family Practic e 2021-08-27 2021-08-27 Ronnalyn Bui_Q VFP [place] - [id number] [place] [address] 00:00:00 00:00:00 [facility] [address] Famil y GRAPE GROWER: [id number] Medical - Prac tic Shadow VM_HOU_Shad e [facility], [address] [address] , Ph. 2021-06-27 2021-06-27 Outpatient Bui_Q VFP VFP [id number] [facility] 12:38:00 12:38:00 Family Practic e 2021-06-19 2021-06-19 Kiranchand Bui_Q VFP [place] - [id number]- 202 [facility] 00:00:00 00:00:00 [facility] Family Jonnathantxl Medical - Pract ailyn Huddleston MD: VMFaraz e [address] [facility], [address], [place] [address] , Ph. 2021-06-08 2021-06-08 Outpatient Bui_Q_WAGDN VFP VFP [id number] [facility] 02:26:00 02:26:00 U [id number] Family Practic e 2021-05-29 2021-05-29 Tramaine Quiles Bui_Q VFP [place] - [id number]- 202 [facility] 00:00:00 00:00:00 MD Chasity: [facility] [address] Famil y [address] Medical - Practi c Shadow VM_ROBERTO_Niranjan e [facility], [facility] [address], [place] [address] , Ph. 2021-04-30 2021-04-30 Outpatient Bui_Q_WAGDN VFP VFP [id number] [facility] 02:40:00 02:40:00 U 32607 Family Practic e 2021-04-10 2021-04-10 Outpatient CHRISTIANO Flaquito, [facility] RADI [id number] [facility] 09:00:00 09:00:[address] [place] [address] 2021-04-10 2021-04-10 Outpatient Bui_Q VFP VFP [id number] [facility] 01:18:00 01:18:00 [id number] Family Practic e 2021-03-31 2021-03-31 [facility] [place] - [id number] 2202 [facility] 00:00:00 00:00:00 [facility] [address] [facility] - Pract ailyn Huddleston MD: VM_Dawson e [address] [facility], [address], [place] [address] , Ph. 2021-02-27 2021-02-27 Outpatient Bui_Q VFP VFP [id number] [facility] 04:07:00 04:07:00 [id number] Family Practic e 2021-02-26 2021-02-26 Tramaine Quiles Bui_Q VFP [place] - [id number]- 202 [facility] 00:00:00 00:00:00 MD Chasity: [facility] [address] Famil y [address] Medical - Practi c Shadow VM_HOU_Shad e [facility], [address] [address] , Ph. 2021-01-31 2021-01-31 Outpatient Bui_Q VFP VFP [id number] [facility] 02:40:00 02:40:00 [id number] Family Practic e 2021-01-27 2021-01-27 Outpatient Bui_Q_WAG VFP VFP [id number] [facility] 04:01:00 04:01:00 [id number] Family Practic e 2021-01-23 2021-01-23 Tramaine Quiles Bui_Q VFP [place] - [id number]- [facility] 00:00:00 00:00:00 MD Chasity: [facility] [address] Famil y [address] Medical - Practi c Shadow VM_HOU_Sengd e [facility], [address] [place] [address] , Ph. 2021-01-10 2021-01-10 Outpatient Bui_Q VFP VFP [id number] [facility] 11:13:00 11:13:00 [id number] Family Practic e 2021-01-08 2021-01-08 Tramaine Quiles Bui_Q VFP [place] - [id number]- [facility] 00:00:00 00:00:00 MD Chasity: [facility] [address] Famil y [address] Medical - Practi c Shadow VM_HOU_Shad e [facility], [address] [address] , Ph. 2020-11-29 2020-11-29 Outpatient Bui_Q VFP VFP [id number] [facility] 06:20:00 06:20:00 85986 Family Practic e 2020-11-28 2020-11-28 Tramaine Quiles Bui_Q VFP [place] - [id number]- [facility] 00:00:00 00:00:00 MD Chasity: [facility] 05959 Famil [place] 67659 Medical - Practi c Shadow VM_HOU[place] [address] [address] , Ph. 2020-11-04 2020-11-04 Outpatient Bui_Q_WAG VFP VFP [id number] [facility] 05:47:00 05:47:00 39434 Family Practic e 2020-10-31 2020-10-31 Tramaine Quiles Bui_Q VFP [place] - [id number] [facility] 00:00:00 00:00:00 MD Chasity: [facility] 08008 Famil y 14305 Medical - Practi c Shadow VM_HOU_[place] [facility] [address], [address] [place] [address] , Ph. 2020-10-07 2020-10-07 Outpatient Bui_Q_WAG VFP VFP [id number] [facility] 04:44:00 04:44:00 23521 Family Practic e 2020-10-03 2020-10-03 Tramaine Quiles Bui_Q VFP [place] - 810132- [facility] 00:00:00 00:00:00 MD Chasity: [facility] 16547 Famil y 13129 Medical - Practi c Shadow VM_HOU_Shad e [facility], [address] [place] [address] , Ph. 2020-09-24 2020-09-24 Outpatient Bui_Q_WAG VFP VFP [id number] [facility] 07:08:00 07:08:00 53643 Family Practic e 2020-09-23 2020-09-23 Amy O Bui_Q VFP [place] - 717520-[address] [place] [address] 00:00:00 00:00:00 [facility] [address] Chris preciado MD: 82987 Medical - Prac tic Shadow VM_HOU_[place] [facility] [address], [address] [address] , Ph. 2020-09-04 2020-09-04 Outpatient Bui_Q_WAG VFP VFP [id number] [facility] 04:44:00 04:44:00 21751 Family Practic e 2020-07-22 2020-07-22 Outpatient Matt Benson HCAPM HCAPM LA0 [id number] [facility] 11:02:26 11:02:26 77 [facility] 2020-06-27 2020-06-27 Outpatient Bui_Q VFP VFP [id number] [facility] 12:07:00 12:07:00 24280 Family Practic e 2020-06-24 2020-06-24 Tramaine Quiles Bui_Q_W[place] VFP [place] - 514[address] [facility] 00:00:00 00:00:00 MD Chasity: [place] [id number] Famil y 6122 Medical - Practi [facility]_[address] ([facility]) [place] [address] , Ph. 2020-06-14 2020-06-14 Outpatient Bui_Q VFP VFP [id number] [facility] 01:22:00 01:22:00 13845 Family Practic e 2020-06-09 2020-06-09 Ronnalyn Bui_Q_WAG VFP [place] [id number] 00:00:00 00:00:00 Venkat [facility] 79873 Famil y GRAPE GROWER: 6122 Medical - Pract [place] [address], ([facility]) [place] [address] , Ph. 2020-04-07 2020-04-07 Outpatient Bui_Q VFP VFP [id number] [facility] 08:00:00 08:00:00 64042 Family Practic e 2020-03-21 2020-03-21 Outpatient Bui_Q_WAG VFP VFP [id number] [facility] 04:45:00 04:45:00 69673 Family Practic e 2020-03-14 2020-03-14 Tramaine Quiles Bui_Q_WAG VFP [place] - [address] 00:00:00 00:00:00 MD Chasity: [facility] 52926 Famil y 6122 Medical - Practi c Marky VM_HOU_[place] , [place] [address], ([facility]) [place] [address] , Ph. 2020-01-29 2020-01-29 Outpatient Bui_Q VFP VFP [id number]- 202 [facility] 03:31:00 03:31:00 43913 Family Practic e 2020-01-25 2020-01-25 Tramaine Quiles Bui_Q VFP [place] [id number] [facility] 00:00:00 00:00:00 MD Chasity: [facility] 58399 Famil y 6122 Medical - Practi c Marky VM_HOU_[place] e , [place] [address], ([facility]) [place] [address] , Ph. 2020-01-14 2020-01-14 Outpatient Parosales, Matt AMAYA RADI LA0 [id number] [facility] 08:00:00 08:00:00 84 Noe uriarte [facility] 2020-01-07 2020-01-07 Outpatient Bui_Q VFP VFP [id number] [facility] 12:57:00 12:57:00 90869 Family Practic e 2019-12-24 2019-12-24 Outpatient Bui_Q_WAG VFP VFP [id number] [facility] 03:50:00 03:50:00 89316 Family Practic e 2019-12-21 2019-12-21 Tramaine Quiles Bui_Q_WAG VFP [place] - 16862 [facility] 00:00:00 00:00:00 MD Chasity: [facility] 22431 Famil y 6122 Medical - Practi c Marky VM_HOU_[place] e , [place] [address], ([facility]) [place] [address] , Ph. 2019-11-28 2019-11-28 Outpatient Bui_Q VFP VFP [id number]- 202 [facility] 02:38:00 02:38:00 56203 Family Practic e 2019-11-16 2019-11-16 Outpatient PaMatt caba OUTD G00 [id number] [facility] 15:13:00 15:13:00 58 [facility] 2019-11-14 2019-11-14 Outpatient Bui_Q VFP VFP [id number] [facility] 03:20:00 03:20:00 09647 Family Practic e 2019-11-10 2019-11-10 Outpatient Bui_Q_WAG VFP VFP [id number] [facility] 09:53:00 09:53:00 95390 Family Practic e 2019-11-09 2019-11-09 Tramaine Quiles Bui_Q_WAG VFP [place] - [address]122 [facility] 00:00:00 00:00:00 MD Chasity: [facility] 40094 Famil y 6122 [facility], [place] [address], ([facility]) [place] [address] , Ph. 2019-09-26 2019-09-26 Outpatient Bui_Q_WAG VFP VFP [id number] 06:04:00 06:04:00 24084 Family Practic e 2019-09-24 2019-09-24 Tramaine Quiles Bui_Q VFP [place] - [id number] 00:00:00 00:00:00 MD Chasity: [facility] 23447 Famil y 6122 Medical - [facility], [place] [address], ([facility]) [place] [address] , Ph. 2019-09-17 2019-09-[address] [facility] RADI LA0 [id number] [facility] 08:00:00 08:00:00 40 [facility] 2019-08-10 2019-08-[address] [facility] RADI LA0 [id number] [facility] 08:30:00 08:30:00 94 [facility] 2019-08-10 2019-08-10 Outpatient Bui_Q VFP VFP [id number] [facility] 03:03:00 03:03:00 85771 Family Practic e 2019-07-27 2019-07-27 Outpatient Bui_Q VFP VFP [id number]- 202 [facility] 02:48:00 02:48:00 89744 Family Practic e 2019-07-23 2019-07-23 Tramaine Quiles Bui_Q_WAG VFP [place] - [address] 00:00:00 00:00:00 MD Chasity: [facility] 43699 Famil y 6122 Medical - Practi c Marky VM_HOU_East e [address] ([place] [address] , Ph. 2019-07-10 2019-07-10 Outpatient Bui_Q VFP [facility] [id number]- [facility] 02:24:00 02:24:00 93711 Family Practic e 2019-07-06 2019-07-06 Tramaine Quiles Bui_Q_W[place] [facility] [place] - [address] [facility] 00:00:00 00:00:00 MD Chasity: [facility] 65522 Famil y 6122 Medical - Practi c [place] VM_HOU_East e [address] ([place] [address] , Ph. 2019-05-22 2019-05-22 Outpatient Bui_Q VFP [facility] [id number]- 201 [facility] 04:32:00 04:32:00 45449 Family Practic e 2019-05-04 2019-05-04 Tramaine Quiles [facility] [place] - [id number]- 201 [facility] 00:00:00 00:00:00 MD Chasity: [facility] 26605 Famil y 9430 Medical - Practi c Marky, VM_HOU_[place] [address], [place] [address] , Ph. 2019-04-06 2019-04-06 Amy Gu [facility] [place] - 183451-[address] [place] [address] 00:00:00 00:00:00 [place], [facility] 59032 Chris preciado MD: 2130 Medical - Pract ic Mraky, VM_HOU_[place] [address], [place] [address] , Ph. 2019-03-05 2019-03-05 Tramaine Pereyrag [facility] [place] - [id number]- 201 [facility] 00:00:00 00:00:00 MD Chasity: [facility] 11792 Famil y 9430 Family Practic Marky, Practice - e [address], [facility] [address] , Ph. 2019-01-30 2019-01-30 Amy Gu [facility] [place] - 077184-1 [facility] 00:00:00 00:00:00 [facility] [address] Chris preciado MD: 9430 Family Practic [place], Practice - e [address], [place] [address] , Ph. 2019-01-02 2019-01-02 [facility] Etta [facility] [place] - [id number]- 201 [facility] 00:00:00 00:00:00 MD Chasity: [facility] 86594 Famil y 9430 Family Practic [place], Practice - e [address], [place] [address] , Ph. 2018-12-11 2018-12-11 Tramaine Quiles [facility] [place] - [id number]- 201 [facility] 00:00:00 00:00:00 MD Chasity: [facility] 32807 Famil y 9430 Family Practic [place], Practice - e [address], [place] [address] , Ph. 2018-10-26 2018-10-26 Amy Gu [facility] [place] - 871435-[address] [place] [address] 00:00:00 00:00:00 [facility] [address] Chris preciado MD: 9430 Family Practic [place], Practice - e [address], [place] [address] , Ph. 2018-10-23 2018-10-23 [facility] [place] - 178477- 201 [facility] 00:00:00 00:00:00 MD Chasity: [facility] 73315 Famil y 9430 [facility] Practic [place], Practice - e [address], [place] [address] , Ph. 2018-10-03 2018-10-03 Tramaine Quiles [facility] [place] - [id number]- 201 [facility] 00:00:00 00:00:00 MD Chasity: [facility] 72325 Famil y 9430 Family Practic Marky, Practice - e [address], [place] [address] , Ph. 2018-08-14 2018-08-14 Tramaine Quiles [facility] [place] - 602151- 201 [facility] 00:00:00 00:00:00 MD Chasity: [facility] 47382 Famil y 9430 Family Practic Mark[place], Practice - e [address], [place] [address] , Ph. 2018-07-24 2018-07-24 Tramaine Quiles P [place] - [id number]- 201 [facility] 00:00:00 00:00:00 MD Chasity: [facility] 58912 Famil y 9430 [facility] Practic [place], Practice - e [address], [place] [address] , Ph. 2018-07-10 2018-07-10 Amy Riccardo P [place] - 045620-[address] [place] [address] 00:00:00 00:00:00 [facility] [address] Chris preciado MD: 9430 Family Practic [place], Practice - e [address], [place] [address] , Ph. 2017-10-19 2017-10-20 Emergency X , [facility] ERT [id number] 19 [facility] 23:09:11 01:27:[address] [facility] 2017-09-19 2017-09-19 Tramaine [place] [facility] [place] - 096320- 201 [facility] 00:00:00 00:00:00 MD Chasity: [facility] 27728 Famil y 9430 Family Practic Marky, Practice - e [address], [place] [address] , Ph. 2017-09-01 2017-09-01 Tramaine Quiles [facility] [place] - 955369- 201 [facility] 00:00:00 00:00:00 MD Chasity: [facility] 50934 Famil y 9430 Family Practic Mark[place], Practice - e [address], [place] [address] , Ph. 2017-08-12 2017-08-12 Amy Gu [facility] [place] - 201631-2 01 [place] 00:00:00 00:00:00 [place], [place] [address] Chris preciado MD: 9430 [facility], Practice - e [address], [place] [address] , Ph. 2017-07-15 2017-07-15 Tramaine Quiles [facility] [place] - 903515- 201 [facility] 00:00:00 00:00:00 MD Chasity: [place] [address] Famil y 9430 [facility], Practice - e [address], [place] [address] , Ph. Results Test Description Test Time Test Comments Results Result Comments Source TROPONIN I 2022-01-17 12:08:13 Test Item Value Reference Range Interpretation Comme nts TROPONIN I (test code = See_Comment [Au tomated message] The 1947294272) system which ge nerated this result tra nsmitted reference range : <=0.034. The reference r david was not used to int erpret this result as normal/abnormal . MICAH (test code = MICAH) Reference (Normal) Range (defined by the 99th percentile reference limit): <= 0.034 ng/mL Note: Cardiac troponin begins to rise 3-4 hours after the onset of ischemia. Repeat in 4-6 hours if the sample was drawn within 3-4 hours of the onset of the symptom and found normal. Diagnosis of myocardial injury is made with acute changes in cTn concentrations with at least one serial sample above the 99th percentile upper reference limit (URL), taken together with the patient's clinical presentation. Biotin has been reported to cause a negative bias, interpret results relative to patient's use of biotin. Lab Interpretation Normal (test code = 91213-6) [facility] [id number] 11:05:47 Test Item Value Reference Interpretation Comments Range TROPONIN I (test See_Comment [Automated code = 1056829309) message] The system which generated this result transmitted reference range : <=0.034. The reference range was not used to interpret this result as normal/abnormal . MICAH (test code = Reference (Normal) MICAH) Range (defined by the 99th percentile reference limit): <= 0.034 ng/mL Note: Cardiac troponin begins to rise 3-4 hours after the onset of ischemia. Repeat in 4-6 hours if the sample was drawn within 3-4 hours of the onset of the symptom and found normal. Diagnosis of myocardial injury is made with acute changes in cTn concentrations with at least one serial sample above the 99th percentile upper reference limit (URL), taken together with the patient's clinical presentation. Biotin has been reported to cause a negative bias, interpret results relative to patient's use of biotin. Lab Interpretation Normal (test code = 57782-7) [facility]MINAL [id number] 11:02:45 Test Item Value Reference Range Interpretation Comments NT-proBNP (test code 85 pg/mL See_Comment [Autom ated = 6234468002) message] The system which generated this result transmitted reference range : <=125. The reference range was not used to interpret this result as normal/abnormal . MICAH (test code = MICAH) Biotin has been reported to cause a negative bias, interpret results relative to patient's use of biotin. Lab Interpretation Normal (test code = 18485-0) [facility]. MET[facility]OLIC PANEL (92697)2022-01-17 10:53:42 Test Item Value Reference Range Interpretation Comments NA (test code = 143 mmol/L 135-145 0390274827) K (test code = 4.5 mmol/L 3.5-5 8051225167) CL (test code = 110 mmol/L 98-108 H 3388298675) CO2 TOTAL (test code = 20 mmol/L 23-31 L 0097361288) AGAP (test code = 2-16 5793058398) BUN (test code = 6 mg/dL 7-23 L 9068355300) GLUCOSE (test code = 100 mg/dL 70-110 5220578954) CREATININE (test code = 0.70 mg/dL 0.5-1.04 8699306435) TOTAL BILI (test code = 0.7 mg/dL 0.1-1.0 2873151573) CALCIUM (test code = 9.6 mg/dL 8.6-10.6 2279363042) T PROTEIN (test code = 7.5 g/dL 6.3-8.2 5372579591) ALBUMIN (test code = 4.4 g/dL 3.5-5 0210438381) ALK PHOS (test code = 71 U/L 34-122 8083678001) ALTv (test code = 24 U/L 5-35 1742-6) AST(SGOT) (test code = 34 U/L 13-40 9045782891) eGFR (test code = mL/min/1.73m2 1867023057) MICAH (test code = MICAH) Association of Glomerular Filtration Rate (GFR) and Staging of Kidney Disease* + --+ --+ ------+| GFR (mL/min/1.73 m2) ?| With Kidney Damage ?| ?Without Kidney Damage+ --------+ --------+ +| ?>90 ?| ?Stage one ?| ? Normal ?+ ---+ ---+ -------+| ?60-89 ?| ?Stage two ?| ? Decreased GFR ? + --+ --+ ------+| ?30-59 ?| ?Stage three ?| ? Stage three ? + --+ --+ ------+| ?15-29 ?| ?Stage four ? | ? Stage four ?+ ---+ ---+ -------+| ?<15 (or dialysis) ? ?| ?Stage five ? | ? Stage five ?+ ---+ ---+ -------+ *Each stage assumes the associated GFR level has been in effect for at least three months. ?Stages 1 to 5, with or without kidney disease, indicate chronic kidney disease. Notes: Determination of stages one and two (with eGFR >59mL/min/1.73 m2) requires estimation of kidney damage for at least three months as defined by structural or functional abnormalities of the kidney, manifested by either:Pathological abnormalities or Markers of kidney damage (including abnormalities in the composition of the blood or urine or abnormalities in imaging tests). Lab Interpretation Abnormal (test code = 08714-6) [facility] CenterLIPASE, [id number] 10:53:42 Test Item Value Reference Range Interpretation Comments LIPASE (test code = 5903878356) 194 U/L 0-220 Lab Interpretation (test code = Normal 83765-6) [facility] CenteraPTT2022-08-07 10:52:02 Test Item Value Reference Range Interpretation Comments APTT Patient (test See_Comment [Automat ed code = 3173-2) message] The system which generated this result transmitted reference range : 23 - 38 Seconds . The reference range was not used to interpr et this result as normal/abnormal . MICAH (test code = MICAH) The [facility] patient population mean normal value for aPTT is 30 seconds. Lab Interpretation Normal (test code = 67179-3) [facility] CenterPROTHROMBIN TIME / [id number] 10:50:01 Test Item Value Reference Range Interpretation Comments PROTIME PATIENT (test See_Comment [Auto mated message] code = 5964-2) The system wh ich generated this result transmitted ref erence range: 12.0 - 1 4.7 Seconds. The re ference range was not u sed to interpret this result as normal/abnor mal. INR (test code = 6301-6) Nor mal INR <1.1; Warfarin Therap eutic range 2.0 to 3. 0 or 2.5 to 3.5, dep ending upon the indica tions. Lab Interpretation (test Normal code = 64479-4) [facility] WITH [id number] 10:43:44 Test Item Value Reference Range Interpretation Comments WBC (test code = See_Comment [Automated 0690-2) message] The sy stem which generated this result transmitted reference range : 4.30 - 11.10 10*3/?L. The reference range was not used to interpret this result as normal/abnormal . RBC (test code = See_Comment [Automated 619-8) message] The sy stem which generated this result transmitted reference range : 3.93 - 5.25 10*6/?L. The reference range was not used to interpret this result as normal/abnormal . HGB (test code = 15.0 g/dL 11.6-15 718-7) HCT (test code = 44.1 % 35.7-45.2 4544-3) MCV (test code = 85.8 fL 80.6-95.5 787-2) MCH (test code = 29.2 pg 25.9-32.8 785-6) MCHC (test code = 34.0 g/dL 31.6-35.1 786-4) RDW-SD (test code = 40.4 fL 39-49.9 79710-6) RDW-CV (test code = 12.9 % 12-15.5 788-0) PLT (test code = See_Comment [Automated 777-3) message] The sy stem which generated this result transmitted reference range : 166 - 358 10*3/ ?L. The reference r david was not used to interpret this result as normal/abnormal . MPV (test code = 9.8 fL 9.5-12.9 54483-0) NRBC/100 WBC (test See_Comment [Automat ed code = 8662241279) message] The system which generated this result transmitted reference range : 0.0 - 10.0 /100 WBCs. The refer ence range was not u sed to interpret th is result as normal/abnormal . NRBC x10^3 (test code See_Comment [Auto mated = 6050592323) message] The s ystem which generated this result transmitted reference range : 10*3/?L. The reference range was not used to interpret this result as normal/abnormal . GRAN MAT (NEUT) % 49.8 % (test code = 770-8) IMM GRAN % (test code 0.30 % = 1229403186) LYMPH % (test code = 42.7 % 736-9) MONO % (test code = 4.7 % 5905-5) EOS % (test code = 1.8 % 713-8) BASO % (test code = 0.7 % 706-2) GRAN MAT x10^3(ANC) 4.95 10*3/uL 1.88-7.09 (test code = 0341423982) IMM GRAN x10^3 (test 0.03 10*3/uL 0-0.06 code = 4796646269) LYMPH x10^3 (test code 4.24 10*3/uL 1.32-3.29 H = 731-0) MONO x10^3 (test code 0.47 10*3/uL 0.33-0.92 = 742-7) EOS x10^3 (test code = 0.18 10*3/uL 0.03-0.39 711-2) BASO x10^3 (test code 0.07 10*3/uL 0.01-0.07 = 704-7) Lab Interpretation Abnormal (test code = 15215-5) [facility]- DUP VEIN UNI [id number] 13:17:00 [facility] 1990 Sex: F Name: MICHELLE LOPEZ [facility] : 1990 Age/S: 31 / F [address] [facility] [place] Unit #: [id number] Loc: [place] [address] Phys: Dillon Tapia MD Acct: [id number] Dis Date: Status: REG ER PHONE #: [phone] Exam Date: 12/11/2021 1217 FAX #: Reason: leg pain EXAMS: CPT: [id number] [address] B2 EXAM: Left lower extremity venous Doppler HISTORY: leg pain TECHNIQUE: Grayscale real-time B-modeimaging with color flow and spectral flow Doppler analysis was performed of the left lower extremity. COMPARISON: None FINDINGS: There is normal compressibility with no evidence of thrombus involving the visualized venous structures of the left lower extremity. The visualized veins of the left lower extremity are common femoral, superficial femoral, proximal profunda femoral, popliteal and great saphenous veins. The posterior tibial and peroneal veins were seen as well. IMPRESSION: No evidence of deep venous thrombosis in the visualized structures of the left lower extremity. at 1317 Reported and signed by: Dylan Crocker M.D. CC: Prabha Larry MD; Dillon Tapia MD Technologist: Josefa Barrett RDMS Trnscb Date/Time: 12/11/2021 (2469)MariyaVB7 PAGE 1 Signed Report Name: MICHELLE LOPEZ : 1990 Age/S: 31 / F [facility]: [id number] Loc: [place] [address] Phys: Dillon Tapia MD Acct: [id number] Dis Date: Status: REG ER PHONE #: [phone] Exam Date: 12/11/2021 1217 FAX #: Reason: leg pain EXAMS: CPT: [id number] [address] <Continued> Orig Print D/T: S: 12/11/2021 (2128) Probe: PAGE 2 Signed ReportBASIC METABOLIC [id number] 11:03:00 Test Item Value Reference Range Interpretation Comments SODIUM (test code = NA) 139 mmol/L 134-147 N POTASSIUM (test code = 3.2 mmol/L 3.4-5.0 L K) CHLORIDE (test code = 108 mmol/L 100-108 N CL) CARBON DIOXIDE (test 22 mmol/L 21-32 N code = CO2) ANION GAP (test code = 9.0 GAP calc 4.0-15.0 N GAP) GLUCOSE (test code = 83 MG/DL 70-110 N GLU) BLOOD UREA NITROGEN 13 MG/DL 7-18 N (test code = BUN) GLOMERULAR FILTRATION >=60 max estimate >60 RATE (test code = GFR) estGFR CREATININE (test code = 1.0 MG/DL 0.6-1.0 N CREAT) CALCIUM (test code = CA) 10.2 MG/DL 8.5-10.1 H Completed by Nursing: NOHEPATIC FUNCTION [id number] 11:03:00 Test Item Value Reference Range Interpretation Comments TOTAL PROTEIN (test code = PROT) 8.7 G/DL 6.4-8.2 H ALBUMIN (test code = ALB) 4.2 G/DL 3.4-5.0 N BILIRUBIN TOTAL (test code = BILT) 0.60 MG/DL 0.2-1.2 N BILIRUBIN DIRECT (test code = 0.10 MG/DL 0.00-0.30 N BILD) BILIRUBIN INDIRECT (test code = 0.50 MG/DL 0.2-1.2 N BILIND) SGOT/AST (test code = AST) 30 Unit/L 15-37 N SGPT/ALT (test code = ALT) 54 Unit/L 12-78 N ALKALINE PHOSPHATASE TOTAL (test 91 Unit/L 45-117 N code = ALKP) Completed by Nursing: NOTROP-I HIGH [id number] 11:03:00 Test Item Value Reference Range Interpretation Comments TROP-I HIGH < 3.0 ng/L 0-34 N CAUTION: Units of the SENSITIVITY (test current te st methodology code = TROPIHS) (ng/L) diffe rfrom the prior test meth odology (ng/mL) by a fa ctor of 1000. 9 9th Percentile Uppe r Reference Limit (URL):Females: 34 ng/LMales: 54 n g/L In order to distin guish acute elevation s of high sensitivitytrop onin from other clinical conditions, the FourthUniversal Definition of M yocardial Infarction stressesclinica l assessment and the demonstration o f a rise and/orfall in s erial troponin result s above the URL. Result s from different metho dologies should not be c omparedto one another as quantitative re sults and URLs may varyby method. Completed by Nursing: NOHCG [id number] 11:03:00 Test Item Value Reference Range Interpretation Comments HCG SERUM (test < 1 mi-IU/ML 0-6 N 0 - 6 NOT P REGNANT > 6 code = HCG) SUGGESTIVE OF E JHOAN RISES TWO FOLD EVERY 2 DAYS; S UGGEST RECONFIRMING AF TER 2 DAYS. 150,000-2 00,[address] TRIMESTER 10 ,000 - 50,000 2ND & 3R D TRIMESTER - XR CHEST 1 [id number] 10:42:00 [facility] : 1990 Sex: F Name: MICHELLE LOPEZ [place] : 1990 Age/S: [place] Unit #: [id number] Loc: [place] [address] Phys: Dillon Tapia MD Acct: [id number] Dis Date: Status: REG ER PHONE #: [phone] Exam Date: 12/11/2021 103 FAX #: Reason: chest pain EXAMS: CPT: [id number] XR CHEST 1 V 96144 Fluoro Time: DAP (Gy m2): Air Kerma (mGy): Location: C3 EXAM: XR CHEST 1 VIEW INDICATION: chest pain COMPARISON: None TECHNIQUE: AP Chest FINDINGS: Lines, tubes and hardware: None. Lungs and pleura: No focal consolidation. Costophrenic sulci are sharp bilaterally. No pneumothorax. Pulmonary vascularityis normal. Heart/mediastinum: Heart size is within normal limits. Bones/soft tissues: No acute bony abnormality. There is thoracic dextroconvex curvature. IMPRESSION: No radiographic evidence of acutecardiopulmonary abnormality. [id number] Reported and signed by: Doni Carpio M.D. CC: Tramaine Larry MD; Dillon Tapia MD PAGE 1 Signed Report Name: MICHELLE LOPEZland : 1990 Age/S: [place] Unit #: [id number] Loc: [place] [address] Phys: Dillon Tapia MD Acct: [id number] Dis Date: Status: REG ER PHONE #: [phone] Exam Date: 12/11/2021 1033 FAX #: Reason: chest pain EXAMS: CPT: [id number] XR CHEST 1 V 93944 Fluoro Time: DAP (Gy m2): Air Kerma (mGy): <Continued> Technologist: Jhonatan Navarro, RT(R)(MR) Trnscb Date/Time: 12/11/2021 (1041) [id number] Orig Print D/T: S: 12/11/2021 (9607) PAGE 2 Signed ReportPROTHROMBIN [id number] 10:38:00 Test Item Value Reference Range Interpretation Comments PT PATIENT (test 12.4 SECONDS 9.3-12.9 N code = PTP) INTERNATIONAL NORMAL 1.09 INR Unit 0.8-1.2 N TARGE T INR BY RATIO (test code = INDICATIO N Indication INR) INR1. Prophylax is of venous thrombos is 2.0 - 3.0 (orthoped ic surgery), Proph ylaxis of venous throm bosis (other than hig h-risk surgery), Treat ment of Deep Vein Thrombosis/Pulm onary Embolism, Preve ntion of systemic emb olism - Tissue heart va lves, Acute Myocardia l Infarction (to prevent systemic emboli sm), Valvular heart disease, Acute Myocardial Infa rction (to prevent sys temic embolism), Valv ular heart disease, Atrial Fibrillation, Bileaflet mecha nical valve in aortic position.2. Mec hanical prosthetic valv es (high risk), 2. 5 - 3.5 Presence of Lup us Anticoagulant o r Antiphospholipi d Antibodies, Pre vention of systemic emb olism - Acute Myocardia l Infarction (to prevent recurrent infar ct). THROMBOPLASTIN TIME [id number] 10:38:00 Test Item Value Reference Range Interpretation Comments THROMBOPLASTIN TIME PARTIAL 29.6 SECONDS 26-35 N (test code = PTT) CBC W/O [id number] 10:33:00 Test Item Value Reference Range Interpretation Comments WHITE BLOOD CELL (test code = WBC) 12.2 K/mm3 3.5-11.0 H RED BLOOD CELL (test code = RBC) 5.26 M/mm3 4.70-6.10 N HEMOGLOBIN (test code = HGB) 15.2 G/DL 10.4-14.9 H HEMATOCRIT (test code = HCT) 44.3 % 31.5-44.1 H MEAN CELL VOLUME (test code = MCV) 84.2 Fl 84.5-98.6 L MEAN CELL HGB (test code = MCH) 28.9 pg 27.0-34.2 N MEAN CELL HGB CONCETRATION (test 34.3 G/DL 31.5-34.0 H code = MCHC) RED CELL DISTRIBUTION WIDTH (test 13.4 SD 11.5-14.5 N code = RDW) PLATELET COUNT (test code = PLT) 354 K/mm3 150-450 N MEAN PLATELET VOLUME (test code = 10.20 fL 7.0-10.5 N MPV) test, [id number] 14:53:00 Test Item Value Reference Range Interpretation Comments HCG (test code = HCG) negative [facility]- US TRANSVAGINAL NON [id number] 11:06:00 [facility] 1990 Sex: F Name: MICHELLE LOPEZ [facility] : 1990 Age/S: 31 / F [address] [address] Unit #: [id number] Loc: [place] [address] Phys: Jeanie Huddleston MD Acct: [id number] Dis Date: Status: REG CLI PHONE #: [phone] Exam Date: 04/10/2021 1021 FAX #: Reason: pain EXAMS: CPT: [id number] US TRANSVAGINAL NON O B [address]398 EXAM: Pelvic ultrasound INDICATION: Pelvic pain COMPARISON: 06/27/2020, 07/26/2017 LOCATION: S17 TECHNIQUE: Grayscale and color Doppler and spectral Doppler sonographic images were obtained of the pelvis using transabdominal and endovaginal technique. FINDINGS: The retroverted uterus measures 6.7 x 4.9 x 2.9 cm. No uterine masses are seen. Endometrial stripe measures 3 mm in thickness. Nonshadowing nonvascular echogenic structure in the fundal endometrial stripe measures 0.4 x 0.3 x 0.3 cm, similar to prior; appearance is nonspecific, but doubtful clinical significance. The right ovary measures 3.3 x 2.2 x 1.6 cm and exhibits normal follicles. The left ovary measures 3.5 x 1.7 x 1.4 cm and e xhibits normal follicles. Blood flow is documented within bilateral ovaries on Doppler images. No free fluid. IMPRESSION: No significant abnormalities. at 1106 Reported and signed by: Delvis Beltran M.D. CC: Tramaine Larry MD; Jeanie Huddleston MD Technologist: Josefa Barrett RDMS [facility] Date/Time: 04/10/2021 (1106) Robert1 PAGE 1 Signed Report Name: MICHELLE LOPEZ [facility] : 1990 Age/S: 31 / F [address] [address] Unit #: [id number] Loc: [place] [address] Phys: Jeanie Huddleston MD Acct: [id number] Dis Date: Status: REG CLI PHONE #: [phone] Exam Date: 04/10/2021 1021 FAX #: Reason: pain EXAMS: CPT: [id number] [place] [address] <Continued> Orig Print D/T: S: 04/10/2021 (1109) Probe: [id number] PAGE 2 Signed Report- US PELVIC COMPLETE 2021-04-10 11:06:00 [facility] : 1990 Sex: F Name: MICHELLE LOPEZ : 1990 Age/S: 31 / F [address] [address] [place] Unit #: [id number] Loc: [place] [address] Phys: Jeanie Huddleston MD Acct: [id number] Dis Date: Status: REG CLI PHONE #: [phone] Exam Date: 04/10/2021 1021 FAX #: Reason: PAIN EXAMS: CPT: [id number] US PELVIC COMPLETE 7 6856 EXAM: Pelvic ultrasound INDICATION: Pelvic pain COMPARISON: 06/27/2020, 07/26/2017 LOCATION: S17 TECHNIQUE: Grayscale and color Doppler and spectral Doppler sonographic images were obtained of the pelvis using transabdominal and endovaginal technique. FINDINGS: The retroverted uterus measures 6.7 x4.9 x 2.9 cm. No uterine masses are seen. Endometrial stripe measures 3 mm in thickness. Nonshadowing nonvascular echogenic structure in the fundal endometrial stripe measures 0.4 x 0.3 x 0.3 cm, similar to prior; appearance is nonspecific, but doubtful clinical significance. The right ovary measures 3.3 x 2.2 x 1.6 cm and exhibits normal follicles. The left ovary measures 3.5 x 1.7 x 1.4 cm and exhib its normal follicles. Blood flow is documented within bilateral ovaries on Doppler images. No free fluid. IMPRESSION: No significant abnormalities. Electronically Signed by Velasquez Beltran on 04/10/2021 at 1106 Reported and signed by: Delvis Beltran M.D. CC: Tramaine Larry MD; Jeanie Huddleston MD Technologist: Josefa Barrett RDOH Trnscb Date/Time: 04/10/2021 (1106) MariyaPE1 PAGE1 Signed Report Name: MICHELLE LOPEZ : 1990 Age/S: 31 / F [address] [address] [place] Unit #: [id number] Loc: [place] [address] Phys: Jeanie Huddleston MD Acct: [id number] Dis Date: Status: REG CLI PHONE #: [phone] Exam Date: 04/10/2021 1021 FAX #: Reason: PAIN EXAMS: CPT: [id number] US PELVIC COMPLETE 46989 <Continued> Orig Print D/T: S: 04/10/2021 (1109) Probe: PAGE 2 Signed Report- US ABDOMEN [id number] 10:53:00[facility] : 1990 Sex: F Name: MICHELLE LOPEZ [facility] : 1990 Age/S: 31 / F [facility] Unit #: [id number] Loc: [place] [address] Phys: Jeanie Huddleston MD Acct: [id number] Dis Date: Status: REG CLI PHONE #: [phone] Exam Date: 04/10/2021 0950 FAX #: Reason: PAIN EXAMS: CPT: [id number] US ABDOMEN COMPLETE 65678 EXAMINATION: - US ABDOMEN COMPLETE COMPARISON: Renal ultrasound performed July 18, 2020 HISTORY: Abdominal pain Location code: C3 TECHNIQUE: Multiplanar grayscale and Doppler ultrasound imagesof the abdomen are submitted for review. FINDINGS: PANCREAS: The head and body of the pancreas are visualized and are normal. The tail is obscured by bowel gas. LIVER: The liver is normal in size and echotexture, measuring 16.6 cm in the right midclavicular line. No masses are seen. GALLBLADDER AND BILIARY TREE: The gallbladder is normal. The common bile duct measures 4 mm. RIGHT KIDNEY: The right kidney measures 10 cm. There is mild prominence of the right renal collecting system. A 3 mm echogenic focus in the interpolar region/lower pole is present and may reflect the presence of a small stone orprominent renal sinus fat. LEFT KIDNEY: The left kidney measures 10.1 cm. Mild prominence of the left renal collecting system is present and has not significantly changed from the prior study. A 3 mm echogenic focus in the lower pole may reflect the presence of a small stone or prominent renal sinus fat. SPLEEN: The spleen is normal, measuring 9.7 cm FREE FLUID: None VESSELS: The visualized portions of the abdominal aorta and inferior vena cava are normal. The portal vein is patent, with appropriate directional flow IMPRESSION: Mild bilateral pelvocaliectasis. Appearance of the left kidney is relatively stable, while the right renal collecting system is slightly PAGE 1 Signed Report (CONTINUED) [facility]: [facility] 1990 Age/S: 31 / F [employer] Unit #: [id number] Loc: [place] [address] Phys: Jeanie Huddleston MD Acct: [id number] Dis Date: Status: REG CLI PHONE #: [phone] Exam Date: 04/10/2021 0950 FAX #: Reason: PAIN EXAMS: CPT: [id number] US ABDOMEN COMPLETE 14431 <Continued> more prominent compared to the prior study. Tiny echogenic foci in both kidneys. They were not seen on the prior study. They may represent new stones or areas of prominent echogenic fat. at 1053 Reported and signed by: Tessa Cordoba M.D. CC: Tramaine Larry MD; Jeanie Huddleston MD Technologist: Josefa Barrett RDMS Trnvtb Date/Time: 04/10/2021 (1053) [email or web address] PAGE 2 Signed Report Name: [facility]OPE[facility] 1990 Age/S: 31 / F [place] Unit #: [id number] Loc: [place] [address]Tcem: Jeanie Huddleston MD Acct: [id number] Dis Date: Status: REG CLI PHONE #: [phone] ExamDate: 04/10/2021 0950 FAX #: Reason: PAIN EXAMS: CPT: [id number] US ABDOMEN COMPLETE 61125 <Continued> Orig Print D/T: S: 04/10/2021 (1056) Probe: PAGE 3 Signed Reportpregnancy test, [id number] 10:26:10 Test Item Value Reference Range Interpretation Comments HCG (test code = HCG) [facility] [id number] 10:26:10 Test Item Value Reference Range Interpretation Comments HCG (test code = HCG) negative [facility]- US RETROPERITONEAL [id number] 16:16:00 [facility] : 1990 Sex: F Name: MICHELLE LOPEZ [facility] : 1990 Age/S: 30 / F [address] [address] [place] Unit #: [id number] Loc: [place] [address] Phys: Matt Benson MD Acct: [id number] Dis Date: Status: REG CLI PHONE #: [phone] Exam Date: 07/18/2020 1526 FAX #: Reason: KIDNEY STONE EXAMS: CPT: [id number] [place]ROPERITONEAL COM 23895 EXAMINATION: - US RETROPERITONEAL COM. LOCATION: B2. HISTORY: KIDNEY STONE. COMPARISON: Renal ultrasound dated 01/14/2020. TECHNIQUE: Routine renal ultrasound was performed. Pre and post voidultrasound images of the urinary bladder were also [...] signed by: Poonam Herman M.D. CC: Tramaine Larry MD; Matt Benson MD Technologist: Yarely Ayon Trnscb Date/Time: 07/18/2020 (4626) [email or web address] PAGE 1 Signed Report Name: MICHELLE LOPEZ [facility] : 1990 Age/S: 30/ F [address] [address] Unit #: [id number] Loc: [place] [address] Phys: Matt Benson MD Acct: [id number] Dis Date: Status: REG CLI PHONE #: [phone] Exam Date: 07/18/2020 1526 FAX #: Reason: KIDNEY STONE EXAMS: CPT: [id number] US RETROPERITONEAL COM 28224 <Continued> Orig Print D/T: S: 07/18/2020 (9433) Probe: PAGE 2 Signed Report- US PELVIC [id number] 09:37:00[facility] : 1990 Sex: F Name: MICHELLE LPOEZ : 1990 Age/S: 30 / F [address] [address] [place] Unit #: [id number] Loc: [place] [address] Phys: Tramaine Larry MD Acct: [id number] Dis Date: Status: REG CLI PHONE #: [phone] Exam Date: 06/27/2020 0835 FAX #: Reason: PELVIC PERINEAL PAIN EXAMS: CPT: [id number] US PELVICCOMPLETE 39002 Site ID: [id number] Transvaginal and transabdominal pelvic US: CLINICAL HISTORY: R10.2 TECHNIQUE: Transabdominal and transvaginal pelvic ultrasound performed, with duplex scanning performed using B mode/grayscale imaging and spectral Doppler evaluation of arterial inflow and venous outflow tothe ovaries FINDINGS: The uterus is normal in [...] signed by: Olegario Huddleston M.D. CC: Tramaine Larry MD Technologist: Yarely Ayon Trnvtb Date/Time: 06/27/2020 (0937) [email or web address] PAGE 1 Signed Report Name: MICHELLE LOPEZ : 1990 Age/S: 30 / F [address] [address] [place] Unit #: [id number] Loc: [place] [address] Phys: Tramaine Larry MD Acct: [id number] Dis Date: Status: REG CLI PHONE #: [phone] Exam Date: 06/27/2020 0835 FAX #: Reason: PELVIC PERINEAL PAIN EXAMS: CPT: [id number] US PELVIC COMPLETE 80454 <Continued> Orig Print D/T: S: 06/27/2020 (0940) Probe: PAGE 2 Signed Report- US TRANSVAGINAL NON [id number] 09:37:00 [facility] : 1990 Sex: F Name: MICHELLE LOPEZ [facility] : 1990 Age/S: 30 / F [address] [address] [place] Unit #: [id number] Loc: [place] [address] Phys: Tramaine Larry MD Acct: [id number] Dis Date: Status: REG CLI PHONE #: [phone] Exam Date: 06/27/2020 0852 FAX #: Reason: PELVIC PERINEAL PAIN EXAMS: CPT: [id number] [place] [address] Site ID: [id number] Transvaginal and transabdominal pelvic US: CLINICAL HISTORY: R10.2 TECHNIQUE: Transabdominal and transvaginal pelvic ultrasound performed, with duplex scanning performed using B mode/grayscale imaging and spectral Doppler evaluation of arterial inflow and venous outflowto the ovaries FINDINGS: The uterus is normal [...] signed by: Olegario Huddleston M.D. CC: Tramaine Larry MD Technologist: Yarely Ayon Trnscb Date/Time: 06/27/2020 (0937) MariyaAJP6 PAGE 1 Signed Report Name: MICHELLE LOPEZ : 1990 Age/S: 30 / F [address] [address] [place] Unit #: [id number] Loc: [place] [address] Phys: Tramaine Larry MD Acct: [id number] Dis Date: Status: REG CLI PHONE #: [phone] Exam Date: 06/27/2020 0852 FAX #: Reason: PELVIC PERINEAL PAIN EXAMS: CPT: [id number] [place] [address] <Continued> Orig Print D/T: S: 06/27/2020 (0940) Probe: [id number] PAGE 2 Signed Reportpregnancy test, [id number] 15:01:00 Test Item Value Reference Range Interpretation Comments HCG (test code = HCG) negative [facility]- US RETRO [id number] 08:20:00 Name: MICHELLE LOPEZ [place] : 1990 Age/S: 29 / F [address] [address] [place] Unit #: [id number] Loc: [place] [address] Phys: Matt Benson MD Acct: [id number] Dis Date: Status: REG CLI PHONE #: [phone] Exam Date: 01/14/2020 0802 FAX #: Reason: KIDNEY STONE EXAMS: CPT: [id number] US RETROLTD 33470 EXAMINATION: - US RETRO LTD. LOCATION: S17. HISTORY: Kidney stones, continuous leakage ofurine. COMPARISON: US renal 09/17/19. FINDINGS: Sonographic evaluation of the kidneys and bladder wasperformed utilizing abdullahi scale, pulse Doppler and color flow imaging. The right kidney measures 11.7cm and the left kidney measures 11.4 cm. The parenchymal echogenicity is within normal limits on both sides. There is unchanged mild bilateral hydronephrosis. No calculus is identified. Urinary bladderis underdistended. Bilateral ureteral jets noted. IMPRESSION: Unchanged mild bilateral hydronephrosis. Previously noted nephrolithiasis is not appreciated on current examination. at 0820 Reported and signed by: Corinne Hargrove M.D. CC: Tramaine Larry MD; Matt Benson MD Technologist: Sejal Seth Trnscb Date/Time: 01/14/2020 (819) t.LILLIANARMarshaANS4 PAGE 1 Signed Report Name: MICHELLE LOPEZ : 1990 Age/S: 29 / F [address] [address] [place] Unit #: [id number] Loc: [place] [address] Phys: Matt Benson MD Acct: [id number] Dis Date: Status: REG [facility] PHONE #: [phone] Exam Date: 01/14/2020 0802 FAX #: Reason: KIDNEY STONE EXAMS: CPT: [id number] RETRO LTD 56818 <Continued> Orig Print D/T: S: 01/14/2020(08) Probe: PAGE 2 Signed Report- XR FLUOROSCOPY 0-60 [id number] 16:12:00 Name: MICHELLE LOPEZ : 1990 Age/S: 29 / F [address] [address] [place] Unit #: [id number] Loc: [place] [address] Phys: Matt Benson MD Acct: [id number] Dis Date: Status: REG [facility] PHONE #: [phone] Exam Date: 11/21/2019 1000 FAX #: Reason: RETRO CYSTO WITH STENT PLACEMENT EXAMS: CPT: [id number] XR FLUOROSCOPY 0-60 MIN 66122 Fluoro Time: 59 DAP (Gy m2): Air Kerma (mGy): 18.02 EXAMINATION: - XR FLUOROSCOPY 0-60 MIN. LOCATION: S17. HISTORY: RETRO CYSTO WITH STENT PLACEMENT. COMPARISON: None. FINDINGS/ IMPRESSION: Six portable limited intraoperative fluoroscopic images demonstrate opacification of both renal pelvis with final image demonstrating partial visualization of bilateral ureteral stents. Please see operative report for further details. FLUOROSCOPIC TIME: 59.4 seconds. 18.02 mGy. at 1612 Reported and signed by: Corinne Hargrove M.D. CC: Tramaine Larry MD; Matt Benson MD PAGE 1 Signed Report Name: MICHELLE LOPEZ : 1990 Age/S: 29 / F [address] [address] [place] Unit #: [id number] Loc: [place] [address] Phys: Matt Benson MD Acct: [id number] Dis Date: Status: REG SDC PHONE #: [phone] Exam Date: 11/21/2019 1000 FAX #: Reason: RETRO CYSTO WITH STENT PLACEMENT EXAMS: CPT: [id number] XR FLUOROSCOPY 0-60 MIN 63338 Fluoro Time: 59 DAP (Gy m2): Air Kerma (mGy): 18.02 <Continued> Technologist: Agnieszka Aponte, RT(R) Trnscb Date/Time: 11/21/2019 (161) t.LILLIANAR.ANS4 Orig Print D/T: S: 11/21/2019 (1615) PAGE 2 Signed ReportNovel Coronavirus 2019 Inhouse 2019-11-18 08:18:00 Test Item Value Reference Range Interpretation Comments Novel Coronavirus 2019 Inhouse (test Negative Negative code = COVNONPUI) Comment: PRE OPNovel Coronavirus 2019 [id number] 08:17:00 Test Item Value Reference Range Interpretation Comments Novel Coronavirus 2019 Inhouse (test Negative Negative code = COVNONPUI) Comment: PRE OPPROTHROMBIN [id number] 15:58:00 Test Item Value Reference Range Interpretation Comments PT PATIENT (test code = PTP) 11.1 SECONDS 9.3-12.9 N INTERNATIONAL NORMAL RATIO 0.98 INR Unit 0.8-1.2 N (test code = INR) THROMBOPLASTIN TIME [id number] 15:58:00 Test Item Value Reference Range Interpretation Comments THROMBOPLASTIN TIME PARTIAL 29.8 SECONDS 26-35 N (test code = PTT) BASIC METABOLIC [id number] 15:56:00 Test Item Value Reference Range Interpretation [...] CA) 9.3 MG/DL 8.5-10.1 N HCG SERUM [id number] 15:51:00 Test Item Value Reference Range Interpretation Comments HCG SERUM QUAL (test SERUM NEGATIVE SCREEN NEGATIVE code = HCGQL) BASIC METABOLIC [id number] 15:51:00 Test Item Value Reference Range Interpretation [...] CA) 9.3 MG/DL 8.5-10.1 N CBC W/AUTO [id number] 15:47:00 Test Item Value Reference Range Interpretation [...] NO DIFF/SCN CRITERIA = MDIFF) - RETRO [id number] 08:52:00 Name: MICHELLE LOPEZ [facility] : 1990 Age/S: 29 / F [address] [address] [place] Unit #: [id number] Loc: [place] [address] Phys: Matt Benson MD Acct: [id number] Dis Date: Status: REG CLI PHONE #:[phone] Exam Date: 09/17/2019 0835 FAX #: Reason: KIDNEY STONE HYDRONEPHROSIS EXAMS: CPT: [id number] [employer] 81902 RENAL ULTRASOUND CLINICAL HISTORY: KIDNEY STONE HYDRONEPHROSIS [...] tiny nonshadowing echogenicities in the kidney are indeterminatefor punctate stones. Bladder: Both ureteral jets are shown. IMPRESSION: 1. Mild bilateral hydronephrosis is stable. 2. 5 mm nonobstructing stone in the lower pole of the right kidney. Location: R16 at 0852 Reported and signed by: Santiago Carrero M.D. CC: Tramaine Larry MD; Matt Benson MD Technologist: Shelby Corona, RT(R),RDMS(AB) Trnscb Date/Time: 09/17/2019 (0852) t.LILLIANARMarshaAM18 PAGE 1 Signed Report Name: MICHELLE LOPEZ [place] : 1990 Age/S: 29 / F [address] [address] Unit #: [id number] Loc: [place] [address] Phys: Matt Benson MD Acct: [id number] Dis Date: Status: REG CLI PHONE #: [phone] Exam Date: 09/17/2019 0835 FAX#: Reason: KIDNEY STONE HYDRONEPHROSIS EXAMS: CPT: [id number] [employer] [address] <Continued> Orig Print D/T: S: 09/17/2019 (0855) Probe: PAGE 2 Signed Report- US RETRO LTD 2019-08-10 08:50:00 Name: MICHELLE LOPEZ [place] : 1990 Age/S: 29 / F [id number] [place] [address] [place] Unit #: [id number] Loc: [place] [address] Phys: Matt Benson MD Acct: [id number] Dis Date: Status: REG CLI PHONE #: [phone] Exam Date: 08/10/2019 0835 FAX #: Reason: KIDNEY STONES EXAMS: CPT: [id number] US RETRO LTD 12543 EXAMINATION: - US RETRO LTD. LOCATION: S17. [...] signed by: Corinne Hargrove M.D. CC: Tramaine Larry MD; Matt Benson MD Technologist: Shelby Corona, RT(R),RDMS(AB) Trnscb Date/Time: 08/10/2019 (0850) MariyaANS4 PAGE 1 Signed Report Name: MICHELLE LOPEZ : 1990 Age/S: 29 / F [address] [place] Unit #: [id number] Loc: [place] [address] Phys: Matt Benson MD Acct: [id number] DisDate: Status: REG CLI PHONE #: [phone] Exam Date: 08/10/2019 0835 FAX #: Reason: KIDNEY STONESEXAMS: CPT: [id number] [facility] [address] <Continued> Orig Print D/T: S: 08/10/2019 (0853) Probe: PAGE 2 Signed Reportpregnancy test, [id number] 08:44:00 Test Item Value Reference Range Interpretation Comments HCG (test code = HCG) negative [facility] HospitalMagnesium [Mass/volume] in Serum or [id number] 00:00:00 Test Item Value Reference Range Interpretation Comments magnesium (test code = magnesium) 2.3 mg/dL 1.5-2.5 [facility] HospitalLipid 1995 panel - Serum or [id number] 00:00:00 Test Item Value Reference Range Interpretation [...] <130 H code = non HDL cholesterol) [facility]Comprehensive metabolic 1999 panel - Serum or Plasma 2019-02-04 00:00:00 Test Item Value Reference Range Interpretation Comments glucose (test code = 86 mg/dL 65-99 glucose) urea nitrogen (BUN) (test 9 mg/dL 01-04 code = urea nitrogen (BUN)) creatinine (test code = 0.96 mg/dL 0.50-1.10 creatinine) eGFR non-afr. emirati (test 80 mL/min/1.73m2 > or = 60 code = eGFR non-afr. emirati) eGFR (test 93 mL/min/1.73m2 > or = [...] (test code = ALT) 18 U/L 6-29 [facility] HospitalCreatine kinase [Enzymatic activity/volume] in Serum or [id number] 00:00:00 Test Item Value Reference Range Interpretation Comments creatine kinase, total (test code = 74 U/L 29-143 creatine kinase, total) [facility] HospitalCB W Auto Differential panel - [id number] 00:00:00 Test Item Value Reference Range Interpretation [...] fL 7.5-12.5 absolute neutrophils (test 6969 cells/uL 2674-0310 code = absolute neutrophils) absolute lymphocytes (test [...] basophils (test code = 0.5 % basophils) [facility] HospitalThyrotropin [Units/volume] in Serum or [id number] 00:00:00 Test Item Value Reference Range Interpretation Comments TSH (test code = TSH) 3.95 mIU/L [facility] HospitalFolate+Cyanocobalamin [interpretation] in Serum or Blood 2019-02-04 00:00:00 Test Item Value Reference Range Interpretation Comments vitamin B12 (test code = vitamin 568 pg/mL 200-1100 B12) folate, serum (test code = folate, 5.9 NG/mL serum) [facility] HospitalRvbzfupc16-Kwkarutfximtbe D [Mass/volume] in Serum or Plasma 2019-02-04 00:00:00 Test Item Value Reference Range Interpretation Comments vitamin D,25-oh,total,ia (test code 29 NG/mL 30-100 L = vitamin D,25-oh,total,ia) [facility] Hospitalextra lavender-top [id number] 10:41: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:) review 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: (test code = review 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:) comment (test code = comment) Human papilloma virus 16 and not detected not detected 18+45 E6+E7 mRNA [Identifier] in [employer] by GEORGE with probe detection (test code = 08222-4) [facility] Hospitalpap, IG + HPV mRNA E6/[id number] 00:00:00 Test Item Value Reference Range Interpretation [...] = interpretation/result:) comment: (test code = comment:) 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: (test code = 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:) review 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: (test code = review 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:) comment (test code = comment) Human papilloma virus 16 and not detected not detected 18+45 E6+E7 mRNA [Identifier] in [employer] by GEORGE with probe detection (test code = 79318-5) [facility] [facility] - [id number] 00:00:00 Test Item Value Reference Range Interpretation [...] fL 7.5-12.5 absolute neutrophils (test 5075 cells/uL 9878-6782 code = absolute neutrophils) absolute lymphocytes (test [...] basophils (test code = 0.7 % basophils) [facility]em[facility].total in [id number] 00:00:00 Test Item Value Reference Range Interpretation Comments Hemoglobin 5.5 % of total HGB <5.7 A1c/Hemoglobin.total in Blood (test code = 4548-4) EAG (mg/dL) (test code = 111 (calc) EAG (mg/dL)) EAG (mmol/L) (test code = 6.2 (calc) EAG (mmol/L)) [facility] 2000 [facility] - Serum or Plasma 2018-10-04 00:00:00 Test Item Value Reference Range Interpretation Comments glucose (test code = 69 mg/dL 65-99 glucose) urea nitrogen (BUN) (test 14 mg/dL 25 code = urea nitrogen (BUN)) creatinine (test code = 0.79 mg/dL 0.50-1.10 creatinine) eGFR non-afr. emirati 102 mL/min/1.73m2 > or = 60 (test code = eGFR non-afr. emirati) eGFR (test 118 mL/min/1.73m2 > or = [...] (test code = ALT) 17 U/L 6-29 [facility] 1996 panel - Serum or [id number] 00:00:00 Test Item Value Reference Range Interpretation [...] <130 H code = non HDL cholesterol) [facility]yrotropin [Units/volume] in Serum or [id number] 00:00:00 Test Item Value Reference Range Interpretation Comments TSH (test code = TSH) 2.46 mIU/L [facility] - [id number] 00:00:00 Test Item Value Reference Range Interpretation [...] fL 7.5-12.5 absolute neutrophils (test 5075 cells/uL 3921-1672 code = absolute neutrophils) absolute lymphocytes (test [...] basophils (test code = 0.7 % basophils) [facility]Hemoglobin.total in [id number] 00:00:00 Test Item Value Reference Range Interpretation Comments Hemoglobin 5.5 % of total HGB <5.7 A1c/Hemoglobin.total in Blood (test code = 4548-4) EAG (mg/dL) (test code = 111 (calc) EAG (mg/dL)) EAG (mmol/L) (test code = 6.2 (calc) EAG (mmol/L)) [facility] 2000 [facility] - Serum or Plasma 2018-10-04 00:00:00 Test Item Value Reference Range Interpretation Comments glucose (test code = 69 mg/dL 65-99 glucose) urea nitrogen (BUN) (test 14 mg/dL 7-25 code = urea nitrogen (BUN)) creatinine (test code = 0.79 mg/dL 0.50-1.10 creatinine) eGFR non-afr. emirati 102 mL/min/1.73m2 > or = 60 (test code = eGFR non-afr. emirati) eGFR (test 118 mL/min/1.73m2 > or = [...] (test code = ALT) 17 U/L 6-29 [facility] 1996 panel - Serum or [id number] 00:00:00 Test Item Value Reference Range Interpretation [...] <130 H code = non HDL cholesterol) [facility] [Units/volume] in Serum or [id number] 00:00:00 Test Item Value Reference Range Interpretation Comments TSH (test code = TSH) 2.46 mIU/L [facility]SE [id number] 15:05:00 Test Item Value Reference Range Interpretation Comments POC-GLUCOSE METER 84 mg/dL 70-110 TESTED AT [facility] [address] (BEAKER) (test code = [facility] [place] [address]) [place] [address] Cancer Ag 125 [Units/volume] in Serum or [id number] 13:20:00 Test Item Value Reference Range Interpretation Comments Ca 125 (test code = Ca 125) 53 U/mL <35 H [facility] Ag 125 [Units/volume] in Serum or [id number] 13:20:00 Test Item Value Reference Range Interpretation Comments Ca 125 (test code = Ca 125) 53 U/mL <35 H [facility] HospitalUrinalysis macro (dipstick) panel - [id number] 09:08:00 Test Item Value Reference Range Interpretation Comments Color Color (test code = Color yellow Color) Color Appearance (test code = Color cloudy Appearance) Color Glucose (test code = Color 500 Glucose) Color Bilirubin (test code = Color negative Bilirubin) Color Ketones (test code = Color negative Ketones) Color Specific Delta (test code = 1.025 Color Specific Delta) Color Blood (test code = Color negative Blood) Color PH (test code = Color PH) 5.0 Color Protein (test code = Color negative Protein) Color Urobilinogen (test code = 0.2 Color Urobilinogen) Color Nitrites (test code = Color negative Nitrites) Color Leukocytes (test code = Color trace Leukocytes) [facility] Hospital[facility]inalysis macro (dipstick) panel - [id number] 09:08:00 Test Item Value Reference Range Interpretation Comments Color Color (test code = Color yellow Color) Color Appearance (test code = Color cloudy Appearance) Color Glucose (test code = Color 500 Glucose) Color Bilirubin (test code = Color negative Bilirubin) Color Ketones (test code = Color negative Ketones) Color Specific Delta (test code = 1.025 Color Specific Delta) Color Blood (test code = Color negative Blood) Color PH (test code = Color PH) 5.0 Color Protein (test code = Color negative Protein) Color Urobilinogen (test code = 0.2 Color Urobilinogen) Color Nitrites (test code = Color negative Nitrites) Color Leukocytes (test code = Color trace Leukocytes) [facility] 2000 panel - Serum or Plasma 2017-08-13 07:02:00 Test Item Value Reference Range Interpretation Comments glucose (test code = 70 mg/dL 65-99 glucose) urea nitrogen (BUN) (test 10 mg/dL 7-25 code = urea nitrogen (BUN)) creatinine (test code = 0.80 mg/dL 0.50-1.10 creatinine) eGFR non-afr. emirati 101 mL/min/1.73m2 > or = 60 (test code = eGFR non-afr. emirati) eGFR (test 117 mL/min/1.73m2 > or = [...] (test code = ALT) 17 U/L 6-29 [facility] 1995 panel - Serum or [id number] 07:02:00 Test Item Value Reference Range Interpretation [...] <130 H code = non HDL cholesterol) [facility] 1999 panel - Serum or Plasma 2017-08-13 07:02:00 Test Item Value Reference Range Interpretation Comments glucose (test code = 70 mg/dL 65-99 glucose) urea nitrogen (BUN) (test 10 mg/dL 7-25 code = urea nitrogen (BUN)) creatinine (test code = 0.80 mg/dL 0.50-1.10 creatinine) eGFR non-afr. emirati 101 mL/min/1.73m2 > or = 60 (test code = eGFR non-afr. emirati) eGFR (test 117 mL/min/1.73m2 > or = [...] (test code = ALT) 17 U/L 6-29 [facility] 1995 panel - Serum or [id number] 07:02:00 Test Item Value Reference Range Interpretation [...] <130 H code = non HDL cholesterol) [facility] HospitalThyrotropin [Units/volume] in Serum or [id number] 04:16:00 Test Item Value Reference Range Interpretation Comments TSH (test code = TSH) 1.93 mIU/L [facility] HospitalThyrotropin [Units/volume] in Serum or [id number] 04:16:00 Test Item Value Reference Range Interpretation Comments TSH (test code = TSH) 1.93 mIU/L [facility] Auto Differential panel - [id number] 03:25:00 Test Item Value Reference Range Interpretation [...] fL 7.5-12.5 absolute neutrophils (test 5729 cells/uL 0733-9732 code = absolute neutrophils) absolute lymphocytes (test [...] basophils (test code = 0.5 % basophils) [facility] A1c/Hemoglobin.total in [id number] 03:25:00 Test Item Value Reference Range Interpretation Comments hemoglobin A1C (test code 5.8 % of total HGB <5.7 H = hemoglobin A1C) EAG (mg/dL) (test code = 120 (calc) EAG (mg/dL)) EAG (mmol/L) (test code = 6.6 (calc) EAG (mmol/L)) [facility] W Auto Differential panel - [id number] 03:25:00 Test Item Value Reference Range Interpretation [...] fL 7.5-12.5 absolute neutrophils (test 5729 cells/uL 8215-1294 code = absolute neutrophils) absolute lymphocytes (test [...] basophils (test code = 0.5 % basophils) [facility] A[facility]c/Hemoglobin.total in [id number] 03:25:00 Test Item Value Reference Range Interpretation Comments hemoglobin A1C (test code 5.8 % of total HGB <5.7 H = hemoglobin A1C) EAG (mg/dL) (test code = 120 (calc) EAG (mg/dL)) EAG (mmol/L) (test code = 6.6 (calc) EAG (mmol/L)) [facility]"
[2022-02-18 11:57] LABS: Urine Blood Trace-lysed (Negative); Urine Glucose Negative (Negative); Urine Protein Negative (Negative); Urine pH 6.5 (5.0-7.0)
[2022-02-18 12:07] LABS: Absolute Lymphocytes (CBC) 3.6 K/uL (0.7-4.9); Hematocrit 41.8 % (36.0-45.0); Lymphocytes % 28.8 % (15.3-44.8); MCV 86.2 fL (80-100); MPV 7.7 fL (7.6-11.3); RBC Red Blood Cell Count 4.85 M/uL (3.86-4.86)
[2022-02-18 12:15] LABS: Urine Bacteria 20-50 /HPF (<20)
[2022-02-18 12:23] LABS: Albumin 3.7 g/dL (3.4-5.0); Bilirubin Total 0.6 mg/dL (0.2-1.0); Potassium 3.5 mmol/L (3.5-5.1); Protein, Total 7.6 g/dL (6.4-8.2)
[2022-02-18] MEDS ORDERED: MAGNES/ALUMIN/SIMET 30ML UCUP ONE (12:38)
[2022-02-18] MEDS ORDERED: NA CHLORIDE 0.9% 1,000 ML ONE (12:38)
[2022-02-18] MEDS ORDERED: ONDANSETRON 4 MG/2 ML VIAL ONE (12:38)
[2022-02-18] MEDS ORDERED: FAMOTIDINE 20 MG/2 ML VIAL IV ONE (12:39)
[2022-02-18] MEDS ORDERED: LIDOCAINE VISCOUS 2% SOLN 15 ML UDC ONE (12:39)
--- NOTE | 2022-02-18 13:26 | RAD REPORT ---
EXAM DESCRIPTION: CT - Abdomen Pelvis W Contrast - 02/18/2022 12:56 pm CLINICAL HISTORY: epigastric abdominal pain COMPARISON: Abdomen Pelvis W Contrast dated 08/16/2019 TECHNIQUE: Biphasic, helical CT imaging of the abdomen and pelvis was performed following 100 ml non -ionic IV contrast. No oral contrast given. All CT scans are performed using dose optimization technique as appropriate and may include automated exposure control or mA/KV adjustment according to patient size. FINDINGS: No suspicious findings in the lung bases. The liver, spleen and pancreas show no parenchymal lesions. Gallbladder size is normal with no wall t hickening or edema seen. Gallstones can be occult on CT imaging. There is minimal dilatation of the c entral biliary radicles within the hepatic parenchyma with the common bile duct 9 mm in diameter. No obstructing pancreatic or duodenal mass seen. Duct stones can be occult. There is no pancreatic duct dilatation. Symmetric renal function is seen with no hydronephrosis or suspicious renal mass. Punctate nonobstruc ting calyx calculi noted on the right. No pyelonephritis or acute parenchymal process. No bladder abn ormalities. No adrenal abnormalities. Uterus and ovaries show no suspicious findings. No dilated bowel loops or bowel wall thickening. No appendicitis. No free air, free fluid or inflamma tory stranding. No hernia, mass or bulky lymphadenopathy. No suspicious bony findings. IMPRESSION: Biliary tree and central intrahepatic biliary radicle dilatation compared 2019. Common b ile duct is 9 mm. Gallbladder is unremarkable. No pancreatic or duodenal mass. Duct stones can be occult. No pancreatitis or other upper abdominal suspicious finding.
[2022-02-18] MEDS ORDERED: MORPHINE 2 MG/ML SYR ONE (14:13)
--- NOTE | 2022-02-18 15:06 | RAD REPORT ---
EXAM DESCRIPTION: US - Abdomen Exam Limited - 02/18/2022 2:43 pm CLINICAL HISTORY: ABD PAIN COMPARISON: Abdomen Pelvis W Contrast dated 02/18/2022 FINDINGS: A small to moderate amount of sludge is present in the gallbladder lumen collecting primar maylin at the neck. Punctate small gallstones are seen. There is no wall thickening or pericholecystic f luid. Common hepatic duct is 7 mm. No intrahepatic ductal dilatation seen. Common bile duct is 7-8 mm at so nography which is fractionally smaller than the 9 millimeter size seen on the earlier CT study. A meseret t stone is not identified. IMPRESSION: Sludge and punctate stones are seen within the lumen of the gallbladder. No wall thicken ing or pericholecystic fluid. Extrahepatic biliary tree is upper normal rather than slightly dilated as suggested by the CT imaging . No duct stone identifiable.
[2022-02-18] MEDS ORDERED: ONDANSETRON 4 MG/2 ML VIAL IV PRN (16:02)
[2022-02-18] MEDS ORDERED: ACETAMINOPHEN 500 MG TAB PO PRN (16:02)
--- NOTE | 2022-02-18 16:07 | EDPHYS ---
Physician Documentation [facility] Name: Debbie Rojo Age: 32 yrs Sex: Female : 1990 Arrival Date: 02/18/2022 Time: 11:18 Bed 18 Private MD: Yesenia Gaspar H ED Physician Owen Barrios HPI: 02/18 11:31 This 32 yrs old Female presents to ER via Unassigned with complaints of Abdominal Pain. ms3 11:31 32-year-old female with past medical history of diabetes and PCOS presents for ms3 epigastric abdominal pain that began at 7 AM. Patient rates her pain 10/10 described as burning in the epigastric region of her abdomen. Patient endorses nausea. Patient denies vomiting, diarrhea, fevers, chills. Patient denies alleviating or inciting factors. Patient states she has had similar pains in the past and did not seek care at that time.. 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 - Social history:: Patient/guardian denies using street drugs, Smoking status: Patient denies any tobacco usage or history of. - Family history:: not pertinent. - Coronavirus screen:: The patient has NOT traveled to [place] in the past 14 days. Proceed with normal triage process as indicated. - Ebola Screening: : No symptoms or risks identified at this time. ROS: 11:31 Constitutional: Negative for fever, and chills. Neck: Negative for injury, pain, and ms3 swelling, Cardiovascular: Negative for chest pain, and palpitations. Respiratory: Negative for shortness of breath, cough, wheezing, and pleuritic chest pain. 11:41 Skin: Negative for injury, rash, and discoloration, Neuro: Negative for headache, ms3 weakness, numbness, tingling. 11:41 Abdomen/GI: Positive for abdominal pain, nausea. 11:41 All other systems are negative. Exam: 11:41 Constitutional: This is a well developed, well nourished patient who is awake, alert, ms3 and in no acute distress. Neck: Trachea midline, no cervical lymphadenopathy. Supple, full range of motion without nuchal rigidity, or vertebral point tenderness. No Meningismus. Chest/axilla: Normal chest wall appearance and motion. Nontender with no deformity. Cardiovascular: Regular rate and rhythm with a normal S1 and S2. No gallops, murmurs, or rubs. Normal PMI, no JVD. No pulse deficits. Respiratory: Lungs have equal breath sounds bilaterally, clear to auscultation and percussion. No rales, rhonchi or wheezes noted. No increased work of breathing, no retractions or nasal flaring. 11:41 Skin: Warm, dry with normal turgor. Normal color with no rashes, no lesions, and no evidence of cellulitis. Neuro: Awake and alert, GCS 15, oriented to person, place, time, and situation. Cranial nerves II-XII grossly intact. Motor strength 5/5 in all extremities. Sensory grossly intact. Cerebellar exam normal. Normal gait. Psych: Awake, alert, with orientation to person, place and time. Behavior, mood, and affect are within normal limits. 11:41 Abdomen/GI: Inspection: abdomen appears normal, Bowel sounds: normal, Palpation: moderate abdominal tenderness, in the epigastric area. Vital Signs: 11:56 BP 124 / 71; Pulse 85; Resp 16; Temp 98.0; Pulse Ox 100% on R/A; Weight 74.84 kg; iw Height 5 ft. 4 in. (162.56 cm); Pain 7/10; 12:00 BP 124 / 71; Pulse 85; Resp 16; Temp 98.0; Pulse Ox 100% on R/A; iw 12:45 BP 102 / 68; Pulse 70; Resp 18; Pulse Ox 100% on R/A; Pain 8/10; iw 11:56 Body Mass Index 28.32 (74.84 kg, 162.56 cm) iw MDM: 11:27 Patient medically screened. ms3 11:41 Differential diagnosis: bowel obstruction, cholecystitis, Cholelithiasis, gastritis, ms3 non-specific abd pain, pancreatitis. 15:55 Data reviewed: vital signs, nurses notes, and as a result, I will admit patient. Data ms3 interpreted:. Counseling: I had a detailed discussion with the patient and/or guardian regarding: the historical points, exam findings, and any diagnostic results supporting the discharge/admit diagnosis, lab results, radiology results, the need for further work-up and treatment in the hospital. ED course: Discussed case with Dr Mcadams. He would like clear liquid diet and patient to be NPO after midnight. Discussed case with Dr Jimenez and he will admit patient with general surgery as consult. Discussed plan for admission with patient.. 02/18 11:30 Order name: CBC with Diff; Complete Time: 12:44 ms3 02/18 11:30 Order name: CMP; Complete Time: 12:44 ms3 02/18 11:30 Order name: Lipase; Complete Time: 12:44 ms3 02/18 11:30 Order name: Urine Microscopic Only; Complete Time: 12:44 ms3 02/18 11:57 Order name: Urine Dipstick-Ancillary; Complete Time: 12:44 EDMS 02/18 12:08 Order name: Urine --Ancillary (enter results); Complete Time: 12:44 bd 02/18 12:19 Order name: Urine Culture EDOR 02/18 16:05 Order name: CBC with Automated Diff EDMS 02/18 16:05 Order name: CBC with Automated Diff EDOR 02/18 16:05 Order name: Comprehensive Metabolic Panel EDOR 02/18 16:05 Order name: Comprehensive Metabolic Panel EDOR 02/18 16:05 Order name: Lipase EDOR 02/18 16:05 Order name: Lipase EDOR 02/18 16:15 Order name: SARS-COV-2 Antigen Rapid bd 02/18 11:30 Order name: CT Abd/Pelvis - IV Contrast Only; Complete Time: 13:44 ms3 02/18 11:30 Order name: IV Saline Lock; Complete Time: 12:02 ms3 02/18 11:30 Order name: Labs collected and sent; Complete Time: 12:02 ms3 02/18 11:30 Order name: Urine Dipstick-Ancillary (obtain specimen); Complete Time: 12:02 ms3 02/18 11:30 Order name: Urine Test (obtain specimen); Complete Time: 12:02 ms3 02/18 13:46 Order name: US Abdomen Limited; Complete Time: 15:18 ms3 02/18 16:05 Order name: CONS Physician Consult EDMS 02/18 16:05 Order name: NPO EDMS 02/18 16:48 Order name: SARS-COV-2 Antigen Rapid EDMS Administered Medications: 12:41 Drug: NS 0.9% 1000 ml Route: IV; Rate: 1 bolus; Site: right antecubital; eh3 14:00 Follow up: IV Status: Completed infusion; IV Intake: 1000ml j9 12:41 Drug: Pepcid (famotidine) 20 mg Route: IVP; Site: right antecubital; eh3 14:01 Follow up: Response: Pain is unchanged, physician notified 3 12:41 Drug: Zofran (Ondansetron) 4 mg Route: IVP; Site: right antecubital; eh3 14:01 Follow up: Response: Pain is unchanged, physician notified 3 12:41 Drug: GI Cocktail without - (Maalox Suspension 30 ml, Lidocaine Liquid 2 % 15 eh3 ml) Route: PO; 14:01 Follow up: Response: Pain is unchanged, physician notified 3 15:36 Drug: morphine 4 mg Route: IVP; Infused Over: 4 mins; Site: right antecubital; iw 17:27 Follow up: Response: No adverse reaction; Pain is decreased j9 17:31 Drug: Rocephin (cefTRIAXone) 1 grams Route: IV; Rate: calculated rate; Site: right jg9 forearm; 17:45 Follow up: IV Status: Completed infusion iw Disposition Summary: 02/18/22 16:06 Hospitalization Ordered Hospitalization Status: Inpatient Admission ms3 Provider: Katia Jimenez ms3 Condition: Stable ms3 Problem: new ms3 Symptoms: are unchanged ms3 Bed/Room Type: Standard ms3 Location: [facility](02/18/22 17:23) dw Room Assignment: [facility](02/18/22 17:23) Diagnosis - Other cholelithiasis without obstruction ms3 - Upper abdominal pain, unspecified ms3 - UTI/ Urinary tract infection, site not specified ms3 Forms: - Medication Reconciliation Form ms3 - SBAR form ms3 Signatures: Dispatcher [employer] Rosa Braden RN RN Marisa Vieira RN RN iw Owen Barrios DO DO ms3 Moira Marc RN RN jg9 Marilee Guerrero RN RN eh3 Corrections: (The following items were deleted from the chart) 11:41 11:31 Constitutional: Negative for fever, and chills. ms3 ms3 17:23 16:06 Telemetry/MedSurg (Inpatient) ms3 dw 17:23 16:06 ms3 dw
--- NOTE | 2022-02-18 16:07 | ER ---
Nurse's Notes [facility] Name: Debbie Rojo Age: 32 yrs Sex: Female : 1990 Arrival Date: 02/18/2022 Time: 11:18 Bed 18 Private MD: Yesenia Gaspar H Diagnosis: Other cholelithiasis without obstruction;Upper abdominal pain, unspecified;UTI/ Urinary tract infection, site not specified Presentation: 02/18 11:56 Chief complaint: Patient states: PT ARRIVED TO ER AOX4 ,COMPLAINING OF ABDOMINAL PAIN iw STARTED 7AM THIS MORNING. Coronavirus screen: Vaccine status: Patient reports receiving the 2nd dose of the covid vaccine. At this time, the client does not indicate any symptoms associated with coronavirus-19. Ebola Screen: No symptoms or risks identified at this time. Initial Sepsis Screen: Does the patient meet any 2 criteria? No. Patient's initial sepsis screen is negative. Onset of symptoms was February 18, 2022 at 07:00. 11:56 Method Of Arrival: Ambulatory iw 11:56 Acuity: PATTI 3 iw 17:43 Risk Assessment: Do you want to hurt yourself or someone else? Patient reports no jg9 desire to harm self or others. 17:43 Initial Sepsis Screen: Does the patient have a suspected source of infection? No. jg9 Patient's initial sepsis screen is negative. Triage Assessment: 12:00 General: Appears in no apparent distress. Pain: Complains of pain in abdomen. EENT: No iw deficits noted. Neuro: No deficits noted. Cardiovascular: No deficits noted. Respiratory: No deficits noted. GI: Reports lower abdominal pain, intolerance of fluids, intolerance of food. 17:42 General: Behavior is calm, cooperative. 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 - Social history:: Patient/guardian denies using street drugs, Smoking status: Patient denies any tobacco usage or history of. - Family history:: not pertinent. - Coronavirus screen:: The patient has NOT traveled to [place] in the past 14 days. Proceed with normal triage process as indicated. - Ebola Screening: : No symptoms or risks identified at this time. Screenin:23 Abuse screen: Denies threats or abuse. Denies injuries from another. Nutritional iw screening: No deficits noted. Tuberculosis screening: No symptoms or risk factors identified. Fall Risk IV access (20 points). Assessment: 15:23 Reassessment: Patient appears in no apparent distress at this time. Patient and/or iw family updated on plan of care and expected duration. Pain level reassessed. Patient is alert, oriented x 3, equal unlabored respirations, skin warm/dry/pink. 17:43 GI: Bowel sounds present X 4 quads. Abdomen is tender to palpation in epigastric area jg9 and right upper quadrant. Vital Signs: 11:56 BP 124 / 71; Pulse 85; Resp 16; Temp 98.0; Pulse Ox 100% on R/A; Weight 74.84 kg; iw Height 5 ft. 4 in. (162.56 cm); Pain 7/10; 12:00 BP 124 / 71; Pulse 85; Resp 16; Temp 98.0; Pulse Ox 100% on R/A; iw 12:45 BP 102 / 68; Pulse 70; Resp 18; Pulse Ox 100% on R/A; Pain 8/10; iw 11:56 Body Mass Index 28.32 (74.84 kg, 162.56 cm) iw ED Course: 11:18 Patient arrived in ED. rg4 11:19 Yesenia Gaspar DO is Private Physician. rg4 11:21 Owen Barrios DO is Attending Physician. ms3 11:56 Marisa Arias, RN is Primary Nurse. iw 11:59 Triage completed. iw 12:01 Urine obtained. Labs ordered per protocol. Drawn by ED staff. iw 12:58 CT Abd/Pelvis - IV Contrast Only In Process Unspecified. EDMS 14:38 US Abdomen Limited In Process Unspecified. EDMS 16:05 Katia Jimenez MD is Hospitalizing Provider. ms3 17:27 SARS-COV-2 Antigen Rapid Sent. jg9 17:42 Arm band placed on right wrist. jg9 17:42 Patient has correct armband on for positive identification. Bed in low position. Call jg9 light in reach. 17:42 No provider procedures requiring assistance completed. jg9 17:44 Patient admitted, IV remains in place. jg9 Administered Medications: 12:41 Drug: NS 0.9% 1000 ml Route: IV; Rate: 1 bolus; Site: right antecubital; 3 14:00 Follow up: IV Status: Completed infusion; IV Intake: 1000ml j9 12:41 Drug: Pepcid (famotidine) 20 mg Route: IVP; Site: right antecubital; 3 14:01 Follow up: Response: Pain is unchanged, physician notified 3 12:41 Drug: Zofran (Ondansetron) 4 mg Route: IVP; Site: right antecubital; 3 14:01 Follow up: Response: Pain is unchanged, physician notified 3 12:41 Drug: GI Cocktail without - (Maalox Suspension 30 ml, Lidocaine Liquid 2 % 15 eh3 ml) Route: PO; 14:01 Follow up: Response: Pain is unchanged, physician notified 3 15:36 Drug: morphine 4 mg Route: IVP; Infused Over: 4 mins; Site: right antecubital; 17:27 Follow up: Response: No adverse reaction; Pain is decreased j9 17:31 Drug: Rocephin (cefTRIAXone) 1 grams Route: IV; Rate: calculated rate; Site: right 9 forearm; 17:45 Follow up: IV Status: Completed infusion Medication: 17:44 VIS not applicable for this client. jg9 Intake: 14:00 IV: 1000ml; Total: 1000ml. jg9 Outcome: 16:06 Decision to Hospitalize by Provider. ms3 17:44 Admitted to Med/surg accompanied by nurse, via wheelchair, room 270, Report called to whitleyBill Still RN 17:44 Condition: stable j9 17:49 Patient left the ED. j9 Signatures: Dispatcher [employer] EDMS Marisa Arias RN RN iw Garcia, Rubi rg4 Owen Barrios, DO ms3 Moira Marc RN RN 9 Marilee Guerrero RN RN 3 Corrections: (The following items were deleted from the chart) 12:03 11:56 Acuity: PATTI 4 iw iw
--- NOTE | 2022-02-18 16:44 | P.HP ---
Certification for Inpatient Patient admitted to: Observation With expected LOS: <2 Midnights Patient will require the following post-hospital care: None Practitioner: I am a practitioner with admitting privileges, knowledge of patient current condition, hospital course, and medical plan of care. Services: Services provided to patient in accordance with Admission requirements found in Title 42 Section 412.3 of the Code of Federal Regulations Patient History Date of Service: 02/18/22 Reason for admission: ACUTE CHOLECYSTITIS History of Present Illness: Patient is a 32yo who was admitted to the hospital with abdominal pain. Patient was found to have acute cholecystitis. Patient been having pain for the last few days. She has had some nausea and vomiting. Imaging studies reveals gallbladder wall thickening. Patient will be seen by general surgery for laparoscopic cholecystectomy. Allergies No Known Drug Allergies Allergy (Verified 02/18/22 18:00) Unknown Home Medications: Dextroamphetamine/Amphetamine [Adderall 20 mg Tablet] 20 mg PO DAILY 02/18/22 Metoprolol Succinate [Toprol Xl*] 25 mg PO BID 02/18/22 Semaglutide [Ozempic] 0.25 mg SQ Q7D 02/18/22 Hydrocodone 7.5/APAP 325 [[place] 7.5/325 mg*] 1 tab PO Q6H PRN #30 tab 02/20/22 levoFLOXacin [Levaquin] 500 mg PO DAILY #3 tab 02/20/22 metroNIDAZOLE [Flagyl] 500 mg PO Q8H #9 tab 02/20/22 - Past Medical/Surgical History -: Hypertension -: Type 2 diabetes -: ADD Past Surgical History: Patient denies surgical history - Family History Father Medical History: Hypertension, Diabetes, Other (see notes) Notes: Depression, Neuropathy Mother Medical History: Hypertension, Diabetes, Other (see notes) Notes: Endometrosis, DM2 Brother Medical History: Other (see notes) Notes: Gout - Social History Smoking Status: Former smoker Alcohol use: No CD- Drugs: No Review of Systems 10-point ROS is otherwise unremarkable Physical Examination - Vital Signs Temperature: 100.8 F Blood Pressure: 120/80 Pulse: 80 Respirations: 18 Pulse Ox (%): 96 - Physical Exam General: Alert, In no apparent distress, Oriented x3 HEENT: Atraumatic, PERRLA, Mucous membr. moist/pink, EOMI, Sclerae nonicteric Neck: Supple, 2+ carotid pulse no bruit, No LAD, Without JVD or thyroid abnormality Respiratory: Clear to auscultation bilaterally, Normal air movement Cardiovascular: Regular rate/rhythm, Normal S1 S2 Gastrointestinal: Normal bowel sounds, No tenderness Musculoskeletal: No tenderness Integumentary: No rashes Neurological: Normal gait, Normal speech, Normal strength at 5/5 x4 extr, Normal tone, Normal affect Lymphatics: No axilla or inguinal lymphadenopathy - Studies Laboratory Data (last 24 hrs) 02/18/22 11:55: Sodium 140, Potassium 3.5, BUN 11, Creatinine 0.82, Glucose 98, Total Bilirubin 0.6, AST 117 H, ALT 65, Alkaline Phosphatase 93, Lipase 188 02/18/22 11:55: WBC 12.40 H, Hgb 14.4, Hct 41.8, Plt Count 302 Assessment & Plan - Problems (Diagnosis) (1) Acute cholecystitis Status: Acute - Plan -IV antibiotics -IV fluids -Surgery and GI consultation -CBC, CMP, lipase, stool cultures -N.p.o. -Repeat abdominal film -Antiemetics Discharge Plan: Home Plan to discharge in: Greater than 2 days - Advance Directives Does patient have a Living Will: No Does patient have a Durable POA for Healthcare: No
[2022-02-18 16:48] LABS: SARS-CoV-2 Antigen Rapid Res Negative (Negative)
[2022-02-18] MEDS: PIPER TAZO 3.375 GM in NA CHLORIDE 0.9% 100 ML IV SCH (17:00)
[2022-02-18] MEDS ORDERED: CEFTRIAXONE 1000 MG/VIAL ONE (17:40)
[2022-02-18] MEDS: NA CHLORIDE 0.9% 1,000 ML IV SCH (18:06)
[2022-02-18 18:15] VITALS: BMI 27.4
[2022-02-18] MEDS: MORPHINE 2 MG/ML SYR IV PRN (20:10)
[2022-02-19] MEDS: PIPER TAZO 3.375 GM in NA CHLORIDE 0.9% 100 ML IV SCH ×3 (00:36→16:38)
[2022-02-19] MEDS: MORPHINE 2 MG/ML SYR IV PRN ×4 (00:37→22:34)
[2022-02-19] MEDS: NA CHLORIDE 0.9% 1,000 ML IV SCH ×2 (05:03→16:39)
[2022-02-19 05:47] LABS: Absolute Lymphocytes (CBC) 2.8 K/uL (0.7-4.9); Hematocrit 36.7 % (36.0-45.0); Lymphocytes % 38.7 % (15.3-44.8); MCV 87.1 fL (80-100); MPV 8.2 fL (7.6-11.3); RBC Red Blood Cell Count 4.21 M/uL (3.86-4.86)
[2022-02-19 06:05] LABS: Albumin 2.9 g/dL (3.4-5.0); Protein, Total 6.2 g/dL (6.4-8.2)
[2022-02-19] MEDS ORDERED: ACETAMINOPHEN 500 MG TAB ONE (10:13)
[2022-02-19] MEDS ORDERED: CELECOXIB 100 MG CAPSULE ONE (10:14)
[2022-02-19] MEDS ORDERED: BUPIVACAINE 0.25% PF 10 ML VIAL ONE (10:24)
[2022-02-19] MEDS ORDERED: BUPIVACAINE 0.5% PF 10 ML VIAL ONE ×2 (10:24→10:38)
[2022-02-19] MEDS ORDERED: propofoL 200 MG/20 ML VIAL IV ONE (10:58)
[2022-02-19] MEDS ORDERED: MIDAZOLAM HCL 2 MG/2 ML INJ ONE (10:58)
[2022-02-19] MEDS ORDERED: ONDANSETRON 4 MG/2 ML VIAL ONE (10:59)
[2022-02-19] MEDS ORDERED: GLYCOPYRROLATE 0.2 MG/ML SYR ONE ×2 (10:59→14:01)
[2022-02-19] MEDS ORDERED: ROCURONIUM 50 MG/5 ML VIAL IV ONE (10:59)
[2022-02-19] MEDS ORDERED: LIDOCAINE 2% MPF 5 ML VIAL ONE (10:59)
[2022-02-19] MEDS ORDERED: NEOSTIGMINE 1 MG/ML -10 ML VIAL ONE (10:59)
[2022-02-19] MEDS ORDERED: FENTANYL CITR 100 MCG/2 ML ONE ×2 (11:18→11:57)
[2022-02-19] MEDS ORDERED: NA CHLORIDE 0.9% 1,000 ML ONE (12:09)
--- NOTE | 2022-02-19 12:38 | P.OP ---
Preoperative diagnosis: Cholecystitis with cholelithiasis Postoperative diagnosis: The same Primary procedure: Laparoscopic cholecystectomy Other procedure(s): Cholangiogram Estimated blood loss: Less than 10 cc Specimen: Gallbladder and contents Operative Technique: The patient brought the operating room placed supine on the table. After the induction of adequate general endotracheal anesthesia, the area of the abdomen was prepped with a DuraPrep solution, she was draped in usual aseptic manner. A subumbilical incision was made. This brought down through the skin and subcutaneous tissue. The Veress needle was used to enter the peritoneal cavity by applying upward traction with a towel clip. We can see the indicator snap we were able to do a hanging drop test and gentle insufflation was then performed to allow the abdomen to inflated to approximately 12 mmHg. We were now able to use a 12 mm trocar to enter the peritoneal cavity. A camera was placed down through this. We visualized the right upper quadrant. We can see a tensely distended gallbladder. With the patient placed in reverse Trendelenburg and rolled to the left we were able to place a 5 mm trocar in the upper midline and 2 other 5 mm trochars on the right lateral side of the abdomen. Gentle dissection was done around Harris's pouch to expose the cystic duct and artery. A clip was placed between the gallbladder and the cystic duct. An opening was made into the cystic duct at this point we had a gush of bile there did not see any debris come out no stones were seen the cholangiocatheter was gently inserted into the extrahepatic biliary tree and an initial cholangiogram was obtained we could see that the extrahepatic biliary tree was somewhat dilated and filled there was free flow of contrast into the duodenum itself. With the catheter now advancing the balloon maximally inflated wedging into the common bile duct we obtained a film that showed a tapering down into the duodenum and appeared to have contrast going in however the flow but was suboptimal. I did see not see a true gelling a true filling defect. This may represent residual edema, and I will sinus tach the radiologist for his review of our films. At this point the The extrapelvic biliary tree was flushed a number of times. The catheter was now removed. Clips were placed on the distal portion of the cystic duct which was then fully transected. The cystic artery was identified clipped and divided. The gallbladder was now dissected free from the liver bed, placed into an Endo Catch and brought out through the umbilical trocar site at this point the abdomen was inspected to ensure adequate hemostasis. The irrigating fluid was aspirated from the upper portion of the abdomen and the right paracolic gutter. The Endo Close was used to approximate the fascial defect at the umbilicus, 2 sutures were placed. At this point the pneumoperitoneum was collapsed, the trochars removed, and maged were applied to the skin. At the end of the procedure she was stable was sent to the recovery room. Needle sponge and instrument count were correct. No drains were placed. Complications: None Transferred to: Recovery Room Condition: Good
[2022-02-19] MEDS: HYDROMORPHONE HCL 1 MG/ML INJ ONE ×2 (13:11→13:30)
--- NOTE | 2022-02-19 13:16 | RAD REPORT ---
EXAM DESCRIPTION: RAD - Fluoroscopy <1 Hour - 02/19/2022 12:53 pm CLINICAL HISTORY: Cholecystectomy FINDINGS: The cystic duct cannulated and contrast administered. Contrast flows into the subhepatic s pace. Biliary tree is opacified. Contrast flows into duodenum. Duct appears borderline dilated Fluoroscopy time 1.1 minute. Five fluoroscopic spot images obtained The examination was performed by Dr. Mcadams
[2022-02-19] MEDS ORDERED: KETOROLAC 30 MG/ML INJ ONE (13:54)
[2022-02-19] MEDS ORDERED: HYDROMORPHONE HCL 1 MG/ML INJ ONE (13:54)
[2022-02-19 20:17] VITALS: O2SAT 100
[2022-02-20] MEDS: PIPER TAZO 3.375 GM in NA CHLORIDE 0.9% 100 ML IV SCH ×2 (01:20→09:16)
[2022-02-20] MEDS: HYDROCODONE/APAP 7.5/325 MG TAB PO PRN ×2 (01:24→10:31)
[2022-03-03 14:06] VITALS: BP 120/80; TEMP 100.8
== END 2022-02-20 12:15 | disposition home or self-care (01) ==
LOC: ER 11:16 → ERHOLD 16:02 → 2ND-WC 17:50
PROVIDERS: ADMIT Hospitalist; ATTEND Hospitalist
PROC: BF13YZZ Fluoroscopy of Gallbladder and Bile Ducts using Other Contrast (ICD-10-PCS; 2022-02-19)
PROC: 0FT44ZZ Resection of Gallbladder, Percutaneous Endoscopic Approach (ICD-10-PCS; principal; 2022-02-19 08:30)
DX: K80.10 Calculus of gallbladder with chronic cholecystitis without obstruction (principal); I10 Essential (primary) hypertension; E11.9 Type 2 diabetes mellitus without complications; F98.8 Other specified behavioral and emotional disorders with onset usually occurring in childhood and adolescence; N80.9 Endometriosis, unspecified; Z88.8 Allergy status to other drugs, medicaments and biological substances; Z20.822 Contact with and (suspected) exposure to COVID-19
CPT/HCPCS: 87088; 85025 ×2; 87086; 36415; 81025; 82947; 88304; 87077; 87186; 83690 ×2; 80053 ×2; 74177; 76000; 76705; 99285; 87811; 47563; Q9967; J2704; J2710; J2543 ×5; J2001; J2250; J3010 ×2; J2270 ×6; J1170; G0378 ×5; J7030 ×5; J2405 ×3; 81003; 81015

== ENCOUNTER 2023-02-25 07:17 | Emergency (ER) | payer OTHER ==
--- OUTSIDE RECORDS SUMMARY | 2023-02-25 07:23 | XMS REPORT | Continuity of Care Document ---
:1990 Author Organization [facility] t Address [address] [facility] [address] [place] [address] Care Team Providers Name Role Phone Tramaine Gaspar Primary Care Physician Tay Elizabeth Attending Clinician Unavailable Tramaine Gaspar Attending Clinician Unavailable Matt Benson Attending Clinician Unavailable Bui_Q Attending Clinician Unavailable Bui_Q_BREAU Attending Clinician Unavailable Kirill Frye Attending Clinician Unavailable Valentina Thompson Attending Clinician Unavailable JAX ALVAREZ Attending Clinician Unavailable Rivka Liz MD Attending Clinician Jax Alvarez MD Attending Clinician Doctor Unassigned, [place] Attending Clinician Unavailable Dillon Tapia Attending Clinician Unavailable Jeanie Guardado Attending Clinician Unavailable LAZARO MONDRAGON Attending Clinician Unavailable YUN GUARDADO Attending Clinician Unavailable Tramaine Gaspar Admitting Clinician Unavailable Bui_Q Admitting Clinician Unavailable Bui_Q_WAGDNU Admitting Clinician Unavailable Valentina Thompson Admitting Clinician Unavailable YUN GUARDADO Admitting Clinician Unavailable Payers Payer Name Policy Type Policy Number Effective Date Expiration Date [place] - [id number] [place] [id number] ([facility]) CULLEN MASTERSONR FROM [id number] 2017 [facility] 00:00:00 COMMERCIAL [id number] 2017 2017 NON-CONTRACT 00:00:00 00:00:00 GENERIC Problems Condition Condition Condition Status Onset Resolution Last Treating Co mments Source Name Details Category Date Date Treatment Clinician Date Neuropathy Neuropathy Problem Active [facility] due to Due to 1-27 Family diabetes Diabetes 00:00: Practi c mellitus Mellitus 00 e Hypertensi Hypertensi Problem Active [facility] ve ve 1-27 Family disorder Disorder 00:00: Practi c 00 e Endometrio Endometrio Problem Active [facility] sis sis 1-27 Family (clinical) (Clinical) 00:00: Pr actic 00 e Attention Attention Problem Active [facility] [...] Irritable Problem Active [facility] bowel Bowel 3- Family syndrome Syndrome 00:00: Practi c 00 e Anxiety Anxiety Problem Active [facility] disorder Disorder 2-02 Family 00:00: Practic 00 e Kidney Kidney Problem Active [facility] stone Stone 2-02 Family 00:00: Practic 00 e Chronic Chronic Problem Active [facility] low back Low Back 2- Family pain Pain 00:00: Practic 00 e Diabetes Diabetes Problem Active [facility] [facility] mellitus Mellitus 2-02 Family 00:00: Practic 00 e No known No known Disease Unive rs active active ity of problems problems [facility] Allergies, Adverse Reactions, Alerts Allergy Allergy Status Severity Reaction(s) Onset Inactive Treating Comm ents Source Name Type Date Date Clinician No Known DA Active U 2021-06 [facility] [place] [facility] DA Active U unknown [facility] n [facility]- [facility] [place] met[facility] DA Active U 2019-0 [facility] n 6- [place] 00:[facility]: d 00 [facility] metformi DA Active U unknown 2019-0 [facility] n 6- [place] 00:00: d 00 [facility] Allergy Active 2019-0 Village n to 6 Family substanc 00:00: Practic e 00 e METFORMI DRUG Active Med Other-Cmnt Univ ers N INGREDI 01-07 ity of 00:00: [place] 00 Medical Branch Metformi Propensi Active Other - See Drops U nivers n ty to comments 01-07 sugar to ity of adverse 00:00: low [place] reaction 00 Medical Branch Metformi Propensi Active Other (See BS drop C [facility] n ty to Comments) 08-17 [facility] Medical reaction 00 Center s Social History Social Habit Start Date Stop Date Quantity Comments Source History of tobacco Cigarette Smoker [facility] use [facility] Exposure to 2022-01-07 2022-01-17 Not sure University of SARS-CoV-2 (event) 00:00:00 05:20:00 [facility] Alcohol intake 2017-08-18 2017-08-[address] [facility] [place] [facility] 00:00:00 00:00:00 non-drinker of Medical Ce nter alcohol (finding) Cigarettes smoked 2017-08-17 2017-08-[address] [facility] current (pack per 00:00:00 00:00:00 Medical Center day) - Reported Cigarette 2017-08-17 2017-08-[address] [facility] pack-years 00:00:00 00:00:00 [facility] Center Tobacco use and 2017-08-17 2017-08-[address] [facility] Lindsay kes exposure 00:00:00 00:00:00 tobacco non-user [facility] Sex Ass[birth year] At [birth year] JAYA Rolle 00:00:00 00:00:00 [facility] Center Smoking Status Start Date Stop Date Source Tobacco smoking consumption [facility] Heavy Tobacco Smoker [facility] Practice Smokes tobacco daily 2017-08-17 00:00:00 [facility] Medications Ordered Filled Start Stop Current Ordering Indication Dosage Frequency Signature Comments Components Source Medication Medication Date Date Medication? Clinician (SIG) Name Name medroxyprog medroxyprog No [facility] esterone esterone 02-23 gesterone Fa darren 150 mg/mL 150 mg/mL 11:55: 150 mg/mL Practic intramuscul intramuscul 23 intramuscu e ar ar lar suspensionI suspensionI suspension nject 150 nject 150 Inject 150 mg every 3 mg every 3 mg every 3 months by months by months by intramuscul intramuscul intramuscu ar route. ar route. lar route. ondansetron Yes [id number] 4mg Take 1 Univers 4 mg 8- tablet by ity of disintegrat 00:00: mouth [place] ing tablet 00 every 8 Medica l (eight) Branch hours as needed for Nausea and Vomiting (N/V). famotidine 2021- No [id number] 20mg Take 1 Univers 20 mg 8-12 18- tablet by ity of tablet 00:00: 04:59 mouth 2 [place] 00 :00 (two) Medical times Branch daily as needed for Heartburn or Nausea and Vomiting (N/V) for up to 5 days. naproxen 2018-0 Yes 550mg Take 1 Univer s sodium 5-10 tablet by ity of (ANAPROX 00:00: mouth 2 [place] DS) 550 mg 00 (two) Medical tablet times Branch daily with meals. hydrOXYzine 2018-0 Yes 10mg Take 1 Univ ers 10 mg 5-10 tablet by ity of tablet 00:00: mouth [place] 00 every 6 Medical (six) Branch hours as needed for Anxiety. naproxen 2018-0 Yes 550mg Take 1 Univer s sodium 5-10 tablet by ity of (ANAPROX 00:00: mouth 2 [place] DS) 550 mg 00 (two) Medical tablet times Branch daily with meals. hydrOXYzine 2018-0 Yes 10mg Take 1 Univ ers 10 mg 5-10 tablet by ity of tablet 00:00: mouth [place] 00 every 6 Medical (six) Branch hours as needed for Anxiety. estradiol 2018-0 Yes Q28D Inject [facility]pionate 3-08 intramuscu Luke s (DEPO-ESTRA 16:21: larly Medic al DIOL) 5 40 every 28 Center mg/mL days. injection estradiol 2018-0 Yes Q28D Inject [facility] cy[facility]ionate 3-08 intramuscu Luke s (DEPO-ESTRA 16:21: larly Medic al DIOL) 5 40 every 28 Center mg/mL days. injection estradiol 2018-0 Yes Q28D Inject [facility] cypionate 3-08 intramuscu Luke s (DEPO-ESTRA 16:21: larly Medic al DIOL) 5 40 every 28 Center mg/mL days. injection estradiol 2018-0 Yes Q28D Inject [facility] cypionate 3-08 intramuscu Luke s (DEPO-ESTRA 16:21: larly Medic al DIOL) 5 40 every 28 Center mg/mL days. injection estradiol 2018-0 Yes Q28D Inject [facility] cypionate 3-08 intramuscu Luke s (DEPO-ESTRA 16:21: larly Medic al DIOL) 5 40 every 28 Center mg/mL days. injection estradiol 2018-0 Yes Q28D Inject [facility] cypionate 3-08 intramuscu Luke s (DEPO-ESTRA 16:21: larly Medic al DIOL) 5 40 every 28 Center mg/mL days. injection estradiol 2018-0 Yes Q28D Inject [facility] cypionate 3-08 intramuscu Luke s (DEPO-ESTRA 16:21: larly Medic al DIOL) 5 40 every 28 Center mg/mL days. injection estradiol 2018-0 Yes Q28D Inject [facility] cypionate 3-08 intramuscu Luke s (DEPO-ESTRA 16:21: larly Medic al DIOL) 5 40 every 28 Center mg/mL days. injection methylPREDN 2018-0 Yes Take by Uni vers ISolone 2-05 mouth ity of (MEDROL, 00:00: SEE-INSTRU Mitchell as RADHA,) 4 mg 00 CTIONS. Medica l tablets follow Branch package directions methylPREDN 2018-0 Yes Take by Uni vers ISolone 2-05 mouth ity of (MEDROL, 00:00: SEE-INSTRU [place] as RADHA,) 4 mg 00 CTIONS. Medica l tablets follow Branch package directions acetaminoph 2017- Yes 1{tbl} Take 1 Un erasto en-codeine 1-08 tablet by ity of (TYLENOL-CO 00:00: mouth [place] DEINE #3) 00 every 6 Medical 300-30 mg (six) Branch tablet hours as needed for Pain (scale 4-6). acetaminoph 20180 Yes 1{tbl} Take 1 Un erasto en-codeine [...] Maza PA-C / Faisal Daugherty MD BETI# [id number] DPS# [id number] x Lic.# [id number] [facility]# [id number] traMADOL 2014-06 Yes 50mg Take 1 Tab Uni vers (ULTRAM) 50 2-23 by mouth ity of mg tablet 00:00: every 6 [place] 00 (six) Medical hours as Branch needed for Pain (scale 4-6). Chapin Maza PA-C / Faisal Daugherty MD BETI# [id number] DPS# [id number] x Lic.# [id number] [facility]# [id number] ibuprofen Yes 600mg Take 1 Tab U nivers (MOTRIN) 8 by mouth 2 ity o f 600 mg 00:00: (two) [place] tablet 00 times Medical daily with Branch meals. ibuprofen Yes 600mg Take 1 Tab U nivers (MOTRIN) 8- by mouth 2 ity o f 600 [...] FOR MUSCLE SPASM dextroamphe dextroamphe No dextroamph Village tamine-amph tamine-amph etamine-am Family etamine ER etamine ER phetamine Practic 20 mg 24hr 20 mg 24hr ER 20 mg e capsule,ext capsule,ext 24hr end release end release capsule,ex TAKE 1 TAKE 1 tend CAPSULE BY CAPSULE BY release MOUTH EVERY MOUTH EVERY TAKE 1 DAY DAY CAPSULE BY MOUTH EVERY DAY dicyclomine dicyclomine No dicyclomin Village 10 mg 10 mg e 10 mg Family capsule capsule capsule Practi c TAKE 1 TAKE 1 TAKE 1 e CAPSULE BY CAPSULE BY CAPSULE BY MOUTH THREE MOUTH THREE MOUTH TIMES A DAY TIMES A DAY THREE TIMES A NEEDED-ABDO NEEDED-ABDO DAY FRED PAIN FRED PAIN NEEDED-ABD OMINAL PAIN hydrocodone hydrocodone No hydrocodon Village 7.5 7.5 e 7.5 Family mg-acetamin mg-acetamin mg-acetami Practic ophen 325 ophen 325 nophen 325 e mg tablet mg tablet mg tablet TAKE 1 TAKE 1 TAKE 1 TABLET BY TABLET BY TABLET BY MOUTH THREE MOUTH THREE MOUTH TIMES A DAY TIMES A DAY THREE NEEDED NEEDED TIMES A DAY NEEDED medroxyprog medroxyprog No 150mg medroxypro [facility] esterone esterone gesterone Fa darren 150 mg/mL 150 mg/mL 150 mg/mL Practic intramuscul intramuscul intramuscu e ar ar lar suspension suspension suspension Inject 150 Inject 150 Inject 150 mg every 3 mg every 3 mg every 3 months by months by months by intramuscul intramuscul intramuscu ar route. ar route. lar route. metoprolol metoprolol No metoprolol [facility] succinate succinate succinate Family ER 25 mg [...] DAYS 90 DAYS DAY FOR 90 DAYS metronidazo metronidazo No metronidaz [facility] le 500 mg le 500 mg ole 500 mg Family tablet TAKE tablet TAKE tablet Practic 1 TABLET BY 1 TABLET BY TAKE 1 e MOUTH EVERY MOUTH EVERY TABLET BY 8 HOURS 8 HOURS MOUTH EVERY 8 HOURS Ozempic Ozempic No Ozempic Villag e 0.25 [...] WEEK 90 WEEK 90 DAYS DAYS DAYS cyanocobala cyanocobala No cyanocobal [facility] min (vit min (vit [place] (vit Fa darren B-12) 1,000 B-12) 1,000 B-12) Practic mcg/mL mcg/mL 1,000 e injection injection mcg/mL solution solution injection INJECT 1 ML INJECT 1 ML solution INTRAMUSCUL INTRAMUSCUL INJECT 1 JHOAN ONCE JHOAN ONCE ML EVERY 14 EVERY 14 INTRAMUSCU DAYS DAYS LARLY ONCE EVERY 14 DAYS dextroamphe dextroamphe No dextroamph [facility] tamine-amph tamine-amph etamine-am Family etamine ER etamine ER phetamine Practic 20 mg 24hr 20 mg 24hr ER 20 mg e capsule,ext capsule,ext 24hr end release end release capsule,ex TAKE 1 TAKE 1 tend CAPSULE BY CAPSULE BY release MOUTH EVERY MOUTH EVERY TAKE 1 DAY DAY CAPSULE BY MOUTH EVERY DAY [facility]oprolol [facility]op[facility] succinate succinate succinate Family ER [...] 90 DAYS DAY FOR 90 DAYS Ozempic 1 Ozempic 1 No Ozempic 1 Village mg/dose (4 mg/dose (4 mg/dose (4 Family mg/3 mL) mg/3 mL) mg/3 mL) Pra ctic subcutaneou subcutaneou subcutaneo e s pen s pen us pen injector injector injector INJECT 1mg INJECT 1mg INJECT 1mg Under the Under the Under the skin Every skin Every skin Every Week Week Week Immunizations Ordered Immunization Filled Immunization Date Status Commen Source Name Name COVID-19, mRNA, COVID-19, mRNA, 2022-04-03 Completed [facility] LNP-S, bivalent LNP-S, bivalent 00:00:00 Prac delores booster, PF, 30 booster, PF, 30 mcg/0.3 mL dose mcg/0.3 mL dose (Pfizer-BioNTech) - (Pfizer-BioNTech) - ML ML COVID-19, mRNA, COVID-19, mRNA, 2021-11-29 Completed [facility] LNP-S, PF, 100 LNP-S, PF, 100 00:00:00 Practi ce mcg/0.5 mL dose mcg/0.5 mL dose (Moderna) - ML (Moderna) - ML influenza, influenza, 2021-06-22 Completed [facility] injectable, injectable, 10:14:54 Practice quadrivalent, quadrivalent, preservative free preservative free influenza, influenza, 2021-06-22 Completed [facility] injectable, injectable, 10:14:54 Practice quadrivalent, quadrivalent, preservative free preservative free COVID-19, mRNA, COVID-19, mRNA, 2021-05-13 Completed [facility] LNP-S, PF, 100 LNP-S, PF, 100 00:00:00 Practi ce mcg/0.5 mL dose mcg/0.5 mL dose (Moderna) (Moderna) COVID-19, mRNA, COVID-19, mRNA, 2021-05-13 Completed Vill age Family LNP-S, PF, 100 LNP-S, PF, 100 00:00:00 Practi ce mcg/0.5 mL dose mcg/0.5 mL dose (Moderna) (Moderna) COVID-19, mRNA, COVID-19, mRNA, 2021-05-12 Completed Vill age Family LNP-S, PF, 100 LNP-S, PF, 100 00:00:00 Practi ce mcg/0.5 mL dose mcg/0.5 mL dose (Moderna) - ML (Moderna) - ML COVID-19, mRNA, COVID-19, mRNA, 2020-11-17 Completed Vill [facility] Family LNP-S, PF, 100 LNP-S, PF, 100 00:00:00 Practi ce mcg/0.5 mL dose mcg/0.5 mL dose (Moderna) (Moderna) COVID-19, mRNA, COVID-19, mRNA, 2020-11-17 Completed [facility] LNP-S, PF, 100 LNP-S, PF, 100 00:00:00 Practi ce mcg/0.5 mL dose mcg/0.5 mL dose (Moderna) (Moderna) COVID-19 COVID-19 2020-10-10 Completed [facility] (SARS-COV-2) (SARS-COV-2) 00:00:00 Practice vaccine, unspecified vaccine, unspecified COVID-19 COVID-19 2020-10-10 Completed [facility] (SARS-COV-2) (SARS-COV-2) 00:00:00 Practice vaccine, unspecified vaccine, unspecified COVID-19, mRNA, COVID-19, mRNA, 2020-10-03 Completed Vill [facility] Family LNP-S, PF, 100 LNP-S, PF, 100 00:00:00 Practi ce mcg/0.5 mL dose mcg/0.5 mL dose (Moderna) - ML (Moderna) - ML COVID-19 COVID-19 2020-09-11 Completed [facility] Family (SARS-COV-2) (SARS-COV-2) 00:00:00 Practice vaccine, unspecified vaccine, unspecified COVID-19 COVID-19 2020-09-11 Completed [facility] (SARS-COV-2) (SARS-COV-2) 00:00:00 Practice vaccine, unspecified vaccine, unspecified COVID-19, mRNA, COVID-19, mRNA, 2020-09-04 Completed [facility] Family LNP-S, PF, 100 LNP-S, PF, 100 00:00:00 Practi ce mcg/0.5 mL dose mcg/0.5 mL dose (Moderna) - ML (Moderna) - ML influenza, influenza, 2020-03-14 Completed [facility] injectable, injectable, 17:08:00 Practice quadrivalent, quadrivalent, preservative free preservative free influenza, influenza, 2020-03-14 Completed [facility] injectable, injectable, 17:08:00 Practice quadrivalent, quadrivalent, preservative free preservative free influenza, influenza, 2019-03-05 Completed [facility] injectable, injectable, 18:37:00 Practice quadrivalent, quadrivalent, preservative free preservative free influenza, influenza, 2019-03-05 Completed [facility] injectable, injectable, 18:37:00 Practice quadrivalent, quadrivalent, preservative free preservative free influenza, influenza, 2018-03-08 Completed [facility] injectable, injectable, 16:32:48 Practice quadrivalent, quadrivalent, preservative free preservative free influenza, influenza, 2018-03-08 Completed [facility] injectable, injectable, 16:32:48 Practice quadrivalent, quadrivalent, preservative free preservative free Tdap Tdap 2017-08-13 Completed [facility] 10:59:00 Practice Tdap Tdap 2017-08-13 Completed [facility] 10:59:00 Practice Vital Signs Vital Name Observation Time Observation Value Comments Source BP Diastolic 2022-07-09 00:00:00 80 mm[Hg] [facility] Height 2022-07-09 00:00:00 62 [in_i] [facility] BMI (Body Mass 2022-07-09 00:00:00 26.8 kg/m2 [facility] Family Index) Practice BP Systolic 2022-07-09 00:00:00 126 mm[Hg] [facility] Body Weight 2022-07-09 00:00:00 146.7 [lb_av] [facility] BP Diastolic 2022-02-23 00:00:00 82 mm[Hg] [facility] Height 2022-02-23 00:00:00 62 [in_i] [facility] BMI (Body Mass 2022-02-23 00:00:00 27.1 kg/m2 [facility] Family Index) Practice BP Systolic 2022-02-23 00:00:00 118 mm[Hg] [facility] Body Weight 2022-02-23 00:00:00 148 [lb_av] [facility] Systolic blood 2022-01-17 13:00:00 113 mm[Hg] Univer sity of pressure [facility] Diastolic blood 2022-01-17 13:00:00 73 mm[Hg] Unive rsity of pressure [facility] Heart rate 2022-01-17 13:00:00 88 /min [facility] Respiratory rate 2022-01-17 13:00:00 20 /min [facility] Oxygen saturation in 2022-01-17 13:00:00 97 /min [facility] Arterial blood by [facility] Pulse oximetry Branch Body temperature 2022-01-17 10:22:00 35.89 [facility] 2022-01-17 10:22:00 157.5 cm [facility] Body weight 2022-01-17 10:22:00 67.132 kg [facility] BMI 2022-01-17 10:22:00 27.07 kg/m2 [facility] BP Diastolic 2022 00:00:00 79 mm[Hg] [facility] Height 2022 00:00:00 62 [in_i] [facility] BMI (Body Mass 2022 00:00:00 27.3 kg/m2 [facility] Family Index) Practice BP Systolic 2022 00:00:00 117 mm[Hg] [facility] Body Weight 2022 00:00:00 149 [lb_av] [facility] BP Diastolic 2021-11-26 00:00:00 73 mm[Hg] [facility] Height 2021-11-26 00:00:00 62 [in_i] Village [...] Practice Body Weight 2017-08-12 00:00:00 173.6 [lb_av] [facility] BP Diastolic 2017-07-15 00:00:00 80 mm[Hg] [facility] Height 2017-07-15 00:00:00 67 [in_i] [facility] BMI (Body Mass 2017-07-15 00:00:00 26.6 kg/m2 Vill[facility] e Family Index) Practice BP Systolic 2017-07-15 00:00:00 126 mm[Hg] [facility] Body Weight 2017-07-15 00:00:00 170 [lb_av] [facility] Procedures Procedure Date / Time Performing Clinician Source Performed [id number] 2022-04-14 00:00:00 [email or web address].[email or web address] [facility] Repair of Bladder 2022-04-14 00:00:00 [facility] Fa darren Practice [id number] 2022-04-13 00:00:00 [facility] [id number] 2022-04-13 00:00:00 [facility] Partial Hysterectomy 2022-04-13 00:00:00 [facility] Cholecystostomy 2022-02-19 00:00:00 [facility] Practice TROPONIN I 2022-01-17 11:34:00 MorricalJax [facility] LIPASE 2022-01-17 10:31:00 Rivka Liz [facility] TROPONIN I 2022-01-17 10:31:00 Rivka Liz [facility] COMP. METABOLIC PANEL 2022-01-17 10:31:00 Rivka iLz [facility] ([id number]) [facility] CBC WITH DIFF 2022-01-17 10:31:00 Rivka Liz [facility] PROTHROMBIN TIME / INR 2022-01-17 10:31:00 Rivka Liz [facility] ACTIVATED PARTIAL THRMPLAS 2022-01-17 10:31:00 Rivka Liz [facility] N-TERMINAL PRO-BNP 2022-01-17 10:31:00 Rivka Liz [facility] NOTICE OF PRIVACY 2022-01-17 10:09:19 Doctor Tom, [facility] PRACTICES [facility] CONSENT/REFUSAL FOR 2022-01-17 10:05:50 Doctor Unasssarmad, [facility] DIAGNOSIS AND TREATMENT [facility] Colonoscopy 2021-08-06 00:00:00 [facility] Practice US, abdomen + pelvis 2021-03-31 00:00:00 [facility] US, pelvis, transabdominal 2020-06-24 00:00:00 [facility] + transvaginal Practice XR, thoracic spine, 2 view 2020-01-25 00:00:00 [facility] Percutaneous Extraction of 2019-11-21 00:00:00 [facility] Kidney Stone with Practice Fragmentation Procedure MRI, foot, w/o contrast 2019-05-04 00:00:00 [facility] US, abdomen, complete 2018-10-23 [facility]00[facility] Colon[facility] 2017-08-18 00:00:00 [facility] Chris ly Practice Tooth Root Removal [facility] y [facility] Plan of Care Planned Activity Planned Date Details Comments Source Diagnostic Test Pending 2022-07-09 CBC w/ auto diff [facility] 00:00:00 [code = CBC w/ Practice auto diff] Diagnostic Test Pending 2022-07-09 CMP, serum or [facility] 00:00:00 plasma [code = Practice CMP, serum or plasma] Diagnostic Test Pending 2022-07-09 TSH, serum or [facility] 00:00:00 plasma [code = Practice TSH, serum or plasma] Diagnostic Test Pending 2022-07-09 lipid panel, [facility] 00:00:00 serum [code = Practice lipid panel, serum] Diagnostic Test Pending 2022-07-09 HbA1c (hemoglobin [facility] 00:00:00 A1c), blood [code Practice = HbA1c (hemoglobin A1c), blood] Diagnostic Test Pending 2022-07-09 microalbumin/crea [facility] 00:00:00 tinine, mass Practice ratio, urine [code = microalbumin/crea tinine, mass ratio, urine] Diagnostic Test Pending 2022-07-09 vitamin B12 + [facility] 00:00:00 folate, serum or Practice blood [code = vitamin B12 + folate, serum or blood] Diagnostic Test Pending 2022-07-09 vitamin D, [facility] 00:00:00 25-hydroxy, Practice total, serum [code = vitamin D, 25-hydroxy, total, serum] Diagnostic Test Pending 2022-07-09 PTH (parathyroid [facility] 00:00:00 hormone), intact, Practice serum or plasma [code = PTH (parathyroid hormone), intact, serum or plasma] Future Appointment 2023-07-09 Tramaine Claudioi, [id number] [facility] 00:00:[address], [place] [address] Instructions [facility] Encounters Start End Encounter Admission Attending Care Care Encounter Source Date/Time Date/Time Type Type Clinicians Facility Department ID 2021-02-11 Inpatient Elective Hafwz, [facility] [id number] [facility] 00:08:00 Jawdat 63 2021 Inpatient Elective Hafwz, S[facility]m [facility] [id number] [facility] 09:00:00 Jawdat 21 2020-06-27 Inpatient GasparTramaine [facility] [id number] [facility] 08:30:00 29 [facility] 2019-11-16 [facility] [id number] [facility] 14:00:00 93 [facility] 2022-07-09 2022-07-09 Outpatient Bui_Q VFP VFP [id number] [facility] 00:00:00 00:00:00 [id number] Family Practic e 2022-07-09 2022-07-09 Outpatient Bui_Q_WAGDN VFP VFP [id number] [facility] 00:00:00 00:00:00 U [id number] Family Practic e 2022-07-09 2022-07-09 Tramaine Quiles VFP [place] - [id number] [facility] 00:00:00 00:00:00 MD Chasity: [facility] [id number] Medical - Pract[place] c [place] [address], [place] [address] , Ph. 2022-04-22 2022-04-22 Outpatient Kirill Osullivan [facility] RAD[facility] F00 [id number] [facility] 11:20:00 11:20:00 09 [facility] 2022-04-15 2022-04-16 Inpatient CHRISTIANO Thompson [facility].01 [id number] [facility] 07:10:00 15:50:00 Chundct 51 [facility] 2022-02-23 2022-02-23 Saloni S VFP [place] - [id number] V illage 00:00:00 00:00:00 Bayron Gilmer Family DO: [id number] Medical - Prac tic [place] [address], [place] [address] , Ph. 2022-01-19 2022-01-19 Outpatient Bui_Q VFP VFP [id number]- [address] [place] [address] 00:00:00 00:00:00 [id number] Family Practic e 2022-01-17 2022-01-17 Emergency X ANTONIO, [facility] ERT [id number] Univers 05:13:00 08:26:00 AJX vides of [facility] 2022-01-17 2022-01-17 Emergency Rivka Liz [facility] [id number] Univers 05:13:00 08:26:00 Anotnio, Jax PÉREZ 350.1.13. 10 ity of [place] 4.2.7.2.686 [facility] [id number] [facility] 084 Branch 2022-01-17 2022-01-17 Orders Doctor CHET [id number] Univers 00:00:00 00:00:00 Only Unassigned, VALE 350.1.13.10 [facility] 4.2.7.2.686 [facility] [id number] [facility] 009 Branch 2022 2022 Outpatient Bui_Q_WAGDN VFP VFP [address] [place] [address] 00:00:00 00:00:00 U 92834 Family Practic e 2022 2022 Kiranchand Bui_Q_WAGDN VFP [place] - [address] [place] [address] 00:00:00 00:00:00 ra U [facility] 94185 [facility] - Pract ailyn Guardado MD: VM_HOU_[facility] e [address] [facility], [address], [place] [address] , Ph. 2022-01-14 2022-01-14 Outpatient Bui_Q_WAGDN VFP VFP [address] [place] [address] 00:00:00 00:00:00 U 29059 Family Practic e 2021-12-15 2021-12-15 Outpatient Bui_Q_WAGDN VFP VFP [address] [place] [address] 10:19:00 10:19:00 U 39035 Family Practic e 2021-12-11 2021-12-11 Emergency MILAGROS Barron [id number] 58 [facility] 09:35:00 14:00:00 Dillon 54 [facility] 2021-12-11 2021-12-11 Emergency EM Regina, HCAPM HCAPM [id number] [facility] 09:35:00 14:00:00 Dillon [id number] [facility] 2021-11-26 2021-11-26 Tramaine Quiles Bui_Q VFP [place] - 255763- 202 [facility] 00:00:00 00:00:00 MD Chasity: [facility] 00913 Famil y 39909 Medical - Practi c Shadow VM_HOU_Sengd e [facility], [address], [place] [address] , Ph. 2021-09-15 2021-09-15 Outpatient Bui_Q_WAGDN VFP VFP [facility] 07:13:00 07:13:00 U 15403 Family Practic e 2021-08-27 2021-08-27 Ronnalsiria Bui_Q VFP [place] - 083256-[address] [place] [address] 00:00:00 00:00:00 [facility] Famil y INSTITUTIONAL RESEARCH COORDINATOR: 24489 Medical - Prac tic Shadow VM_HOU_Sengd e [facility], [address], [place] [address] , Ph. 2021-06-27 2021-06-27 Outpatient Bui_Q VFP VFP [id number] [facility] 12:38:00 12:38:00 Family Practic e 2021-06-19 2021-06-19 [facility] Bui_Q VFP [place] - [id number]- 202 [facility] 00:00:00 00:00:00 [facility] Family [facility] - Pract ailyn Guardado MD: VM_KITAU_East e [address] [facility] ([facility], [address], [place] [address] , Ph. 2021-06-08 2021-06-08 Outpatient Bui_Q_WAGDN VFP VFP 328 [id number] [facility] 02:26:00 02:26:00 U 46643 Family Practic e 2021-05-29 2021-05-29 Tramaine Quiles Bui_Q VFP [place] - 198974- [facility] 00:00:00 00:00:00 MD Chasity: [facility] 47471 Famil y 34811 Medical - Practi c Shadow VM_HOU_Shad e [facility], [place], [address], [place] [address] , Ph. 2021-04-30 2021-04-30 Outpatient Bui_Q_WAGDN VFP VFP 328 [facility] 02:40:00 02:40:00 U 84560 Family Practic e 2021-04-10 2021-04-10 Outpatient CHRISTIANO Guardado, [facility] RADI [id number] [facility] 09:00:00 09:00:00 Kaurr 44 [facility] 2021-04-10 2021-04-10 Outpatient Bui_Q VFP VFP [id number]- 202 [facility] 01:18:00 01:18:00 84670 Family Practic e 2021-03-31 2021-03-31 Kiranchand Bui_Q_WAG VFP [place] - 16672 [facility] 00:00:00 00:00:00 [facility] 55011 Family [facility] - Pract ailyn Guardado MD: VM_ROBERTO_Gerard e [address] [facility], [address], [place] [address] , Ph. 2021-02-27 2021-02-27 Outpatient Bui_Q VFP VFP [id number]- 202 [facility] 04:07:00 04:07:00 78047 Family Practic e 2021-02-26 2021-02-26 Tramaine Quiles Bui_Q VFP [place] - [id number]- [facility] 00:00:00 00:00:00 MD Chasity: [facility] 12016 Famil y 77644 Medical - Practi c Shadow VM_HOU_Shad e [facility], [place], [address], [place] [address] , Ph. 2021-01-31 2021-01-31 Outpatient Bui_Q VFP VFP [id number]- 202 [facility] 02:40:00 02:40:00 18531 Family Practic e 2021-01-27 2021-01-27 Outpatient Bui_Q_WAG VFP VFP [id number] [facility] 04:01:00 04:01:00 48506 Family Practic e 2021-01-23 2021-01-23 Tramaine Quiles Bui_Q VFP [place] - [id number]- [facility] 00:00:00 00:00:00 MD Chasity: [facility] 27848 Famil y 15496 Medical - Practi c Shadow VM_HOU_Shad e [address], [address], [place] [address] , Ph. 2021-01-10 2021-01-10 Outpatient Bui_Q VFP VFP [id number]- 202 [facility] 11:13:00 11:13:00 16101 Family Practic e 2021-01-08 2021-01-08 Tramaine Quiles Bui_Q VFP [place] - [id number] [facility] 00:00:00 00:00:00 MD Chasity: [facility] 80343 Famil y 19520 Medical - Practi c Shadow VM_HOU_Shad e [address], [address] [place] [address] , Ph. 2020-11-29 2020-11-29 Outpatient Bui_Q VFP VFP [id number]- 202 [facility] 06:20:00 06:20:00 24398 Family Practic e 2020-11-28 2020-11-28 Tramaine Quiles Bui_Q VFP [place] - [id number] [facility] 00:00:00 00:00:00 MD Chasity: [facility] 08354 Famil y 52039 Medical - Practi c Shadow VM_HOU_Shad e [address], [facility] [address], [place] [address] , Ph. 2020-11-04 2020-11-04 Outpatient Bui_Q_WAG VFP VFP [id number] [facility] 05:47:00 05:47:00 27232 Family Practic e 2020-10-31 2020-10-31 Tramaine Quiles Bui_Q VFP [place] - [id number]- 202 [facility] 00:00:00 00:00:00 MD Chasity: [facility] 33305 Famil y 46924 Medical - Practi c Shadow VM_HOU_Shad e [facility], [address], [place] [address] , Ph. 2020-10-07 2020-10-07 Outpatient Bui_Q_WAG VFP VFP [id number] - [facility] 04:44:00 04:44:00 28106 Family Practic e 2020-10-03 2020-10-03 Tramaine Quiles Bui_Q VFP [place] - [id number] [facility] 00:00:00 00:00:00 MD Chasity: [facility] 33834 Famil y 23147 Medical - Practi c Shadow VM_HOU_Shad e [facility], [address] [address] , Ph. 2020-09-24 2020-09-24 Outpatient Bui_Q_WAG VFP VFP [id number] [facility] 07:08:00 07:08:00 98989 Family Practic e 2020-09-23 2020-09-23 Amy O Bui_Q VFP [place] - 123639-[address] [place] [address] 00:00:00 00:00:00 [facility] [address] Chris preciado MD: 38693 Medical - Prac tic Shadow VM_HOU_Shad e [facility], [facility] [address], [place] [address] , Ph. 2020-09-04 2020-09-04 Outpatient Bui_Q_WAG VFP VFP [id number] [facility] 04:44:00 04:44:00 43293 Family Practic e 2020-07-22 2020-07-22 Outpatient Matt Benson [facility] HCAPM LA0 [id number] [facility] 11:02:26 11:02:[address] [place] [address] 2020-06-27 2020-06-27 Outpatient Bui_Q VFP VFP [id number]- 202 [facility] 12:07:00 12:07:00 12535 Family Practic e 2020-06-24 2020-06-24 Tramaine Quiles Bui_Q_WAG VFP [place] - [address] 00:00:00 00:00:00 MD Chasity: [facility] 61232 Famil y 6122 Medical - Practi c [place] VM_HOU_East e [address] ([place] [address] , Ph. 2020-06-14 2020-06-14 Outpatient Bui_Q VFP VFP [id number] 01:22:00 01:22:00 24771 Family Practic e 2020-06-09 2020-06-09 Ronnalyn Bui_Q_WAG VFP [place] [id number] [facility] 00:00:00 00:00:00 [facility] 40918 Famil y INSTITUTIONAL RESEARCH COORDINATOR: 6122 Medical - Pract ic Marky VM_HOU_East e [address] ([facility]) [place] [address] , Ph. 2020-04-07 2020-04-07 Outpatient Bui_Q VFP VFP [id number] 08:00:00 08:00:00 79621 Family Practic e 2020-03-21 2020-03-21 Outpatient Bui_Q_WAG VFP VFP [id number] 04:45:00 04:45:00 24879 Family Practic e 2020-03-14 2020-03-14 Tramaine Quiles Bui_Q_WAG VFP [place] - [address] [place] [address] 00:00:00 00:00:00 MD Chasity: [facility] 98497 Famil y 6122 Medical - Practi c [place] VM_HOU_East e [address] ([facility]) [place] [address] , Ph. 2020-01-29 2020-01-29 Outpatient Bui_Q VFP VFP [id number] 03:31:00 03:31:00 93907 Family Practic e 2020-01-25 2020-01-25 Tramaine Quiles Bui_Q VFP [place] - [id number] [facility] 00:00:00 00:00:00 MD Chasity: [facility] 14241 Famil y 6122 Medical - [place] [address], ([facility]) [place] [address] , Ph. 2020-01-14 2020-01-14 Outpatient Matt Benson RADI LA0 [id number] [facility] 08:00:00 08:00:00 84 Noe ruth [facility] 2020-01-07 2020-01-07 Outpatient Bui_Q VFP VFP [id number] [facility] 12:57:00 12:57:00 59045 Family Practic e 2019-12-24 2019-12-24 Outpatient Bui_Q_WAG VFP VFP [id number] 2 [facility] 03:50:00 03:50:00 85470 Family Practic e 2019-12-21 2019-12-21 Tramaine [place] [address] [facility] 00:00:00 00:00:00 MD Chasity: [facility] 41939 Famil y 6122 Medical - [place] [address], ([facility]) [place] [address] , Ph. 2019-11-28 2019-11-28 Outpatient Bui_Q VFP VFP [id number] [facility] 02:38:00 02:38:00 24670 Family Practic e 2019-11-16 2019-11-16 Outpatient Matt Benson [facility] OUTD G00 [id number] [facility] 15:13:00 15:13:00 58 [facility] 2019-11-14 2019-11-14 Outpatient Bui_Q VFP VFP [id number]- 202 [facility] 03:20:00 03:20:00 77296 Family Practic e 2019-11-10 2019-11-10 Outpatient Bui_Q_WAG VFP VFP [id number] 2 [facility] 09:53:00 09:53:00 05105 Family Practic e 2019-11-09 2019-11-09 Tramaine Quiles Bui_Q_WAG VFP [place] - [id number] [facility] 00:00:00 00:00:00 MD Chasity: [facility] 63106 Famil y 6122 Medical - Practi c [place] VM_HOU_East e , [place] [address], ([facility]) [place] [address] , Ph. 2019-09-26 2019-09-26 Outpatient Bui_Q_WAG VFP VFP [id number] [facility] 06:04:00 06:04:00 34329 Family Practic e 2019-09-24 2019-09-24 Tramaine Quiles Bui_Q VFP [place] - [id number] 00:00:00 00:00:00 MD Chasity: [facility] 10388 Famil y 6122 Medical - Practi c Marky VM_HOU_East e [place] [address], ([facility]) [place] [address] , Ph. 2019-09-17 2019-09-17 Outpatient Hinh, [facility]0 [id number] [facility] 08:00:00 08:00:00 40 [facility] 2019-08-10 2019-08-10 [facility]patient [facility]Matt [facility] LA0 [id number] [facility] 08:30:00 08:30:00 94 [facility] 2019-08-10 2019-08-10 Outpatient Bui_Q VFP VFP [id number] [facility] 03:03:00 03:03:00 05047 Family Practic e 2019-07-27 2019-07-27 Outpatient Bui_Q VFP VFP [id number]- [facility] 02:48:00 02:48:00 23630 Family Practic e 2019-07-23 2019-07-23 Tramaine Quiles Bui_Q_WAG VFP [place] - 55116 2 [facility] 00:00:00 00:00:00 MD Chasity: [facility] 61342 Famil y 6122 Medical - Practi c Marky VM_HOU_East e , [place] [address], ([facility]) [place] [address] , Ph. 2019-07-10 2019-07-10 Outpatient Bui_Q VFP VFP [id number]- 202 [facility] 02:24:00 02:24:00 33970 Family Practic e 2019-07-06 2019-07-06 Tramaine Quiles Bui_Q_[facility] [place] - 33918 2-202 [facility] 00:00:00 00:00:00 MD Chasity: [facility] 58509 Famil y 6122 Medical - Practi c [place] VM_HOU_East e St, [facility] [address], ([place] [address] , Ph. 2019-05-22 2019-05-22 Outpatient Bui_Q [facility] [id number]- 201 [facility] 04:32:00 04:32:00 81421 Family Practic e 2019-05-04 2019-05-[address] [facility] [place] - [id number]- 201 [facility] 00:00:00 00:00:00 MD Chasity: [facility] 56085 Famil y 9430 Medical - Practi c [place], _HOU_Pear e [address], [place] [address] , Ph. 2019-04-06 2019-04-[address] [facility] [place] - [id number] [facility] 00:00:00 00:00:00 [facility] 77642 Chris preciado MD: 9430 Medical - Pract [facility], _HOU_Pear e [address], [place] [address] , Ph. 2019-03-05 2019-03-[address] [facility] [place] - [id number]- 201 [facility] 00:00:00 00:00:00 MD Chasity: [facility] 89197 Famil y 9430 Family Practic [place], Practice - e [address], [place] [address] , Ph. 2019-01-30 2019-01-30 Amy O VFP [place] - [id number] [facility] 00:00:00 00:00:00 [facility] 26233 Chris preciado MD: 9430 Family Practic [place], Practice - e [address], [place] [address] , Ph. 2019-01-02 2019-01-02 Tramaine Quiles VFP [place] - [id number]- 201 [facility] 00:00:00 00:00:00 MD Chasity: [facility] 28798 Famil y 9430 Family Practic [place], Practice - e [address], [place] [address] , Ph. 2018-12-11 2018-12-11 Tramaine Quiles VFP [place] - [id number]- 201 [facility] 00:00:00 00:00:00 MD Chasity: [facility] 90655 Famil y 9430 Family Practic Marky, Practice - e [address], [place] [address] , Ph. 2018-10-26 2018-10-26 Amy Gu VFP [place] - 985713-[address] [place] [address] 00:00:00 00:00:00 [facility] [address] Chris preciado MD: 9430 Family Practic [place], Practice - e [address], [place] [address] , Ph. 2018-10-23 2018-10-23 Tramaine Quiles VFP [place] - [id number]- 201 [facility] 00:00:00 00:00:00 MD Chasity: [facility] 64091 Famil y 9430 [facility] [place], Practice - e [address], [place] [address] , Ph. 2018-10-03 2018-10-03 Tramaine Quiles VFP [place] - [id number]- 201 [facility] 00:00:00 00:00:00 MD Chasity: [facility] 32996 Famil y 9430 [facility] [place], Practice - e [address], [place] [address] , Ph. 2018-08-14 2018-08-14 Tramaine Quiles VFP [place] - [id number]- 201 [facility] 00:00:00 00:00:00 MD Chasity: [facility] 22743 Famil y 9430 Family Practic [place], Practice - e [address], [place] [address] , Ph. 2018-07-24 2018-07-24 Tramaine BROOKS [place] - [id number]- 201 [facility] 00:00:00 00:00:00 MD Chasity: [facility] 62771 Famil y 9430 Family Practic [place], Practice - e [address], [place] [address] , Ph. 2018-07-10 2018-07-10 Amy BROOKS [place] - 737619-6 01 Village 00:00:00 00:00:00 [facility] 375[address] Chris preciado MD: 9430 Family Practic Mark[place], Practice - e [address], [place], [place] [address] , Ph. 2017-10-19 2017-10-20 Emergency X MONDRAGON, [facility] ERT [id number] Univers 23:09:11 01:27:00 LAZARO vides [facility] 2017-09-19 2017-09-[address] [facility] [place] - [id number]- 201 [facility] 00:00:00 00:00:00 MD Chasity: [facility] 85910 Famil y 9430 [facility] [place], Practice - e [address], [place] [address] , Ph. 2017-09-01 2017-09-[address] [facility] [place] - [id number]- 201 [facility] 00:00:00 00:00:00 MD Chasity: [facility] 13553 Famil y 9430 Family Practic Marky, Practice - e [address], [place] [address] , Ph. 2017-08-12 2017-08-12 Amy BROOKS [place] - 062393-4 01 Village 00:00:00 00:00:00 [facility] 26209 Chris preciado MD: 9430 Family Practic Mark[place], Practice - e [address], [place] [address] , Ph. 2017-07-15 2017-07-[address] [facility] [place] - [id number]- 201 [facility] 00:00:00 00:00:00 MD Chasity: [facility] 20490 Famil y [address] [facility] - e [address], [facility] [place] [address] , Ph. Results Test Description Test Time Test Comments Results Result [facility] Comments - XR CYSTOGRAM 3 + 2022-04-22 V 00:00:00 [facility] : 1990 Sex: F Patient Name: MICHELLE ROJO Unit No: [id number] EXAMS: CPT CODE: [id number] XR CYSTOGRAM 3 + V 90129 PROCEDURE INFORMATION: Exam: XR Cystography, Minimum of 3 Views Exam date and time: 04/22/2022 12:07 PM Age: 32 years old Clinical indication: Screening exam; Post surgical status; Hysterectomy; Bladder injury during surgery; Prior surgery; Surgery date: 3-7 days post-operative; Additional info: Injury of bladder TECHNIQUE: Imaging protocol: Cystography, minimum of 3 views. Radiological supervision and interpretation. The interpreting physician was present and supervised the procedure. Contrast material: CYSTOGRAFIN; Contrast volume: 300 ml; Contrast route: NON-VASCULAR INTERVENTIONAL INJECTION (NON-VASCULA; Other contrast: Catheter, Cystografin, 300; COMPARISON: CT ABD PELVIS W/CONT 04/14/2022 3:05 PM RADIATION DOSE METRICS: Fluoroscopy time (seconds): seconds= 67 Number of fluoro spot images: images= 11 Reference air kerma (TILA): 41.54 mGy FINDINGS: Egg Sorter image demonstrates nonspecific bowel gas pattern. Moderate residual fecal matter is identified. Surgical clips are identified in the right upper quadrant. Contrast was instilled through the indwelling Lewis catheter. The bladder has a normal radiographic appearance. There is no evidence of extravasation of contrast. The contrast was drained from the bladder. After consultation with the doctor's office the catheter was removed. Impression: No evidence of extravasation of contrast. Normal appearing bladder. at 1322 Reported and signed by: Aranza Oscar MD CC: Tramaine Gaspar MD; Kirill Frye MD Technologist: Agnieszka Dudley, RT Trnscrbd D/ (1322) GCD.CPS Orig Print D/T: S: 04/22/2022 (1323) [facility] NAME: MICHELLE ROJO Radiology Department PHYS: Kirill Frye MD [address] : 1990 AGE: 32 SEX: F [place], [place] [address] LOC: ImanRAD PHONE #: [phone] EXAM DATE: 04/22/2022 STATUS: REG CLI FAX #: [phone] RAD NO: Page 1 Signed Report SURGICAL 2022-04-15 17:11:00 Test Item Value Reference Range Interpretation Comme nts SURGICAL RUN DATE: (test 04/15/22 [facility] y PAGE 1 RUN TIME: 1711 Specimen Inquiry RUN USER: INTERFACE code = PATIENT: MICHELLE BIGGS [id number] LOC: VÍCTOR #: [id number] AGE/SX: 32/F [facility] RE04[facility]15/22REG DR: Valentina Thompson MD : [birth year] BED: A DIS: STATUS: ADM IN TLOC: SPEC #: [id number] RECD: STATUS: SOU RE #: [id number] TANVIR: 04/13/[address] [facility] [address]: Valentina Thompson MD ENTERED: SP TYPE: SURGICAL OTHR DR: Tramaine Gaspar MD ORDERED: ANATOMIC SPEC, SPEC TRACK, [id number] COPI ES TO: Tramaine Gaspar MD [address] [facility] [address] [place] [address] [email or web address]. Valentina Borja MD [address] [facility], [address] [place], [place] [id number] PROCEDURES: 68147 (04/14/22747) TISSUES: A. UTERUS W/WO TUBES OVARIES NON NEOPLASTIC/PROLAPSE - UTERUS, CERVIX, BILATERAL TU BES FINAL DIAGNOSIS A. UTERUS AND FALLOPIAN TUBES, HYSTERECTOMY AND BILATERAL SALPINGECTOMY: - C ervix with mild chronic cervicitis and nabothian cysts - Polypoid inactive endometrium with pseudodecid ualized stroma, negative for atypia, negative for malignancy - Myometrium with no pathologic alteratio n - Fallopian tubes with complete luminal cross sections present - Specimen weight 65 g GROSS DESCRIPTIO N Specimen is received in formalin, labeled with patient's name, MRN, date of anduterus, cervix, bilateral tubes. It consists of a hysterectomy specimen with bilateralfallopian tubes gerard sierra in aggregate 65 g. Uterus measures 6.9 cm in length from fundusto distal most portion of exoce rvix, 4.8 cm in maximum cornu to cornu width and 3.3 cmanteroposteriorly. Cervix is 3.2 cm in length a nd 4.2 cm in greatest diameter. Portiovaginalis is pham smooth. Os is slit-like and 1.4 cm across. Cervical canal is tanrugated appearance and is partially coated with pham-abdullahi mucoid material. En dometrialcavity measures 3.7 cm in length and 2.3 cm in maximum width. Endometrium is pham-pink and0 .1-0.2 cm in thickness. Myometrium is pham-pink and up to 1.7 cm in thickness. Rightfallopian tu be with fimbria is 6.8 cm in length and 0.4 cm in greatest diameter. Serosa istan-brown smooth. Sectioni ng reveals partially patent lumen. Left fallopian tube withoutfimbria is 4.2 cm in length and 0.4 cm in d iameter. Serosa is pham-brown smooth. CONTINUED ON NEXT PAGE RUN DATE: 04/15/22 [facility] - [facility] y PAGE 2 RUN TIME: 1711 Specimen Inquiry RUN USER: INTERFACE SPEC #: [id number] PATIENT: MICHELLE ROJO #[id number] (Continued) GROSS DESCRIPTION (Continued ) Sectioning reveals partially patent lumen. Tailoring Teacher sections are submitted asfollows: A1-A2 a nterior cervix and lower uterine segment A3-A4 posterior cervix and lower uterine segment A 5-A6 anter ior endomyometrium, 1 full-thickness section each A7-A8 posterior endomyometrium, 1 full-thick ness section each A9-A10 sales representative business courses sections of right fallopian tube with entire fimbria A11 left fallopian tmmbuj64/2/22 Unless gross only, the diagnosis is based upon microscopic examination.Immu nohistochemistry: This test was developed and its performance characteristicsdetermined by this laboratory. It has not been approved nor does it need approval by [place] FDA. Appropriate posit valeriano and negative controls are reviewed and judged to beacceptable. This laboratory is certified unde r the Clinical Laboratory ImprovementAmendments (CLIA-88) as qualified to perform high complexity clin ical laboratory testing. CLINICAL INFORMATION 04/13/22, OUT OF BODY 1457P, IN FORMALIN 1610P, UTERINE FIBROID, ABNORMAL UTERINE BLEEDING. Signed SIGNATURE ON FILE Pam Ramirez 04/15/22 1711 END OF REPORT [id number] [id number] 05:35:00 Test Item Value Reference Range Interpretation Comments HEMOGLOBIN (test code = HGB) 12.3 g/dL 10.1-13.8 N HEMATOCRIT (test code = HCT) 36.1 % 32.5-41.8 N - CT ABD PELVIS [id number] 00:00:00 [facility] : 1990 Sex: F Patient Name: MICHELLE ROJO Unit No: [id number] EXAMS: CPT CODE: [id number] CT ABD PELVIS W/CONT 54403 Radiation Dose CTDIVOL = 9.36 (mGy): DLP = 900.32 (mGy-cm) PROCEDURE INFORMATION: Exam: CT Abdomen And Pelvis With Contrast Exam date and time: 04/14/2022 3:05 PM Age: 32 years old Clinical indication: Abdominal pain; Prior surgery; Surgery type: Surgical report scanned in TECHNIQUE: Imaging protocol: Computed tomography of the abdomen and pelvis with contrast. Radiation optimization: All CT scans at [facility] use at least one of these dose optimization techniques: automated exposure control; mA and/or kV adjustment per patient size (includes targeted exams where dose is matched to clinical indication); or iterative reconstruction. Contrast material: ISOVUE 300; Contrast volume: 100 ml; Contrast route: INTRAVENOUS (IV); Other contrast: Oral, GASTROGRAFIN, 40; COMPARISON: US PELVIS COMPLETE 04/10/2021 9:50 AM RADIATION DOSE METRICS: CTDI volume (mGy): 9.36 Total DLP (mGy-cm): 900.32 FINDINGS: Lungs : Minor bilateral lower lobe atelectasis. Liver: Liver normal. Gallbladder and bile ducts: Cholecystectomy, biliary system within normal limits. Pancreas: Pancreas normal. Spleen: Spleen normal. Adrenal glands: Adrenals normal. Kidneys and ureters: No renal mass, calculus, hydronephrosis or perinephric stranding. Incidental tiny bilateral renal cortical cysts not requiring further imaging. Stomach and bowel: Slightly prominent fluid-filled small bowel suggesting postoperative ileus. Appendix: Not visualized. [facility] NAME: MICHELLE ROJO Radiology Department PHYS: Valentina Mckeon MD [address] : 1990 AGE: 32 SEX: F [place], [place] [address] LOC: Espinoza.2620 A PHONE #: [phone] EXAM DATE: 04/14/2022 STATUS: ADM IN FAX #: [phone] RAD NO: Page 1 Signed Report 1 Patient Name: MICHELLE ROJO Unit No: [id number] EXAMS: CPT CODE: [id number] CT ABD PELVIS W/CONT 86537 (Continued) Intraperitoneal space: Postoperative pneumoperitoneum and small amount of intraperitoneal fluid. Vasculature: Unremarkable. Lymph nodes: No adenopathy. Urinary bladder: On the delayed images, contrast extravasation from the posterior wall of the urinary bladder into the pelvic fluid collection indicative of bladder injury. Best seen sagittal series 604, image 60 and axial series 6, image 80. Reproductive: Post hysterectomy, scattered retroperitoneal gas bubbles. Bones/joints: Skeleton normal. Soft tissues: Typical postoperative changes ventral abdominal wall and periumbilical region. IMPRESSION: 1. Posterior bladder wall injury with contrast extravasation into the pelvis. 2. Hysterectomy with postoperative intraperitoneal fluid, pneumoperitoneum and abdominal wall changes. 3. Probable mild small bowel ileus. Critical finding called to at 3:55 p.m. at 1601 Reported and signed by: Kyle De Jesus MD CC: Tramaine Gaspar MD; Valentina Thompson MD Technologist: Evonne Calvert, RT, CT CTDI: 9.36 DLP: 900.32 Trnscrbd D/ (1601) GCD.CPS [facility] NAME: MICHELLE ROJO RadiologyDepartment PHYS: Valentina Mckeon MD [address] : 1990 AGE: 32 SEX: F [place] [address] LOC: Espinoza.2620 A PHONE #: [phone] EXAM DATE: 04/14/2022 STATUS: ADM IN FAX #: [phone] RAD NO: Page 2 Signed Report 1 Patient Name: MICHELLE ROJO Unit No: [id number] EXAMS: CPT CODE: [id number] CT ABD PELVIS W/CONT 34685 (Continued) Orig Print D/T: S: 04/14/2022 (1610)[facility] NAME: MICHELLE ROJO Radiology Department PHYS: Valentina Mckeon MD [address] : 1990 AGE: 32 SEX: F [place], [place] [address] LOC: F.2620 A PHONE #: [phone] EXAM DATE: 04/14/2022 STATUS: ADM IN FAX #: [phone] RAD NO: Page 3 Signed Report [id number] 17:23:00 Test Item Value Reference Range Interpretation Comments GLUBED (test code = GLUBED) 92 mg/dL 65-110 N [id number] 12:39:00 Test Item Value Reference Range Interpretation Comments GLUBED (test code = GLUBED) 74 mg/dL 65-110 N HCG SERUM [id number] 13:46:00 Test Item Value Reference Range Interpretation Comments HCG SERUM QUAL (test code = HCGQL) NEGATIVE COVID 19 Asymptomatic IH [id number] 13:21:00 Test Item Value Reference Range Interpretation Comments COVID 19 NEGATIVE NEGATIVE This test has b een Asymptomatic IH AG authorize d only for the (test code = detection ofpro teins from COVNONPUIAG) SARS-CoV-2, not for any other viruses orpathogens. Ne gative results should be treated as presumptive andconfirmed wi th a molecular assay , if necessary for patientmanageme nt. Negative result s do not rule out COVID- 19 andshould not b e used as the sole basis for treatment orpat ient management deci sions, including infec tion controldecision s. Negative result s should be considered i n thecontext of a patient's recent exposure s, history and thepresence of clinical signs and symptoms consis tent withCOVID-19. T his test has not been FD A cleared or approved; th e test hasbeen authori marcela by FDA under an Emerge ncy Use Authorization(E UA) for use by laborato jordyn certified under the CLIA thatmeet the re quirements to perform mode rate, high or waivedcomple xity tests. This zurdo t is authorized for use at thePoint of Car e (POC), i.e., in patien t care settingsoperati ng under a CLIA Certificat e of Waiver, Certifi coretta ofCompliance, o r Certificate of Accreditation. This test is only authori zed for the duration of thedeclaration that circumstances e xist justifying theauthorizatio n of emergency use o f in vitro diagnostic test sfor detection and/o r diagnosis of CO VID-19 under Dimluir55 4(b)(1) of the Act, 21 U.S .C. 360bbb-3(b)(1), unless theauthorizatio n is terminated or r evoked sooner. CBC W/AUTO [id number] 13:00:00 Test Item Value Reference Range Interpretation Comments WHITE BLOOD CELL (test code = WBC) 10.1 K/mm3 6.5-12.3 N RED BLOOD CELL (test code = RBC) 4.91 M/mm3 3.51-4.69 H HEMOGLOBIN (test code = HGB) 14.7 g/dL 10.1-13.8 H HEMATOCRIT (test code = HCT) 44.2 % 32.5-41.8 H MEAN CELL VOLUME (test code = MCV) 90.0 fL 84.6-96.6 N MEAN CELL HGB (test code = MCH) 29.9 pg 27.3-33.9 N MEAN CELL HGB CONCETRATION (test 33.3 gm/dL 32.0-34.2 N code = MCHC) RED CELL DISTRIBUTION WIDTH (test 12.8 % 12.2-16.3 N code = RDW) PLATELET COUNT (test code = PLT) 330 K/mm3 134-363 N MEAN PLATELET VOLUME (test code = 10.1 fL 9.2-12.7 N MPV) NEUTROPHIL % (test code = NT%) 55.2 % 57.9-77.3 L LYMPHOCYTE % (test code = LY%) 38.0 % 14.5-29.7 H MONOCYTE % (test code = MO%) 4.7 % 3.6-10.2 N EOSINOPHIL % (test code = EO%) 1.1 % 0.0-3.0 N BASOPHIL % (test code = BA%) 0.7 % 0.1-0.9 N NEUTROPHIL # (test code = NT#) 5.6 K/mm3 LYMPHOCYTE # (test code = LY#) 3.8 K/mm3 MONOCYTE # (test code = MO#) 0.5 K/mm3 EOSINOPHIL # (test code = EO#) 0.11 K/mm3 BASOPHIL # (test code = BA#) 0.1 K/mm3 RBC MORPHOLOGY REQUIRED (test code NORMAL NORMAL = RBCM) PLATELET MORPHOLOGY REQUIRED (test NORMAL NORMAL code = PLTMR) test, [id number] 13:45:00 Test Item Value Reference Range Interpretation Comments HCG (test code = HCG) negative [facility] [id number] 12:08:13 Test Item Value Reference Interpretation Comments Range TROPONIN I (test See_Comment [Automated code = 1816605381) message] The system which generated this result [...] biotin. Lab Interpretation Normal (test code = 36979-2) [facility] [id number] 11:05:47 Test Item Value Reference Interpretation Comments Range TROPONIN I (test See_Comment [Automated code = 2337169546) message] The system which generated this result [...] biotin. Lab Interpretation Normal (test code = 25394-3) [facility] CenterN-TERMINAL [id number] 11:02:45 Test Item Value Reference Range Interpretation Comments NT-proBNP (test code 85 pg/mL See_Comment [Autom ated = 9310270287) message] The system which generated this result transmitted reference range : <=125. The reference range was not used to interpret this result as normal/abnormal . MICAH (test code = MICAH) Biotin has been reported to cause a negative bias, interpret results relative to patient's use of biotin. Lab Interpretation Normal (test code = 48575-9) [facility] CenterCOMP. METABOLIC PANEL (74961)[id number] 10:53:42 Test Item Value Reference Range Interpretation Comments NA (test code = 143 mmol/L 135-145 7061443955) K (test code = 4.5 mmol/L 3.5-5 4823844310) CL (test code = 110 mmol/L 98-108 H 2946402546) CO2 TOTAL (test code = 20 mmol/L 23-31 L 7370772283) AGAP (test code = 2-16 8232565847) BUN (test code = 6 mg/dL 7-23 L 8561697849) GLUCOSE (test code = 100 mg/dL 70-110 3877298768) CREATININE (test code = 0.70 mg/dL 0.5-1.04 7764720276) TOTAL BILI (test code = 0.7 mg/dL 0.1-1.1 8346903009) CALCIUM (test code = 9.6 mg/dL 8.6-10.6 6321194633) T PROTEIN (test code = 7.5 g/dL 6.3-8.2 3559893016) ALBUMIN (test code = 4.4 g/dL 3.5-5 5794749908) ALK PHOS (test code = 71 U/L 34-122 5074014690) ALTv (test code = 24 U/L 5-35 1742-6) AST(SGOT) (test code = 34 U/L 13-40 8702583675) eGFR (test code = mL/min/1.73m2 5845439528) MICAH (test code = MICAH) Association of [...] tests). Lab Interpretation Abnormal (test code = 77020-2) [facility] CenterLIPASE, [id number] 10:53:42 Test Item Value Reference Range Interpretation Comments LIPASE (test code = 7603264057) 194 U/L 0-220 Lab Interpretation (test code = Normal 15701-7) [facility] CenteraPTT2022-08-07 10:52:02 Test Item Value Reference Range Interpretation Comments APTT Patient (test See_Comment [Automat ed code = 3173-2) message] The system which generated this result transmitted reference range : 23 - 38 Seconds . The reference range was not used to interpr et this result as normal/abnormal . MICAH (test code = MICAH) The [facility] patient population mean normal value for aPTT is 30 seconds. Lab Interpretation Normal (test code = 40683-4) [facility] CenterPROTHROMBIN TIME / [id number] 10:50:01 Test Item Value Reference Range Interpretation [...] tions. Lab Interpretation (test Normal code = 79407-8) [facility] CenterCBC WITH [id number] 10:43:44 Test Item Value Reference Range Interpretation Comments WBC (test code = See_Comment [Automated 5390-2) message] The sy stem which generated this result transmitted reference range : 4.30 - 11.10 10*3/?L. The reference range was not used to interpret this result as normal/abnormal . RBC (test code = See_Comment [Automated 729-8) message] The sy stem which generated this [...] RDW-SD (test code = 40.4 fL 39-49.9 06870-8) RDW-CV (test code = 12.9 % 12-15.5 788-0) PLT (test code = See_Comment [Automated 777-3) message] The sy stem which generated this result transmitted reference range : 166 - 358 10*3/ ?L. The reference r david was not used to interpret this result as normal/abnormal . MPV (test code = 9.8 fL 9.5-12.9 40811-2) NRBC/100 WBC (test See_Comment [Automat ed code = 0612743404) message] The system which generated this result transmitted reference range : 0.0 - 10.0 /100 WBCs. The refer ence range was not u sed to interpret th is result as normal/abnormal . NRBC x10^3 (test code See_Comment [Auto mated = 2299802834) message] The s ystem which generated this result transmitted reference range : 10*3/?L. The reference range was not used to interpret this result as normal/abnormal . GRAN MAT (NEUT) % 49.8 % (test code = 770-8) IMM GRAN % (test code 0.30 % = 4289380528) LYMPH % (test code = 42.7 % 736-9) MONO % (test code = 4.7 % 5905-5) EOS % (test code = 1.8 % 713-8) BASO % (test code = 0.7 % 706-2) GRAN MAT x10^3(ANC) 4.95 10*3/uL 1.88-7.09 (test code = 1046071844) IMM GRAN x10^3 (test 0.03 10*3/uL 0-0.06 code = 6275349685) LYMPH x10^3 (test code 4.24 10*3/uL 1.32-3.29 H = 731-0) MONO x10^3 (test code 0.47 10*3/uL 0.33-0.92 = 742-7) EOS x10^3 (test code = 0.18 10*3/uL 0.03-0.39 711-2) BASO x10^3 (test code 0.07 10*3/uL 0.01-0.07 = 704-7) Lab Interpretation Abnormal (test code = 23137-7) [facility]- DUP VEIN UNI [id number] 13:17:00 [facility] 1990 Sex: F Name: MICHELLE ROJO [facility] : 1990 Age/S: 31 / F [address] [facility] [address] Unit #: [id number] Loc: [place] [address] Phys: Dillon Tapia MD Acct: [id number] Dis Date: Status: REG ER PHONE #: [phone] Exam Date: 12/11/2021 1217 FAX #: Reason: leg pain EXAMS: CPT: [id number] [place] [address] EXAM: Left lower extremity venous Doppler HISTORY: leg pain TECHNIQUE: Grayscale real-time B-mode imaging with color flow and spectral flow Doppler analysis was performed of the left lower extremity. COMPARISON: None FINDINGS: There is normal compressibility with no evidence of thrombus involving the visualized venous structures of the left lower extremity. The visualized veins of the left lower e xtremity are common femoral, superficial femoral, proximal profunda femoral, popliteal and great saphenous veins. The posterior tibial and peroneal veins were seen as well. IMPRESSION: No evidence of deep venous thrombosis in the visualized structures of the left lower extremity. at 1317 Reported and signed by: Dylan Crocker M.D. CC: Tramaine Gaspar MD; Dillon Tapia MD Technologist: Josefa Barrett RDMS Trnscb Date/Time: 12/11/2021 (3307) MariyaVB7 PAGE 1 Signed Report Name: MICHELLE ROJO : 1990 Age/S: 31 / F [address] [address] Unit #: [id number] Loc: [place] [address] Phys: Dillon Tapia MD Acct: [id number] Dis Date: Status: REG ER PHONE #: [phone] Exam Date: 12/11/2021 1217 FAX #: Reason: leg pain EXAMS: CPT: [id number] [address] <Continued> Orig Print D/T: S: 12/11/2021 (9802) Probe: PAGE 2 Signed ReportBASIC METABOLIC [id number] 11:03:00 Test Item Value Reference Range Interpretation [...] 8.5-10.1 H Completed by Nursing: NOHEPATIC FUNCTION [id number] 11:03:00 Test Item Value Reference Range Interpretation [...] = ALKP) Completed by Nursing: NOTROP-I HIGH [id number] 11:03:00 Test Item Value Reference Range Interpretation [...] may varyby method. Completed by Nursing: NOHCG [id number] 11:03:00 Test Item Value Reference Range Interpretation Comments HCG SERUM (test < 1 mi-IU/ML 0-6 N 0 - 6 NOT P REGNANT > 6 code = HCG) SUGGESTIVE OF E JHOAN RISES TWO FOLD EVERY 2 DAYS; S UGGEST RECONFIRMING AF TER 2 DAYS. 150,000-2 [address] TRIMESTER 10 ,000 - 50,000 2ND & 3R D TRIMESTER - XR CHEST 1 [id number] 10:42:00 [facility] : 1990 Sex: F [facility]: [facility] 1990 Age/S: 31 / F [address] [address] [place] Unit #: [id number] Loc: [place] [address] Phys: Dillon Tapia MD Acct: [id number] Dis Date: Status: REG ER PHONE #: [phone] Exam Date: 12/11/2021 1033 FAX #: Reason: chest pain EXAMS: CPT: [id number] XR CHEST 1 V 28562 Fluoro Time: DAP (Gy m2): Air Kerma (mGy): Location: C3 EXAM: XR CHEST 1 VIEW INDICATION: chest pain COMPARISON: None TECHNIQUE: AP Chest FINDINGS: Lines, tubes and hardware: None. Lungs and pleura: No focal consolidation. Costophrenic sulci are sharp bilaterally. No pneumothorax. Pulmonary vascularity is normal. Heart/mediastinum: Heart size is within normal limits. Bones/soft tissues: No acute bonyabnormality. There is thoracic dextroconvex curvature. IMPRESSION: No radiographic evidence of acutecardiopulmonary abnormality. rd1720 Reported and signed by: Doni Carpio M.D. CC: Tramaine Gaspar MD; Dillon Tapia MD PAGE 1 Signed Report Name: MICHELLE ROJO [place] : 1990 Age/S: 31 / F [address] [address] Unit #: [id number] Loc: [place] [address] Phys: Dillon Tapia MD Acct: [id number] Dis Date: Status: REGER PHONE #: [phone] Exam Date: 12/11/2021 1033 FAX #: Reason: chest pain EXAMS: CPT: [id number] XR CHEST 1 V 83505 Fluoro Time: DAP (Gy m2): Air Kerma (mGy): <Continued> Technologist: Jhonatan Navarro, RT(R)(MR) Trnscb Date/Time: 12/11/2021 (1041) [id number] Orig Print D/T: S: 12/11/2021 (0293) PAGE 2 Signed ReportPROTHROMBIN [id number] 10:38:00 Test Item Value Reference Range Interpretation [...] (to prevent recurrent infar ct). THROMBOPLASTIN TIME [id number] 10:38:00 Test Item Value Reference Range Interpretation Comments THROMBOPLASTIN TIME PARTIAL 29.6 SECONDS 26-35 N (test code = PTT) CBC W/O [id number] 10:33:00 Test Item Value Reference Range Interpretation [...] = 10.20 fL 7.0-10.5 N MPV) test, [id number] 14:53:00 Test Item Value Reference Range Interpretation Comments HCG (test code = HCG) negative [place] TRANSVAGINAL NON [id number] 11:06:00 [facility] : 1990 Sex: F Name: MICHELLE ROJO [facility] : 1990 Age/S: 31 / F [address] [address] Unit #: [id number] Loc: [place] [address] Phys: Jeanie Guardado MD Acct: [id number] Dis Date: Status: REG CLI PHONE #: [phone] Exam Date: 04/10/2021 1021 FAX #: Reason: pain EXAMS: CPT: [id number] [place] [address] EXAM: Pelvic ultrasound INDICATION: Pelvic pain COMPARISON: 06/27/2020, 07/26/2017 LOCATION: S17 TECHNIQUE: Grayscale and color Doppler and spectral Doppler sonographic images were obtained ofthe pelvis using transabdominal and endovaginal technique. FINDINGS: The retroverted uterus measures6.7 x 4.9 x 2.9 cm. No uterine masses are seen. Endometrial stripe measures 3 mm in thickness. Nonshadowing nonvascular echogenic structure in the fundal endometrial stripe measures 0.4 x 0.3 x 0.3 cm,similar to prior; appearance is nonspecific, but doubtful clinical significance. The right ovary measures 3.3 x 2.2 x 1.6 cm and exhibits normal follicles. The left ovary measures 3.5 x 1.7 x 1.4 cm and exhibits normal follicles. Blood flow is documented within bilateral ovaries on Doppler images. Nofree fluid. IMPRESSION: No significant abnormalities. at 1106 Reported and signed by: Delvis Beltran M.D. CC: Tramaine Gaspar MD; Jeanie Guardado MD Technologist: Josefa Barrett RDMS Trnscb Date/Time: 04/10/2021 (1106) [email or web address] 1 Signed Report [facility] 1990 Age/S: 31 / F [address] [address] Unit #: [id number] Loc: [place] [address] Phys: Jeanie Guardado MD Acct: [id number] Dis Date: Status: REG CLI PHONE #: [phone] Exam Date: 04/10/2021 1021 FAX #: Reason: pain EXAMS: CPT: [id number] [place] [address] <Continued> Orig Print D/T: S: 04/10/2021 (1109) Probe: [id number] PAGE 2 Signed Report- US PELVIC COMPLETE 2021-04-10 11:06:00 [facility] : 1990 Sex: F Name: MICHELLE ROJO [facility] : 1990 Age/S: 31 / F [address] [address] Unit #: [id number] Loc: [place] [address] Phys: Jeanie Guardado MD Acct: [id number] Dis Date: Status: REG CLI PHONE #: [phone] Exam Date: 04/10/2021 1021 FAX #: Reason: PAIN EXAMS: CPT: [id number] US PELVIC COMPLETE 55976 EXAM: Pelvic ultrasound INDICATION: Pelvic pain COMPARISON: 06/27/2020, 07/26/2017 LOCATION: [id number]: Grayscale and color Doppler and spectral Doppler [...] but doubtful clinical significance. The right ovary measures3.3 x 2.2 x 1.6 cm and exhibits normal follicles. The left ovary measures 3.5 x 1.7 x 1.4 cm and exhi bits normal follicles. Blood flow is documented within bilateral ovaries on Doppler images. No free fluid. IMPRESSION: No significant abnormalities. Electronically Signed by Velasquez Beltran on 04/10/2021 at 1106 Reported and signed by: Delvis Beltran M.D. CC: Tramaine Gaspar MD; Jeanie Guardado MD Technologist: Josefa Barrett RDMS Trnscb Date/Time: 04/10/2021 (1106) MariyaPE1 PAGE 1 Signed Report Name: MICHELLE ROJO [place] : 1990 Age/S: 31 / F [address] [address] Unit #: [id number] Loc: [place] [address] Phys: Jeanie Guardado MD Acct: [id number] Dis Date: Status: REG CLI PHONE #: [phone] Exam Date: 04/10/2021 1021 FAX #: Reason: PAIN EXAMS: CPT: [id number] US PELVIC COMPLETE [address]5480 <Continued> Orig Print D/T: S: 04/10/2021 (7119) Probe: PAGE 2 Signed Report- US ABDOMEN [id number] 10:53:00[facility] : 1990 Sex: F Name: MICHELLE ROJO [place] : 1990 Age/S: 31 / F [address] Unit #: [id number] Loc: [place] [address] Phys: Jeanie Guardado MD Acct: [id number] Dis Date: Status: REG CLI PHONE #: [phone] Exam Date: 04/10/2021 0950 FAX #: Reason: PAIN EXAMS: CPT: [id number] US ABDOMEN COMPLETE 92856 EXAMINATION: - US ABDOMEN COMPLETE COMPARISON: Renal ultrasound performed July 18, 2020 HISTORY: Abdominal pain Location code: C3 TECHNIQUE: Multiplanar grayscale and Doppler ultrasound images of the abdomen are submitted for review. FINDINGS: PANCREAS: The head and body of the pancreas are visualized and are normal. The tail is obscured by bowel gas. LIVER: The liver is normal in size andechotexture, measuring 16.6 cm in the right midclavicular [...] small stone or prominent renal sinus fat. LEFT KIDNEY: The left kidney measures 10.1 cm. Mild prominence of the left renal collecting system is present and has not significantly changed from the prior study. A 3 mmechogenic focus in the lower pole may reflect the presence of a small stone or prominent renal sinusfat. SPLEEN: The spleen is normal, measuring 9.7 cm FREE FLUID: None VESSELS: The visualized portions of the abdominal aorta and inferior vena cava are normal. The portal vein is patent, with appropriate directional flow IMPRESSION: Mild bilateral pelvocaliectasis. Appearance of the left kidney is relatively stable, while the right renal collecting system is slightly PAGE 1 Signed Report (CONTINUED) Name: MICHELLE ROJO [place] : 1990 Age/S: 31 / F [address] [facility] Unit #: [id number] Loc: [place] [address] Phys: Jeanie Guardado MD Acct: [id number] Dis Date: Status: REG CLI PHONE #: [phone] Exam Date: 04/10/2021 0950 FAX #: Reason: PAIN EXAMS: CPT: [id number] US ABDOMEN COMPLETE 22106 <Continued> more prominent compared to the prior study. Tiny echogenic foci in both kidneys. They were not seen on the prior study. They may represent new stones or areas of prominent echogenic fat. at 1053 Reported and signed by: Tessa Cordoba M.D. CC: Tramaine Gaspar MD; Jeanie Guardado MD Technologist: Josefa Barrett RDMS Trnscb Date/Time: 04/10/2021 (3190) MariyaAG38 PAGE 2 Signed Report Name: MICHELLE ROJO : 1990 Age/S: 31 / F [address] [address] Unit #: [id number] Loc: [place] [address] Phys: Jeanie Guardado MD Acct: [id number] Dis Date: Status: REG CLI PHONE #: [phone] Exam Date: 04/10/2021 0950 FAX #: Reason: PAIN EXAMS: CPT: [id number] US ABDOMEN COMPLETE 32104 <Continued> Orig Print D/T: S: 04/10/2021 (7511) Probe: PAGE 3 Signed Reportpregnancy test, [id number] 10:26:10 Test Item Value Reference Range Interpretation Comments HCG (test code = HCG) [facility] [id number] 10:26:10 Test Item Value Reference Range Interpretation Comments HCG (test code = HCG) negative [facility]- US RETROPERITONEAL [id number] 16:16:00 [facility] : 1990 Sex: F [place]: [place] : 1990 Age/S: 30 / F [address] [address] Unit #: [id number] Loc: [place] [address] Phys: Matt Benson MD Acct: [id number] Dis Date: Status: REG CLI PHONE #: [phone] Exam Date: 07/18/2020 1526 FAX #: Reason: KIDNEY STONE EXAMS: CPT: [id number] US RETROPERITONEALCOM 99628 EXAMINATION: - US RETROPERITONEAL COM. LOCATION: B2. HISTORY: KIDNEY STONE. COMPARISON: Renal ultrasound dated 01/14/2020. TECHNIQUE: Routine renal ultrasound was performed. Pre and post void ultrasound images of the urinary bladder were also obtained. FINDINGS: The kidneys are normal in size.The right kidney measures 10.0 cm, and the left kidney measures 10.8 cm in length. Cortical echogenicity is within normal limits. Mild left pelviectasis is present, decreased since prior exam. There isno evidence of renal mass or urolithiasis. The [...] MD Technologist: Yarely Ayon Trnscb Date/Time: 07/18/2020 (1616) [email or web address] PAGE 1 Signed Report Name: MICHELLE ROJO [place] : 1990 Age/S: 30 /F [address] [address] Unit #: [id number] Loc: [place] [address] Phys: Matt Benson MD Acct: [id number] Dis Date: Status: REG CLI PHONE #: [phone] Exam Date: 07/18/2020 1526 FAX #: Reason: KIDNEY STONE EXAMS: CPT: [id number] US RETROPERITONEAL COM 80546 <Continued> Orig Print D/T: S: 07/18/2020 (1713) Probe: PAGE 2 Signed Report- US PELVIC [id number] 09:37:00[facility] : 1990 Sex: F Name: [facility] [place] : 1990 Age/S: 30 / F [address] [address] Unit #: [id number] Loc: [place] [address] Phys: Tramaine Gaspar MD Acct: [id number] Dis Date: Status: REG CLI PHONE #: [phone] Exam Date: 06/27/2020 0835 FAX #: Reason: PELVIC PERINEAL PAIN EXAMS: CPT: [id number] US PELVIC COMPLETE 64653 Site ID: [id number] Transvaginal and transabdominal pelvic [...] at 0937 Reported and signed by: Olegario Guardado M.D. CC: Tramaine Gaspar MD Technologist: Yarely Ayon Trnscb Date/Time: 06/27/2020 (0937) MariyaAJP6 PAGE 1 Signed Report Name: MICHELLE ROJO [place] : 1990 Age/S: 30 / F [address] Unit #: [id number] Loc: [place] [address] Phys: Tramaine Gaspar MD Acct: [id number] Dis Date: Status: REG CLI PHONE #: [phone] Exam Date: 06/27/2020 0835 FAX #: Reason: PELVIC PERINEAL PAIN EXAMS: CPT: [id number] US PELVIC COMPLETE 30329 <Continued> Orig Print D/T: S: 06/27/2020 (0940) Probe: PAGE 2 Signed Report- US TRANSVAGINAL NON OB 2020-06-27 09:37:00 [facility] : 1990 Sex: F Name: MICHELLE ROJO [facility] : 1990 Age/S: 30 / F [address] [address] Unit #: [id number] Loc: [place] [address] Phys: Tramaine Gaspar MD Acct: [id number] Dis Date: Status: REG CLI PHONE #: [phone] Exam Date: 06/27/2020 0852 FAX #: Reason: PELVIC PERINEAL PAIN EXAMS: CPT: [id number] [place] [address] Site ID: [id number] Transvaginal and transabdominal pelvic [...] at 0937 Reported and signed by: Olegario Guardado M.D. CC: Tramaine Gaspar MD Technologist: Yarely Ayon Trnokb Date/Time: 06/27/2020 (0937) [email or web address] PAGE 1 Signed Report Name: MICHELLE ROJO : 1990 Age/S: 30 / F [id number] Unit #: [id number] Loc: [place] [address] P hys: Tramaine Gaspar MD Acct: [id number] Dis Date: Status: REG CLI PHONE #: [phone] Exam Date: 06/27/2020 0852 FAX #: Reason: PELVIC PERINEAL PAIN EXAMS: CPT: [id number] [place] [address] <Continued> Orig Print D/T: S: 06/27/2020 (0940) Probe: [id number] PAGE 2 Signed Reportpregnancy test, [id number] 15:01:00 Test Item Value Reference Range Interpretation Comments HCG (test code = HCG) negative [facility]- US RETRO [id number] 08:20:00 Name: MICHELLE ROJO [place] : 1990 Age/S: 29 / F [address] Unit #: [id number] [place]: [place] [address] Phys: Matt Benson MD Acct: [id number] Dis Date: Status: REG CLI PHONE #:[phone] Exam Date: 01/14/2020 0802 FAX #: Reason: KIDNEY STONE EXAMS: CPT: [id number] US RETRO LTD [address] EXAMINATION: - US RETRO LTD. LOCATION: S17. [...] ureteral jets noted. IMPRESSION: Unchanged mild bilateral hydronephrosis.Previously noted nephrolithiasis is not appreciated on current examination. Electronically Signedby Velasquez Hargrove on 01/14/2020 at 0820 Reported and signed by: Corinne Hargrove M.D. CC: Tramaine Gaspar MD; Matt Benson MD Technologist: Sejal Seth [facility] Date/Time: 01/14/2020 (08) [email or web address] PAGE 1 Signed Report Name: MICHELLE ROJO : 1990 Age/S: 29 /F [id number] Unit #: [id number] Loc: [place] [address] Phys: Matt Benson MD Acct: [id number] Dis Date: Status: REG CLI PHONE #: [phone] Exam Date: 01/14/2020 0802 FAX #: Reason: KIDNEY STONE EXAMS: CPT: [id number] US RETRO LTD [address] <Continued> Orig Print D/T: S: 01/14/2020 (0823) Probe: PAGE 2 Signed Report- XR FLUOROSCOPY 0-60 [id number] 16:12:00 Name: MICHELLE ROJO : 1990 Age/S: 29 / F [address] Unit #: [id number] Loc: [place] [address] Phys: Matt Benson MD Acct: [id number] Dis Date: Status: REG SD PHONE #: [phone] Exam Date: 11/21/2019 1000 FAX #: Reason: RETRO CYSTO WITH STENT PLACEMENT EXAMS: CPT: [id number] XR FLUOROSCOPY 0-60 MIN 92844 Fluoro Time: 59 DAP (Gy m2): Air [...] MD PAGE 1 Signed Report Name: MICHELLE ROJO : 1990 Age/S: 29 / F [address] Unit #: [id number] Loc: [place] [address] Phys: Matt Benson MD Acct: [id number] Dis Date: Status: [facility] PHONE #: [phone] Exam Date: 11/21/2019 1000 FAX #: Reason: RETRO CYSTO WITH STENT PLACEMENT EXAMS: CPT: [id number] XR FLUOROSCOPY 0-60 MIN 82081 Fluoro Time: 59 DAP (Gy m2): Air Kerma (mGy): 18.02 <Continued> Technologist: Agnieszka Aponte RT(R) Trnscb Date/Time: 11/21/2019 (161) [email or web address] Orig Print D/T: S: 11/21/2019 (1615) PAGE 2 Signed ReportNovel Coronavirus 2019 Inhouse 2019-11-18 08:18:00 Test Item Value Reference Range Interpretation Comments Novel Coronavirus 2019 Inhouse (test Negative Negative code = COVNONPUI) Comment: PRE OPNovel Coronavirus 2019 [id number] 08:17:00 Test Item Value Reference Range Interpretation Comments Novel Coronavirus 2019 Inhouse (test Negative Negative code = COVNONPUI) Comment: PRE OPPROTHROMBIN [id number] 15:58:00 Test Item Value Reference Range Interpretation Comments PT PATIENT (test code = PTP) 11.1 SECONDS 9.3-12.9 N INTERNATIONAL NORMAL RATIO 0.98 INR Unit 0.8-1.2 N (test code = INR) THROMBOPLASTIN TIME [id number] 15:58:00 Test Item Value Reference Range Interpretation Comments THROMBOPLASTIN TIME PARTIAL 29.8 SECONDS 26-35 N (test code = PTT) BASIC METABOLIC [id number] 15:56:00 Test Item Value Reference Range Interpretation [...] CA) 9.3 MG/DL 8.5-10.1 N HCG SERUM [id number] 15:51:00 Test Item Value Reference Range Interpretation Comments HCG SERUM QUAL (test SERUM NEGATIVE SCREEN NEGATIVE code = HCGQL) BASIC METABOLIC [id number] 15:51:00 Test Item Value Reference Range Interpretation [...] CA) 9.3 MG/DL 8.5-10.1 N CBC W/AUTO [id number] 15:47:00 Test Item Value Reference Range Interpretation [...] DIFF/SCN CRITERIA = MDIFF) - US RETRO [id number] 08:52:00 Name: MICHELLE ROJO : 1990 Age/S: 29 / F [address] Unit #: [id number] Loc: [place] [address] Phys: Matt Benson MD Acct: [id number] Dis Date: Status: REG CLI PHONE #:[phone] Exam Date: 09/17/2019 0835 FAX #: Reason: KIDNEY STONE HYDRONEPHROSIS EXAMS: CPT: [id number] RETRO LTD 13436 RENAL ULTRASOUND CLINICAL HISTORY: KIDNEY STONE HYDRONEPHROSIS COMPARISON: Ultrasound dated August 10, 2019 COMMENTS: Grayscale and color Doppler ultrasound of the kidneys wasperformed. Right kidney: 10.3 x 4.5 x 4 cm. The renal cortex measures 1.0 cm in thickness. The renalcortical echogenicity is normal. Mild right hydronephrosis is [...] Technologist: Shelby Corona, RT(R),RDMS(AB) Trnscb Date/Time: 09/17/2019 (851) [email or web address] PAGE 1 Signed Report Name: MICHELLE ROJO : 1990 Age/S: 29 / F [address] Unit #: [id number] Loc: [place] [address] Phys: Matt Benson MD Acct: [id number] Dis Date: Status: REG CLI PHONE #: [phone] Exam Date: 09/17/2019 0835 FAX #: Reason: KIDNEY STONE HYDRONEPHROSIS EXAMS: CPT: [id number] [place] RETRO [place] [address] <Continued> Orig Print D/T: S: 09/17/2019 (0855) Probe: PAGE 2 Signed Report- [place]RO [place] 2019-08-10 08:50:00 Name: MICHELLE ROJO [facility] : 1990 Age/S: 29 / F [address] Unit #: [id number] Loc: [place] [address] Phys: Matt Benson MD Acct: [id number] Dis Date: Status: REG CLI PHONE#: [phone] Exam Date: 08/10/2019 0835 FAX #: Reason: KIDNEY STONES EXAMS: CPT: [id number] [place] [address] EXAMINATION: - [place] [facility] [place]. LOCATION: S17. HISTORY: Kidney stones. COMPARISON: None.FINDINGS: Sonographic evaluation of the kidneys and bladder [...] Shelby Corona, RT(R),RDMS(AB) Trnscb Date/Time: 08/10/2019 (0850) [email or web address] PAGE 1 Signed Report Name: MICHELLE ROJO [facility] : 1990 Age/S: 29 / F [address] Unit #: [id number] Loc: [place] [address] Phys: Matt Benson MD Acct: [id number] Date: Status: REG CLI PHONE #: [phone] Exam Date: 08/10/2019 0835 FAX #: Reason: KIDNEY STONES EXAMS: CPT: [id number] RETRO LTD [address] <Continued> Orig Print D/T: S: 08/10/2019 (0853) Probe: PAGE 2 Signed Reportpregnancy test, [id number] 08:44:00 Test Item Value Reference Range Interpretation Comments HCG (test code = HCG) negative [facility] [Mass/volume] in Serum or [id number] 00:00:00 Test Item Value Reference Range Interpretation Comments magnesium (test code = magnesium) 2.3 mg/dL 1.5-2.5 [facility] 1995 panel - Serum or [id number] 00:00:00 Test Item Value Reference Range Interpretation [...] <130 H code = non HDL cholesterol) [facility]aryCom[facility] 1999 panel - Serum or Plasma 2019-02-04 00:00:00 Test Item Value Reference Range Interpretation Comments glucose (test code = 86 mg/dL 65-99 glucose) urea nitrogen (BUN) (test 9 mg/dL 7-25 code = urea nitrogen (BUN)) creatinine (test code = 0.96 mg/dL 0.50-1.10 creatinine) eGFR non-afr. bhutanese (test 80 mL/min/1.73m2 > or = 60 code = eGFR non-afr. bhutanese) eGFR (test 93 mL/min/1.73m2 > or = [...] (test code = ALT) 18 U/L 6-29 [facility]aryCreatine kinase [Enzymatic activity/volume] in Serum or [id number] 00:00:00 Test Item Value Reference Range Interpretation Comments creatine kinase, total (test code = 74 U/L 29-143 creatine kinase, total) [facility] W Auto Differential panel - [id number] 00:00:00 Test Item Value Reference Range Interpretation [...] fL 7.5-12.5 absolute neutrophils (test 6969 cells/uL 1289-0111 code = absolute neutrophils) absolute lymphocytes (test [...] basophils (test code = 0.5 % basophils) [facility]aryThyrotropin [Units/volume] in Serum or [id number] 00:00:00 Test Item Value Reference Range Interpretation Comments TSH (test code = TSH) 3.95 mIU/L [facility]aryFolate+Cyanocobalamin [interpretation] in Serum or Blood 2019-02-04 00:00:00 Test Item Value Reference Range Interpretation Comments vitamin B12 (test code = vitamin 568 pg/mL 200-1100 B12) folate, serum (test code = folate, 5.9 NG/mL serum) [facility]aryCejqfhfz64-Ydglwntsmzzcdz D [Mass/volume] in Serum or Plasma 2019-02-04 00:00:00 Test Item Value Reference Range Interpretation Comments vitamin D,25-oh,total,ia (test code 29 NG/mL 30-100 L = vitamin D,25-oh,total,ia) [facility]aryextra lavender-top [id number] 10:41:00Extra Lavender- top [facility], [facility] + HPV mRNA E6/[id number] 00:00:00 Test Item Value Reference Range Interpretation [...] = interpretation/result:) comment: (test code = comment:) 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:) review 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: (test code = review 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:) comment (test code = comment) Human papilloma virus 16 and not detected not detected 18+45 E6+E7 mRNA [Identifier] in Cervix by GEORGE with probe detection (test code = 83095-9) [facility], IG + HPV mRNA E6/[id number] 00:00:00 Test Item Value Reference Range Interpretation [...] = interpretation/result:) comment: (test code = comment:) 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:) review 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: (test code = review 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:) comment (test code = comment) Human papilloma virus 16 and not detected not detected 18+45 E6+E7 mRNA [Identifier] in Cervix by GEORGE with probe detection (test code = 83417-1) [facility] W Auto Differential panel - [id number] 00:00:00 Test Item Value Reference Range Interpretation [...] fL 7.5-12.5 absolute neutrophils (test 5075 cells/uL 7775-3684 code = absolute neutrophils) absolute lymphocytes (test [...] basophils (test code = 0.7 % basophils) [facility]aryHemoglobin A1c/Hemoglobin.total in [id number] 00:00:00 Test Item Value Reference Range Interpretation Comments Hemoglobin 5.5 % of total HGB <5.7 A1c/Hemoglobin.total in Blood (test code = 4548-4) EAG (mg/dL) (test code = 111 (calc) EAG (mg/dL)) EAG (mmol/L) (test code = 6.2 (calc) EAG (mmol/L)) [facility]aryCom[facility] 2000 panel - Serum or Plasma 2018-10-04 00:00:00 Test Item Value Reference Range Interpretation Comments glucose (test code = 69 mg/dL 65-99 glucose) urea nitrogen (BUN) (test 14 mg/dL 01-04 code = urea nitrogen (BUN)) creatinine (test code = 0.79 mg/dL 0.50-1.10 creatinine) eGFR non-afr. bhutanese 102 mL/min/1.73m2 > or = 60 (test code = eGFR non-afr. bhutanese) eGFR (test 118 mL/min/1.73m2 > or = [...] (test code = ALT) 17 U/L 6-29 [facility]aryLip[facility] 1996 panel - Serum or [id number] 00:00:00 Test Item Value Reference Range Interpretation [...] <130 H code = non HDL cholesterol) [facility]aryThyrotropin [Units/volume] in Serum or [id number] 00:00:00 Test Item Value Reference Range Interpretation Comments TSH (test code = TSH) 2.46 mIU/L [facility]aryCB W Auto Differential panel - [id number] 00:00:00 Test Item Value Reference Range Interpretation [...] fL 7.5-12.5 absolute neutrophils (test 5075 cells/uL 5081-3656 code = absolute neutrophils) absolute lymphocytes (test [...] basophils (test code = 0.7 % basophils) [facility]aryHemoglobin A1c/Hemoglobin.total in [id number] 00:00:00 Test Item Value Reference Range Interpretation Comments Hemoglobin 5.5 % of total HGB <5.7 A1c/Hemoglobin.total in Blood (test code = 4548-4) EAG (mg/dL) (test code = 111 (calc) EAG (mg/dL)) EAG (mmol/L) (test code = 6.2 (calc) EAG (mmol/L)) [facility]aryCom[facility] 2000 panel - Serum or Plasma 2018-10-04 00:00:00 Test Item Value Reference Range Interpretation Comments glucose (test code = 69 mg/dL 65-99 glucose) urea nitrogen (BUN) (test 14 mg/dL 7-25 code = urea nitrogen (BUN)) creatinine (test code = 0.79 mg/dL 0.50-1.10 creatinine) eGFR non-afr. bhutanese 102 mL/min/1.73m2 > or = 60 (test code = eGFR non-afr. bhutanese) eGFR (test 118 mL/min/1.73m2 > or = [...] (test code = ALT) 17 U/L 6-29 [facility]aryLipid 1996 panel - Serum or [id number] 00:00:00 Test Item Value Reference Range Interpretation [...] <130 H code = non HDL cholesterol) [facility]aryThyrotropin [Units/volume] in Serum or [id number] 00:00:00 Test Item Value Reference Range Interpretation Comments TSH (test code = TSH) 2.46 mIU/L [facility]aryPOCT-GLUCOSE [id number] 15:05:00 Test Item Value Reference Range Interpretation Comments POC-GLUCOSE METER 84 mg/dL 70-[address] [facility] 7[address] (BEAKER) (test code = LAINA DGE BLDG A [place] 1538) [place] [address] Cancer Ag 125 [Units/volume] in Serum or [id number] 13:20:00 Test Item Value Reference Range Interpretation Comments Ca 125 (test code = Ca 125) 53 U/mL <35 H [facility]aryCancer Ag 125 [Units/volume] in Serum or [id number] 13:20:00 Test Item Value Reference Range Interpretation Comments Ca 125 (test code = Ca 125) 53 U/mL <35 H [facility]aryUrinalysis macro (dipstick) panel - [id number] 09:08:00 Test Item Value Reference Range Interpretation Comments Color Color (test code = Color yellow Color) Color Appearance (test code = Color cloudy Appearance) Color Glucose (test code = Color 500 Glucose) Color Bilirubin (test code = Color negative Bilirubin) Color Ketones (test code = Color negative Ketones) Color Specific [place] (test code = 1.025 Color Specific [place]) Color Blood (test code = Color negative Blood) Color PH (test code = Color PH) 5.0 Color Protein (test code = Color negative Protein) Color Urobilinogen (test code = 0.2 Color Urobilinogen) Color Nitrites (test code = Color negative Nitrites) Color Leukocytes (test code = Color trace Leukocytes) [facility]aryUrinalysis macro (dipstick) panel - [id number] 09:08:00 Test Item Value Reference Range Interpretation Comments Color Color (test code = Color yellow Color) Color Appearance (test code = Color cloudy Appearance) Color Glucose (test code = Color 500 Glucose) Color Bilirubin (test code = Color negative Bilirubin) Color Ketones (test code = Color negative Ketones) Color Specific [place] (test code = 1.025 Color Specific [place]) Color Blood (test code = Color negative Blood) Color PH (test code = Color PH) 5.0 Color Protein (test code = Color negative Protein) Color Urobilinogen (test code = 0.2 Color Urobilinogen) Color Nitrites (test code = Color negative Nitrites) Color Leukocytes (test code = Color trace Leukocytes) [facility]aryComprehensive metabolic 1999 panel - Serum or Plasma 2017-08-13 07:02:00 Test Item Value Reference Range Interpretation Comments glucose (test code = 70 mg/dL 65-99 glucose) urea nitrogen (BUN) (test 10 mg/dL 7-25 code = urea nitrogen (BUN)) creatinine (test code = 0.80 mg/dL 0.50-1.10 creatinine) eGFR non-afr. bhutanese 101 mL/min/1.73m2 > or = 60 (test code = eGFR non-afr. bhutanese) eGFR (test 117 mL/min/1.73m2 > or = [...] (test code = ALT) 17 U/L 6-29 [facility]aryLip[facility] 1995 panel - Serum or [id number] 07:02:00 Test Item Value Reference Range Interpretation [...] <130 H code = non HDL cholesterol) [facility]aryComprehensive metabolic 1999 panel - Serum or Plasma 2017-08-13 07:02:00 Test Item Value Reference Range Interpretation Comments glucose (test code = 70 mg/dL 65-99 glucose) urea nitrogen (BUN) (test 10 mg/dL 7-25 code = urea nitrogen (BUN)) creatinine (test code = 0.80 mg/dL 0.50-1.10 creatinine) eGFR non-afr. bhutanese 101 mL/min/1.73m2 > or = 60 (test code = eGFR non-afr. bhutanese) eGFR (test 117 mL/min/1.73m2 > or = [...] (test code = ALT) 17 U/L 6-29 [facility]aryLip[facility] 1995 panel - Serum or [id number] 07:02:00 Test Item Value Reference Range Interpretation [...] <130 H code = non HDL cholesterol) [facility]aryThyrotropin [Units/volume] in Serum or [id number] 04:16:00 Test Item Value Reference Range Interpretation Comments TSH (test code = TSH) 1.93 mIU/L [facility]aryThyrotropin [Units/volume] in Serum or [id number] 04:16:00 Test Item Value Reference Range Interpretation Comments TSH (test code = TSH) 1.93 mIU/L [facility]aryCBC W Auto Differential panel - [id number] 03:25:00 Test Item Value Reference Range Interpretation [...] fL 7.5-12.5 absolute neutrophils (test 5729 cells/uL 3694-3443 code = absolute neutrophils) absolute lymphocytes (test [...] basophils (test code = 0.5 % basophils) [facility]aryHemoglobin A1c/Hemoglobin.total in [id number] 03:25:00 Test Item Value Reference Range Interpretation Comments hemoglobin A1C (test code 5.8 % of total HGB <5.7 H = hemoglobin A1C) EAG (mg/dL) (test code = 120 (calc) EAG (mg/dL)) EAG (mmol/L) (test code = 6.6 (calc) EAG (mmol/L)) [facility] W Auto Differential panel - [id number] 03:25:00 Test Item Value Reference Range Interpretation [...] fL 7.5-12.5 absolute neutrophils (test 5729 cells/uL 0447-0738 code = absolute neutrophils) absolute lymphocytes (test [...] basophils (test code = 0.5 % basophils) [facility]aryHemoglobin A1c/Hemoglobin.total in [id number] 03:25:00 Test Item Value Reference Range Interpretation Comments hemoglobin A1C (test code 5.8 % of total HGB <5.7 H = hemoglobin A1C) EAG (mg/dL) (test code = 120 (calc) EAG (mg/dL)) EAG (mmol/L) (test code = 6.6 (calc) EAG (mmol/L)) [facility] Notes Date/Time Note Provider Source 2022-04-16 14:02:00-00:00 [facility]) Clinical Note REPORT#:[id number] REPORT STATUS: Signed DATE:04/16/22 TIME: 1402 PATIENT: MICHELLE ROJO UNIT #: [id number] ROOM/BED: [address] : 90 AGE: 32 SEX: F ATTEND: Ely Thompson MD ADM AUTHOR: Valentina Thompson MD * ALL edits or amendments must be made on the el [employer]/computer document * Clinical Note Note: S: pain is now well controlled. N/V resolved. To lerated rwegular diet O: Vital Signs: Date Time Temp Pulse Resp B/P B/P Pulse O2 O2 F low FiO2 Mean Ox Delivery Rate 04/16 1212 98.8 90 16 109/73 85.2 93 Room air 04/16 0809 98.8 92 18 110/75 86 94 04/16 0426 99.1 107 16 113/78 89.5 95 04/16 0028 99.0 96 16 114/71 85.7 95 04/15 2042 99.3 101 16 118/80 92.8 95 72 hours ending at 0700 04/16 0700 04/15 1900 04/15 0700 04/14 1900 04/13 07 1900 Intake 120 2100.00 1490.00 2775.00 Total Output 1500 6564 174 1467 Total Balance 120 -1500 500.00 690.00 975.00 Intake, IV 2100.00 1250.00 2775.00 Intake, 120 240 Oral Output, 50 Drainage Output, 50 Estimated Blood Loss Output, 1500 8133 921 1971 Urine Patient 65.7 kg Weight Weight Standing scale Measuremen t Method 72 Hour I O Total 04/16 0700 11 0700 11 0700 Intake Total 120 3590.00 2775.00 Output Total 1500 2400 1800 Balance -1380 1190.00 975.00 chest: CTAB CVS: RRR Abd: appropriate POP tenderness INC: I/D/C A/P POD 3 s/p LAVH BS POD 2 s/p Lscope repair of cystostomy Well D/C home F/U with me in 2 weeks, with Dr. Frye in 1 week Electronically Signed by Valentina Thompson MD on 10/02 at 1405 RPT #:[id number] END OF REPORT 2022-04-16 07:58:00-00:00 [facility]) Urology Progress Note REPORT#:[id number] REPORT STATUS: Signed DATE:04/16/22 TIME: 0758 PATIENT: MICHELLE ROJO UNIT #: [id number] ROOM/BED: [address] : 90 AGE: 32 SEX: F ATTEND: Ely Thompson MD ADM AUTHOR: Kirill Frye MD * ALL edits or amendments must be made on the el [employer]/computer document * Subjective Chief complaint: Pelvic pressure HPI: Michelle is doing well. Pain is improved. Objective Physical Exam Head/Eyes: atraumatic ENT: normal nose Respiratory: no distress Extremities: moves all Diagnosis, Assessment Plan Free Text A P: 32 yo F POD1 from [facility] lap c/b cystotomy s/p repa ir - Cystogram next week and will follow up in 4 we eks; drain removed Electronically Signed by Kirill Frye MD on at 0759 RPT #:[id number] END OF REPORT 2022-04-16 07:56:00-00:00 [facility] ([facility]) Urology Consult Note REPORT#:[id number] REPORT STATUS: Signed DATE:04/16/22 TIME: 755 PATIENT: MICHELLE ROJO UNIT #: [id number] ROOM/BED: [address] : 90 AGE: 32 SEX: F ATTEND: Ely Thompson MD ADM AUTHOR: Kirill Frye MD * ALL edits or amendments must be made on the [employer]/computer document * History of Present Illness HPI Reason for consult: Cystotomy Chief complaint: Pelvic pressure HPI: Michelle is a 32 year-old female that underwent lap aroscopic hysterectomy and developed pelvic pressure after lewis removal. S he had not been able to void much. She underwent a CT scan with delayed phasi ng showing posterior bladder injury. History Past medical history: Reports: Chronic pain. Drug use: Denies recreational drugs Smoking status for patients 13 years old or olde r: Never Smoker Allergies: Coded Allergies: No Known Allergies (04/09/22) Objective VS/I O: Last Documented: Result Date Time Pulse Ox 95 04/16 426 B/P 113/78 04/16 042 B/P Mean 89.5 04/16 426 Temp 99.1 04/16 042 Pulse 107 04/16 0426 Resp 16 04/16 0426 O2 Delivery Room air 04/15 1129 O2 Flow Rate 6 04/14 2154 24 hour I O ending at 0700: 04/16 0700 04/15 1900 Intake Total 120 Output Total 1500 Balance 120 -1500 Intake, Oral 120 Output, Urine 1500 PATIENT WEIGHT: Weight (lb): 144 Weight (oz): 13.5 Weight (kg): 65.700 General appearance: awake Head/Eyes: atraumatic ENT: normal nose Respiratory: no distress Extremities: moves all Diagnosis, Assessment Plan Diagnosis, Assessment Plan Free Text A P: 32 yo F POD1 from [facility] c/b cystotomy - NPO, urgent repair of bladder injury Electronically Signed by Kirill Frye MD on at 0758 RPT #:[id number] END OF REPORT 2022-04-15 07:32:00-00:00 [facility]) Clinical Note REPORT#:[id number] REPORT STATUS: Signed DATE:04/15/22 TIME: 731 PATIENT: MICHELLE ROJO UNIT #: [id number] ROOM/BED: [address] : 90 AGE: 32 SEX: F ATTEND: Ely Thompson MD ADM AUTHOR: Valentina Thompson MD * ALL edits or amendments must be made on the [employer]/computer document * Clinical Note Note: S: Pain is controlled with morphine 4 mg IV q 4 hrs. O: Vital Signs: Date Time Temp Pulse Resp B/P B/P Pulse O2 O2 F low FiO2 Mean Ox Delivery Rate 04/15 720 99.0 77 18 120/78 92.0 98 Room air 04/15 0425 98.8 72 18 118/80 92.4 97 Room air 04/14 2316 98.2 98 18 114/73 86.5 99 04/14 2245 81 17 106/57 93 Room air 04/14 2230 74 14 101/53 94 Room air 04/14 2215 88 14 116/56 94 Room air 04/14 2200 97 14 116/58 97 Room air 04/14 2154 Simple 6 mask 04/14 2142 98.2 106 16 121/91 100 Simple 6 mask 04/14 1548 98.8 83 20 122/84 96.9 98 72 hours ending at 0700 04/15 0700 04/14 1900 04/14 1900 04/12 0700 1900 Intake 2100.00 1490.00 2775.00 Total Output 7742 970 2500 Total Balance 500.00 690.00 975.00 Intake, IV 2100.00 1250.00 2775.00 Intake, 240 Oral Output, 50 Drainage Output, 50 Estimated Blood Loss Output, 2487 193 8465 Urine Patient 65.7 kg Weight Weight Standing scale Measuremen t Method 72 Hour I O Total 04/15 0700 04/14 0704/13 0700 Intake Total 3590.00 2775.00 Output Total 2400 1800 Balance 1190.00 975.00 chest: CTAB CVS: RRR Abd: nondistended, appropriate pop tenderness INC: I/D/C Laboratory Tests: 04/14 04/13 04/13 0420 1720 1235 Chemistry POC Glucose (65 - 110 mg/dL) 92 74 Hematology Hgb (10.1 - 13.8 g/dL) 12.3 Hct (32.5 - 41.8 %) 36.1 Recent Impressions: CAT SCAN - CT ABD PELVIS W/CONT 04/14 1505 Report Impression - Status: SIGNED Entered: 04/14/2022 1610 IMPRESSION: 1. Posterior bladder wall injury with contrast e xtravasation into the pelvis. 2. Hysterectomy with postoperative intraperitone al fluid, pneumoperitoneum and abdominal wall changes. 3. Probable mild small bowel ileus. Critical finding called to at 3:55 p.m. Impression By: [email or web address] - Kyle De Jesus MD A: POD 2 s/p LAVH BS POD 1 S/P CYSTOSCOPY LAPAROSCOPY CYSTORRHAPHY BY Dr. Frye P: Adv diet Ambulate Adjust pain meds Electronically Signed by Valentina Thompson MD on 09/01 at 0736 RPT #:[id number] END OF REPORT 2022-04-14 19:31:00-00:00 [facility] ([facility]) Full Op Note REPORT#:[id number] REPORT STATUS: Signed DATE:04/14/22 TIME: 1930 PATIENT: MICHELLE ROJO UNIT #: [id number] ROOM/BED: [address] : 90 AGE: 32 SEX: F ATTEND: Ely Thompson MD ADM AUTHOR: Kirill Frye MD * ALL edits or amendments must be made on the [facility]/computer document * Operative Report Start date: 04/14/22 Start time: 1999 Pre-procedure diagnosis: Cystotomy Post-procedure diagnosis: Cystotomy Procedures performed: Cystoscopy, bilateral ureteral stent placement, diagnostic laparoscopy, laparoscopic cystorhapphy, omental flap interpos ition Technique/Procedure: Michelle is a 32 year-old female that is postoperat valeriano day 1 from a hysterectomy that was found to have a cystotomy and presents for repair of bladder injury. General anesthesia was induced and patient was p repped and draped in dorsal lithotomy. The lewis cathete r was removed before prep. A time out was performed. A 22F rigid cystoscope was a dvanced into the bladder. A posterior cystotomy was identified about 3cm in size . Bilateral ureteral orifices were intubated with 5F open ended catheters. The cy stoscope was removed and a 16F lewis catheter placed into the bladder. The previo us laparoscopic trocar midline incision was opened. A 5mm trocar was advanced un dinah direct vision. The abdomen was insufflated. Two additional 5mm trocars were placed under direct vision. No Bowel injuries were noted. The abdomen was washed out w ith saline and urine suctioned out. The patient was placed in trendelenburg. The bladder was examined and there was a 3cm cystotomy near the vaginal cuff on the posterior bladder. The posterior bladder was dissected away from the vaginal cuff. Th e cystotomy was closed in three layers with 3-0 v-loc running. The bladder was instilled with 180cc of saline without leakage. The omentum was than grasped and pexed at two locations between the vaginal cuff and the bladder repair with 3-0 anastasiya ryl. A 19F jazmin drain was placed into the pelvis throu gh the left trocar. The abdomen was desufflated and trocars removed. The incisions were closed with 4-0 monocryl subcuticular and dermabond. The midline incision did have a 0-anastasiya ryl deep suture prior to skin closure. All skin incisions were instilled with 0.25% marcaine. The drain was secured with 0-nylon. Primary Surgeon: Kirill Frye MD Die Filer(s): none Anesthesia: general anesthesia Operative findings: 3cm cystotomy just cephalad to trigone. Edges ap pear healthy Complications: none Estimated blood loss in ml's: 20cc Specimens removed/altered: none Implant(s): 19F jazmin drain, 16F lewis Electronically Signed by Kirill Frye MD on at 2149 RPT #:[id number] END OF REPORT 2022-04-14 17:01:00-00:00 [facility] ([facility]) Clinical Note REPORT#:[id number] REPORT STATUS: Signed DATE:04/14/22 TIME: 170 PATIENT: MICHELLE ROJO UNIT #: [id number] ROOM/BED: [address] : 90 AGE: 32 SEX: F ATTEND: Ely Thompson MD ADM AUTHOR: Valentina Thompson MD * ALL edits or amendments must be made on the [facility] document * Clinical Note Note: Pt c/o vaginal pressure and increasing pelvic pain. Ordered CT abd/pelvis w and w/o contrast. Radiologist called me stating cont ast is leaking out from the bladder into pelvis. Consulted Urologist, Dr. Mikey Frye. He will see pt tonight. Out pt on NPO Electronically Signed by Valentina Thompson MD on 08/04 at 1703 RPT #:[id number] END OF REPORT 2022-04-14 07:38:00-00:00 [facility] ([facility]) Clinical Note REPORT#:[id number] REPORT STATUS: Signed DATE:04/14/22 TIME: 0738 PATIENT: MICHELLE ROJO UNIT #: [id number] ROOM/BED: [address] : 90 AGE: 32 SEX: F ATTEND: Ely Thompson MD ADM AUTHOR: Valentina Thompson MD * ALL edits or amendments must be made on the [facility] document * Clinical Note Note: S: Pt w/o c/o. Pain well controlled. Tolerated c lear liquid O: 72 hours ending at 0700 04/14 0700 04/13 1900 04/13 0704/12 1900 04/11 07 1900 Intake 2775.00 Total Output 1800 Total Balance 975.00 Intake, IV 2775.00 Output, 1800 Urine Patient 65.7 kg Weight Weight Standing scale Measuremen t Method 72 Hour I O Total 04/14 0700 04/13 0704/12 07 Intake Total 2775.00 Output Total 1800 Balance 975.00 Vital Signs: Date Time Temp Pulse Resp B/P B/P Pulse O2 O2 F low FiO2 Mean Ox Delivery Rate 04/14 0720 98.8 75 16 101/65 76.9 98 04/14 0416 99.0 62 18 114/75 88.3 98 Room air 04/13 2347 98.4 60 18 121/78 92.0 99 Room air 04/13 1910 97.9 79 19 119/72 87.7 98 Room air 04/13 1841 97.9 83 16 122/85 97.0 98 04/13 1745 70 18 110/77 97 Room air 04/13 1715 56 24 107/83 97 Room air 04/13 1645 71 69 121/77 100 Room air 04/13 1630 71 69 123/77 100 Simple 10 mask 04/13 1623 Simple 10 mask 04/13 1615 76 57 119/72 100 Simple 10 mask 04/13 1600 75 119/74 68 Simple 10 mask 04/13 1553 98.4 74 18 117/73 100 Simple 10 mask 04/13 1138 98.5 89 18 123/82 99 Room air Chest: CTAB CVS: RRR Abd: appropriae POP tenderness INC: I/D/C Laboratory Tests: 04/14 04/13 04/13 0420 1720 1235 Chemistry POC Glucose (65 - 110 mg/dL) 92 74 Hematology Hgb (10.1 - 13.8 g/dL) 12.3 Hct (32.5 - 41.8 %) 36.1 A/: POD 1 s/p ;AVH BS Well Adv diet, ambulte D/C home if tolerates regular F/U 2 wks Electronically Signed by Valentina Thompson MD on 08/04 at 0740 [facility] #:[id number] END OF REPORT 2022-04-13 18:41:00-00:00 [id number] [facility] [address] [place], [place] [address] PATIENT NAME: MICHELLE ROJO ADMIT DATE: 04/13/22 ACCOUNT NO: [id number] ROOM NO: 2620 AGE: 32 SEX: F ADMITTING PHYSICIAN: Valentina Thompson MD ATTENDING PHYSICIAN: Valentina Thompson MD OPERATION DATE: 04/13/2022 PREOPERATIVE DIAGNOSES: 1. Fibroid. 2. Abnormal uterine bleeding. 3. Dysmenorrhea. 4. Pelvic pain. POSTOPERATIVE DIAGNOSES: 1. Fibroid. 2. Abnormal uterine bleeding. 3. Dysmenorrhea. 4. Pelvic pain. PROCEDURE: Laparoscopic-assi sted vaginal hysterectomy, bilateral salpingectomy, fibrillation of endometriosis on the left ovaria n fossa. SURGEON: Valentina Thompson M.D. PUMP STITCHER: Prasanna Bonilla, assistant teacher primary. ANESTHESIA: GETA. ESTIMATED BLOOD LOSS: 75 mL. COMPLICATIONS: None. FINDINGS: A slightly enlarged uterus, normal ova jordyn, normal fallopian tube, normal liver, and endometriosis on the left ovar zari fossa. PROCEDURE IN DETAIL: The patient was taken to e OR where general anesthesia with endotracheal intubation was placed. The pat ient was placed on stirrup in dorsal lithotomy position. Abdomen and vagina we re prepped and draped in the usual sterile fashion. The anterior cervix was g rasped with a pair of single tooth tenaculum. Sharita's cannula was inse rted into the cervix for manipulation. Lewis catheter inserted. Aft er changing gloves, the operation moved to abdomen. Marcaine 0.25% without epinephrine was injected on the inferior aspect of the umbilicus with a total of 6 mL. A 10 mm incision was made at the site. The 10 mm trocar inserted through this incision into pe lvis directly. Insertion of laparoscope confirmed entran ce of abdomen without complication. CO2 was used to insufflate the abdomen. The patient was placed in Trendelenburg position. Same Marcaine was injected, 5 mL each in the right lo wer quadrant and left lower PATIENT NAME: MICHELLE ROJO 51 quadrant each. A 5-mm incision was made in each side. A 5-mm trocar was inserted through this incision into pelvis under direct vision without complication. Blunt probe and a grasper were used to manipulate pelvic content and revealed above findings. The right fallopian tube was dissected with a LigaSure. The right round ligament and right brittany roovarian ligament was similarly cauterized with a LigaSure and cut. The remaining broad ligament was similarly cauterized and cut . Bladder flap on the right side was developed with LigaSure. The same was done on the left fallopia n tube, the left round ligament, left broad ligamen t, left uteroovarian ligament and left bladder flap. CO2 was removed from the abdomen. Instruments w ere removed from the pelvis. The operation moved to the vagina. Sharita's cannula and single tooth tenaculum were r emoved. Posterior vagina retracted with a speculum into the vagina with a Marina. Anterior cervix and posterior cervix were each grasped with a [place] husetts clamp. A 2% lidocaine with epinephrine were injected in the cervical m ucosa for hemostasis and pain control. Cervical mucosa was circumscribed with Bovie. Posterior cul-de-sac was entered with Ferrari scissors. Weighted speculu m removed and Duckbill was used to retract the posterior cul-de-sac. The le ft uterosacral ligament was clamped, cut and ligated with 0 Vicryl pop-off s uture. Same was done on the right side. Anterior cul-de-sac was entered with the Metzenbaum scissors. Ashton was inserted through this incision to ret ract the bladder. The left uterine artery and vein was clamped, cut and lig ated with 0 Vicryl pop-off suture. Same was done on the right side. The rem aining cardinal ligament was clamped, cut and ligated with 5-0 Vicryl pop-off suture. The specimen was delivered. The pelvis was irrigated with copious irrigant and aspirated. Hemostasis was observed. The fascia was approxim ated with #1 Vicryl in simple running fashion with 1 suture on the rig ht and 1 suture on the left and suture tied in the middle. Hemostasis was observed. All the suture tag was cut. After changing gloves, the operation moved back to the abdomen again. CO2 and laparoscope were introduced into the abdominal c avity. The pelvis was irrigated with copious irrigant and aspirated. S mall bleeder on the posterior cul-de-sac on the left side was treated with the bipolar and Surgiflo. Hemostasis was observed. The endometriosis on e left ovarian fossa was fulgurated with the bipolar. CO2 was removed fro m the abdomen. Trocar sheath was removed. The 10-mm trocar site was approxima olamide with 2-0 Vicryl in a simple running fashion for the fascia. The skin incision reapproximated with 4-0 Monocryl in subcuticular stitch. Dermabond w as used to seal the skin. The patient was extubated and transferred to rec overy room in stable condition. All instrument and needle counts carol ann ect x3. Dictated By: Valentina Thompson MD Date Dictated: 04/13/2022 18:41:10 Date Transcribed: 04/13/2022 21:54:31 CT/PAR/DESMOND/PRA Receipt ID: [id number] Authenticated and Edited by Valentina Thompson MD On 06/14/21 7:37:08 AM Electronically Signed by Valentina Thompson MD on 08/04 at 0739 PATIENT NAME: MICHELLE ROJO 51 2022-04-13 15:43:00-00:00 [facility] ([facility]) Full Op Note REPORT#:[id number] REPORT STATUS: Signed DATE:04/13/22 TIME: 154 PATIENT: MICHELLE ROJO UNIT #: [id number] ROOM/BED: : 90 AGE: 32 SEX: F ATTEND: Ely Thompson MD ADM AUTHOR: Valentina Thompson MD * ALL edits or amendments must be made on the [employer]/computer document * Operative Report Start date: 04/13/22 Start time: 141 Pre-procedure diagnosis: aub, dysmenorrhea, pelvic pain Post-procedure diagnosis: same, endometriosis Procedures performed: LAVH BS Technique/Procedure: LAPAROSCOPY Primary Surgeon: VALENTINA THOMPSON Die Filer(s): ERIN HAAS Anesthesia: general anesthesia Operative findings: NORMAL SIZED UTERUS, NORMAL OVARIES FALOPIAN TUB ES, LIVER EDGE. ENDOMETRIOSIS ALONG LEFT OVARIAN FOSSA. APPENDIX NOT SEEN Complications: none Estimated blood loss in ml's: 75 ML Specimens removed/altered: UTERUS, CERVIX BILATE RAL FALOPIAN TUBES Implant(s): none Electronically Signed by Valentina Thompson MD on 07/04 at 1546 RPT #:[id number] END OF REPORT 2022-04-09 12:39:00-00:00 [id number] [facility] [address] [place] [address] PATIENT NAME: MICHELLE ROJO ADMIT DATE: ACCOUNT NO: [id number] ROOM NO: AGE: 32 SEX: F ADMITTING PHYSICIAN: ATTENDING PHYSICIAN: Valentina Thompson MD Order: [id number] Test Reason : 04/13 PRE SURGERY EVALUATION Test Date/Time Stamp: TueApr 09 2022 12:39:47 Blood Pressure : / mmHG Vent. Rate : 063 BPM Atrial Rate : 063 BPM P-R Int : 164 ms QRS Dur : 086 ms QT Int : 408 ms P-R-T Axes : 010 034 045 degre es QTc Int : 417 ms Normal sinus rhythm Normal ECG When compared with ECG of 11-DEC-2021 09:54, No significant change was found Confirmed by RAJNI JULIAN MD ([id number]) on 022 7:44:49 AM Referred By: Valentina Thompson Confirmed by:RAJNI GARCIA MD Electronically Signed by Rajni Julian MD on 1 at 0744 PATIENT NAME: MICHELLE ROJO 2021-12-11 10:22:00-00:00 [facility] ([facility]) EMERGENCY PROVIDER REPORT REPORT#:[id number] REPORT STATUS: Signed DATE:12/11/21 TIME:1022 PATIENT: MICHELLE ROJO UNIT #: [id number] ROOM/BED: : 90 AGE: 31 SEX: F PCP PHYS: Tramaine Gaspar MD SERVICE AUTHOR: Dillon Tapia MD * ALL edits or amendments must be made on the [facility] [employer]/computer document * HPI-Extremity Prob Lower General Confirmed Patient Yes Initial Greet Date/Time 12/11/21 0935 Presentation Chief Complaint Leg problem L Hx Obtained From Patient Onset Occurred Days ago Symptom Duration Since onset Caused by No trauma by history Location Thigh L Quality Painful Free Text HPI Notes Free Text HPI Notes 33-year-old female, past med ical history of herniated disks, chronic back pain, scoliosis. Patient is here with left medial thig h pain for few days. Referred by urgent care for evaluation of DVT. On extensi ve review of systems questioning the patient said that she has some m ild shortness of breath. No chest pain, no syncope or near syncope. Patient denies the following: - Positional or exertional pain - Recent stimulant use - Classic risk factors for DVT/PE or hemoptysis (unless mentioned above) - Known CAD Patient denies the following risk factors: - Recent clinically significant acute trauma to spine - Chronic steroid use - Blood thinner use (or additional blood thinner use if mentioned above) - Active cancer - IVDU, HIV/AIDS Patient denies the following associated symptoms : - Fever - Signs of SC compression li ke new extremity weakness unrelated to pain, saddle anesthesia, red flag changes in bowel/bladder habits (including but not limited to fecal and/or urinary incontinence) - Syncope, new abdominal pain Review of Systems ROS Statements All systems rev neg except as marked. Free Text ROS Notes Free Text ROS Notes MSK: endorses extremity pain General: denies fevers, denies rigors Cardiovascular: denies chest pain, denies sycnop e Pulmonary: denies cough, endorses questionable S OB. Is difficult to determine if this is true shortness of breath, or if this is more likely due to her pain GI: denies abdominal pain, denies change in kyrie l habits Neuro: denies focal neurologic symptoms Also of note: - Chronic conditions/symptoms are considered neg ative if at baseline - Additional ROS may be present in HPI Past Medical History - Adult Stated Complaint LEFT LEG PAIN, TRAVEL DOWN LEG Allergies Coded Allergies: metformin (unknown 12/11/21) Home Medications Active Scripts HYDROcodone/APAP (HYDROcodone/APAP 7.5/325) 1 TA B PO Q4H 7 Days #42 TABS Prov: 11/21/19 levoFLOXacin (LEVAQUIN) 500 MG PO DAILY 7 Days #7 TABS Prov: 11/21/19 DOCUSATE SODIUM (COLACE) 100 MG PO BID 30 Days #60 CAPS Prov: 11/21/19 ESTRADIOL (ESTRACE 0.01% VAGINAL) 1 GM VAGINAL M oTh ESTRADIOL (ESTRACE 0.01% VAGINAL) 1 GM VAGINAL MoTh #42.5 GM Prov: 11/21/19 Reported Medications CITALOPRAM (CeleXA) 10 MG PO DAILY PRN OMEPRAZOLE ER (PriLOSEC) 40 MG PO DAILY IBUPROFEN (MOTRIN) 800 MG PO Q8H PRN PRN PAIN [VITAMIN B12] clonazePAM (KlonoPIN) 0.5 MG PO DAILY PRN PRN AN XIETY Calculated Suicide Risk (nurs) No risk Review of Nursing Notes Rev avail, and agree Pt reports no significant: Social history Past Medical History: Reports: Chronic pain. Drug Use Denies recreational drugs Smoking status for patients 13 years old or olde r: Current every day smoker Physical Exam Vital Signs Vital Signs First Documented: Result Date Time Pulse Ox 100 / 0935 B/P 126/87 / 0935 B/P Mean 100 / 0935 O2 Delivery Room air 12/11 0935 Pulse 91 / 0935 Resp 19 12/11 0935 Temp 36.5 / 0940 Last Documented: Result Date Time Pulse Ox 100 07/ 1002 Temp 36.5 / 0940 B/P 126/87 12/11 0935 B/P Mean 100 / 0935 O2 Delivery Room air 12/11 0935 Pulse 91 / 0935 Resp 19 12/11 0935 Review of Vital Signs Reviewed Free Text PE Notes Free Text PE Notes Back Tenderness: Diffusely Gait limitation from pain: Y es, but able to toe and heel walk with encouragement No midline tenderness to palpation. Pain with ba ck movement. 5/5 strength and normal sensation the in the bilateral lo wer extremities with encouragement. No hyperreflexia in the lona s and patellar tendons. Negative straight leg raise bilaterally. Rectal tone within normal limits. N o saddle anesthesia. Also of Note: General: awake and alert, not toxic appearing, n o acute distress Head: normocephalic, no acute traumatic abnormal ities Cardiac: normal S1/S2, skin well perfused Pulmonary: no respiratory distress, CTAB, no str idor Abdomen: soft, NTND, no peritoneal findings Neuro: no gross acute focal abnormalities Extremities: no acute deformities, appropriate R OM Skin: no acute appearing rashes, well perfused Eyes: no acute deformities, lids unremarkable ENT: pink mucosa, patent nares Neck: trachea midline, appropriate ROM Interpretation Diagnostics Lab Results Interpretation Results Laboratory Tests 12/11/21949: [Embedded Image Not Available] Laboratory Tests: 12/11 949 Chemistry Sodium (134 - 147 mmol/L) 139 Potassium (3.4 - 5.0 mmol/L) 3.2 L Chloride (100 - 108 mmol/L) 108 Carbon Dioxide (21 - 32 mmol/L) 22 Anion Gap (4.0 - 15.0 GAP calc) 9.0 BUN (7 - 18 MG/DL) 13 Creatinine (0.6 - 1.0 MG/DL) 1.0 Glomerular Filtr Rate (>60 estGFR) >=60 max est imate Glucose (70 - 110 MG/DL) 83 Calcium (8.5 - 10.1 MG/DL) 10.2 H Total Bilirubin (0.2 - 1.2 MG/DL) 0.60 Direct Bilirubin (0.00 - 0.30 MG/DL) 0.10 Indirect Bilirubin (0.2 - 1.2 MG/DL) 0.50 AST (15 - 37 Unit/L) 30 ALT (12 - 78 Unit/L) 54 Total Alk Phosphatase (45 - 117 Unit/L) 91 Troponin I High Sens (0 - 34 ng/L) < 3.0 Total Protein (6.4 - 8.2 G/DL) 8.7 H Albumin (3.4 - 5.0 G/DL) 4.2 Coagulation INR (0.8 - 1.2 INR Unit) 1.09 PTT (Timothy) (26 - 35 SECONDS) 29.6 PT Patient/Control Mix (9.3 - 12.9 SECONDS) 12. 4 Hematology WBC (3.5 - 11.0 K/mm3) 12.2 H RBC (4.70 - 6.10 M/mm3) 5.26 Hgb (10.4 - 14.9 G/DL) 15.2 H Hct (31.5 - 44.1 %) 44.3 H MCV (84.5 - 98.6 Fl) 84.2 L MCH (27.0 - 34.2 pg) 28.9 MCHC (31.5 - 34.0 G/DL) 34.3 H RDW (11.5 - 14.5 SD) 13.4 Plt Count (150 - 450 K/mm3) 354 MPV (7.0 - 10.5 fL) 10.20 Miscellaneous Maternal Serum HCG (0 - 6 mi-IU/ML) < 1 Recent Impressions: RADIOLOGY - XR CHEST 1 V 12/12 1031 Report Impression - Status: SIGNED Entered: 12/11/2021 1045 IMPRESSION: No radiographic evidence of acute cardiopulmonar y abnormality. Impression By: [email or web address] - Doni Carpio, M.D . ULTRASOUND - DUP VEIN UNI 12/11 1203 Report Impression - Status: SIGNED Entered: 12/11/2021 1320 IMPRESSION: No evidence of deep venous thrombosis in the vis ualized structures of the left lower extremity. Impression By: MariyaVBDonta Crocker M.D. Lab Imaging Statement Laboratory radiographic studies reviewed and con sidered in the medical decision-making. ECG #1 Interpretation Text/Dict Note EKG interperted by physician and performed on 2021, at 9:54 AM. Normal sinus rhythm rate of 78, no STEMI, adequa te tracing, normal intervals Re-Evaluation MDM Free Text MDM Notes Free Text MDM Notes 31-year-old female, referred here with leg pain. While here she was also complaining of multiple other symptoms. I am not suspicious for PE in this patient. Reassuring work-up, safe for discharge home Re-Evaluation/Progress Re-Evaluation/Progress Time of Re-Eval 1347 Re-Eval Status Improved ED Course Medication(s) Ordered Medication(s) Ordered: Central Nervous System Agents Sig/Debbi Start time Last Medication Dose Route Stop Time Status Admin Acetaminophen 650 MG X1ED STA 12/11 0950 DC / PO 12/11 0951 1007 Patient Discharge Departure Vital Signs/Condition Vital Signs First Documented: Result Date Time Pulse Ox 100 / 0935 B/P 126/87 / 0935 B/P Mean 100 / 0935 O2 Delivery Room air 12/11 0935 Pulse 91 / 0935 Resp 19 / 0935 Temp 36.5 / 0940 Last Documented: Result Date Time Pulse Ox 100 / 1002 Temp 36.5 / 0940 B/P 126/87 / 0935 B/P Mean 100 / 0935 O2 Delivery Room air / 0935 Pulse 91 / 0935 Resp 19 / 0935 All vital signs available at the time of this en try have been reviewed. Clinical Impression Clinical Impression Primary Impression: Leg pain Secondary Impressions: SOB (shortness of breath) Disposition Decision Discharge )( Discharged to Home Yes )( Time 1353 )( Date 12/11/21 Discharge/Care Plan Counseled Regarding Diagnosi s, Lab results, Imaging studies, Need for follow-up, When to return to ED (Auto) Prescriptions Current Visit Scripts ACETAMINOPHEN (TYLENOL) 325 MG PO Q6H PRN PRN PA IN ACETAMINOPHEN (TYLENOL) 325 MG PO Q6H PRN PRN P AIN #60 TABS Take 1-2 Tablets KETOROLAC (TORADOL) 10 MG PO Q8H PRN PRN PAIN KETOROLAC (TORADOL) 10 MG PO Q8H PRN PRN PAIN # 20 TABS Don't take other NSAIDs like ibuprofen, motrin, naproxen when using this medicine BACLOFEN (LIORESAL) 5 MG PO Q8H PRN PRN Muscle s pasm BACLOFEN (LIORESAL) 5 MG PO Q8H PRN PRN Muscle spasm #15 TABS Patient Instructions ED Leg Spasm Additional Instructions As we discussed, it is not c lear what is causing your symptoms, but there is no evidence of a dangerous caus e that requires further testing/treatment in the ER or hospital at this time. You possibly have a mu scle sprain/spasm Please return for any concer ns including new, worsening, or persistent symptoms and follow up with your doctor. Electronically Signed by Dillon Tapia MD on 07/04 at 1357 RPT #: [id number] END OF REPORT 2021-12-11 09:54:00-00:00 [id number] [address] PATIENT NAME: MICHELLE ROJO ADMIT DATE: 12/11/21 ACCOUNT NO: [id number] ROOM NO: AGE: 31 REPORT TYPE: eELECTROCARDIOGRAM SEX: F ADMITTING PHYSICIAN: ATTENDING PHYSICIAN: Order: [id number] Test Reason : POSSIBLE DVT Test Date/Time Stamp: TueDec 11 2021 09:54:33 Blood Pressure : / mmHG Vent. Rate : 078 BPM Atrial Rate : 078 BPM P-R Int : 158 ms QRS Dur : 086 ms QT Int : 384 ms P-R-T Axes : 002 012 015 degree s QTc Int : 437 ms Normal sinus rhythm with sinus arrhythmia Confirmed by MD Sonu, Kory ([id number]) on 1:23:03 PM Referred By: Self Referred Confirmed by:Kory grimm MD at 1323 PATIENT NAME: MICHELLE ROJO 54 2019-11-21 12:46:00-00:00 [facility] ([facility]) Post Anesthesia Evaluation REPORT#:[id number] REPORT STATUS: Signed DATE:11/21/19 TIME:1246 PATIENT: MICHELLE ROJO UNIT #: [id number] ROOM/BED: : 90 AGE: 29 SEX: F ATTEND: Matt Benson MD ADM AUTHOR: Reina Sanchez MD * ALL edits or amendments must be made on the [facility]/computer document * General Post-op: post surgery rounds Post Anesthesia Evaluation Anes. changes from pre-op eval ORM Surgeries: Surgery Date and Time: 11/21/2019 0900 Primary Procedure: URETEROSCOPY WITH HOLMIUM LA SER WITH Secondary Procedures: BILATERAL URETERAL STENT INSERTION CYSTOSCOPY RETROGRADE PYELOGRAM BLADDER SUSPENSION WITH SLING PLACEMENT Anesthetic: GETA Date: 11/21/19 Level of consciousness: marlene ent awake, able to answer questions, participate in this eval. Neurological assessment: Neuromuscular block: resolved as expected Vital signs: Last Documented: Result Date Time Pulse Ox 94 11/20 1208 B/P 123/61 11/20 1208 O2 Delivery Room air 11/20 1208 Temp 36.2 11/20 1208 Pulse 104 11/20 1208 Resp 16 11/20 1208 O2 Flow Rate [id number] 11/20 1200 Cardiovascular: CV system stable, vital signs st able Respiratory/Airway: respiratory system stable, m aintains without support Pain: adequately controlled, pain med. administe red Hydration: adequate Temp status: greater than 96.8F, normothermic Presence of N/V: no Anesthesia complications: no Other changes requiring f/u: none Conclusions: no apparent anes. issues, outpts ev al prior DC home Electronically Signed by Reina Sanchez MD on 11/11 at 1247 RPT #: [id number] END OF REPORT 2019-11-21 12:02:00-00:00 [id number] [facility] [address] [place] [address] PATIENT NAME: MICHELLE ROJO ADMIT DATE: 11/21/19 ACCOUNT NO: [id number] ROOM NO: AGE: 29 REPORT TYPE: OPERATIVE REPORT SEX: F ADMITTING PHYSICIAN: ATTENDING PHYSICIAN: Matt Benson MD OPERATION DATE: 11/21/2019 PREOPERATIVE DIAGNOSES: 1. Bilateral renal calculus, bilateral mild hydr onephrosis. 2. Stress urinary incontinence. PREOPERATIVE DIAGNOSES: 1. Bilateral renal calculus, bilateral mild hydr onephrosis. 2. Stress urinary incontinence. POSTOPERATIVE DIAGNOSES: 1. Bilateral renal calculus, bilateral mild hydr onephrosis. 2. Stress urinary incontinence. PROCEDURES: 1. Bilateral diagnostic ureteroscopy. 2. Bilateral retrograde pyelogram with interpret ation. 3. Bilateral ureteral stent placement. 4. Mid urethral sling placement Altis single torres zamudio. SURGEON: Matt Benson MD PUMP STITCHER: ANESTHESIA: General. FINDINGS: 1. No significant stone within the renal pelvis, no stricture or scarring. 2. Mild bilateral hydronephrosis. 3. Proper placement of the midurethral sling wit h resolution of leakage on Crede maneuver. DRAINS PLACED: 1. Bilateral 6 x 24 Black Beauty ureteral stents . 2. A 16-South African Lewis catheter. INDICATIONS FOR PROCEDURE: The patient is a 29-y ear-old female with a longstanding bilateral flank pain. She has had m ultiple imaging including CT scan, which showed several relatively small ston es that were nonobstructing; however, she has bilateral hydronephrosis, mild, though no clear etiology for the obstruction. The patient also has longstanding stress urinary incontinence, office workup, she was found to have a moderate leakage with coughing and straining. I therefore offered the patient with bilateral ureteroscopy to PATIENT NAME: MICHELLE ROJO 89 address the stone for the pain and to also jorge murphy the possible etiology of her mild hydronephrosis. I d iscussed that this intervention may not necessarily improve her pain, I also discussed placement of a midurethral sling for her stress urinary incontinence. I went over the ind ication, nature of the procedure and associated ris ks and possible complication. I also discussed with the patient the use of mesh and its attendant ri sks including erosion, extrusion, urinary retention, and need for juan ion surgery. She stated understanding all the above and wished to procee d. PROCEDURE IN DETAIL: The patient was brought to the OR on 11/21/2019. She had anesthesia inducted without any complications. S he was placed into a dorsal lithotomy position and genitalia was prepped and draped in usual standard sterile manner. At this poin t, I inserted 22-South African rigid ureteroscope into the bladder. Upon examination of bladder without any findings of any masses, tumors, or lesion, the patient was noted to have a grade I cystocele. I identified the left ureteral orifice in normal o rthotopic position cannulated with a wire. I then advanced an 8/10 ureteral di lator, 10-South African dual-lumen ureteral catheter, and then an 11/13 South African 28 cm access sheath to the proximal ureter, all without any resistance. I then advan vicki a 7-South African flexible ureteroscope through the access sheath and navig ated into the renal pelvis. I performed a systematic evaluation of all the angel ices, she had several 1 to 2 mm stones, which I was able to basket extracted. There was no tightness of the UPJ. There was no stenosis within her ureter . I performed a retrograde pyelogram and ureterogram, which showed mild hyd roureteronephrosis. I then withdrew the scope visualizing the entirety of t he ureter, there was some abrasion there were no lacerations from the dila tion. I now advanced a 6 x 24 black beauty ureteral stent over a wire was conf irmed to be in good position proximally and distally. I then turned my attention to the opposing right side. I then cannulated the right ureteral orifice with a wire and advanced into the renal pelvis. I then sequentially advanced up 8/10 ureteral dilator, 10-South African dual-lumen ureteral catheter, and then 11/13 South African 28-cm access she ath. I advanced a 7-South African ureteroscope through the access sheath and into the renal pelvis. I then performed a systematic evaluation of all the angel ices. She has several intraparenchymal stones, which were seen on CT s cans, no stones within the collecting system itself. I withdrew the scope v isualizing the entirety of the ureter, I did perform a retrograde pyelogram , which showed mild hydroureteronephrosis. There was no tightness at the UPJ. There was no stenosis of the ureter, there is mild abrasion f rom dilation. I now advanced a 6 x 24 Black Beauty ureteral stent over the wi re, confirmed to be in good position proximally and distally. Attention was now turned to the midurethral slin g placement. I now inserted a 16- South African Lewis catheter. I now infiltrated the anterior vaginal wall overlying the urethra with a dilute vasopressin for hydrodissection. I now made a midline incision approximately 3 cm. I th en dissected away the vaginal mucosa and muscularis laterally and cephalad on both sides, I carried this up to the inferior pubic rami. I perform this disse ction bilaterally, keeping well away from the urethra. I now inserted the l eft sided trocar of the sling passer and was able to rotate the trocar to enga ge the grommet on the obturator membrane. I then performed the same fo r the opposing right side, again pushing the trocar through the tunnel and engaging the grommet through the obturator membrane on the right side. I then pulled on the tensioning PATIENT NAME: MICHELLE ROJO 89 string to lay the sling flat over the urethra. I removed the Lewis and inserted 21- South African cystoscope. I performed exam ination without any findings of injury to the urethra, bladder. I distended t he bladder through the cystoscope. I removed the cystoscope and the patient had co pious amount of leakage with Crede, I further tensioned the sling until there was no further leakage with crede. I was still able to pass a small Metzenba um scissors posterior to the sling over the urethra to Ensure that it was not too tight. I now cut the tensioning string. I inserted a 16- South African Lewis catheter. I now closed the vaginal incision using interrupted 2- 0 Vicryl f [id number]. I then placed a vaginal packing with a K-wire. This is for compression. The patient tolerated the procedure well. There were no comp lications. Dictated By: Matt Benson MD WT: OP:L.CULLEN/IRENE/JACKI Conf#: [id number]/DID#: [id number] Authenticated and Edited by Matt Benson MD On 9:57:59 AM Electronically Signed by Matt Benson MD on at 0959 PATIENT NAME: MICHELLE ROJO 89 2019-05-19 11:51:00-00:00 [id number] [facility] [address] [address] PATIENT NAME: MICHELLE ROJO ADMIT DATE: 9 ACCOUNT NO: [id number] ROOM NO: AGE: 29 REPORT TYPE: eVASCULAR STUDY DATE OF : SEX: F ADMITTING PHYSICIAN: ATTENDING PHYSICIAN:Tay Gibbons DPM Exam Date: 05/18/2019 09:50:00 Exam Type: Non-Invasive Vascular Procedure Codes: 01294 - Duplex scan of extremity veins including responses to compression and other maneuvers; complete bilate ral study , Study Quality: Lower Venous Duplex: adequate Lower Venous Duplex (EDEMA ) Lower Venous Reflux () Conclusions Lower Venous Duplex: No evidence of acute deep thrombosis in either l ower extremity. Lower Venous Reflux: There was superficial valvular incompetence note d in the right above knee greater saphenous vein. There was superfici al valvular incompetence noted in the left above knee greate r saphenous vein. Finding Grids Lower Venous Duplex Right Duplex Exam Spont Phasic Common Femoral Y Y Proximal Profunda Y Y Proximal Femoral Y Y Mid Femoral Y Y Distal Femoral Y Y Popliteal Y Y Posterior Tibial Y Y Augment Color Filling Competent Common Femoral Y Y Y Proximal Profunda Y Y Y Proximal Femoral Y Y Y Mid Femoral Y Y Y PATIENT NAME: MICHELLE ROJO [id number] Distal Femoral Y Y Y Popliteal Y Y Y Posterior Tibial Y Y Y Lozano --------- Y = Yes Left Duplex Exam Spont Phasic Common Femoral Y Y Proximal Profunda Y Y Proximal Femoral Y Y Mid Femoral Y Y Distal Femoral Y Y Popliteal Y Y Posterior Tibial Y Y Augment Color Filling Competent Common Femoral Y Y Y Proximal Profunda Y Y Y Proximal Femoral Y Y Y Mid Femoral Y Y Y Distal Femoral Y Y Y Popliteal Y Y Y Posterior Tibial Y Y Y Lozano --------- Y = Yes Compressibility Right Left Common Femoral C C Proximal Profunda C C Proximal Femoral C C Mid Femoral C C Distal Femoral C C Popliteal C C Posterior Tibial C C Greater Saphenous C C Lozano --------- C = Complete Measurements Lower Venous Reflux Right Vein Diameters Name Value Units GSV at SF 7.33 mm GSV Thigh 4.79 mm GSV Thigh 2.93 mm GSV Thigh 2.69 mm GSV Calf 1.62 mm PATIENT NAME: MICHELLE ROJO 7970 LSV Calf 2.23 mm Left Vein Diameters Name Value Units GSV at SF 8.36 mm GSV Thigh 5.76 mm GSV Thigh 2.39 mm GSV Thigh 2 mm GSV Calf 1.84 mm LSV Calf 2.32 mm Right time measurements Name Value Units Upper Pro 1098 ms Left time measurements Name Value Units Upper Pro 512 ms at 1155 PATIENT NAME: MICHELLE ROJO 7970"
[2023-02-25] MEDS ORDERED: MORPHINE 2 MG/ML SYR ONE (07:48)
[2023-02-25] MEDS ORDERED: ONDANSETRON 4 MG/2 ML VIAL ONE ×2 (07:48→08:29)
[2023-02-25] MEDS ORDERED: NA CHLORIDE 0.9% 1,000 ML ONE ×2 (07:49→08:11)
[2023-02-25] MEDS ORDERED: FAMOTIDINE 20 MG/2 ML VIAL IV ONE (07:49)
[2023-02-25 07:59] LABS: Absolute Lymphocytes (CBC) 2.5 K/uL (0.7-4.9); Hematocrit 40.5 % (36.0-45.0); Lymphocytes % 24.7 % (15.3-44.8); MCV 90.1 fL (80-100); MPV 8.1 fL (7.6-11.3); Platelets 291 thou/uL (152-406)
[2023-02-25 08:12] LABS: Albumin 3.6 g/dL (3.4-5.0); Bilirubin Total 0.5 mg/dL (0.2-1.0); Potassium 3.8 mEq/L (3.5-5.1); Protein, Total 7.3 g/dL (6.4-8.2)
[2023-02-25] MEDS ORDERED: MORPHINE 4 MG/ML SYR ONE (08:29)
[2023-02-25] MEDS ORDERED: PROMETHAZINE INJ 25 MG/ML AMP ONE (08:38)
--- NOTE | 2023-02-25 08:57 | RAD REPORT ---
EXAM DESCRIPTION: RAD - Abdomen 1 View (KUB) - 02/25/2023 8:34 am CLINICAL HISTORY: ABD PAIN COMPARISON: No comparisons TECHNIQUE: Single AP view of the abdomen. FINDINGS: Nonobstructive bowel gas pattern. No air-fluid levels, free air, or pneumatosis. No suspic ious calcifications. Surgical clips suggestive of prior cholecystectomy. No significant bony abnormality. IMPRESSION: Negative two view abdomen examination.
--- NOTE | 2023-02-25 09:32 | EDPHYS ---
Physician Documentation [facility] Name: Debbie Rojo Age: 33 yrs Sex: Female : 1990 Arrival Date: 02/25/2023 Time: 07:17 Bed 6 Private MD: JATIN Physician Nguyễn Gutierrez HPI: 02/25 07:53 This 33 yrs old Female presents to ER via Ambulatory with complaints of stephon Abdominal Pain, Vomiting. 07:53 The patient presents to the emergency department with nausea, vomiting, diarrhea, that stephon is continuous. Onset: The symptoms/episode began/occurred 1 day(s) ago. Possible causes: unknown. The symptoms are aggravated by nothing. The symptoms are alleviated by nothing. Associated signs and symptoms: Pertinent positives: abdominal pain, diarrhea, nausea, vomiting. Severity of symptoms: At their worst the symptoms were moderate in the emergency department the symptoms are unchanged. The patient has experienced similar episodes in the past, a few times. 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 - Social history:: Smoking status: Patient denies any tobacco usage or history of. ROS: 08:10 Constitutional: Negative for fever, chills, and weight loss, Eyes: Negative for injury, stephon pain, redness, and discharge, ENT: Negative for injury, pain, and discharge, Neck: Negative for injury, pain, and swelling, Cardiovascular: Negative for chest pain, palpitations, and edema, Respiratory: Negative for shortness of breath, cough, wheezing, and pleuritic chest pain, Back: Negative for injury and pain, : Negative for injury, bleeding, discharge, and swelling, MS/Extremity: Negative for injury and deformity, Skin: Negative for injury, rash, and discoloration, Neuro: Negative for headache, weakness, numbness, tingling, and seizure, Psych: Negative for depression, anxiety, suicide ideation, homicidal ideation, and hallucinations, Allergy/Immunology: Negative for hives, rash, and allergies, Endocrine: Negative for neck swelling, polydipsia, polyuria, polyphagia, and marked weight changes, Hematologic/Lymphatic: Negative for swollen nodes, abnormal bleeding, and unusual bruising. 08:10 Abdomen/GI: Positive for abdominal pain, nausea and vomiting, diarrhea. Exam: 08:10 Constitutional: This is a well developed, well nourished patient who is awake, alert, stephon and in no acute distress. Head/Face: Normocephalic, atraumatic. Eyes: Pupils equal round and reactive to light, extra-ocular motions intact. Lids and lashes normal. Conjunctiva and sclera are non-icteric and not injected. Cornea within normal limits. Periorbital areas with no swelling, redness, or edema. ENT: Nares patent. No nasal discharge, no septal abnormalities noted. Tympanic membranes are normal and external auditory canals are clear. Oropharynx with no redness, swelling, or masses, exudates, or evidence of obstruction, uvula midline. Mucous membranes moist. Neck: Trachea midline, no thyromegaly or masses palpated, and no cervical lymphadenopathy. Supple, full range of motion without nuchal rigidity, or vertebral point tenderness. No Meningismus. Chest/axilla: Normal chest wall appearance and motion. Nontender with no deformity. No lesions are appreciated. Cardiovascular: Regular rate and rhythm with a normal S1 and S2. No gallops, murmurs, or rubs. Normal PMI, no JVD. No pulse deficits. Respiratory: Lungs have equal breath sounds bilaterally, clear to auscultation and percussion. No rales, rhonchi or wheezes noted. No increased work of breathing, no retractions or nasal flaring. Back: No spinal tenderness. No costovertebral tenderness. Full range of motion. Skin: Warm, dry with normal turgor. Normal color with no rashes, no lesions, and no evidence of cellulitis. MS/ Extremity: Pulses equal, no cyanosis. Neurovascular intact. Full, normal range of motion. Neuro: Awake and alert, GCS 15, oriented to person, place, time, and situation. Cranial nerves II-XII grossly intact. Motor strength 5/5 in all extremities. Sensory grossly intact. Cerebellar exam normal. Normal gait. Psych: Awake, alert, with orientation to person, place and time. Behavior, mood, and affect are within normal limits. 08:10 Abdomen/GI: Inspection: abdomen appears normal, Bowel sounds: normal, Palpation: mild abdominal tenderness, in the right upper quadrant and left upper quadrant, Liver: no appreciated palpable abnormalities, Hernia: not appreciated. 08:36 ECG was reviewed by the Attending Physician. [facility] Vital Signs: 07:29 BP 122 / 91; Pulse 87; Resp 16; Temp 98.8; Pulse Ox 100% ; Weight 52.16 kg; Height 5 ll1 ft. 2 in. ; Pain 8/10; 08:10 BP 134 / 88; Pulse 68; Resp 16; Pulse Ox 100% on R/A; ll1 10:00 BP 131 / 81; Pulse 85; Resp 16; Pulse Ox 100% ; Pain 7/10; ll1 07:29 Body Mass Index 21.03 (52.16 kg, 157.48 cm) ll1 07:29 Pain Scale: Adult ll1 10:00 Pain Scale: Adult ll1 MDM: 07:22 Patient medically screened. [facility] 08:13 Differential diagnosis: Nonspecific abd pain, pancreatitis, diverticulitis, viral stephon gastroenteritis, gastroenteritis, appendicitis, bowel obstruction, diverticulitis, gastritis, gastroesophageal reflux disease, non-specific abd pain, pancreatitis, Peptic Ulcer Disease. Data reviewed: vital signs, nurses notes, lab test result(s), radiologic studies, plain films. Consideration of Admission/Observation Escalation of care including admission/observation considered. I considered the following discharge prescriptions or medication management in the emergency department Medications were administered in the Emergency Department. See MAR. Independent interpretation of the following test(s) in the Emergency Department X-Ray: My interpretation is plain films. Test considered but Not performed: CT: no ct abd pelvis. Historians other than the Patient: pt well informed. Care significantly affected by the following chronic conditions: Diabetes, irritable bowel. 02/25 07:34 Order name: CBC with Diff; Complete Time: 08:16 [facility] 02/25 07:34 Order name: CMP; Complete Time: 08:16 [facility] 02/25 07:34 Order name: Lipase; Complete Time: 08:16 [facility] 02/25 07:34 Order name: Urinalysis w/ reflexes [facility] 02/25 08:16 Order name: Abdomen 1 View (KUB) XRAY [facility] 02/25 08:08 Order name: EKG; Complete Time: 08:08 jl7 02/25 07:34 Order name: IV Saline Lock; Complete Time: 07:35 [facility] 02/25 07:34 Order name: Labs collected and sent; Complete Time: 07:35 [facility] 02/25 08:08 Order name: EKG - Nurse/Tech; Complete Time: 08:08 [facility] 02/25 08:54 Order name: Misc. Order: ua; Complete Time: 09:15 [facility] EC:36 Rate is 63 beats/min. Rhythm is regular. QRS [place] is Normal. VT interval is normal. QRS stephon interval is normal. QT interval is normal. No Q waves. T waves are Normal. No ST changes noted. Clinical impression: NSR w/ Non-specific ST/T Changes and No evidence of ischemia. Interpreted by me. Reviewed by me. Administered Medications: 07:48 Drug: NS 0.9% IV 1000 ml Route: IV; Rate: 1 bolus; Site: right antecubital; ll1 09:15 Follow up: IV Status: Completed infusion; IV Intake: 1000ml ll1 07:48 Drug: Famotidine IVP 20 mg Route: IVP; Site: right antecubital; ll1 08:23 Follow up: Response: No adverse reaction ll1 07:48 Drug: Ondansetron IVP 4 mg Route: IVP; Site: right antecubital; ll1 08:23 Follow up: Response: No adverse reaction; Nausea unchanged ll1 07:48 Drug: morphine IVP or IV 2 mg {Note: RASS 0, pain 8/10.} Route: IVP; Infused Over: 4 ll1 mins; Site: right antecubital; 09:15 Follow up: Response: No adverse reaction; RASS: Alert and Calm (0) ll1 08:22 Drug: NS 0.9% IV 1000 ml Route: IV; Rate: 1 bolus; Site: right antecubital; ll1 10:23 Follow up: IV Status: Completed infusion; IV Intake: 1000ml ll1 08:23 Drug: morphine IVP or IV 4 mg Route: IVP; Infused Over: 4 mins; Site: right antecubital;ll1 09:15 Follow up: Response: No adverse reaction ll1 08:23 Drug: Ondansetron IVP 4 mg Route: IVP; Site: right antecubital; ll1 09:15 Follow up: Response: No adverse reaction ll1 08:34 Drug: Promethazine IM 25 mg Route: IM; Site: right gluteus; ll1 09:15 Follow up: Response: No adverse reaction; Nausea is decreased ll1 Disposition Summary: 02/25/23 09:31 Discharge Ordered Location: Home stephon Problem: new stephon Symptoms: have improved stephon Condition: Stable stephon Diagnosis - Epigastric abdominal tenderness stephon - Vomiting stephon - Diarrhea, unspecified stephon Followup: stephon - With: Private Physician - When: 2 - 3 days - Reason: Recheck today's complaints, Continuance of care, Re-evaluation by your physician Discharge Instructions: - Discharge Summary Sheet stephon - Abdominal Pain, Adult stephon - Diarrhea, Adult stephon - Vomiting, Adult stephon Forms: - Medication Reconciliation Form [facility] - Thank You Letter [facility] - Antibiotic Education [facility] - Prescription Opioid Use stephon - Patient Portal Instructions stephon - Leadership Thank You Letter [facility] - Work release form ll1 Prescriptions: - ondansetron 4 mg Oral Tablet,disintegrating - take 1 tablet by ORAL route every 6-8 hours for 5 days; 20 tablet; Refills: 0, [facility] Product Selection Permitted - promethazine 25 mg Rectal suppository - insert 1 suppository by RECTAL route every 6 hours may repeat once in 12 hours; stephon 20 suppository; Refills: 0, Product Selection Permitted - Pepcid 20 mg Oral Tablet - take 1 tablet by ORAL route every 12 hours for 21 days; 42 tablet; Refills: 0, [facility] Product Selection Permitted - dicyclomine 10 mg/5 mL Oral Solution - take 10 milliliters by ORAL route 4 times per day; 180 milliliter; Refills: 0, [facility] Product Selection Permitted Signatures: Dispatcher [employer] Nguyễn Joseph MD MD cha Leal, Jahala RN RN [id number] Jason Menard RN RN ll1
--- NOTE | 2023-02-25 09:32 | ER ---
Nurse's Notes [facility] Name: Dbebie Rojo Age: 33 yrs Sex: Female : 1990 Arrival Date: 02/25/2023 Time: 07:17 Bed 6 Private MD: Diagnosis: Epigastric abdominal tenderness;Vomiting;Diarrhea, unspecified Presentation: 02/25 07:29 Chief complaint: Patient states: Upper abdominal pain with N/V/D since Tuesday night. ll1 Had to leave work last night. No fever. Coronavirus screen: Vaccine status: Patient reports receiving the 2nd dose of the covid vaccine. Client denies travel out of the [place] in the last 14 days. diarrhea, nausea, vomiting. Client presents with at least one sign or symptom that may indicate coronavirus-19. Standard/surgical mask placed on the client. Ebola Screen: Patient denies travel to an Ebola-affected area in the 21 days before illness onset. Initial Sepsis Screen: Does the patient meet any 2 criteria? No. Patient's initial sepsis screen is negative. Does the patient have a suspected source of infection? Yes: Acute abdominal pain. Risk Assessment: Do you want to hurt yourself or someone else? Patient reports no desire to harm self or others. Onset of symptoms was February 23, 2023. 07:29 Method Of Arrival: Ambulatory ll1 07:29 Acuity: PATTI 3 ll1 Triage Assessment: 07:31 General: Appears uncomfortable, ill, Behavior is calm, cooperative, appropriate for 1 age. Pain: Complains of pain in abdomen Pain currently is 8 out of 10 on a pain scale. Neuro: No deficits noted. Cardiovascular: No deficits noted. GI: Reports upper abdominal pain, diarrhea, nausea, vomiting. 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 - Social history:: Smoking status: Patient denies any tobacco usage or history of. Screenin:31 [facility] ED Fall Risk Assessment (Adult) Score/Fall Risk Level 0 - 2 = Low Risk ll1 Oriented to surroundings, Maintained a safe environment, Educated pt \T\ family on fall prevention, incl call for assistance when getting out of bed, Hourly rounding (assess needs \T\ fall precautionary measures) done. Abuse screen: Denies threats or abuse. Nutritional screening: No deficits noted. Tuberculosis screening: No symptoms or risk factors identified. Assessment: 07:49 Reassessment: No changes from previously documented assessment. Patient and/or family ll1 updated on plan of care and expected duration. Pain level reassessed. Patient is alert, oriented x 3, equal unlabored respirations, skin warm/dry/pink. 08:00 GI: Bowel sounds present X 4 quads. Abd is soft Abdomen is tender to palpation in right ll1 upper quadrant and left upper quadrant. 08:07 Reassessment: No changes from previously documented assessment. Patient and/or family ll1 updated on plan of care and expected duration. Pain level reassessed. Patient is alert, oriented x 3, equal unlabored respirations, skin warm/dry/pink. reports CP. Dr. Gutierrez informed, EKG done. 08:34 Reassessment: No changes from previously documented assessment. Patient and/or family ll1 updated on plan of care and expected duration. Pain level reassessed. Patient is alert, oriented x 3, equal unlabored respirations, skin warm/dry/pink. 09:02 Reassessment: No changes from previously documented assessment. Gait steady to restroom.ll1 09:45 Reassessment: No changes from previously documented assessment. Patient and/or family ll1 updated on plan of care and expected duration. Pain level reassessed. 10:23 Reassessment: No changes from previously documented assessment. Patient and/or family ll1 updated on plan of care and expected duration. Pain level reassessed. Patient is alert, oriented x 3, equal unlabored respirations, skin warm/dry/pink. Vital Signs: 07:29 BP 122 / 91; Pulse 87; Resp 16; Temp 98.8; Pulse Ox 100% ; Weight 52.16 kg; Height 5 ll1 ft. 2 in. ; Pain 8/10; 08:10 BP 134 / 88; Pulse 68; Resp 16; Pulse Ox 100% on R/A; ll1 10:00 BP 131 / 81; Pulse 85; Resp 16; Pulse Ox 100% ; Pain 7/10; ll1 07:29 Body Mass Index 21.03 (52.16 kg, 157.48 cm) ll1 07:29 Pain Scale: Adult ll1 10:00 Pain Scale: Adult ll1 ED Course: 07:20 Patient arrived in ED. im 07:22 Nguyễn Gutierrez MD is Attending Physician. stephon 07:28 Arm band placed on Patient placed in an exam room, on a stretcher. ll1 07:31 Triage completed. ll1 07:32 Patient has correct armband on for positive identification. Bed in low position. Call [facility] light in reach. 07:57 Jason Menard, COURTNEY is Primary Nurse. ll1 08:00 Inserted saline lock: 22 gauge in right antecubital area, using aseptic technique. 1 Blood collected. 08:36 Abdomen 1 View (KUB) XRAY In Process Unspecified. EDMS 09:17 Urinalysis w/ reflexes Sent. ll1 10:22 No provider procedures requiring assistance completed. IV discontinued, intact, hb bleeding controlled, No redness/swelling at site. 10:27 Provided Education on: n/a. 1 Administered Medications: 07:48 Drug: NS 0.9% IV 1000 ml Route: IV; Rate: 1 bolus; Site: right antecubital; 1 09:15 Follow up: IV Status: Completed infusion; IV Intake: 1000ml 1 07:48 Drug: Famotidine IVP 20 mg Route: IVP; Site: right antecubital; 1 08:23 Follow up: Response: No adverse reaction 1 07:48 Drug: Ondansetron IVP 4 mg Route: IVP; Site: right antecubital; ll1 08:23 Follow up: Response: No adverse reaction; Nausea unchanged ll1 07:48 Drug: morphine IVP or IV 2 mg {Note: RASS 0, pain 8/10.} Route: IVP; Infused Over: 4 ll1 mins; Site: right antecubital; 09:15 Follow up: Response: No adverse reaction; RASS: Alert and Calm (0) [facility] 08:22 Drug: NS 0.9% IV 1000 ml Route: IV; Rate: 1 bolus; Site: right antecubital; 1 10:23 Follow up: IV Status: Completed infusion; IV Intake: 1000ml ll1 08:23 Drug: morphine IVP or IV 4 mg Route: IVP; Infused Over: 4 mins; Site: right antecubital;ll1 09:15 Follow up: Response: No adverse reaction ll1 08:23 Drug: Ondansetron IVP 4 mg Route: IVP; Site: right antecubital; ll1 09:15 Follow up: Response: No adverse reaction ll1 08:34 Drug: Promethazine IM 25 mg Route: IM; Site: right gluteus; ll1 09:15 Follow up: Response: No adverse reaction; Nausea is decreased ll1 Medication: 07:32 VIS not applicable for this client. ll1 Intake: 09:15 IV: 1000ml; Total: 1000ml. ll1 10:23 IV: 1000ml; Total: 2000ml. ll1 Outcome: 09:31 Discharge ordered by . stephon 10:22 Discharged to home ambulatory. hb 10:22 Condition: stable 10:22 Discharge instructions given to patient, Instructed on discharge instructions, follow up and referral plans. medication usage, Demonstrated understanding of instructions, follow-up care, medications, Prescriptions given X 4. 10:22 Patient left the ED. hb Signatures: Dispatcher [employer] EDMS Nguyễn Gutierrez MD MD cha Baxter, Heather RN RN María Fields RN RN [id number] Jason Menard RN RN ll1 Lila Reveles Corrections: (The following items were deleted from the chart) 08:10 08:07 Reassessment: No changes from previously documented assessment. Patient and/or ll1 family updated on plan of care and expected duration. Pain level reassessed. Patient is alert, oriented x 3, equal unlabored respirations, skin warm/dry/pink. jl7 10:22 10:22 Discharge instructions given to patient, Instructed on discharge instructions, hb follow up and referral plans. medication usage, Demonstrated understanding of instructions, follow-up care, medications, Prescriptions given X 3, hb
[2023-02-25 09:36] LABS: Calcium Oxalate Crystals- Ur Few /HPF (None Seen); Specific Gravity 1.018 (1.005-1.030); Urine Bacteria None Seen /HPF (<20); Urine Bilirubin NEGATIVE (Negative); Urine Blood Negative (Negative); Urine Clarity Turbid (Clear); Urine Color Light-Yellow (Yellow); Urine Glucose NEGATIVE (Negative); Urine Mucus 1+ /HPF (None Seen); Urine Protein NEGATIVE (Negative); Urine RBC <5 /HPF (None Seen); Urine Urobilinogen Normal (Normal); Urine pH 5.5 (5.0-7.0)
[2023-02-25 10:39] VITALS: TEMP 98.8; O2SAT 100
[2023-02-25 10:40] VITALS: BP 134/88
--- NOTE | 2023-02-28 19:14 | EKG ---
Test Date: 2023-02-25 Test Time: 08:05:45 Canal Tender: JAMES MEASUREMENT RESULTS: Intervals: Rate: 63 GA: 164 QRSD: 84 QT: 410 QTc: 419 [place]: P: -21 GA: 164 QRS: 67 T: 49 INTERPRETIVE STATEMENTS: Normal sinus rhythm Normal ECG Compared to ECG 03/05/2021 09:17:43 Sinus arrhythmia no longer present Electronically Signed On 02-28-23 19:08:08 CDT by Kong Terrell
== END 2023-02-25 10:22 | disposition home or self-care (01) ==
LOC: ER 07:17
DX: R10.816 Epigastric abdominal tenderness (principal); R19.7 Diarrhea, unspecified; R11.10 Vomiting, unspecified; Z88.8 Allergy status to other drugs, medicaments and biological substances
CPT/HCPCS: 96361; 85025; 81001; 36415; 83690; 80053; 74018; 96375; 96372; 96374; 99284; J2550; J2270; J2405 ×2; J7030 ×2; 93005

== ENCOUNTER 2023-09-21 20:30 | Emergency (ER) | payer OTHER ==
[2023-09-21] MEDS ORDERED: ONDANSETRON 4 MG/2 ML VIAL ONE (21:03)
[2023-09-21] MEDS ORDERED: ACETAMINOPHEN 500 MG TAB ONE (21:03)
[2023-09-21] MEDS ORDERED: NA CHLORIDE 0.9% 1,000 ML ONE (21:03)
--- NOTE | 2023-09-21 21:40 | RAD REPORT ---
EXAM DESCRIPTION: [place] Single View09/21/2023 9:23 pm CLINICAL HISTORY: Chest pain COMPARISON: 2020 FINDINGS: The lungs appear clear of acute infiltrate. The heart is normal size IMPRESSION: No acute abnormalities displayed
--- NOTE | 2023-09-21 21:44 | RAD REPORT ---
EXAM DESCRIPTION: CT - Head Brain Wo Cont - 09/21/2023 9:34 pm CLINICAL HISTORY: Headache COMPARISON: none TECHNIQUE: Computed axial tomography of the head was obtained. IV contrast was not requested. All CT scans are performed using dose optimization technique as appropriate and may include automated exposure control or mA/KV adjustment according to patient size. FINDINGS: An intracranial bleed is not seen The ventricles are normal in caliber No significant hypodense areas within the brain visualized No extra-axial fluid collection is noted. Fluid within the sinuses/ mastoids is not seen IMPRESSION: No acute intracranial abnormality is seen If patient's symptoms persist MRI of the brain would be recommended
[2023-09-21 22:38] LABS: Absolute Lymphocytes (CBC) 0.5 K/uL (0.7-4.9); Absolute Monocytes 0.3 K/uL (0.1-1.3); Absolute Neutrophil 10.2 K/uL (1.8-8.0); Basophils % 0.2 % (0-1.3); Eosinophils % 0.1 % (0-4.4); Hematocrit 45.9 % (36.0-45.0); Hemoglobin 15.9 g/dL (12.0-15.0); Lymphocytes % 4.1 % (15.3-44.8); MCH 31.3 pg (27.0-35.0); MCHC 34.7 g/dL (32.0-36.0); MCV 90.2 fL (80-100); MPV 8.4 fL (7.6-11.3); Monocytes % 2.5 % (3.3-12.3); Neutrophils % 93.1 % (41.7-73.7); Nucleated Red Blood Cells % 0.2 % (0-0); Platelets 239 thou/uL (152-406); RBC Red Blood Cell Count 5.09 M/uL (3.86-4.86); Red Cell Distribution Width 13.2 % (12.1-15.2)
[2023-09-21 22:51] LABS: Specific Gravity 1.017 (1.005-1.030)
[2023-09-21 22:52] LABS: Specific Gravity 1.017 (1.005-1.030); Sqamous Epithelial <5 /HPF (None Seen); Urine Bacteria >50 /HPF (<20); Urine Bilirubin NEGATIVE (Negative); Urine Blood Trace (Negative); Urine Clarity Extremely Turbid (Clear); Urine Color Yellow (Yellow); Urine Culture Reflex Order REFLEXED; Urine Glucose NEGATIVE (Negative); Urine Ketones TRACE (Negative); Urine Microscopic Reflex YN ORDER UMIC; Urine Mucus 1+ /HPF (None Seen); Urine Nitrite 2+ (Negative); Urine Protein NEGATIVE (Negative); Urine RBC <5 /HPF (None Seen); Urine Urobilinogen Normal (Normal); Urine WBC >50 /HPF (<5); Urine WBC Clump Rare /HPF (None Seen)
[2023-09-21 22:59] LABS: Anion Gap 11.5 mEq/L (5.0-15.0); BUN Blood Urea Nitrogen 9 mg/dL (7-18); Bicarbonate 20 mEq/L (21-32); Glomerular Filtration Rate 71 ml/min (=/>90); Glucose Level 88 mg/dL (74-106); Potassium 3.5 mEq/L (3.5-5.1); Sodium Level 133 mEq/L (136-145)
[2023-09-21 23:07] LABS: Troponin High Sensitivity < 3.0 pg/mL (<58.9)
[2023-09-21] MEDS ORDERED: CEFTRIAXONE 1000 MG/VIAL ONE (23:08)
[2023-09-21] MEDS ORDERED: NA CHLORIDE 0.9% 50 ML ONE (23:09)
--- NOTE | 2023-09-21 23:50 | ER ---
Nurse's Notes [facility] Name: Debbie Rojo Age: 33 yrs Sex: Female : 1990 Arrival Date: 09/21/2023 Time: 20:30 Bed 11 Private MD: Diagnosis: UTI/ Urinary tract infection, site not specified;Dehydration Presentation: 09/20 20:38 Chief complaint: Patient states: " I just don't feel well". Reports headache, body cp4 aches and balance issues. Coronavirus screen: Client denies travel out of the [place] in the last 14 days. At this time, the client does not indicate any symptoms associated with coronavirus-19. Ebola Screen: Patient negative for fever greater than or equal to 101.5 degrees Fahrenheit, and additional compatible Ebola Virus Disease symptoms Patient denies exposure to infectious person. Patient denies travel to an Ebola-affected area in the 21 days before illness onset. No symptoms or risks identified at this time. Initial Sepsis Screen: Does the patient meet any 2 criteria? HR > 90 bpm. Does the patient have a suspected source of infection? No. Patient's initial sepsis screen is negative. 20:38 Method Of Arrival: Ambulatory cp4 20:38 Risk Assessment: Do you want to hurt yourself or someone else? Patient reports no cp4 desire to harm self or others. Onset of symptoms was September 21, 2023. 20:38 Acuity: PATTI 3 cp4 Triage Assessment: 20:41 Headache History: Denies prior headaches. General: Appears uncomfortable, Behavior is cp4 calm, cooperative, appropriate for age. Pain: Pain currently is 8 out of 10 on a pain scale. Pain began gradually, Also complains of nausea, inability to concentrate. Neuro: No deficits noted. Reports headache. 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 - Infectious Disease History:: Denies. CDIFF, C. Auris, ESBL, MRSA (w/in 1 year), VRE (w/in 1 year), TB, . - Social history:: Smoking status: Patient reports the use of cigarette tobacco products, smokes one pack cigarettes per day. Screenin:09 [facility] ED Fall Risk Assessment (Adult) History of falling in the last 3 months, bm8 including since admission No falls in past 3 months (0 pts) Confusion or Disorientation No (0 pts) Intoxicated or Sedated No (0 pts) Impaired Gait No (0 pts) Mobility Assist Device Used No (0 pt) Altered Elimination No (0 pt) Score/Fall Risk Level 0 - 2 = Low Risk Oriented to surroundings, Maintained a safe environment, Educated pt \\T\\ family on fall prevention, incl call for assistance when getting out of bed. Abuse screen: Denies threats or abuse. Nutritional screening: No deficits noted. Tuberculosis screening: No symptoms or risk factors identified. Assessment: 21:09 Reassessment: Patient appears in no apparent distress at this time. Patient and/or bm8 family updated on plan of care and expected duration. Pain level reassessed. Patient is alert, oriented x 3, equal unlabored respirations, skin warm/dry/pink. General: Appears in no apparent distress. uncomfortable, Behavior is calm, cooperative, appropriate for age. Pain: Complains of pain in face Pain does not radiate. Pain currently is 8 out of 10 on a pain scale. Neuro: No deficits noted. Level of Consciousness is awake, alert, obeys commands, Oriented to person, place, time, situation, Appropriate for age Reports headache frontal area. Cardiovascular: Reports chest pain, nausea, vomiting, Heart tones S1 S2 present Capillary refill < 3 seconds Patient's skin is warm and dry. Rhythm is sinus tachycardia. Respiratory: No deficits noted. Airway is patent Respiratory effort is even, unlabored, Respiratory pattern is regular, symmetrical. GI: Reports intolerance of fluids, intolerance of food, nausea, vomiting, since this morning. : No deficits noted. No signs and/or symptoms were reported regarding the genitourinary system. EENT: No deficits noted. No signs and/or symptoms were reported regarding the EENT system. Derm: No deficits noted. No signs and/or symptoms reported regarding the dermatologic system. Musculoskeletal: No deficits noted. No signs and/or symptoms reported regarding the musculoskeletal system. 22:42 Reassessment: Patient and/or family updated on plan of care and expected duration. Pain bm8 level reassessed. Patient is alert, oriented x 3, equal unlabored respirations, skin warm/dry/pink. Patient states symptoms have improved. General: Appears in no apparent distress. comfortable, Behavior is calm, cooperative, appropriate for age. Pain: Complains of pain in face Pain does not radiate. Pain currently is 6 out of 10 on a pain scale. Quality of pain is described as aching. Neuro: No deficits noted. Level of Consciousness is awake, alert, obeys commands, Oriented to person, place, time, situation, Appropriate for age. Cardiovascular: No deficits noted. Denies chest pain, lightheadedness, nausea, shortness of breath, Heart tones S1 S2 present Capillary refill < 3 seconds Patient's skin is warm and dry. Respiratory: No deficits noted. Airway is patent Respiratory effort is even, unlabored, Respiratory pattern is regular, symmetrical, Breath sounds are clear bilaterally. GI: No deficits noted. No signs and/or symptoms were reported involving the gastrointestinal system. : No deficits noted. No signs and/or symptoms were reported regarding the genitourinary system. EENT: No deficits noted. No signs and/or symptoms were reported regarding the EENT system. Derm: No deficits noted. No signs and/or symptoms reported regarding the dermatologic system. Musculoskeletal: Reports crampy in left leg from the way she is laying in bed. this nurse recommended she roll from one side the other every thirty mins to see if that improves. 09/21 00:15 Reassessment: No changes from previously documented assessment. Patient and/or family bm8 updated on plan of care and expected duration. Pain level reassessed. Patient is alert, oriented x 3, equal unlabored respirations, skin warm/dry/pink. Patient states feeling better. Patient states symptoms have improved. Vital Signs: 09/20 20:38 BP 121 / 83; Pulse 145; Resp 18; Temp 100.5; Pulse Ox 99% ; Weight 54.43 kg; Height 5 cp4 ft. 2 in. ; Pain 9/10; 21:09 BP 112 / 76; Pulse 111; Resp 15; Temp 100.5; Pulse Ox 99% ; Pain 8/10; bm8 22:42 BP 100 / 71; Pulse 101; Resp 17; Temp 99.3; Pulse Ox 99% on R/A; Pain 6/10; bm8 09/21 00:15 BP 116 / 75; Pulse 94; Resp 17; Temp 99.1; Pulse Ox 99% on R/A; Pain 3/10; bm8 09/20 20:38 Body Mass Index 21.95 (54.43 kg, 157.48 cm) cp4 09/20 20:38 Pain Scale: Adult cp4 21:09 Pain Scale: Adult bm8 22:42 Pain Scale: Adult bm8 09/21 00:15 Pain Scale: Adult bm8 [place] Coma Score: 09/20 23:30 Eye Response: spontaneous(4). Motor Response: obeys commands(6). Verbal Response: kb oriented(5). Total: 15. 09/21 00:15 Eye Response: spontaneous(4). Motor Response: obeys commands(6). Verbal Response: bm8 oriented(5). Total: 15. ED Course: 09/20 20:35 Patient arrived in ED. jj6 20:35 Oumou Robledo FNP-C is PHCP. kb 20:35 Shmuel Larkin MD is Attending Physician. kb 20:39 Colton Nick, RN is Primary Nurse. bm8 20:41 Triage completed. cp4 20:41 Arm band placed on right wrist. Patient placed in an exam room, on a stretcher. cp4 20:53 EKG done, by ED staff, reviewed by Shmuel Larkin MD. km8 21:09 Patient has correct armband on for positive identification. Placed in gown. Bed in low bm8 position. Call light in reach. Side rails up X 1. Adult w/ patient. Client placed on continuous cardiac and pulse oximetry monitoring. NIBP monitoring applied. money examiner on. Pulse ox on. NIBP on. Door closed. Noise minimized. Visitors limited. Lights dimmed. PO fluids given. Verbal reassurance given. Head of bed. 21:09 No provider procedures requiring assistance completed. Initial lab(s) drawn, by xiomara thomas sent to lab. Urine collected: clean catch specimen, clear, COVID swab sent to lab. Flu and/or RSV swab sent to lab. Inserted saline lock: 20 gauge in left antecubital area, using aseptic technique. Blood collected. O2 via pt is 99% on ra. 21:15 Basic Metabolic Panel Sent. bm8 21:15 CBC with Diff Sent. bm8 21:15 Troponin HS Sent. bm8 21:15 Test, Urine Sent. bm8 21:15 Urinalysis w/ reflexes Sent. bm8 21:24 XRAY Chest (1 view) In Process Unspecified. EDMS 21:36 CT Head Brain wo Cont In Process Unspecified. EDMS 09/21 00:15 Provided Education on: POST ER care. bm8 00:15 IV discontinued, intact, bleeding controlled, No redness/swelling at site. Pressure bm8 dressing applied. Administered Medications: 09/20 21:02 Drug: NS 0.9% IV 1000 ml IV at 1000 ml once Route: IV; Rate: 1000 ml; Site: left 8 antecubital; 23:06 Follow up: Response: No adverse reaction; IV Status: Completed infusion; IV Intake: bm8 1000ml 21:02 Drug: Ondansetron IVP 4 mg IVP once; over 2 minutes Route: IVP; Site: right antecubital;bm8 23:15 Follow up: Response: No adverse reaction bm8 21:02 Drug: Acetaminophen PO 1000 mg PO once Route: PO; bm8 23:15 Follow up: Response: No adverse reaction bm8 23:14 Drug: Rocephin IV 1 grams IV at calculated rate once; Given slow IV push per pharmacy bm8 instructions Route: IV; Rate: calculated rate; Site: right antecubital; 09/21 00:47 Follow up: Response: No adverse reaction; IV Status: Completed infusion; IV Intake: [id number] Medication: 09/20 21:09 VIS not applicable for this client. bm8 Intake: 23:06 IV: 1000ml; Total: 1000ml. bm8 09/21 00:47 IV: 50ml; Total: 1050ml. bm8 Outcome: 09/20 23:49 Discharge ordered by MD. santizo 09/21 00:10 Patient left the ED. km8 00:15 Discharged to home ambulatory, bm8 00:15 Condition: stable 00:15 Discharge instructions given to patient, family, Instructed on discharge instructions, follow up and referral plans. medication usage, safety practices, Demonstrated understanding of Prescriptions given X 1, Signatures: Dispatcher [employer] EDMS Oumou Robledo, CHANA CEPHALOMETRIC TRACER-Ckb Moira Fraser [id number] Steph Hogue cp4 Fara Kumar, RN RN km8 Colton Nick RN RN bm8 Corrections: (The following items were deleted from the chart) 09/20 23:15 23:14 Ondansetron IVP 4 mg IVP in right antecubital bm8 bm8
--- NOTE | 2023-09-21 23:50 | EDPHYS ---
Physician Documentation [facility] Name: Debbie Rojo Age: 33 yrs Sex: Female : 1990 Arrival Date: 09/21/2023 Time: 20:30 Bed 11 Private MD: ED Physician Shmuel Larkin HPI: 09/20 23:31 This 33 yrs old Female presents to ER via Ambulatory with complaints of Headache, Pt kb states she feels like her nerves are on fire. 23:31 Pt is a 33 year old female who presents for headache, nausea, bodyaches, malaise, and kb unsteady gait that started today. Denies vomiting, diarrhea, fever. . 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 - Infectious Disease History:: Denies. CDIFF, C. Auris, ESBL, MRSA (w/in 1 year), VRE (w/in 1 year), TB, . - Social history:: Smoking status: Patient reports the use of cigarette tobacco products, smokes one pack cigarettes per day. ROS: 23:30 Constitutional: As per HPI kb Exam: 23:30 Constitutional: This is a well developed, well nourished patient who is awake, alert, kb and in no acute distress. Head/Face: Normocephalic, atraumatic. ENT: Moist Mucous membranes Cardiovascular: Regular rate Respiratory: Respirations even and unlabored. No increased work of breathing. Talking in full sentences Abdomen/GI: Soft, non-tender. No distention Skin: Warm, dry with normal turgor. Normal color. MS/ Extremity: Pulses equal, no cyanosis. Neurovascular intact. Full, normal range of motion. Neuro: Awake and alert, GCS 15, oriented to person, place, time, and situation. Moves all extremities. Normal gait. Vital Signs: 20:38 BP 121 / 83; Pulse 145; Resp 18; Temp 100.5; Pulse Ox 99% ; Weight 54.43 kg; Height 5 cp4 ft. 2 in. ; Pain 9/10; 21:09 BP 112 / 76; Pulse 111; Resp 15; Temp 100.5; Pulse Ox 99% ; Pain 8/10; bm8 22:42 BP 100 / 71; Pulse 101; Resp 17; Temp 99.3; Pulse Ox 99% on R/A; Pain 6/10; bm8 09/21 00:15 BP 116 / 75; Pulse 94; Resp 17; Temp 99.1; Pulse Ox 99% on R/A; Pain 3/10; bm8 09/20 20:38 Body Mass Index 21.95 (54.43 kg, 157.48 cm) cp4 09/20 20:38 Pain Scale: Adult cp4 21:09 Pain Scale: Adult bm8 22:42 Pain Scale: Adult bm8 09/21 00:15 Pain Scale: Adult bm8 Lorri Coma Score: 09/20 23:30 Eye Response: spontaneous(4). Motor Response: obeys commands(6). Verbal Response: kb oriented(5). Total: 15. 09/21 00:15 Eye Response: spontaneous(4). Motor Response: obeys commands(6). Verbal Response: bm8 oriented(5). Total: 15. MDM: 09/20 20:36 Patient medically screened. kb 23:30 Differential diagnosis: flu, covid, abnormal electrolytes, dehydration, uti. Data kb reviewed: vital signs, nurses notes. 23:41 Counseling: I had a detailed discussion with the patient and/or guardian regarding the kb historical points, exam findings, and any diagnostic results supporting the discharge/admit diagnosis, lab results, radiology results, the need for outpatient follow up, a family practitioner, to return to the emergency department if symptoms worsen or persist or if there are any questions or concerns that arise at home. 09/20 20:40 Order name: Basic Metabolic Panel; Complete Time: 23:08 kb 09/20 20:40 Order name: CBC with Diff kb 09/20 20:40 Order name: Troponin HS; Complete Time: 23:08 kb 09/20 20:40 Order name: Flu; Complete Time: 23:41 kb 09/20 20:40 Order name: Test, Urine; Complete Time: 22:52 kb 09/20 20:40 Order name: Urinalysis w/ reflexes; Complete Time: 23:00 kb 09/20 22:18 Order name: SARS-COV-2 RT PCR; Complete Time: 23:33 EDMS 09/20 22:44 Order name: Manual Differential EDMS 09/20 22:55 Order name: Urine Culture EDMN 09/20 20:40 Order name: XRAY Chest (1 view); Complete Time: 21:41 kb 09/20 20:40 Order name: CT Head Brain wo Cont; Complete Time: 21:54 kb 09/20 20:40 Order name: EKG; Complete Time: 20:40 kb 09/20 20:40 Order name: Cardiac monitoring; Complete Time: 20:49 kb 09/20 20:40 Order name: EKG - Nurse/Tech; Complete Time: 20:49 kb 09/20 20:40 Order name: IV Saline Lock; Complete Time: 21:14 kb 09/20 20:40 Order name: Labs collected and sent; Complete Time: 21:14 kb 09/20 20:40 Order name: O2 Per Protocol; Complete Time: 20:49 kb 09/20 20:40 Order name: O2 Sat Monitoring; Complete Time: 20:49 kb Administered Medications: 21:02 Drug: NS 0.9% IV 1000 ml IV at 1000 ml once Route: IV; Rate: 1000 ml; Site: left [facility] antecubital; 23:06 Follow up: Response: No adverse reaction; IV Status: Completed infusion; IV Intake: bm8 1000ml 21:02 Drug: Ondansetron IVP 4 mg IVP once; over 2 minutes Route: IVP; Site: right antecubital;[facility] 23:15 Follow up: Response: No adverse reaction bm8 21:02 Drug: Acetaminophen PO 1000 mg PO once Route: PO; bm8 23:15 Follow up: Response: No adverse reaction 8 23:14 Drug: Rocephin IV 1 grams IV at calculated rate once; Given slow IV push per pharmacy bm8 instructions Route: IV; Rate: calculated rate; Site: right antecubital; 09/21 00:47 Follow up: Response: No adverse reaction; IV Status: Completed infusion; IV Intake: [id number] Disposition: 07:29 Co-signature as Attending Physician, Shmuel Larkin MD I agree with the assessment sp4 and plan of care. I reviewed the patient's care provided by the Advanced Practice Provider and agree with the diagnosis and treatment plan. Disposition Summary: 09/21/23 23:49 Discharge Ordered Notes: Location: Home kb Condition: Stable kb Diagnosis - UTI/ Urinary tract infection, site not specified kb - Dehydration kb Followup: kb - With: Emergency Department - When: As needed - Reason: Worsening of condition Followup: kb - With: Private Physician - When: 2 - 3 days - Reason: Recheck today's complaints, Continuance of care, Re-evaluation by your physician Discharge Instructions: - Discharge Summary Sheet kb - Dehydration, Adult kb - Urinary Tract Infection, Adult, [id number] kb Forms: - Medication Reconciliation Form kb - Thank You Letter kb - Antibiotic Education kb - Prescription Opioid Use kb - Patient Portal Instructions kb - Leadership Thank You Letter kb Prescriptions: - Augmentin 875-125 mg Oral Tablet - take 1 tablet ORAL route every 12 hours for 10 days; 20 tablet; Refills: 0, kb Product Selection Permitted Signatures: Dispatcher [employer] EDMN Oumou Robledo, ROAD ADVISOR-C ROAD ADVISOR-Shmuel Lanza MD MD sp4 Steph Hogue cp4 Colton Nick, RN RN bm8 Corrections: (The following items were deleted from the chart) 09/20 22:18 20:40 SARS-COV-2 Antigen Rapid+I.LAB.BRZ ordered. [facility] 23:33 23:31 Pt is a 33 year old female who presents for headache, nausea, bodyaches, malaise, kb and unsteady gait . kb
[2023-09-22 00:20] LABS: Band Neutrophils 16 % (0-1); Blood Morphology Comment NOT SEEN (NOT SEEN); Differential Total Cells Count 100; Lymphocytes 5 % (15-42); Monocytes 2 % (0-10); Platelet Estimate ADEQ; Segmented Neutrophils 77 % (40-80)
[2023-09-22 03:32] VITALS: O2SAT 99
[2023-09-22 04:04] VITALS: BP 100/71; TEMP 99.3
--- NOTE | 2023-09-22 17:47 | EKG ---
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
== END 2023-09-22 00:10 | disposition home or self-care (01) ==
LOC: ER 20:30
DX: N39.0 Urinary tract infection, site not specified (principal); E86.0 Dehydration; F17.210 Nicotine dependence, cigarettes, uncomplicated; Z11.52 Encounter for screening for COVID-19; Z88.8 Allergy status to other drugs, medicaments and biological substances
CPT/HCPCS: 96365; 96361; 93005; 87088; 85025; 81001; 87086; 80048; 36415; 81025; 84484; 87635; 87804 ×2; 70450; 71045; 96375; 99285; 96366; J2405; J7030; J0696; 87077; 87186

== ENCOUNTER 2024-06-25 07:03 | Emergency (ER) | payer OTHER ==
[2024-06-25 07:56] LABS: Absolute Basophils 0.1 K/uL (0-0.5); Absolute Eosinophils 0.3 K/uL (0-0.5); Absolute Monocytes 0.4 K/uL (0.1-1.3); Basophils % 1.1 % (0-1.3); Eosinophils % 3.3 % (0-4.4); Hematocrit 43.3 % (36.0-45.0); Hemoglobin 14.8 g/dL (12.0-15.0); Lymphocytes % 25.4 % (15.3-44.8); MCH 30.9 pg (27.0-35.0); MCHC 34.2 g/dL (32.0-36.0); MCV 90.2 fL (80-100); MPV 7.6 fL (7.6-11.3); Monocytes % 5.3 % (3.3-12.3); Neutrophils % 64.9 % (41.7-73.7); Nucleated Red Blood Cells % 0.1 % (0-0); Platelets 330 thou/uL (152-406); Red Cell Distribution Width 13.3 % (12.1-15.2)
[2024-06-25 08:02] LABS: Specific Gravity 1.026 (1.005-1.030); Sqamous Epithelial <5 /HPF (None Seen); Urine Bacteria 20-50 /HPF (<20); Urine Bilirubin NEGATIVE (Negative); Urine Blood Negative (Negative); Urine Clarity Extremely Turbid (Clear); Urine Color Light-Yellow (Yellow); Urine Culture Reflex Order REFLEXED; Urine Glucose NEGATIVE (Negative); Urine Ketones NEGATIVE (Negative); Urine Microscopic Reflex YN ORDER UMIC; Urine Mucus Slight /HPF (None Seen); Urine Nitrite 2+ (Negative); Urine Protein NEGATIVE (Negative); Urine RBC <5 /HPF (None Seen); Urine Urobilinogen Normal (Normal)
--- NOTE | 2024-06-25 08:03 | RAD REPORT ---
EXAMINATION: CT ABDOMEN AND PELVIS WITH CONTRAST CLINICAL INDICATION: Abdominal pain TECHNIQUE: CT abdomen and pelvis was performed, after the administration of 100 cc Isovue-300.. Sagit raquel and coronal reconstructions were obtained. One or more of the following dose reduction techniques were used: Automated exposure control, adjustment of the mA and kV according to patient si ze, and iterative reconstruction. Unless otherwise specified, incidental findings do not require dedicated imaging follow-up. [id number]. Oral contrast was not given which limits evaluation of bowel and appendix. COMPARISON: .2020 FINDINGS: Liver, spleen, pancreas, adrenals and kidneys appear unremarkable Cholecystectomy. No evidence of diverticulitis. Fluid within nondilated large and small bowel. Hysterectomy. No adnexal mass : IMPRESSION: Fluid within nondilated large and small bowel may indicate an enteritis
[2024-06-25 08:10] LABS: Albumin 3.4 g/dL (3.4-5.0); Albumin/Globulin Ratio 0.8 (1.1-1.8); Anion Gap 9.6 mEq/L (5.0-15.0); Bilirubin Total 0.5 mg/dL (0.2-1.0); Globulin 4.2 g/dL (2.3-3.5); Potassium 3.6 mEq/L (3.5-5.1); Protein, Total 7.6 g/dL (6.4-8.2)
--- NOTE | 2024-06-25 08:51 | EDPHYS ---
Physician Documentation [facility] Name: Debbie Rojo Age: 34 yrs Sex: Female : 1990 Arrival Date: 06/25/2024 Time: 07:03 Bed 6 Private MD: ED Physician Owen Barrios HPI: 06/25 07:51 This 34 yrs old Female presents to ER via Ambulatory with complaints of Abdominal Pain. ms3 07:51 Debbie Rojo is a 34-year-old female presenting to the emergency department with ms3 upper abdominal pain. She reports that her pain began four days ago. On a scale of one to ten, she rates her pain as an 8/10. She reports nausea but not having vomiting, diarrhea, chest pain, shortness of breath. Patient denies any alleviating or inciting factors. She has a past medical history of diabetes and mentions having a high heart rate, possibly related to arrhythmia.. 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 - Infectious Disease History:: Denies. - Social history:: Smoking status: Patient reports the use of cigarette tobacco products. ROS: 07:51 Constitutional: Negative for fever, and chills. Cardiovascular: Negative for chest ms3 pain, and palpitations. Respiratory: Negative for shortness of breath, cough, wheezing, and pleuritic chest pain, 07:51 MS/Extremity: Negative for injury and deformity, Skin: Negative for injury, rash, and discoloration, 07:51 Abdomen/GI: Positive for abdominal pain, nausea, Exam: 07:51 Constitutional: This is a well developed, well nourished patient who is awake, alert, ms3 and in no acute distress. Cardiovascular: Regular rate and rhythm with a normal S1 and S2. No gallops, murmurs, or rubs. Normal PMI, no JVD. No pulse deficits. Respiratory: Lungs have equal breath sounds bilaterally, clear to auscultation and percussion. No rales, rhonchi or wheezes noted. No increased work of breathing, no retractions or nasal flaring. 07:51 Abdomen/GI: Inspection: abdomen appears normal, Bowel sounds: normal, in all quadrants, Palpation: mild abdominal tenderness, in the epigastric area, 08:10 ECG was reviewed by the Attending Physician. ms3 Vital Signs: 07:24 BP 140 / 93; Pulse 92; Resp 18; Temp 97.9; Pulse Ox 100% on R/A; Weight 68.04 kg; iw Height 5 ft. 2 in. ; Pain 8/10; 08:08 BP 120 / 81; Pulse 76; Resp 16 S; Pulse Ox 100% on R/A; kc6 08:55 BP 112 / 80; Pulse 73; Resp 17 S; Pulse Ox 100% on R/A; kc6 07:24 Body Mass Index 27.44 (68.04 kg, 157.48 cm) iw 07:24 Pain Scale: Adult iw MDM: 07:24 Medical Screening Exam initiated ms3 07:51 Differential diagnosis: bowel obstruction, gastritis, non-specific abd pain, ms3 pancreatitis. 08:51 Data reviewed: vital signs, nurses notes, lab test result(s), EKG, radiologic studies, ms3 CT scan, and as a result, I will discharge patient. I considered the following discharge prescriptions or medication management in the emergency department Medications were administered in the Emergency Department. See MAR. Independent interpretation of the following test(s) in the Emergency Department EKG: See my EKG interpretation above. Counseling: I had a detailed discussion with the patient and/or guardian regarding the historical points, exam findings, and any diagnostic results supporting the discharge/admit diagnosis, lab results, radiology results, the need for outpatient follow up, to return to the emergency department if symptoms worsen or persist or if there are any questions or concerns that arise at home. Special discussion: Based on the patient's Hx, exam, and Dx evaluation, there is no indication for emergent surgery or inpatient Tx. It is understood by the patient/guardian that if the Sx's persist or worsen they need to return immediately for re-evaluation. ED course: Discussed labs, EKG, and CT scan findings with patient. Discussed with patient CT findings suggestive of enteritis. Return precautions discussed include fevers, chills, lightheadedness, worsening symptoms, or any other concerns. Patient to follow-up with Dr. Huddleston and gastroenterology in 2 to 3 days. Patient understands and agrees with plan. On reevaluation patient is alert and oriented x 4, no apparent distress, nontoxic-appearing, speaking full sentences, ambulatory in the emergency department.. 06/25 07:10 Order name: CBC with Diff; Complete Time: 08:09 ms3 06/25 07:10 Order name: CMP; Complete Time: 08:16 ms3 06/25 07:10 Order name: Lipase; Complete Time: 08:16 ms3 06/25 07:10 Order name: Urinalysis w/ reflexes; Complete Time: 08:09 ms3 06/25 08:05 Order name: Urine Culture EDMS 06/25 07:25 Order name: CT Abd/Pelvis - IV Contrast Only; Complete Time: 08:09 ms3 06/25 07:10 Order name: IV Saline Lock; Complete Time: 07:42 ms3 06/25 07:10 Order name: Labs collected and sent; Complete Time: 07:42 ms3 06/25 07:56 Order name: EKG - Nurse/Tech; Complete Time: 08:07 ms3 EC:10 Rate is 84 beats/min. Rhythm is regular. QRS [place] is Normal. NH interval is normal. ms3 Clinical impression: NSR w/ Non-specific ST/T Changes. Interpreted by me. Reviewed by me. Administered Medications: No medications were administered Disposition Summary: 06/25/24 08:51 Discharge Ordered Notes: Location: Home ms3 Condition: Stable ms3 Diagnosis - Upper abdominal pain, unspecified ms3 - UTI/ Urinary tract infection, site not specified ms3 Followup: ms3 - With: Rafi Huddleston DO - When: 2 - 3 days - Reason: Recheck today's complaints Followup: ms3 - With: Jefferson Mi MD - When: 2 - 3 days - Reason: Recheck today's complaints Discharge Instructions: - Discharge Summary Sheet ms3 - Abdominal Pain, Adult ms3 - Urinary Tract Infection, Adult ms3 Forms: - Medication Reconciliation Form ms3 - Antibiotic Education ms3 - Prescription Opioid Use ms3 - Patient Portal Instructions ms3 - Leadership Thank You Letter ms3 Prescriptions: - Pepcid 20 mg Oral Tablet - take 1 tablet ORAL route every 12 hours for 5 days; 10 tablet; Refills: 0, ms3 Product Selection Permitted - cefpodoxime 100 mg Oral Tablet - take 1 tablet ORAL route every 12 hours for 10 days take with food; 20 tablet; ms3 Refills: 0, Product Selection Permitted Signatures: Dispatcher [employer] Marisa Velasco, RN RN iw Owen Barrios DO DO ms3 Corrections: (The following items were deleted from the chart) 07:27 07:10 Test, Urine+UC.LAB.BRZ ordered. ARNULFO ARREDONDO
--- NOTE | 2024-06-25 08:51 | ER ---
Nurse's Notes [facility] Name: Debbie Rojo Age: 34 yrs Sex: Female : 1990 Arrival Date: 06/25/2024 Time: 07:03 Bed 6 Private MD: Diagnosis: Upper abdominal pain, unspecified;UTI/ Urinary tract infection, site not specified Presentation: 06/25 07:22 Chief complaint: Patient states: upper abd pain X 3-4 days, denies v/d. Coronavirus iw screen: At this time, the client does not indicate any symptoms associated with coronavirus-19. Ebola Screen: No symptoms or risks identified at this time. Initial Sepsis Screen: Does the patient meet any 2 criteria? No. Patient's initial sepsis screen is negative. Does the patient have a suspected source of infection? No. Patient's initial sepsis screen is negative. Risk Assessment: Do you want to hurt yourself or someone else? Patient reports no desire to harm self or others. Onset of symptoms was June 22, 2024. 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 - Infectious Disease History:: Denies. - Social history:: Smoking status: Patient reports the use of cigarette tobacco products. Screenin:43 [facility] ED Fall Risk Assessment (Adult) History of falling in the last 3 months, kc6 including since admission No falls in past 3 months (0 pts) Confusion or Disorientation No (0 pts) Intoxicated or Sedated No (0 pts) Impaired Gait No (0 pts) Mobility Assist Device Used No (0 pt) Altered Elimination No (0 pt) Score/Fall Risk Level 0 - 2 = Low Risk Oriented to surroundings, Maintained a safe environment. Abuse screen: Denies threats or abuse. Denies injuries from another. Nutritional screening: No deficits noted. Tuberculosis screening: No symptoms or risk factors identified. Assessment: 07:43 General: Appears in no apparent distress. comfortable, well groomed, well developed, kc6 Behavior is calm, cooperative, appropriate for age. Pain: Complains of pain in epigastric area Pain does not radiate. Pain currently is 8 out of 10 on a pain scale. Quality of pain is described as sharp, Pain began 2-3 days ago. Is continuous, Noted to be grimacing, guarding. Neuro: Level of Consciousness is awake, alert, obeys commands, Oriented to person, place, time, situation, Appropriate for age. Cardiovascular: Capillary refill < 3 seconds. Respiratory: Airway is patent Trachea midline Respiratory effort is even, unlabored, Respiratory pattern is regular, symmetrical. GI: Abdomen is round non-distended, Bowel sounds present X 4 quads. Abd is soft X 4 quads Abdomen is tender to palpation in epigastric area Reports upper abdominal pain, epigastric pain, indigestion, nausea, Patient currently denies diarrhea, vomiting. : No signs and/or symptoms were reported regarding the genitourinary system. Urine is cloudy. EENT: No signs and/or symptoms were reported regarding the EENT system. Derm: No signs and/or symptoms reported regarding the dermatologic system. Skin is intact, is healthy with good turgor, Skin is pink, warm \T\ dry. Musculoskeletal: No signs and/or symptoms reported regarding the musculoskeletal system. Circulation, motion, and sensation intact. Range of motion: intact in all extremities. 08:55 Reassessment: Patient appears in no apparent distress at this time. No changes from kc6 previously documented assessment. Patient and/or family updated on plan of care and expected duration. Pain level reassessed. Patient is alert, oriented x 3, equal unlabored respirations, skin warm/dry/pink. Vital Signs: 07:24 BP 140 / 93; Pulse 92; Resp 18; Temp 97.9; Pulse Ox 100% on R/A; Weight 68.04 kg; iw Height 5 ft. 2 in. ; Pain 8/10; 08:08 BP 120 / 81; Pulse 76; Resp 16 S; Pulse Ox 100% on R/A; kc6 08:55 BP 112 / 80; Pulse 73; Resp 17 S; Pulse Ox 100% on R/A; kc6 07:24 Body Mass Index 27.44 (68.04 kg, 157.48 cm) iw 07:24 Pain Scale: Adult iw ED Course: 07:09 Patient arrived in ED. sj2 07:10 Owen Barrios DO is Attending Physician. ms3 07:22 Angie Wilkes RN is Primary Nurse. kc6 07:23 Triage completed. iw 07:24 Arm band placed on. iw 07:43 Patient has correct armband on for positive identification. Bed in low position. Call kc6 light in reach. Side rails up X 1. Pulse ox on. NIBP on. Door closed. Noise minimized. Lights dimmed. Warm blanket given. Pillow given. 07:43 Initial lab(s) drawn, by me, sent to lab. Urine collected: clean catch specimen, kc6 cloudy. Inserted saline lock: 20 gauge in right wrist, using aseptic technique. Blood collected. Flushed with 10 mL NS. Patient maintains SpO2 saturation greater than 95% on room air. 07:53 CT Abd/Pelvis - IV Contrast Only In Process Unspecified. EDMS 08:07 EKG done, by ED staff, reviewed by Owen Barrios DO. kc6 08:50 Rafi Huddleston DO is Referral Physician. ms3 08:50 Jefferson Mi MD is Referral Physician. ms3 08:55 No provider procedures requiring assistance completed. kc6 08:58 Provided Education on: discharge instructions. ap3 08:58 IV discontinued, intact, bleeding controlled, No redness/swelling at site. Pressure ap3 dressing applied. Administered Medications: No medications were administered Medication: 08:55 VIS not applicable for this client. kc6 Outcome: 08:51 Discharge ordered by . ms3 08:58 Discharged to home ambulatory, ap3 08:58 Condition: good 08:58 Discharge instructions given to patient, Instructed on discharge instructions, follow up and referral plans. medication usage, Demonstrated understanding of instructions, follow-up care, medications, Prescriptions given X 2, 08:58 Patient left the ED. ap3 Addendum: 06/28/2024 07:25 Addendum: Culture Results: Positive urine culture. No further action required. Bacteria s s sensitive to prescribed antibiotic. Signatures: Dispatcher [employer] EDMS Marisa Arias RN RN Marta Benson RN RN ss Prokisch, Amanda, RN RN ap3 Owen Barrios DO DO ms3 Angie Wilkes RN RN kc6 Federica, Rafael sj2
[2024-06-26 16:37] VITALS: BP 112/80; TEMP 97.9; O2SAT 100
--- NOTE | 2024-06-28 12:08 | EKG ---
Test Date: 2024-06-25 Test Time: 08:05:57 Dish Technician: BLAZE MEASUREMENT RESULTS: Intervals: Rate: 84 MT: 180 QRSD: 82 QT: 378 QTc: 446 [place]: P: -8 MT: 180 QRS: 65 T: 54 INTERPRETIVE STATEMENTS: Normal sinus rhythm Low voltage QRS Cannot rule out Anterior infarct, age undetermined Abnormal ECG Compared to ECG 09/21/2023 20:46:53 Low QRS voltage now present Sinus tachycardia no longer present Myocardial infarct finding still present Electronically Signed On 06-28-24 12:07:17 FISH ROE PROCESSOR by Juan Stokes
== END 2024-06-25 08:58 | disposition home or self-care (01) ==
LOC: ER 07:03
DX: N39.0 Urinary tract infection, site not specified (principal)
CPT/HCPCS: 93005; 87088; 85025; 81001; 87086; 36415; 87077; 87186; 83690; 80053; 74177; 99284; Q9967